=== PATIENT | male | born 1970 | race Caucasian/White ===

== ENCOUNTER 2020-05-11 08:46 | Inpatient (IN) | payer BC, MEDICAID, SELFPAY ==
[2020-05-11] VITALS (14 sets, daily range): BP systolic 97–158; BP diastolic 57–87; PULSE 72–121; RESP 12–28; TEMP 36.6–37.1; O2SAT 84–97; BMI 37.1; BMI 38.5
--- NOTE | 2020-05-11 | XR_ITS ---
EXAMINATION: XR CHEST CLINICAL INFORMATION: Right pneumothorax. Status post right chest tube placement. COMPARISON: 05/11/2020 chest radiograph. TECHNIQUE: Frontal view of the chest was obtained. FINDINGS: Support devices: Interval placement of right sided pigtail catheter with tip terminating laterally in the right apex. There is a persistent tiny right apical pneumothorax measuring approximately 1.8 cm from the superior apical margin. The right lung is otherwise clear. The left lung is clear. The heart and mediastinal structures are unremarkable. There is no significant cardiomediastinal shift. IMPRESSION: 1. Significant interval decrease in size of right pneumothorax with persistent tiny right apical pneumothorax status post right chest tube placement as detailed above.
--- NOTE | 2020-05-11 | XR_ITS ---
EXAMINATION: XR CHEST CLINICAL INFORMATION: Shortness of breath COMPARISON: None TECHNIQUE: Frontal view of the chest was obtained. FINDINGS: The cardiac and mediastinal contours are normal. There is a moderate to large right pneumothorax. The left lung is clear. There is no pleural effusion. Bony structures are unremarkable. IMPRESSION: Moderate to large right pneumothorax. Findings were communicated to Dr. Cotter by telephone on 05/11/2020 at 10:11 AM.
--- NOTE | 2020-05-11 09:33 | ECG_ITS ---
Test Reason : SOB Blood Pressure : / mmHG Vent. Rate : 111 BPM Atrial Rate : 111 BPM P-R Int : 134 ms QRS Dur : 076 ms QT Int : 328 ms P-R-T Axes : 094 057 075 degrees QTc Int : 446 ms Sinus tachycardia Cannot rule out Inferior infarct , age undetermined Abnormal ECG No previous ECGs available Referred By: Joyce España Electronically Signed By:JENNIFER ARANGO
--- NOTE | 2020-05-11 09:45 | ED_ITS ---
HPI - SOB/Dyspnea General Chief Complaint: Upper Respiratory Symptoms <ANNALISE Harrison - Last Filed: 05/11/20 12:23> Stated Complaint: sob <ANNALISE Harrison - Last Filed: 05/11/20 12:23> Time Seen by Provider: 05/11/20 09:25 <ANNALISE Harrison - Last Filed: 05/11/20 12:23> Source: patient <ANNALISE Harrison - Last Filed: 05/11/20 12:23> Mode of arrival: ambulatory <ANNALISE Harrison - Last Filed: 05/11/20 12:23> History of Present Illness HPI Narrative: 50-year-old male with past medical history of COPD presenting to ED compl aining of worsening SOB x2 weeks. Reports was walking in a grocery store when had sudden onset chest pain that radiated across chest with SOB since. SOB worse on exertion. Denies CP since incident. Also reports associated productive cough. Denies chills, fever, recent travel, history of clots, LE edema, sick contacts, exposure to COVID-19 <ANNALISE Harrison - Last Filed: 05/11/20 12:23> Pertinent past history: COPD <ANNALISE Harrison - Last Filed: 05/11/20 12:23> Onset (ago): week(s) (2) <ANNALISE Harrison - Last Filed: 05/11/20 12:23> Timing: constant <ANNALISE Harrison - Last Filed: 05/11/20 12:23> Severity: moderate <ANNALISE Harrison - Last Filed: 05/11/20 12:23> Exacerbating factors: exertion <ANNALISE Harrison - Last Filed: 05/11/20 12:23> Relieving factors: nothing <ANNALISE Harrison - Last Filed: 05/11/20 12:23> Known history of: COPD <ANNALISE Harrison - Last Filed: 05/11/20 12:23> Associated symptoms: chest pain (gone) and cough <ANNALISE Harrison - Last Filed: 05/11/20 12:23> Treatment prior to arrival: none <ANNALISE Harrison - Last Filed: 05/11/20 12:23> Related Data Home oxygen amount: none <ANNALISE Harrison Last Filed: 05/11/20 12:23> Home Medications: Home Medications Medication Instructions Recorded Confirmed No Known Home Meds 05/11/20 05/11/20 <ANNALISE Harrison Last Filed: 05/11/20 12:23> Allergies/Adverse Reactions: Allergies Allergy/AdvReac Type Severity Reaction Status Date / Time No Known Allergies Allergy Verified 05/11/20 09:15 <ANNALISE Harrison Last Filed: 05/11/20 12:23> Review of Systems Review of Systems: Yes all other systems are reviewed and are negative <ANNALISE Harrison Last Filed: 05/11/20 12:23> Constitutional: Constitutional: Reports as per HPI, Denies chills and Denies fever(s) <ANNALISE Harrison Last Filed: 05/11/20 12:23> Eyes: Eyes: Reports as per HPI <ANNALISE Harrison - Last Filed: 05/11/20 12:23> ENT: Reports system reviewed and no additional complaints, except as documented <ANNALISE Harrison Last Filed: 05/11/20 12:23> Cardiovascular: Cardiovascular: Reports chest pain (gone), Denies Epigastric Pain, Denies leg edema, Reports dyspnea and Reports dyspnea on exertion <ANNALISE Harrison - Last Filed: 05/11/20 12:23> Respiratory: Respiratory: Reports chest congestion, Reports cough, Reports excessive phlegm production, Reports dyspnea and Reports dyspnea on exertion <ANNALISE Harrison - Last Filed: 05/11/20 12:23> Gastrointestinal: Gastrointestinal: Reports as per HPI and Denies abdominal pain <ANNALISE Harrison Last Filed: 05/11/20 12:23> Integumentary/Breasts: Skin/Breast: Reports system reviewed and no additional complaints, except as docu <ANNALISE Harrison Last Filed: 05/11/20 12:23> [facility] Past Medical History Attestation statement: The following information was validated with the patient. <ANNALISE Harrison Last Filed: 05/11/20 12:23> Medical History: Medical History (Updated 10/05/20 @ 09:19 by Moraima Tay) COPD (chronic obstructive pulmonary disease) <ANNALISE Harrison - Last Filed: 05/11/20 12:23> Surgical History: Surgical History (Updated 05/11/20 @ 09:20 by Moraima Tay) History of colonoscopy <ANNALISE Harrison - Last Filed: 05/11/20 12:23> Social History Social History: Social History Smoking Status: Current every day smoker Advance Directives: No Advance Directives Information Provided: No <ANNALISE Harrison - Last Filed: 05/11/20 12:23> Physical Exam Vital Signs and I&O and Narrative: Vital Signs and I&O: Vital Signs Temp 98.2 F 05/11/20 09:16 Pulse 121 H 05/11/20 09:16 Resp 20 05/11/20 09:16 BP 151/84 H 05/11/20 09:16 Pulse Ox 97 05/11/20 10:34 Intake & Output 05/10/20 05/11/20 05/11/20 18:59 06:59 18:59 Weight 115 kg Body Mass Index 38.5 <ANNALISE Harrison - Last Filed: 05/11/20 12:23> Vital Signs and I&O: Vital Signs Temp 98.2 F 05/11/20 09:16 Pulse 121 H 05/11/20 09:16 Resp 20 05/11/20 09:16 BP 151/84 H 05/11/20 09:16 Pulse Ox 97 05/11/20 10:34 Intake & Output 05/10/20 05/11/20 05/11/20 18:59 06:59 18:59 Weight 115 kg Body Mass Index 38.5 <Romel Cotter MD - Last Filed: 05/11/20 10:56> Const: General: cooperative <ANNALISE Harrison - Last Filed: 05/11/20 12:23> Orientation/consciousness: patient oriented x3 <ANNALISE Harrison - Last Filed: 05/11/20 12:23> HENMT: Head: Yes normal to inspection <ANNALISE Harrison - Last Filed: 05/11/20 12:23> Eyes: General: appearance normal, both eyes and all related structures <ANNALISE Harrison - Last Filed: 05/11/20 12:23> Neck: Neck: Yes normal visual inspection <ANNALISE Harrison - Last Filed: 05/11/20 12:23> Chest: Chest palpation & inspection: normal inspection of the chest <ANNALISE Harrison - Last Filed: 05/11/20 12:23> Resp: Effort & Inspection: Actively coughing, respiratory distress and uses accessory muscles <ANNALISE Harrison Last Filed: 05/11/20 12:23> Auscultation: rhonchi ( coarse lung sounds throughout) and diminished lung sounds on the right <ANNALISE Harrison - Last Filed: 05/11/20 12:23> Cardio: Rate: tachycardic <ANNALISE Harrison - Last Filed: 05/11/20 12:23> Rhythm: regular rhythm <ANNALISE Harrison - Last Filed: 05/11/20 12:23> Heart sounds: S1 normal heart sound present and S2 normal heart sound present <ANNALISE Harrison - Last Filed: 05/11/20 12:23> GI: Inspection: Yes normal to inspection <ANNALISE Harrison - Last Filed: 05/11/20 12:23> Palpation (GI): Soft to palpation, nontender and not rigid <ANNALISE Harrison - Last Filed: 05/11/20 12:23> Neuro: General: patient oriented x3 <ANNALISE Harrison Last Filed: 05/11/20 12:23> Course Course Course Narrative: -x-ray showed moderate to large right pneumothorax > paving and surfacing labourer place right-sided chest tube in the ED. Patient will be going to ICU -1222-- repeat CXR s/p chest tube placement showing interval decrease in pneumothorax with persistent tiny right apical pneumothorax. Patient does not meet severe sepsis criteria. Vital sign abnormalities from pneumothorax <ANNALISE Harrison Last Filed: 05/11/20 12:23> patient has history of COPD with spontaneous right-sided moderate pneumothorax saturating 84% at room air 97% on 100% non-rebreather. Will place chest tube on the right side. Called paving and surfacing labourer who will be coming to help us <Romel Cotter MD - Last Filed: 05/11/20 10:56> MDM - SOB/Dyspnea MDM Narrative Medical decision making narrative: 50-year-old male with past medical history of COPD presenting to ED complaining of worsening SOB x2 weeks. On exam tachycardic, tachypnea, satting 84% on room air, increased to 95% on 2 L nasal cannula with coarse lung sounds throughout. Concern for COVID-19/viral syndrome vs pneumonia vs pneumothorax vs ACS. Low concern for PE /dissection or CHF low concern for severe sepsis at this time. Likely viral source Plan: EKG, labs, CXR, COVID-19, Solu-Medrol, magnesium, albuterol, admission <ANNALISE Harrison - Last Filed: 05/11/20 12:23> Differential Diagnosis Differential diagnosis: Likely acute exacerbation of chronic obstructive airways disease, dariel estive heart failure, pneumonia, pulmonary embolism and pleural effusion <ANNALISE Harrison - Last Filed: 05/11/20 12:23> Medical Records Attestation: I reviewed the patient's medical records. <ANNALISE Harrison - Last Filed: 05/11/20 12:23> Lab Data Attestation: I reviewed the patient's lab results. <ANNALISE Harrison - Last Filed: 05/11/20 12:23> Result diagrams: : 05/11/20 10:17 05/11/20 10:17 <ANNALISE Harrison - Last Filed: 05/11/20 12:23> Labs: Lab Results 05/11/20 05/11/20 05/11/20 Range/Units 10:17 10:17 10:17 WBC 11.9 H (4.8-10.8) X10*3/uL RBC 5.71 (4.60-5.80) X10*6/uL Hgb 18.6 H (14.0-18.0) g/dl Hct 55.5 H (42-52) % MCV 97.2 (80-98) fL MCH 32.6 (27.0-33.0) pg MCHC 33.5 (31.0-36.0) g/dl RDW 11.9 (11.0-16.0) % Plt Count 166 (160-400) X10*3/uL MPV 11.2 (9.4-12.4) fL Immature Gran % (Auto) 0.3 (0.0-0.4) % Neut % (Auto) 72.3 (45-73) % Lymph % (Auto) 15.8 L (20-40) % Humphreys % (Auto) 9.9 (2-11) % Eos % (Auto) 1.4 (0-4) % Baso % (Auto) 0.3 (0-2) % Neut # (Auto) 8.6 H (2.0-8.3) X10*3/uL Lymph # (Auto) 1.9 (1.2-4.9) X10*3/uL Humphreys # (Auto) 1.2 (0.1-1.2) X10*3/uL Eos # (Auto) 0.2 (0.0-0.4) X10*3/uL Baso # (Auto) 0.0 (0.0-0.2) X10*3/uL Abs Immat Gran (auto) 0.03 (0.00-0.03) X10*3/uL Absolute Nucleated RBC 0.000 (0.0-0.012) X10*3/uL Nucleated RBC % (auto) 0.0 (0.0-0.2) /100WBC Sodium 137 (135-145) mmol/L Potassium 4.0 (3.3-5.1) mmol/l Chloride 96 (96-108) mmol/L Carbon Dioxide 32 H (22-29) mmol/L Anion Gap 13 (12-20) BUN 7 L (9-16) mg/dL Creatinine 0.75 (0.5-1.4) mg/dL Estim Creat Clear Calc 148.2 Estimated GFR > 60 Random Glucose 210 H (60-115) mg/dL Lactic Acid (0.5-2.0) mmol/L Calcium 9.1 (8.4-10.2) mg/dL Magnesium (1.6-2.6) mg/dL Ferritin 281 H (20-250) ng/mL Total Bilirubin 0.5 (0.0-1.0) mg/dL Direct Bilirubin 0.2 (0.0-0.5) mg/dL AST 11 (5-37) U/L ALT 12 (0-40) U/L Alkaline Phosphatase 101 (39-117) U/L Lactate Dehydrogenase 156 (118-273) U/L Troponin I High Sens 4.5 (<3.5-35.0) ng/L B-Natriuretic Peptide 12 (<100) pg/mL Total Protein 7.2 (6.5-8.0) g/dL Albumin 4.1 (3.5-5.0) g/dL Procalcitonin ng/mL 05/11/20 05/11/20 05/11/20 Range/Units 10:17 10:18 10:18 WBC (4.8-10.8) X10*3/uL RBC (4.60-5.80) X10*6/uL Hgb (14.0-18.0) g/dl Hct (42-52) % MCV (80-98) fL MCH (27.0-33.0) pg MCHC (31.0-36.0) g/dl RDW (11.0-16.0) % Plt Count (160-400) X10*3/uL MPV (9.4-12.4) fL Immature Gran % (Auto) (0.0-0.4) % Neut % (Auto) (45-73) % Lymph % (Auto) (20-40) % Humphreys % (Auto) (2-11) % Eos % (Auto) (0-4) % Baso % (Auto) (0-2) % Neut # (Auto) (2.0-8.3) X10*3/uL Lymph # (Auto) (1.2-4.9) X10*3/uL Humphreys # (Auto) (0.1-1.2) X10*3/uL Eos # (Auto) (0.0-0.4) X10*3/uL Baso # (Auto) (0.0-0.2) X10*3/uL Abs Immat Gran (auto) (0.00-0.03) X10*3/uL Absolute Nucleated RBC (0.0-0.012) X10*3/uL Nucleated RBC % (auto) (0.0-0.2) /100WBC Sodium (135-145) mmol/L Potassium (3.3-5.1) mmol/l Chloride (96-108) mmol/L Carbon Dioxide (22-29) mmol/L Anion Gap (12-20) BUN (9-16) mg/dL Creatinine (0.5-1.4) mg/dL Estim Creat Clear Calc Estimated GFR Random Glucose (60-115) mg/dL Lactic Acid 1.0 (0.5-2.0) mmol/L Calcium (8.4-10.2) mg/dL Magnesium 2.0 (1.6-2.6) mg/dL Ferritin (20-250) ng/mL Total Bilirubin (0.0-1.0) mg/dL Direct Bilirubin (0.0-0.5) mg/dL AST (5-37) U/L ALT (0-40) U/L Alkaline Phosphatase (39-117) U/L Lactate Dehydrogenase (118-273) U/L Troponin I High Sens (<3.5-35.0) ng/L B-Natriuretic Peptide (<100) pg/mL Total Protein (6.5-8.0) g/dL Albumin (3.5-5.0) g/dL Procalcitonin 0.02 ng/mL <ANNALISE Harrison - Last Filed: 05/11/20 12:23> Lab Results 05/11/20 05/11/20 05/11/20 Range/Units 10:17 10:17 10:17 WBC 11.9 H (4.8-10.8) X10*3/uL RBC 5.71 (4.60-5.80) X10*6/uL Hgb 18.6 H (14.0-18.0) g/dl Hct 55.5 H (42-52) % MCV 97.2 (80-98) fL MCH 32.6 (27.0-33.0) pg MCHC 33.5 (31.0-36.0) g/dl RDW 11.9 (11.0-16.0) % Plt Count 166 (160-400) X10*3/uL MPV 11.2 (9.4-12.4) fL Immature Gran % (Auto) 0.3 (0.0-0.4) % Neut % (Auto) 72.3 (45-73) % Lymph % (Auto) 15.8 L (20-40) % Humphreys % (Auto) 9.9 (2-11) % Eos % (Auto) 1.4 (0-4) % Baso % (Auto) 0.3 (0-2) % Neut # (Auto) 8.6 H (2.0-8.3) X10*3/uL Lymph # (Auto) 1.9 (1.2-4.9) X10*3/uL Humphreys # (Auto) 1.2 (0.1-1.2) X10*3/uL Eos # (Auto) 0.2 (0.0-0.4) X10*3/uL Baso # (Auto) 0.0 (0.0-0.2) X10*3/uL Abs Immat Gran (auto) 0.03 (0.00-0.03) X10*3/uL Absolute Nucleated RBC 0.000 (0.0-0.012) X10*3/uL Nucleated RBC % (auto) 0.0 (0.0-0.2) /100WBC Sodium 137 (135-145) mmol/L Potassium 4.0 (3.3-5.1) mmol/l Chloride 96 (96-108) mmol/L Carbon Dioxide 32 H (22-29) mmol/L Anion Gap 13 (12-20) BUN 7 L (9-16) mg/dL Creatinine 0.75 (0.5-1.4) mg/dL Estim Creat Clear Calc 148.2 Estimated GFR > 60 Random Glucose 210 H (60-115) mg/dL Lactic Acid (0.5-2.0) mmol/L Calcium 9.1 (8.4-10.2) mg/dL Magnesium (1.6-2.6) mg/dL Ferritin 281 H (20-250) ng/mL Total Bilirubin 0.5 (0.0-1.0) mg/dL Direct Bilirubin 0.2 (0.0-0.5) mg/dL AST 11 (5-37) U/L ALT 12 (0-40) U/L Alkaline Phosphatase 101 (39-117) U/L Lactate Dehydrogenase 156 (118-273) U/L Troponin I High Sens 4.5 (<3.5-35.0) ng/L B-Natriuretic Peptide 12 (<100) pg/mL Total Protein 7.2 (6.5-8.0) g/dL Albumin 4.1 (3.5-5.0) g/dL Procalcitonin ng/mL 05/11/20 05/11/20 05/11/20 Range/Units 10:17 10:18 10:18 WBC (4.8-10.8) X10*3/uL RBC (4.60-5.80) X10*6/uL Hgb (14.0-18.0) g/dl Hct (42-52) % MCV (80-98) fL MCH (27.0-33.0) pg MCHC (31.0-36.0) g/dl RDW (11.0-16.0) % Plt Count (160-400) X10*3/uL MPV (9.4-12.4) fL Immature Gran % (Auto) (0.0-0.4) % Neut % (Auto) (45-73) % Lymph % (Auto) (20-40) % Humphreys % (Auto) (2-11) % Eos % (Auto) (0-4) % Baso % (Auto) (0-2) % Neut # (Auto) (2.0-8.3) X10*3/uL Lymph # (Auto) (1.2-4.9) X10*3/uL Humphreys # (Auto) (0.1-1.2) X10*3/uL Eos # (Auto) (0.0-0.4) X10*3/uL Baso # (Auto) (0.0-0.2) X10*3/uL Abs Immat Gran (auto) (0.00-0.03) X10*3/uL Absolute Nucleated RBC (0.0-0.012) X10*3/uL Nucleated RBC % (auto) (0.0-0.2) /100WBC Sodium (135-145) mmol/L Potassium (3.3-5.1) mmol/l Chloride (96-108) mmol/L Carbon Dioxide (22-29) mmol/L Anion Gap (12-20) BUN (9-16) mg/dL Creatinine (0.5-1.4) mg/dL Estim Creat Clear Calc Estimated GFR Random Glucose (60-115) mg/dL Lactic Acid 1.0 (0.5-2.0) mmol/L Calcium (8.4-10.2) mg/dL Magnesium 2.0 (1.6-2.6) mg/dL Ferritin (20-250) ng/mL Total Bilirubin (0.0-1.0) mg/dL Direct Bilirubin (0.0-0.5) mg/dL AST (5-37) U/L ALT (0-40) U/L Alkaline Phosphatase (39-117) U/L Lactate Dehydrogenase (118-273) U/L Troponin I High Sens (<3.5-35.0) ng/L B-Natriuretic Peptide (<100) pg/mL Total Protein (6.5-8.0) g/dL Albumin (3.5-5.0) g/dL Procalcitonin 0.02 ng/mL <Romel Cotter MD - Last Filed: 05/11/20 10:56> Discharge Plan Discharge Prescriptions: No Action No Known Home Meds RF: 0 <ANNALISE Harrison - Last Filed: 05/11/20 12:23>
[2020-05-11 10:24] LABS: MANUAL DIFF FLAG NO
[2020-05-11 10:27] LABS: Basophils Percent Auto 0.3 % (0-2); Eosinophils Absolute Auto 0.2 X10*3/uL (0.0-0.4); Eosinophils Percent Auto 1.4 % (0-4); Hemoglobin 18.6 g/dl (14.0-18.0); Imm Gran Abs Auto 0.03 X10*3/uL (0.00-0.03); Imm Gran Pct Auto 0.3 % (0.0-0.4); Lymphocytes Absolute Auto 1.9 X10*3/uL (1.2-4.9); Lymphocytes Percent Auto 15.8 % (20-40); Mean Corpuscular HGB Conc 33.5 g/dl (31.0-36.0); Mean Corpuscular Hemoglobin 32.6 pg (27.0-33.0); Mean Corpuscular Volume 97.2 fL (80-98); Mean Platelet Volume 11.2 fL (9.4-12.4); Monocytes Absolute Auto 1.2 X10*3/uL (0.1-1.2); Monocytes Percent Auto 9.9 % (2-11); Neutrophils Absolute Auto 8.6 X10*3/uL (2.0-8.3); Neutrophils Percent Auto 72.3 % (45-73); Platelet Count 166 X10*3/uL (160-400); Red Blood Count 5.71 X10*6/uL (4.60-5.80); Red Cell Distribution Width 11.9 % (11.0-16.0); White Blood Count 11.9 X10*3/uL (4.8-10.8)
[2020-05-11] MEDS: Magnesium Sulfate/H2O 2 GM/50 ML PIGGYBACK IV (10:27)
[2020-05-11] MEDS: methylPREDNISolone Sod Succ/PF 125 MG/2 ML VIAL IVPUSH (10:28)
[2020-05-11] MEDS: 0.9 % Sodium Chloride 500 ML 999 ML IVCONT (10:29)
[2020-05-11 10:32] LABS: Hematocrit 55.5 % (42-52)
--- NOTE | 2020-05-11 10:49 | PC.NURSE ---
PT A&OX3. PLACED ON NONREBREATHER. 20G IN L AC, MEDICATED PER EMR. EXP WHEEZING HEARD THROUGHOUT, SOB AT REST, MILD IC RETRACTIONS. CHEST TUBE TO BE PLACED BY [employer] OFFICER.
[2020-05-11] MEDS: Lidocaine HCl 1 % 20 ML VIAL SUBCUT ×2 (10:53→11:00)
[2020-05-11 10:55] LABS: Alanine Aminotransferase 12 U/L (0-40); Albumin Level 4.1 g/dL (3.5-5.0); Alkaline Phosphatase 101 U/L (39-117); Anion Gap 13 (12-20); Aspartate Amino Transferase 11 U/L (5-37); Bilirubin Direct 0.2 mg/dL (0.0-0.5); Bilirubin Total 0.5 mg/dL (0.0-1.0); Blood Urea Nitrogen 7 mg/dL (9-16); Calcium 9.1 mg/dL (8.4-10.2); Carbon Dioxide 32 mmol/L (22-29); Chloride 96 mmol/L (96-108); Creatinine Clr Calc Pharmacy 148.2; Estimated Glomerular Filt Rate > 60; Glucose Random 210 mg/dL (60-115); Lactate Dehydrogenase 156 U/L (118-273); Sodium 137 mmol/L (135-145); Total Protein 7.2 g/dL (6.5-8.0)
[2020-05-11 10:57] LABS: B Type Natriuretic Peptide 12 pg/mL (<100); Troponin-I High Sensitivity 4.5 ng/L (<3.5-35.0)
[2020-05-11 11:17] LABS: Ferritin 281 ng/mL (20-250)
[2020-05-11 11:18] LABS: Procalcitonin 0.02 ng/mL
--- NOTE | 2020-05-11 11:48 | PC.NURSE ---
CHEST TUBE INSERTED AND SECURED. CXR ORDER IN. PROCEDURE WELL TOLERATED BY PT. REMAINS A&OX3. REPORTING IMPROVEMENT IN WORK OF BREATHING.
--- NOTE | 2020-05-11 11:57 | PC.NURSE ---
CHEST TUBE MGMT ASSESSMENT GENERATING IRRELEVANT ASSESSMENTS. IT NOTIFIED.
--- NOTE | 2020-05-11 12:30 | P.HPCC_ITS ---
History of Present Illness Date of Service: 05/11/20 <Joyce España MD - Last Filed: 05/13/20 18:08> Chief Complaint: shortness of breath and pleuritic chest pain <Joyce España MD - Last Filed: 05/13/20 18:08> 50-year-old ongoing smoker with chronic continuous alcohol habit is well on no medications with no standing diagnosis but has COPD for which he is not oxygen-dependent but dependent on bronchodilators only noted a spontaneous onset of of severe abrupt chest and hypo con DrCatherine Russell pain with shortness of breath which was getting progressively worse over 2 weeks no associated fever chills no sputum production no sore throat <Joyce España MD - Last Filed: 05/13/20 18:08> Review of Systems Review of Systems: Yes all other systems are reviewed and are negative <Joyce España MD - Last Filed: 05/13/20 18:08> [facility] Past Medical History Medical History: Medical History COPD (chronic obstructive pulmonary disease) <Joyce España MD - Last Filed: 05/13/20 18:08> Cognitive capacity: normal <Joyce España MD - Last Filed: 05/13/20 18:08> Functional capacity: independent ambulation <Joyce España MD - Last Filed: 05/13/20 18:08> Family History Pertinent family history: none <Joyce España MD - Last Filed: 05/13/20 18:08> Surgical History Surgical History: Surgical History History of colonoscopy <Joyce España MD - Last Filed: 05/13/20 18:08> Social History Social History: Social History Household Members: Spouse Housing: House Smoking Status: Current every day smoker Tobacco Type: Cigarette Packs Per Day: 0.5 Cigarettes Per Day: 10.0 Years Smoked: 30 Smoked in Last 30 Days: Yes Patient Interested in Nicotine Replacement: Yes Use of substances other than those prescribed or required for medical reasons: Yes Substance Use Type: Crack/Cocaine Substance Use Frequency: Occasionally Last Used Substance: Weeks (ago) Currently Displaying Signs/Symptoms of Drug Intoxication Withdrawal: No Any prior treatment program specific to substance use: No Have you been hit, kicked, punched, or otherwise hurt by someone within the past year? If so, by whom?: No Do you feel safe in your current relationship?: Yes Is there a partner from a previous relationship who is making you feel unsafe now?: No Are you made to feel afraid or neglected: No Spiritual Healthcare Practices: no [facility] Healthcare Practices: no Cultural Healthcare Practices: no Advance Directives: No Advance Directives Information Provided: No Do you have thoughts of harming others: None Do you have a plan to hurt others: No Plan Recently lost weight without trying: No service: No Current occupational status: employed <Joyce España MD - Last Filed: 05/13/20 18:08> Travel History Ebola Risk: Travel/Contact With Anyone From Affected Area/s: No <Joyce España MD - Last Filed: 05/13/20 18:08> Has Patient Experienced Ebola Symptoms: No <Joyce España MD - Last Filed: 05/13/20 18:08> I have personally reviewed the patient's Ebola risk: Yes <Joyce España MD - Last Filed: 05/13/20 18:08> History of recent travel: No <Joyce España MD - Last Filed: 05/13/20 18:08> Recent Travel in [facility] Within the Last 8 Weeks: No <Joyce España MD - Last Filed: 05/13/20 18:08> Recent Out of Country Travel Within the Last 8 Weeks: No <Joyce España MD - Last Filed: 05/13/20 18:08> Exposure or Possible Exposure to Illness During Travel: No <Joyce España MD - Last Filed: 05/13/20 18:08> History of Being in a Healthcare Facility as a Patient, Worker, or Visitor during Travel: No <Joyce España MD - Last Filed: 05/13/20 18:08> Medical Treatment Received for Symptoms/Illness Related to Travel: No <Joyce España MD - Last Filed: 05/13/20 18:08> Meds Allergies/Adverse reactions: Allergies Allergy/AdvReac Type Severity Reaction Status Date / Time No Known Allergies Allergy Verified 05/11/20 09:15 <Joyce España MD - Last Filed: 05/13/20 18:08> Home medications: Home Medications Medication Instructions Recorded Confirmed Type No Known Home Meds 05/11/20 05/11/20 History <Joyce España MD - Last Filed: 05/13/20 18:08> Physical Exam Vital Signs and I&O and Narrative: Vital Signs and I&O: Vital Signs Temp 98.2 F 05/11/20 09:16 Pulse 121 H 05/11/20 09:16 Resp 20 05/11/20 09:16 BP 151/84 H 05/11/20 09:16 Pulse Ox 97 05/11/20 10:34 Intake & Output 05/10/20 05/11/20 05/11/20 18:59 06:59 18:59 Intake Total 550 / 550 Balance 550 / 550 Weight 115 kg Intake: Intake, IV Amoun t 550 / 550 Magnesium Sulf ate/H2O 2 gm In 50 / 50 50 ml @ 50 mls /hr IV ONCE ONE Rx#:[id number] 0.9 % Sodium C hloride 500 ml @ 500 / 500 999 mls/hr IVC ONT .Q31M NINA Rx# :[id number] Body Mass Index 38.5 <Joyce España MD - Last Filed: 05/13/20 18:08> physical exam is otherwise normal noted to be in [id number] distress with mild tachypnea oxygen saturations on room air 84% but improved to 91% on 100% non-rebreather no use of accessory muscles and patient's skin was dry no diaphoresis no rash neurologically intact with normal mental status and cognitive function neurologically intact and nonfocal cardiac exam with normal S1 and normal S2 with no gallops no murmurs and good bilateral carotid upstrokes with no bruits no neck vein distension so there is no implication of at tamponade chest with diminished breath sounds bilaterally but more tympanitic on the right side and chest x-ray confirmed a 30% pneumothorax on the right side abdomen obese but no organomegaly no tenderness extremities no clubbing and no cyanosis and no significant edema <Joyce España MD - Last Filed: 05/13/20 18:08> Results Labs Labs: Laboratory Tests 05/11/20 05/11/20 05/11/20 10:17 10:17 10:17 WBC 11.9 H RBC 5.71 Hgb 18.6 H Hct 55.5 H MCV 97.2 MCH 32.6 MCHC 33.5 RDW 11.9 Plt Count 166 MPV 11.2 Immature Gran % (Auto) 0.3 Neut % (Auto) 72.3 Lymph % (Auto) 15.8 L [place] % (Auto) 9.9 Eos % (Auto) 1.4 Baso % (Auto) 0.3 Neut # (Auto) 8.6 H Lymph # (Auto) 1.9 [place] # (Auto) 1.2 Eos # (Auto) 0.2 Baso # (Auto) 0.0 Abs Immat Gran (auto) 0.03 Absolute Nucleated RBC 0.000 Nucleated RBC % (auto) 0.0 Sodium 137 Potassium 4.0 Chloride 96 Carbon Dioxide 32 H Anion Gap 13 BUN 7 L Creatinine 0.75 Estim Creat Clear Calc 148.2 Estimated GFR > 60 Random Glucose 210 H Lactic Acid Calcium 9.1 Magnesium Ferritin 281 H Total Bilirubin 0.5 Direct Bilirubin 0.2 AST 11 ALT 12 Alkaline Phosphatase 101 Lactate Dehydrogenase 156 Troponin I High Sens 4.5 B-Natriuretic Peptide 12 Total Protein 7.2 Albumin 4.1 Procalcitonin 05/11/20 05/11/20 05/11/20 10:17 10:18 10:18 WBC RBC Hgb Hct MCV MCH MCHC RDW Plt Count MPV Immature Gran % (Auto) Neut % (Auto) Lymph % (Auto) [place] % (Auto) Eos % (Auto) Baso % (Auto) Neut # (Auto) Lymph # (Auto) [place] # (Auto) Eos # (Auto) Baso # (Auto) Abs Immat Gran (auto) Absolute Nucleated RBC Nucleated RBC % (auto) Sodium Potassium Chloride Carbon Dioxide Anion Gap BUN Creatinine Estim Creat Clear Calc Estimated GFR Random Glucose Lactic Acid 1.0 Calcium Magnesium 2.0 Ferritin Total Bilirubin Direct Bilirubin AST ALT Alkaline Phosphatase Lactate Dehydrogenase Troponin I High Sens B-Natriuretic Peptide Total Protein Albumin Procalcitonin 0.02 <Joyce España MD - Last Filed: 05/13/20 18:08> ECG Attestation: I personally reviewed and interpreted this ECG as follows: <Joyce España MD - Last Filed: 05/13/20 18:08> ECG interpretation date: 05/11/20 <Joyce España MD - Last Filed: 05/13/20 18:08> ECG interpretation time: 12:40 <Joyce España MD - Last Filed: 05/13/20 18:08> Prior ECG tracings: not available for review <Joyce España MD - Last Filed: 05/13/20 18:08> Interpretation: sinus tachycardia and completely within normal limits <Joyce España MD - Last Filed: 05/13/20 18:08> Imaging Chest x-ray: Attestation: I personally reviewed and interpreted this imaging study as follows: <Joyce España MD - Last Filed: 05/13/20 18:08> My impression: chest x-ray 1. 30% pneumothorax 2. completely resolved pneumothorax 100% re-expanded chest tube in perfect position <Joyce España MD - Last Filed: 05/13/20 18:08> Assessment and Plan (1) Pneumothorax: Qualifiers: Pneumothorax type: spontaneous, primary Qualified Code(s): J93.11 - Primary spontaneous pneumothorax <Joyce España MD - Last Filed: 05/13/20 18:08> Status: Acute <Joyce España MD - Last Filed: 05/13/20 18:08> chest tube to water-seal drainage and follow until there is no longer evidence of leak possible CT scan to rule out other pathology p.r.n. supplemental oxygen and bronchodilators no need for antibiotics at this point <Joyce España MD - Last Filed: 05/13/20 18:08> (2) COPD (chronic obstructive pulmonary disease): Qualifiers: COPD type: COPD with acute exacerbation Qualified Code(s): J44.1 - Chronic obstructive pulmonary disease with (acute) exacerbation <Joyce España MD - Last Filed: 05/13/20 18:08> Status: Acute <Joyce España MD - Last Filed: 05/13/20 18:08>
[2020-05-11 13:06] LABS: Pt Ventilation O2% Venous 7 L
[2020-05-11 13:09] LABS: Basophils Percent Auto 0.3 % (0-2); Eosinophils Percent Auto 0.3 % (0-4); Hemoglobin 18.8 g/dl (14.0-18.0); Imm Gran Abs Auto 0.03 X10*3/uL (0.00-0.03); Imm Gran Pct Auto 0.3 % (0.0-0.4); Lymphocytes Absolute Auto 0.7 X10*3/uL (1.2-4.9); MANUAL DIFF FLAG SCAN; Mean Corpuscular HGB Conc 33.6 g/dl (31.0-36.0); Mean Corpuscular Hemoglobin 32.6 pg (27.0-33.0); Mean Platelet Volume 11.2 fL (9.4-12.4); Monocytes Absolute Auto 0.3 X10*3/uL (0.1-1.2); Monocytes Percent Auto 2.5 % (2-11); Neutrophils Absolute Auto 10.4 X10*3/uL (2.0-8.3); Neutrophils Percent Auto 90.6 % (45-73); Platelet Count 172 X10*3/uL (160-400); Red Blood Count 5.76 X10*6/uL (4.60-5.80); Red Cell Distribution Width 11.9 % (11.0-16.0); SCAN SMEAR FLAG 1; White Blood Count 11.5 X10*3/uL (4.8-10.8)
[2020-05-11 13:13] LABS: pH VBG 7.26 (7.32-7.43)
[2020-05-11 13:14] LABS: HCO3 VBG 38 mmol/L; Hematocrit 55.9 % (42-52); Oxygen Saturation VBG 90.7 %; PCO2 VBG 86 mmhg; PO2 VBG 62 mmhg; Prothrombin Time 12.4 SEC (10.8-13.0)
[2020-05-11 13:18] LABS: Partial Thromboplastin Time 33.6 SEC (24.1-38.0)
--- NOTE | 2020-05-11 13:18 | PC.NURSE ---
daughter mago updated as requested by patient. pt continues to be in NAD, requesting food and drink. chest tube settings as ordered, no suction per MD. awaiting room in ICU.
[2020-05-11 13:34] LABS: Alanine Aminotransferase 13 U/L (0-40); Albumin Level 4.1 g/dL (3.5-5.0); Alkaline Phosphatase 106 U/L (39-117); Anion Gap 11 (12-20); Aspartate Amino Transferase 10 U/L (5-37); Bilirubin Total 0.4 mg/dL (0.0-1.0); Blood Urea Nitrogen 7 mg/dL (9-16); Calcium 8.9 mg/dL (8.4-10.2); Carbon Dioxide 36 mmol/L (22-29); Chloride 96 mmol/L (96-108); Creatinine Clr Calc Pharmacy 144.4; Estimated Glomerular Filt Rate > 60; Glucose Random 191 mg/dL (60-115); Magnesium 2.4 mg/dL (1.6-2.6); Potassium 4.3 mmol/l (3.3-5.1); Sodium 139 mmol/L (135-145); Total Protein 7.3 g/dL (6.5-8.0)
[2020-05-11 13:42] LABS: SLIDE REVIEW VERIFIED
[2020-05-11] MEDS: HYDROmorphone HCl 0.5 MG/0.5 ML SYRINGE IVPUSH ×2 (14:05→20:41)
--- NOTE | 2020-05-11 14:15 | PC.NURSE ---
PT ON REBREATHER AT 7L O2, 93%. PT MEDICATED FOR PAIN. COVID SPECIMEN OBTAINED.
--- NOTE | 2020-05-11 15:42 | PC.NURSE ---
report given to laila TRACK MACHINE OPERATOR REPAIRER. PT transported
[2020-05-11] MEDS: 0.9 % Sodium Chloride Flush 3 ML SYRINGE 2 ML IVFLUSH ×2 (15:44→20:42)
[2020-05-11] MEDS: 0.9 % Sodium Chloride 1,000 ML 50 ML IVCONT (15:47)
[2020-05-11 17:08] LABS: Glucose Urine UA >=1000 MG/DL (NEG); Leukocyte Esterase Urine NEG (NEG); Nitrite Urine NEG (NEG); Specific Gravity - Urine 1.025 (1.005-1.025); Urine Blood NEG (NEG); Urine Ketones 40 MG/DL (NEG); Urine Protein TRACE MG/DL (NEG-TRACE)
[2020-05-11 17:10] LABS: Appearance Urine CLEAR; Color Urine YELLOW
[2020-05-11 17:38] LABS: Mucus Urine 2+ /LPF; RBC Urine 0 /HPF (0); Squamous Epithelial Cell Urine TRACE /LPF; WBC Urine 0-2 /HPF (0-4)
[2020-05-11] MEDS: LORazepam 1 MG TABLET PO (17:42)
[2020-05-11] MEDS: Insulin Lispro 100 UNIT/ML 3 ML VIAL SUBCUT (18:17)
[2020-05-11 19:13] LABS: Glucose, Whole Blood 405 mg/dL (60-115)
[2020-05-11 19:13] LABS: Glucose, Whole Blood 359 mg/dL (60-115)
[2020-05-11] MEDS: Famotidine/PF 20 MG/2 ML VIAL IVPUSH (20:31)
[2020-05-11] MEDS: Insulin Lispro 100 UNIT/ML 3 ML VIAL 12 UNIT SUBCUT (20:31)
[2020-05-11 21:10] LABS: Glucose, Whole Blood 327 mg/dL (60-115)
[2020-05-11 22:32] LABS: Glucose, Whole Blood 239 mg/dL (60-115)
[2020-05-12] VITALS (28 sets, daily range): BP systolic 110–155; BP diastolic 35–99; PULSE 70–115; RESP 14–27; TEMP 35.8–37.3; O2SAT 90–96; BMI 22.9; BMI 38.5; BMI 38.8
--- NOTE | 2020-05-12 | XR_ITS ---
EXAMINATION: PORTABLE CHEST 1 VIEW CLINICAL INFORMATION: chest tube . COMPARISON: 05/11/2020. TECHNIQUE: Portable frontal view of the chest was obtained. FINDINGS: Lungs well-expanded. Tiny right apical pneumothorax is seen with apically directed right-sided chest tube in place. This pneumothorax is decreased in size from the prior study. There is a markings likely reflecting a component of atelectasis. No significant effusion, or edema. Cardiac and mediastinal silhouettes within normal limits for size. No acute bony abnormality. IMPRESSION: Decreased small right apical pneumothorax with right-sided chest tube in place
--- NOTE | 2020-05-12 | CT_ITS ---
EXAMINATION: CT ANGIOGRAM OF THE CHEST WITH AND WITHOUT CONTRAST (CT PULMONARY ANGIOGRAM FOR PE) CLINICAL INFORMATION: Hypoxemic respiratory failure. COMPARISON: Prior chest x-rays, including chest x-ray earlier today. TECHNIQUE: Prior to contrast administration, noncontrast localization images were obtained. Subsequently, multidetector volumetric imaging was performed from the thoracic inlet to below the diaphragms following the administration of 100 mL Omnipaque 350 intravenous contrast. No contrast reaction reported. Sagittal, coronal, and MIP oblique sagittal reformatted images were obtained on the CT workstation, uploaded to PACS, and reviewed. This CT examination was performed using dose optimization techniques as appropriate, variously including the following: *Automated exposure control *Adjustment of mA and/or kV according to patient size (this includes techniques or standardized protocols for targeted exams where dose is matched to indication/reason for exam; i.e. extremities or head) *Use of iterative reconstruction technique Total exam dose-length product 182 mGy-cm FINDINGS: PULMONARY ARTERIES: Evaluation is limited by timing of contrast opacification. No large central pulmonary embolus is seen. Limited evaluation of the more distal vasculature. THORACIC AORTA: Normal caliber aorta. LUNG: Right-sided chest tube. There is air seen in the soft tissues along the chest wall in this region. No significant pneumothorax is seen. Emphysematous changes in the right lung apex. Airspace opacities in the posterior aspect of bilateral lower lungs, left greater than right, from atelectasis or infiltrate. Airspace opacity in the posterior aspect right upper lobe, as well as ground-glass opacities in the left lower lobe could reflect inflammatory or infectious process. PLEURA: No pleural effusion or pneumothorax. MEDIASTINUM: Normal heart size. No pericardial effusion. No pathologically enlarged lymph nodes are seen in the mediastinum or romina. No evidence of septal bowing or right heart strain. CHEST WALL/AXILLA: No axillary or internal mammary lymphadenopathy. OSSEOUS STRUCTURES: No acute or suspicious osseous abnormality. UPPER ABDOMEN: No acute findings. No reflux of contrast into the hepatic veins to suggest elevated right heart pressures. IMPRESSION: 1. No central pulmonary embolus is seen. Limited evaluation of the more distal vasculature. 2. Right-sided chest tube. No evidence of significant pneumothorax. 3. Right upper lobe emphysematous changes. Airspace opacities in bilateral lower lungs, from atelectasis or pneumonia. Airspace opacity in the posterior aspect right upper lobe, hazy opacification in the left lower lobe, could represent inflammatory or infectious process in the appropriate clinical circumstance. VTE: Negative
[2020-05-12 00:11] LABS: Glucose, Whole Blood 215 mg/dL (60-115)
[2020-05-12] MEDS: Acetaminophen 325 MG TABLET 650 MG PO (04:10)
[2020-05-12 04:19] LABS: Estimated Average Glucose 194 mg/dL; Hemoglobin A1c % 8.4 %
[2020-05-12 04:54] LABS: Glucose, Whole Blood 159 mg/dL (60-115)
[2020-05-12 06:00] LABS: Baso%MD 0.1 %; Hematocrit 51.8 % (42-52); IG%MD 0.4 %; Lymph%MD 6.8 %; Mean Corpuscular HGB Conc 32.8 g/dl (31.0-36.0); Mean Corpuscular Hemoglobin 32.6 pg (27.0-33.0); Mean Corpuscular Volume 99.2 fL (80-98); Mean Platelet Volume 11.1 fL (9.4-12.4); Mono%MD 8.2 %; Neut%MD 84.5 %; Platelet Count 190 X10*3/uL (160-400); Red Blood Count 5.22 X10*6/uL (4.60-5.80); Red Cell Distribution Width 11.9 % (11.0-16.0); White Blood Count 17.1 X10*3/uL (4.8-10.8)
[2020-05-12 06:15] LABS: HCO3 VBG 35 mmol/L; PCO2 VBG 74 mmhg; PO2 VBG 75 mmhg; pH VBG 7.29 (7.32-7.43)
[2020-05-12 06:16] LABS: Oxygen Saturation VBG 94.4 %
[2020-05-12 06:20] LABS: Anion Gap 11 (12-20); Blood Urea Nitrogen 11 mg/dL (9-16); Calcium 8.7 mg/dL (8.4-10.2); Carbon Dioxide 37 mmol/L (22-29); Chloride 98 mmol/L (96-108); Creatinine Clr Calc Pharmacy 152.3; Estimated Glomerular Filt Rate > 60; Glucose Random 164 mg/dL (60-115); Magnesium 2.3 mg/dL (1.6-2.6); Phosphorus 5.8 mg/dL (2.7-4.5); Potassium 4.8 mmol/l (3.3-5.1); Sodium 141 mmol/L (135-145)
--- NOTE | 2020-05-12 06:48 | PC.NURSE ---
Pt afebrile. NSR on tele, HR 70-90s. SBP 120-140s. Oxygen titrated as tolerated, currently on 12L/50% venti mask. Easily desats to 80s when removed. Pt denies SOB. Chest tube to R chest, dsg C/D/I, no crepitus, to gravity/water seal. At approx 0100, +5 air leak, PA notified, no change in clinical presentation. +1 leak this AM. Repeat pCXR done. C/o site pain, given PRN dilaudid x1 with good effect. skin intact. Encouraged TCDB.
--- NOTE | 2020-05-12 07:38 | MHC.CDI.CONC ---
CDI Concurrent Query Service Date: 05/13/20 Documentation Clarification: Please clarify if you are treating a probable/suspected/likely or confirmed: Acute respiratory failure, poa, resolved, txt, not txt Please specify if known Provider Response: Acute Respiratory Failure PLEASE DO NOT DELETE/MODIFY EXISTING CONTENT Additional information is needed in order to code to the highest accuracy and appropriate Severity of Illness (SOI). Please clarify the information noted below in your progress notes and discharge summary. Risk Factors/Clinical Indicators/Treatments Ed: SOB, pleuritic chest pain for 2 wks., rhonchi, coarse lung sounds, respiratory distress using accessory muscles with history of COPD worsening SOB, tachycardic, tachypnea, sat 84% room air, increased to 95% on 2 liters NC w coarse lung sounds throughout w RR //22 HR 121 Pulse ox 93 wbc 17.1 COPD exacerbation Smoker, [place] CDS: Elvira Wagner CCS, CDIS Contact Number: [phone] Please Review the information above and exercise your independent professional judgment in responding to the query. If you concur, pleas document in the PROGRESS NOTES and DISCHARGE SUMMARY. If you do not agree with the query, please document in the query above. THIS QUERY IS PART OF THE PERMANENT MEDICAL RECORD
[2020-05-12 07:46] LABS: Glucose, Whole Blood 409 mg/dL (60-115)
[2020-05-12] MEDS: Famotidine/PF 20 MG/2 ML VIAL IVPUSH ×2 (08:33→20:03)
[2020-05-12] MEDS: predniSONE 20 MG TABLET 40 MG PO (08:33)
[2020-05-12] MEDS: Docusate Sodium 100 MG CAPSULE PO ×2 (08:33→20:07)
[2020-05-12] MEDS: 0.9 % Sodium Chloride Flush 3 ML SYRINGE 2 ML IVFLUSH ×3 (08:34→23:23)
--- NOTE | 2020-05-12 08:47 | P.CONGS_ITS ---
History of Present Illness Consult details Consult date: 05/12/20 Reason for consult: chest tube (Right pnumothorax) Requesting physician: Joyce España Narrative: Patient is a 50-year-old male non-smoker with a past medical history of chronic alcohol abuse, COPD current and lifelong smoker who presented to the emergency department complaining of 2 weeks of worsening shortness of breath and right-sided chest pain. Patient denies fevers, chills, body aches states that he has a chronic productive cough of pale yellow sputum. Upon arrival to the emergency department patient was found to be hypoxic and was placed on a nonrebreather which improved his oxygen saturations, chest x-ray was performed which shows a moderate to large right-sided pneumothorax. A right-sided pigtail catheter was placed by Dr. España at bedside, a second chest x-ray was obtained which showed near complete resolution of right sided pneumothorax and p atient was admitted to medical ICU for hypoxic respiratory failure. Thoracic surgery was consulted for assistance in management of right-sided chest tube. Patient was seen and examined this morning by myself. Patient continues on a 55% Ventimask with oxygen saturations ranging from 90 to 94%. Several trials of weaning patient to room air have occurred however patient desaturated in low 80s. Patient states that since insertion of his chest tube his shortness of breath has improved but still complains of some dyspnea. Chest tube remained on waterseal overnight with minimal output approximately 5 cc of serosanguineous fluid and no air leak detected. Patient is due to have a chest CT which is scheduled for this morning to rule out PE or other pulmonary process which may be contributing to patient's continued hypoxemia. Review of Systems Constitutional: Constitutional: Reports headache(s) Eyes: Eyes: Denies change in vision ENT: Reports headache(s), Denies nasal congestion and Denies sore throat Cardiovascular: Cardiovascular: Denies chest pain, Denies diaphoresis, Denies lightheadedness and Reports dyspnea on exertion Respiratory: Respiratory: Reports cough, Denies hemoptysis, Reports pain with cough (surrounding chest tube site) and Reports dyspnea on exertion Gastrointestinal: Gastrointestinal: Denies abdominal pain, Denies constipation and Denies diarrhea Genitourinary: Genitourinary: Denies difficulty urinating Neurologic: Reports headache(s) PMFSH Past Medical History Medical History COPD (chronic obstructive pulmonary disease) Functional capacity: independent ambulation Surgical History Surgical History History of colonoscopy Social History Social History Household Members: Spouse Housing: House Smoking Status: Current every day smoker Tobacco Type: Cigarette Packs Per Day: 0.5 Cigarettes Per Day: 10.0 Years Smoked: 30 Smoked in Last 30 Days: Yes Patient Interested in Nicotine Replacement: Yes Use of substances other than those prescribed or required for medical reasons: Yes Substance Use Type: Crack/Cocaine Substance Use Frequency: Occasionally Last Used Substance: Weeks (ago) Currently Displaying Signs/Symptoms of Drug Intoxication Withdrawal: No Any prior treatment program specific to substance use: No Have you been hit, kicked, punched, or otherwise hurt by someone within the past year? If so, by whom?: No Do you feel safe in your current relationship?: Yes Is there a partner from a previous relationship who is making you feel unsafe no w?: No Are you made to feel afraid or neglected: No Spiritual Healthcare Practices: no Roman Catholic Healthcare Practices: no Cultural Healthcare Practices: no Advance Directives: No Advance Directives Information Provided: No Do you have thoughts of harming others: None Do you have a plan to hurt others: No Plan Recently lost weight without trying: No Travel History Ebola Risk: Travel/Contact With Anyone From Affected Area/s: No Has Patient Experienced Ebola Symptoms: No Meds Allergies Allergy/AdvReac Type Severity Reaction Status Date / Time No Known Allergies Allergy Verified 05/11/20 09:15 Home Medications Medication Instructions Recorded Confirmed Type No Known Home Meds 05/11/20 05/11/20 History Physical Exam Vital Signs and I&O and Narrative: Vital Signs and I&O: Vital Signs Temp 98 F 05/12/20 04:00 Pulse 100 05/12/20 07:00 Resp 26 H 05/12/20 07:00 BP 128/80 05/12/20 07:00 Pulse Ox 94 05/12/20 07:00 Intake & Output 05/11/20 05/12/20 05/12/20 18:59 06:59 18:59 Intake Total 550 / 1150 600 / 1150 0 / 0 Output Total 525 / 1850 1325 / 1850 Balance 25 / -700 -725 / -700 0 / 0 Urine Output (Aver age ml/kg/hr) 0.38 0.96 0.96 Weight 253 lb 8.505 oz Intake: Intake, Oral Vipul unt 0 / 600 600 / 600 0 / 0 Intake, IV Amoun t 550 / 550 Magnesium Sulf ate/H2O 2 gm In 50 / 50 50 ml @ 50 mls /hr IV ONCE ONE Rx#:[id number] 0.9 % Sodium C hloride 500 ml @ 500 / 500 999 mls/hr IVC ONT .Q31M NINA Rx# :[id number] Output: Output, Urine Am ount 525 / 1850 1325 / 1850 Other: Dinner % Eaten 100% Urine Urinal Urinal Urine Color Concentrated Yellow Body Mass Index 38.5 Const: General: no acute distress and lethargic Nutritional Appearance: overweight Orientation/consciousness: patient oriented x3 and lethargic HENMT: Head: Yes normal to inspection Eyes: Sclerae: sclerae normal Pupils: Equal, round and reactive pupils present Neck: Other: Trachea is midline with no subcu air or crepitus appretiated Chest: Other: Right sided chest tube remains in place secured with dressing CDI, chest tube remains on waterseal with no air leak detected and 5 cc of serous fluid output. Neuro: General: patient oriented x3 Cranial nerves: Yes Equal, round and reactive pupils present Results Labs Result diagrams: 05/12/20 10:21 05/12/20 05:25 Labs: Abnormal lab results 05/11/20 05/11/20 05/11/20 Range/Units 10:17 10:17 12:57 WBC 11.9 H 11.5 H (4.8-10.8) X10*3/uL Hgb 18.6 H 18.8 H (14.0-18.0) g/dl Hct 55.5 H 55.9 H (42-52) % MCV (80-98) fL Neut % (Auto) 90.6 H (45-73) % Lymph % (Auto) 15.8 L 6.0 L (20-40) % Neut # (Auto) 8.6 H 10.4 H (2.0-8.3) X10*3/uL Lymph # (Auto) 0.7 L (1.2-4.9) X10*3/uL VBG pH (7.32-7.43) Carbon Dioxide 32 H (22-29) mmol/L Anion Gap (12-20) BUN 7 L (9-16) mg/dL POC Glucose (60-115) mg/dL Random Glucose 210 H (60-115) mg/dL Phosphorus (2.7-4.5) mg/dL Ferritin 281 H (20-250) ng/mL Urine Glucose (UA) (NEG) MG/DL 05/11/20 05/11/20 05/11/20 Range/Units 12:57 12:57 16:35 WBC (4.8-10.8) X10*3/uL Hgb (14.0-18.0) g/dl Hct (42-52) % MCV (80-98) fL Neut % (Auto) (45-73) % Lymph % (Auto) (20-40) % Neut # (Auto) (2.0-8.3) X10*3/uL Lymph # (Auto) (1.2-4.9) X10*3/uL VBG pH 7.26 L (7.32-7.43) Carbon Dioxide 36 H (22-29) mmol/L Anion Gap 11 L (12-20) BUN 7 L (9-16) mg/dL POC Glucose (60-115) mg/dL Random Glucose 191 H (60-115) mg/dL Phosphorus (2.7-4.5) mg/dL Ferritin (20-250) ng/mL Urine Glucose (UA) >=1000 H (NEG) MG/DL 05/11/20 05/11/20 05/11/20 Range/Units 17:45 19:07 19:08 WBC (4.8-10.8) X10*3/uL Hgb (14.0-18.0) g/dl Hct (42-52) % MCV (80-98) fL Neut % (Auto) (45-73) % Lymph % (Auto) (20-40) % Neut # (Auto) (2.0-8.3) X10*3/uL Lymph # (Auto) (1.2-4.9) X10*3/uL VBG pH (7.32-7.43) Carbon Dioxide (22-29) mmol/L Anion Gap (12-20) BUN (9-16) mg/dL POC Glucose 359 H* 405 H* 409 H* (60-115) mg/dL Random Glucose (60-115) mg/dL Phosphorus (2.7-4.5) mg/dL Ferritin (20-250) ng/mL Urine Glucose (UA) (NEG) MG/DL 05/11/20 05/11/20 05/12/20 Range/Units 21:06 22:27 00:05 WBC (4.8-10.8) X10*3/uL Hgb (14.0-18.0) g/dl Hct (42-52) % MCV (80-98) fL Neut % (Auto) (45-73) % Lymph % (Auto) (20-40) % Neut # (Auto) (2.0-8.3) X10*3/uL Lymph # (Auto) (1.2-4.9) X10*3/uL VBG pH (7.32-7.43) Carbon Dioxide (22-29) mmol/L Anion Gap (12-20) BUN (9-16) mg/dL POC Glucose 327 H 239 H 215 H (60-115) mg/dL Random Glucose (60-115) mg/dL Phosphorus (2.7-4.5) mg/dL Ferritin (20-250) ng/mL Urine Glucose (UA) (NEG) MG/DL 05/12/20 05/12/20 05/12/20 Range/Units 04:13 05:25 05:25 WBC 17.1 H (4.8-10.8) X10*3/uL Hgb (14.0-18.0) g/dl Hct (42-52) % MCV 99.2 H (80-98) fL Neut % (Auto) (45-73) % Lymph % (Auto) (20-40) % Neut # (Auto) (2.0-8.3) X10*3/uL Lymph # (Auto) (1.2-4.9) X10*3/uL VBG pH (7.32-7.43) Carbon Dioxide 37 H (22-29) mmol/L Anion Gap 11 L (12-20) BUN (9-16) mg/dL POC Glucose 159 H (60-115) mg/dL Random Glucose 164 H (60-115) mg/dL Phosphorus 5.8 H (2.7-4.5) mg/dL Ferritin (20-250) ng/mL Urine Glucose (UA) (NEG) MG/DL 05/12/20 Range/Units 05:45 WBC (4.8-10.8) X10*3/uL Hgb (14.0-18.0) g/dl Hct (42-52) % MCV (80-98) fL Neut % (Auto) (45-73) % Lymph % (Auto) (20-40) % Neut # (Auto) (2.0-8.3) X10*3/uL Lymph # (Auto) (1.2-4.9) X10*3/uL VBG pH 7.29 L (7.32-7.43) Carbon Dioxide (22-29) mmol/L Anion Gap (12-20) BUN (9-16) mg/dL POC Glucose (60-115) mg/dL Random Glucose (60-115) mg/dL Phosphorus (2.7-4.5) mg/dL Ferritin (20-250) ng/mL Urine Glucose (UA) (NEG) MG/DL Short CBC 05/11/20 05/11/20 05/12/20 Range/Units 10:17 12:57 05:25 WBC 11.9 H 11.5 H 17.1 H (4.8-10.8) X10*3/uL Hgb 18.6 H 18.8 H 17.0 (14.0-18.0) g/dl Hct 55.5 H 55.9 H 51.8 (42-52) % Plt Count 166 172 190 (160-400) X10*3/uL BMP 05/11/20 05/11/20 05/12/20 10:17 12:57 05:25 Sodium 137 139 141 Potassium 4.0 4.3 4.8 Chloride 96 96 98 Carbon Dioxide 32 H 36 H 37 H BUN 7 L 7 L 11 D Creatinine 0.75 0.77 0.73 Calcium 9.1 8.9 8.7 Liver Function 05/11/20 05/11/20 Range/Units 10:17 12:57 Total Bilirubin 0.5 0.4 (0.0-1.0) mg/dL Direct Bilirubin 0.2 (0.0-0.5) mg/dL AST 11 10 (5-37) U/L ALT 12 13 (0-40) U/L Alkaline Phosphatase 101 106 (39-117) U/L Albumin 4.1 4.1 (3.5-5.0) g/dL Urine 05/11/20 Range/Units 16:35 Urine Color YELLOW Urine Appearance CLEAR Urine pH 6.0 (5.0-8.0) Ur Specific [place] 1.025 (1.005-1.025) Urine Protein TRACE (NEG-TRACE) MG/DL Urine Glucose (UA) >=1000 H (NEG) MG/DL All other labs normal. Assessment and Plan (1) Pneumothorax: Qualifiers: Pneumothorax type: spontaneous, primary Qualified Code(s): J93.11 - Primary spontaneous pneumothorax Status: Acute .Patient is a 50-year-old male with a past medical history of alcohol abuse, current smoker, COPD who presented to the emergency department with a moderate to large right-sided pneumothorax subsequently had a right pigtail plac ed in the emergency department on 05/11/2020. * Right-sided chest tube remained on waterseal throughout yesterday and overnight with approximately 5 cc of sanguinous fluid output, no air leak detected. * Chest x-ray this morning on 05/12/2020 shows tiny apical right-sided pleural separation. * Recommend placing chest tube to -20 LWS Now and to remain on -20 low suction overnight to promote full reexpansion of lung and to facilitate healing. * Patient should ambulate with chest tube on waterseal minimum of 3-4 times daily. * CT ordered for this morning.PE due to persistent hypoxemia. * CXR ordered for a.m * Patient should all meals OOB in chair. * Incentive spirometry. * Airway clearance device. * Maintain proper pain analgesics to promote lung reexpansion. Thank you for allowing me to participate in this patient's care if you have any questions or concerns please do not hesitate to contact the thoracic surgical department.
[2020-05-12] MEDS: LORazepam 1 MG TABLET PO ×3 (09:04→20:06)
[2020-05-12 09:27] LABS: Band Neutrophils Percent 2 % (3-5); Lymphocytes Absolute Manual 0.9 X10*3/uL (0.6-4.8); Lymphocytes Percent Manual 5 % (20-40); Monocytes Absolute Manual 2.2 X10*3/uL (0.0-1.2); Monocytes Percent Manual 13 % (2-11); Neutrophils Percent Manual 80 % (45-73); RBC Morphology NORMAL
[2020-05-12 10:05] LABS: SARS COV2 PCR INHOUSE NEGATIVE (Negative)
[2020-05-12 10:07] LABS: Adenovirus PCR Not Detected (Not Detect.); Bordetella parapertussis PCR Not Detected (Not Detect.); Bordetella pertussis PCR Not Detected (Not Detect.); Chlamydia pneumoniae PCR Not Detected (Not Detect.); Coronavirus 229E PCR Not Detected (Not Detect.); Coronavirus HKU1 PCR Not Detected (Not Detect.); Coronavirus NL63 PCR Not Detected (Not Detect.); Coronavirus OC43 PCR Not Detected (Not Detect.); Human metapneumovirus PCR Not Detected (Not Detect.); Influenza A PCR Not Detected (Not Detect.); Influenza B PCR Not Detected (Not Detect.); Mycoplasma pneumoniae PCR Not Detected (Not Detect.); Parainfluenza 1 PCR Not Detected (Not Detect.); Parainfluenza 2 PCR Not Detected (Not Detect.); Parainfluenza 3 PCR Not Detected (Not Detect.); Parainfluenza 4 PCR Not Detected (Not Detect.); RSV PCR Not Detected (Not Detect.); Rhino/Enterovirus PCR Not Detected (Not Detect.); SARS-CoV-2 PCR Not Detected (Not Detect.)
[2020-05-12] MEDS: 0.9 % Sodium Chloride 1,000 ML 50 ML IVCONT (10:24)
[2020-05-12 10:49] LABS: Basophils Percent Auto 0.2 % (0-2); Eosinophils Percent Auto 0.1 % (0-4); Hematocrit 51.5 % (42-52); Hemoglobin 16.6 g/dl (14.0-18.0); Imm Gran Pct Auto 0.6 % (0.0-0.4); Lymphocytes Absolute Auto 1.3 X10*3/uL (1.2-4.9); Lymphocytes Percent Auto 7.8 % (20-40); MANUAL DIFF FLAG SCAN; Mean Corpuscular HGB Conc 32.2 g/dl (31.0-36.0); Mean Corpuscular Hemoglobin 32.2 pg (27.0-33.0); Mean Corpuscular Volume 99.8 fL (80-98); Monocytes Absolute Auto 1.6 X10*3/uL (0.1-1.2); Monocytes Percent Auto 9.2 % (2-11); Neutrophils Percent Auto 82.1 % (45-73); Platelet Count 165 X10*3/uL (160-400); Red Blood Count 5.16 X10*6/uL (4.60-5.80); Red Cell Distribution Width 11.9 % (11.0-16.0); SCAN SMEAR FLAG 1
[2020-05-12 10:59] LABS: D Dimer 441 NG/ML
[2020-05-12 11:16] LABS: C Reactive Protein 2.55 mg/dL (< or = 0.50); Glucose Random 209 mg/dL (60-115); Lactate Dehydrogenase 149 U/L (118-273); Phosphorus 4.4 mg/dL (2.7-4.5)
[2020-05-12 11:33] LABS: Procalcitonin 0.02 ng/mL
[2020-05-12 11:37] LABS: SLIDE REVIEW VERIFIED
[2020-05-12 11:37] LABS: Glucose, Whole Blood 149 mg/dL (60-115)
[2020-05-12 11:45] LABS: Platelet Estimate NORMAL (NORMAL); Platelet Morphology Comment NORMAL
[2020-05-12 11:53] LABS: Glucose, Whole Blood 256 mg/dL (60-115)
[2020-05-12] MEDS: Insulin Lispro 100 UNIT/ML 3 ML VIAL SUBCUT ×3 (11:54→23:21)
[2020-05-12] MEDS: Albuterol Sulfate (0.083%) 2.5 MG/3 ML VIAL.NEB INHALE (12:00)
[2020-05-12] MEDS: iohexoL 350 MG/ML 100 ML INFUS..BTL 65 ML IV (13:37)
[2020-05-12] MEDS: Albuterol/Iprat 2.5/0.5MG 3 ML AMPUL.NEB INHALE ×2 (15:01→20:47)
[2020-05-12 15:19] LABS: Base Excess ABG 6.4; HCO3 ABG 37 mmol/l (22-26); Oxygen Saturation ABG 94.7 %; PO2 ABG 73 mmhg (83-108); pH ABG 7.29 (7.35-7.45)
[2020-05-12 15:21] LABS: ABG PCO2 77 mmhg (32-45)
[2020-05-12 15:36] LABS: Erythrocyte Sedimentation Rate 6 MM/HR (0-15)
[2020-05-12 17:39] LABS: Glucose, Whole Blood 283 mg/dL (60-115)
[2020-05-12] MEDS: cefTRIAXone sodium 2 GM in 0.9 % Sodium Chloride 50 ML IV (17:45)
[2020-05-12] MEDS: levoFLOXacin/D5W 750 MG/150 ML PIGGYBACK 100 MG IV (17:58)
[2020-05-12] MEDS: HYDROmorphone HCl 0.5 MG/0.5 ML SYRINGE IVPUSH (19:28)
--- NOTE | 2020-05-12 19:32 | P.PNCC_ITS ---
Subjective Subjective Date of Service: 05/12/20 Interval History: a 50-year-old male smoking related COPD who developed progressive shortness of breath following an abrupt onset of severe chest pain a week or 2 earlier and he had a 30% pneumothorax on the right side that I relieved with chest tube insertion and no evidence of apparent infiltrate or fever or white count but subsequently did develop a left shift and persistent hypoxemic respiratory failure and by blood gas actually and acute on chronic picture of combined hypercapnia and hypoxic respiratory failure switched to a high-flow oxygen mechanism for the CPAP benefit he stabilized to a degree and CT scan of the chest indicated bibasilar infiltrates and therefore started on Zosyn and Levaquin in combination in addition to this steroids and nebulizer therapy currently has no evidence of persistent leak but thoracic surgery recommended suction at -20 which we instituted I did bedside echo because of some questionable interstitial changes that I noted on CT scan showing normal LV and RV function with normal IVC diameter and normal inspiratory collapse so I doubt that there is any evidence of 3rd spacing of fluid Physical Exam Vital Signs and I&O and Narrative: Vital Signs and I&O: Vital Signs Temp 96.8 F 05/12/20 16:00 Pulse 115 H 05/12/20 18:00 Resp 18 05/12/20 19:28 BP 137/86 05/12/20 18:00 Pulse Ox 92 05/12/20 18:00 Intake & Output 05/12/20 05/12/20 05/13/20 06:59 18:59 06:59 Intake Total 600 / 1150 2180.833 / 2180.83 3 Output Total 1325 / 1850 1500 / 1500 Balance -725 / -700 680.833 / 680.833 Urine Output (Aver age ml/kg/hr) 0.96 1.08 Weight 115.8 kg Intake: Intake, Oral Vipul unt 600 / 600 1200 / 1200 Intake, IV Amoun t 980.833 / 980.833 cefTRIAXone so dium 2 gm In 0.9 50 / 50 % Sodium Chlor andrés 50 ml @ 100 mls/hr IV ONCE ONE Rx#: [id number] 0.9 % Sodium C hloride 1,000 ml 930.833 / 930.833 @ 50 mls/hr IV CONT .Q20H NINA Rx #:[id number] Output: Output, Urine Am ount 1325 / 1850 1500 / 1500 Other: Meal Refused No NPO No Breakfast % Eate n 100% Lunch % Eaten 100% Dinner % Eaten 100% Urine Urinal Urinal Urine Color Yellow Yellow Body Mass Index 38.8 because of increasing sinus tachycardia and some degree of lethargy mental status exam showed good cognitive function with complete orientation normal skin color with no cyanosis no significant peripheral edema no clubbing no wounds pupils equal and reactive to light with full extraocular move ment good bilateral carotid upstrokes with no bruits and no neck vein distension chest with bilateral wheezes but no adventitious sounds and no use of accessory muscles cardiac exam completely normal by echo and rhythm is normal sinus abdomen benign no organomegaly nontender good bowel sounds Objective Data Labs CBC & Chem 7: 05/13/20 05:20 05/13/20 05:20 Labs: Laboratory Results - last 24 hr 05/11/20 05/11/20 05/11/20 12:57 19:08 21:06 WBC RBC Hgb Hct MCV MCH MCHC RDW Plt Count MPV Immature Gran % (Auto) Neut % (Auto) Lymph % (Auto) [place] % (Auto) Eos % (Auto) Baso % (Auto) Neut # (Auto) Lymph # (Auto) [place] # (Auto) Eos # (Auto) Baso # (Auto) Abs Immat Gran (auto) Absolute Nucleated RBC Nucleated RBC % (auto) Neutrophils % (Manual) Band Neutrophils % Lymphocytes % (Manual) Monocytes % (Manual) Neutrophils # (Manual) Lymphocytes # (Manual) Monocytes # (Manual) Platelet Estimate Plt Morphology Comment RBC Morphology Smear Tech's Comments ESR D-Dimer ABG pH ABG pCO2 ABG pO2 ABG HCO3 ABG O2 Saturation ABG Base Excess VBG pH VBG pCO2 VBG pO2 VBG HCO3 VBG O2 Saturation VBG Base Excess Oxygen Given Sodium Potassium Chloride Carbon Dioxide Anion Gap BUN Creatinine Estim Creat Clear Calc Estimated GFR POC Glucose 409 H* 327 H Random Glucose Estimat Average Glucose 194 Hemoglobin A1c % 8.4 Calcium Phosphorus Magnesium Lactate Dehydrogenase Total Creatine Kinase C-Reactive Protein Procalcitonin Respiratory Panel [place] Adenovirus (Rapid PCR) B.pert (TEM-PCR) B.parapertussis DNA PCR C. pneumoniae DNA (PCR) Coronavirus (PCR) Coronavirus OC43 (PCR) Coronavirus HKU1 (PCR) Coronavirus 229E (PCR) Coronavirus NL63 (PCR) Human Metapneumovir PCR Influenza A (RT-PCR) Influenza B (RT-PCR) M. pneumoniae (PCR) Parainfluenza 1 (PCR) Parainfluenza 2 (PCR) Parainfluenza 3 (PCR) Parainfluenza 4 (PCR) RSV (PCR) Entero/Rhino (PCR) SARS-CoV-2 RNA (RT-PCR) 05/11/20 05/12/20 05/12/20 22:27 00:05 04:13 WBC RBC Hgb Hct MCV MCH MCHC RDW Plt Count MPV Immature Gran % (Auto) Neut % (Auto) Lymph % (Auto) [place] % (Auto) Eos % (Auto) Baso % (Auto) Neut # (Auto) Lymph # (Auto) [place] # (Auto) Eos # (Auto) Baso # (Auto) Abs Immat Gran (auto) Absolute Nucleated RBC Nucleated RBC % (auto) Neutrophils % (Manual) Band Neutrophils % Lymphocytes % (Manual) Monocytes % (Manual) Neutrophils # (Manual) Lymphocytes # (Manual) Monocytes # (Manual) Platelet Estimate Plt Morphology Comment RBC Morphology Smear Tech's Comments ESR D-Dimer ABG pH ABG pCO2 ABG pO2 ABG HCO3 ABG O2 Saturation ABG Base Excess VBG pH VBG pCO2 VBG pO2 VBG HCO3 VBG O2 Saturation VBG Base Excess Oxygen Given Sodium Potassium Chloride Carbon Dioxide Anion Gap BUN Creatinine Estim Creat Clear Calc Estimated GFR POC Glucose 239 H 215 H 159 H Random Glucose Estimat Average Glucose Hemoglobin A1c % Calcium Phosphorus Magnesium Lactate Dehydrogenase Total Creatine Kinase C-Reactive Protein Procalcitonin Respiratory Panel [place] Adenovirus (Rapid PCR) B.pert (TEM-PCR) B.parapertussis DNA PCR C. pneumoniae DNA (PCR) Coronavirus (PCR) Coronavirus OC43 (PCR) Coronavirus HKU1 (PCR) Coronavirus 229E (PCR) Coronavirus NL63 (PCR) Human Metapneumovir PCR Influenza A (RT-PCR) Influenza B (RT-PCR) M. pneumoniae (PCR) Parainfluenza 1 (PCR) Parainfluenza 2 (PCR) Parainfluenza 3 (PCR) Parainfluenza 4 (PCR) RSV (PCR) Entero/Rhino (PCR) SARS-CoV-2 RNA (RT-PCR) 05/12/20 05/12/20 05/12/20 05:25 05:25 05:45 WBC 17.1 H RBC 5.22 Hgb 17.0 Hct 51.8 MCV 99.2 H MCH 32.6 MCHC 32.8 RDW 11.9 Plt Count 190 MPV 11.1 Immature Gran % (Auto) Neut % (Auto) Lymph % (Auto) [place] % (Auto) Eos % (Auto) Baso % (Auto) Neut # (Auto) Lymph # (Auto) [place] # (Auto) Eos # (Auto) Baso # (Auto) Abs Immat Gran (auto) Absolute Nucleated RBC 0.000 Nucleated RBC % (auto) 0.0 Neutrophils % (Manual) 80 H Band Neutrophils % 2 L Lymphocytes % (Manual) 5 L Monocytes % (Manual) 13 H Neutrophils # (Manual) 14.0 H Lymphocytes # (Manual) 0.9 Monocytes # (Manual) 2.2 H Platelet Estimate NORMAL Plt Morphology Comment NORMAL RBC Morphology NORMAL Smear Tech's Comments ESR D-Dimer ABG pH ABG pCO2 ABG pO2 ABG HCO3 ABG O2 Saturation ABG Base Excess VBG pH 7.29 L VBG pCO2 74 VBG pO2 75 VBG HCO3 35 VBG O2 Saturation 94.4 VBG Base Excess 5.0 Oxygen Given Sodium 141 Potassium 4.8 Chloride 98 Carbon Dioxide 37 H Anion Gap 11 L BUN 11 D Creatinine 0.73 Estim Creat Clear Calc 152.3 Estimated GFR > 60 POC Glucose Random Glucose 164 H Estimat Average Glucose Hemoglobin A1c % Calcium 8.7 Phosphorus 5.8 H Magnesium 2.3 Lactate Dehydrogenase Total Creatine Kinase C-Reactive Protein Procalcitonin Respiratory Panel [place] Adenovirus (Rapid PCR) B.pert (TEM-PCR) B.parapertussis DNA PCR C. pneumoniae DNA (PCR) Coronavirus (PCR) Coronavirus OC43 (PCR) Coronavirus HKU1 (PCR) Coronavirus 229E (PCR) Coronavirus NL63 (PCR) Human Metapneumovir PCR Influenza A (RT-PCR) Influenza B (RT-PCR) M. pneumoniae (PCR) Parainfluenza 1 (PCR) Parainfluenza 2 (PCR) Parainfluenza 3 (PCR) Parainfluenza 4 (PCR) RSV (PCR) Entero/Rhino (PCR) SARS-CoV-2 RNA (RT-PCR) 05/12/20 05/12/20 05/12/20 08:30 08:30 08:41 WBC RBC Hgb Hct MCV MCH MCHC RDW Plt Count MPV Immature Gran % (Auto) Neut % (Auto) Lymph % (Auto) [place] % (Auto) Eos % (Auto) Baso % (Auto) Neut # (Auto) Lymph # (Auto) [place] # (Auto) Eos # (Auto) Baso # (Auto) Abs Immat Gran (auto) Absolute Nucleated RBC Nucleated RBC % (auto) Neutrophils % (Manual) Band Neutrophils % Lymphocytes % (Manual) Monocytes % (Manual) Neutrophils # (Manual) Lymphocytes # (Manual) Monocytes # (Manual) Platelet Estimate Plt Morphology Comment RBC Morphology Smear Tech's Comments ESR D-Dimer ABG pH ABG pCO2 ABG pO2 ABG HCO3 ABG O2 Saturation ABG Base Excess VBG pH VBG pCO2 VBG pO2 VBG HCO3 VBG O2 Saturation VBG Base Excess Oxygen Given Sodium Potassium Chloride Carbon Dioxide Anion Gap BUN Creatinine Estim Creat Clear Calc Estimated GFR POC Glucose 149 H Random Glucose Estimat Average Glucose Hemoglobin A1c % Calcium Phosphorus Magnesium Lactate Dehydrogenase Total Creatine Kinase C-Reactive Protein Procalcitonin Respiratory Panel [place] See Note Adenovirus (Rapid PCR) Not Detected B.pert (TEM-PCR) Not Detected B.parapertussis DNA PCR Not Detected C. pneumoniae DNA (PCR) Not Detected Coronavirus (PCR) NEGATIVE Coronavirus OC43 (PCR) Not Detected Coronavirus HKU1 (PCR) Not Detected Coronavirus 229E (PCR) Not Detected Coronavirus NL63 (PCR) Not Detected Human Metapneumovir PCR Not Detected Influenza A (RT-PCR) Not Detected Influenza B (RT-PCR) Not Detected M. pneumoniae (PCR) Not Detected Parainfluenza 1 (PCR) Not Detected Parainfluenza 2 (PCR) Not Detected Parainfluenza 3 (PCR) Not Detected Parainfluenza 4 (PCR) Not Detected RSV (PCR) Not Detected Entero/Rhino (PCR) Not Detected SARS-CoV-2 RNA (RT-PCR) Not Detected 05/12/20 05/12/20 05/12/20 10:21 10:21 10:21 WBC 17.0 H RBC 5.16 Hgb 16.6 Hct 51.5 MCV 99.8 H MCH 32.2 MCHC 32.2 RDW 11.9 Plt Count 165 MPV 11.0 Immature Gran % (Auto) 0.6 H Neut % (Auto) 82.1 H Lymph % (Auto) 7.8 L [place] % (Auto) 9.2 Eos % (Auto) 0.1 Baso % (Auto) 0.2 Neut # (Auto) 14.0 H Lymph # (Auto) 1.3 [place] # (Auto) 1.6 H Eos # (Auto) 0.0 Baso # (Auto) 0.0 Abs Immat Gran (auto) 0.10 H Absolute Nucleated RBC 0.000 Nucleated RBC % (auto) 0.0 Neutrophils % (Manual) Band Neutrophils % Lymphocytes % (Manual) Monocytes % (Manual) Neutrophils # (Manual) Lymphocytes # (Manual) Monocytes # (Manual) Platelet Estimate Plt Morphology Comment RBC Morphology Smear Tech's Comments VERIFIED ESR D-Dimer 441 ABG pH ABG pCO2 ABG pO2 ABG HCO3 ABG O2 Saturation ABG Base Excess VBG pH VBG pCO2 VBG pO2 VBG HCO3 VBG O2 Saturation VBG Base Excess Oxygen Given Sodium Potassium Chloride Carbon Dioxide Anion Gap BUN Creatinine Estim Creat Clear Calc Estimated GFR POC Glucose Random Glucose 209 H Estimat Average Glucose Hemoglobin A1c % Calcium Phosphorus 4.4 Magnesium 2.0 Lactate Dehydrogenase 149 Total Creatine Kinase 54 C-Reactive Protein 2.55 H Procalcitonin Respiratory Panel [place] Adenovirus (Rapid PCR) B.pert (TEM-PCR) B.parapertussis DNA PCR C. pneumoniae DNA (PCR) Coronavirus (PCR) Coronavirus OC43 (PCR) Coronavirus HKU1 (PCR) Coronavirus 229E (PCR) Coronavirus NL63 (PCR) Human Metapneumovir PCR Influenza A (RT-PCR) Influenza B (RT-PCR) M. pneumoniae (PCR) Parainfluenza 1 (PCR) Parainfluenza 2 (PCR) Parainfluenza 3 (PCR) Parainfluenza 4 (PCR) RSV (PCR) Entero/Rhino (PCR) SARS-CoV-2 RNA (RT-PCR) 05/12/20 05/12/20 05/12/20 10:21 10:21 11:50 WBC RBC Hgb Hct MCV MCH MCHC RDW Plt Count MPV Immature Gran % (Auto) Neut % (Auto) Lymph % (Auto) [place] % (Auto) Eos % (Auto) Baso % (Auto) Neut # (Auto) Lymph # (Auto) [place] # (Auto) Eos # (Auto) Baso # (Auto) Abs Immat Gran (auto) Absolute Nucleated RBC Nucleated RBC % (auto) Neutrophils % (Manual) Band Neutrophils % Lymphocytes % (Manual) Monocytes % (Manual) Neutrophils # (Manual) Lymphocytes # (Manual) Monocytes # (Manual) Platelet Estimate Plt Morphology Comment RBC Morphology Smear Tech's Comments ESR 6 D-Dimer ABG pH ABG pCO2 ABG pO2 ABG HCO3 ABG O2 Saturation ABG Base Excess VBG pH VBG pCO2 VBG pO2 VBG HCO3 VBG O2 Saturation VBG Base Excess Oxygen Given Sodium Potassium Chloride Carbon Dioxide Anion Gap BUN Creatinine Estim Creat Clear Calc Estimated GFR POC Glucose 256 H Random Glucose Estimat Average Glucose Hemoglobin A1c % Calcium Phosphorus Magnesium Lactate Dehydrogenase Total Creatine Kinase C-Reactive Protein Procalcitonin 0.02 Respiratory Panel [place] Adenovirus (Rapid PCR) B.pert (TEM-PCR) B.parapertussis DNA PCR C. pneumoniae DNA (PCR) Coronavirus (PCR) Coronavirus OC43 (PCR) Coronavirus HKU1 (PCR) Coronavirus 229E (PCR) Coronavirus NL63 (PCR) Human Metapneumovir PCR Influenza A (RT-PCR) Influenza B (RT-PCR) M. pneumoniae (PCR) Parainfluenza 1 (PCR) Parainfluenza 2 (PCR) Parainfluenza 3 (PCR) Parainfluenza 4 (PCR) RSV (PCR) Entero/Rhino (PCR) SARS-CoV-2 RNA (RT-PCR) 05/12/20 05/12/20 14:45 17:35 WBC RBC Hgb Hct MCV MCH MCHC RDW Plt Count MPV Immature Gran % (Auto) Neut % (Auto) Lymph % (Auto) [place] % (Auto) Eos % (Auto) Baso % (Auto) Neut # (Auto) Lymph # (Auto) [place] # (Auto) Eos # (Auto) Baso # (Auto) Abs Immat Gran (auto) Absolute Nucleated RBC Nucleated RBC % (auto) Neutrophils % (Manual) Band Neutrophils % Lymphocytes % (Manual) Monocytes % (Manual) Neutrophils # (Manual) Lymphocytes # (Manual) Monocytes # (Manual) Platelet Estimate Plt Morphology Comment RBC Morphology Smear Tech's Comments ESR D-Dimer ABG pH 7.29 L ABG pCO2 77 H* ABG pO2 73 L ABG HCO3 37 H ABG O2 Saturation 94.7 ABG Base Excess 6.4 VBG pH VBG pCO2 VBG pO2 VBG HCO3 VBG O2 Saturation VBG Base Excess Oxygen Given 55% Sodium Potassium Chloride Carbon Dioxide Anion Gap BUN Creatinine Estim Creat Clear Calc Estimated GFR POC Glucose 283 H Random Glucose Estimat Average Glucose Hemoglobin A1c % Calcium Phosphorus Magnesium Lactate Dehydrogenase Total Creatine Kinase C-Reactive Protein Procalcitonin Respiratory Panel [place] Adenovirus (Rapid PCR) B.pert (TEM-PCR) B.parapertussis DNA PCR C. pneumoniae DNA (PCR) Coronavirus (PCR) Coronavirus OC43 (PCR) Coronavirus HKU1 (PCR) Coronavirus 229E (PCR) Coronavirus NL63 (PCR) Human Metapneumovir PCR Influenza A (RT-PCR) Influenza B (RT-PCR) M. pneumoniae (PCR) Parainfluenza 1 (PCR) Parainfluenza 2 (PCR) Parainfluenza 3 (PCR) Parainfluenza 4 (PCR) RSV (PCR) Entero/Rhino (PCR) SARS-CoV-2 RNA (RT-PCR) Microbiology Microbiology Results: Microbiology 05/11/20 10:39 Blood - Venous Blood Culture - Preliminary No growth after 24 hours. 05/11/20 10:17 Blood - Venous Blood Culture - Preliminary No growth after 24 hours. Progress Note: A&P Assessment and plan (1) Pneumothorax: Status: Acute Assessment and Plan: pigtail tube still in place and pneumothorax completely evac UA today and no evidence of active leak and if this persists in the morning I might clamp the tube and redo chest x-ray and if the lung remains re-expanded discontinue the chest tube (2) COPD (chronic obstructive pulmonary disease): Status: Acute Assessment and Plan: persist with nebulizers and steroids (3) Acute on chronic respiratory failure with hypoxia and hypercapnia: Status: Acute Assessment and Plan: high-flow nasal oxygen for the CPAP and reassess blood gas which still reflects the acute hypercapnia (4) Community acquired pneumonia: Status: Acute Assessment and Plan: given the alcoholic background and the evidence of the tree in bud pattern implying that there may be some inadvertent chronic aspiration I will treat with combination of Zosyn and Levaquin Time Spent With Patient Time: Total time spent is greater than 50% in coordination of care (as documented) at patient's floor/unit and/or counseling patient: Time with patient: Greater than 35 minutes No Severe Sepsis: No Severe Sepsis
[2020-05-12] MEDS: Piperacillin Sodium/Tazobactam 3.375 GM in 0.9 % Sodium Chloride 50 ML IV (20:27)
[2020-05-12 22:48] LABS: Glucose, Whole Blood 250 mg/dL (60-115)
[2020-05-13] VITALS (30 sets, daily range): BP systolic 107–152; BP diastolic 49–93; PULSE 0–135; RESP 14–27; TEMP 36.4–38; O2SAT 30–98; BMI 36.8
--- NOTE | 2020-05-13 | XR_ITS ---
EXAMINATION: XR CHEST CLINICAL INFORMATION: Follow-up pneumothorax COMPARISON: Chest x-ray and chest CTA from yesterday TECHNIQUE: Frontal view of the chest was obtained. FINDINGS: The cardiac and mediastinal contours are stable. There is a pigtail chest tube at the right lateral lung apex unchanged in position. No pneumothorax is seen. There is atelectasis at the left lung base. The lungs are otherwise clear. There is no significant pleural effusion. Bony structures are unremarkable. IMPRESSION: Right chest tube unchanged in position. No pneumothorax. Atelectasis at the left lung base.
[2020-05-13] MEDS: Albuterol/Iprat 2.5/0.5MG 3 ML AMPUL.NEB INHALE ×4 (02:13→19:27)
[2020-05-13] MEDS: Piperacillin Sodium/Tazobactam 3.375 GM in 0.9 % Sodium Chloride 50 ML IV ×4 (02:24→20:57)
--- NOTE | 2020-05-13 03:19 | PC.NURSE ---
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 sensorium is intact. he earl purposefully with good rom. he initially was mildly anxious and fidgety. complexion [place]. there is some dependent edema encountered in back and pelvis. afebrile. he has been maintained in a high pyle's position. he is dyspneic with exertion i.e turning side to side in the bed. he has been maintained on high flow oxygen via nasal prongs with fio2 50% and flow 40 lpm. breath sounds diminished with i/e wheezes noted. he has a loose nonproductive cough. heart s1s2. ecg displays sr. there is a pigtail thoracostomy tube to right lateral chest wall. thoracostomy tube is attached to pleuravax drainage system to which _ 20 cm of suction is applied. thoracostomy drainage is small and yellow serous in character. there is no crepitus. thoracostomy dsg changed changed d/t lack of adhesion to chest wall/occlusive dsg applied using xeroform. there is no air leak in h20 seal. abdomen obese/semisoft/nontender. pt voiding conc eleazar urine.
[2020-05-13] MEDS: HYDROmorphone HCl 0.5 MG/0.5 ML SYRINGE IVPUSH (04:09)
[2020-05-13] MEDS: Insulin Lispro 100 UNIT/ML 3 ML VIAL SUBCUT ×4 (05:06→21:22)
[2020-05-13 05:30] LABS: MANUAL DIFF FLAG NO
[2020-05-13 05:33] LABS: Basophils Percent Auto 0.2 % (0-2); Eosinophils Absolute Auto 0.1 X10*3/uL (0.0-0.4); Eosinophils Percent Auto 0.6 % (0-4); Hematocrit 47.9 % (42-52); Hemoglobin 15.6 g/dl (14.0-18.0); Imm Gran Abs Auto 0.05 X10*3/uL (0.00-0.03); Imm Gran Pct Auto 0.4 % (0.0-0.4); Lymphocytes Absolute Auto 2.2 X10*3/uL (1.2-4.9); Lymphocytes Percent Auto 17.4 % (20-40); Mean Corpuscular HGB Conc 32.6 g/dl (31.0-36.0); Mean Corpuscular Hemoglobin 33.2 pg (27.0-33.0); Mean Corpuscular Volume 101.9 fL (80-98); Mean Platelet Volume 11.1 fL (9.4-12.4); Monocytes Absolute Auto 1.1 X10*3/uL (0.1-1.2); Monocytes Percent Auto 8.5 % (2-11); Neutrophils Absolute Auto 9.3 X10*3/uL (2.0-8.3); Neutrophils Percent Auto 72.9 % (45-73); Platelet Count 149 X10*3/uL (160-400); Red Cell Distribution Width 12.1 % (11.0-16.0); White Blood Count 12.8 X10*3/uL (4.8-10.8)
[2020-05-13 05:36] LABS: Base Excess VBG 9.7 mmol/L; Blood Gas Serial # 5414; HCO3 VBG 40 mmol/L; Oxygen Saturation VBG 96.5 %; PCO2 VBG 76 mmhg; PO2 VBG 86 mmhg; pH VBG 7.33 (7.32-7.43)
--- NOTE | 2020-05-13 06:00 | XR_ITS ---
EXAMINATION: XR CHEST CLINICAL INFORMATION: Right pneumothorax with chest tube COMPARISON: 05/12/2020 TECHNIQUE: Frontal view of the chest was obtained. FINDINGS: Right-sided chest tube in place. Cardiac leads overlie the chest. The lungs are well expanded. There is no definite pneumothorax visualized. Blunting at the left costophrenic angle suggests small pleural effusion. Medial right basilar patchy opacity. The cardiomediastinal silhouette is within normal limits. IMPRESSION: Right-sided chest tube in place. No definite pneumothorax visualized. Suspect small left pleural effusion.
[2020-05-13 06:06] LABS: Anion Gap 10 (12-20); Blood Urea Nitrogen 15 mg/dL (9-16); Calcium 8.4 mg/dL (8.4-10.2); Carbon Dioxide 38 mmol/L (22-29); Chloride 99 mmol/L (96-108); Creatinine Clr Calc Pharmacy 157.2; Estimated Glomerular Filt Rate > 60; Glucose Random 114 mg/dL (60-115); Phosphorus 4.6 mg/dL (2.7-4.5); Potassium 3.5 mmol/l (3.3-5.1); Sodium 143 mmol/L (135-145)
[2020-05-13 06:06] LABS: Glucose, Whole Blood 182 mg/dL (60-115)
[2020-05-13 07:28] LABS: Glucose, Whole Blood 250 mg/dL (60-115)
[2020-05-13 08:30] LABS: Glucose, Whole Blood 109 mg/dL (60-115)
[2020-05-13] MEDS: 0.9 % Sodium Chloride Flush 3 ML SYRINGE 2 ML IVFLUSH ×3 (08:39→23:42)
[2020-05-13] MEDS: Famotidine/PF 20 MG/2 ML VIAL IVPUSH ×2 (08:42→21:23)
--- NOTE | 2020-05-13 08:42 | P.PNCC_ITS ---
Subjective Subjective Date of Service: 05/13/20 Interval History: 50-year-old male chronic continuous alcohol and tobacco abuse with COPD and on bronchodilators presented with acute pneumothorax and a acute on chronic hypercapnic /hypoxic respiratory failure with evidence of bibasilar pneumonia and treated as a severe community-acquired infection currently no active air leak and will clamp the chest tube and recheck a chest x-ray and potentially discontinue the chest tube today but will continue with nasal high-flow oxygen as he is clinically responding also being followed on a CIWA scale and thus far not demonstrating any signs of withdrawal breathing significantly more comfortable and a chest x-ray done after the tube was clamped for 3 hours and shows lung is completely expanded with no pneumothorax so I discontinued his chest tube without complication Physical Exam Vital Signs and I&O and Narrative: Vital Signs and I&O: Vital Signs Temp 100.4 F 05/13/20 04:00 Pulse 82 05/13/20 08:00 Resp 17 05/13/20 08:00 BP 128/87 05/13/20 08:00 Pulse Ox 96 05/13/20 08:00 Intake & Output 05/12/20 05/13/20 05/13/20 18:59 06:59 18:59 Intake Total 2180.833 / 3230.83 3 930 / 3230.833 1240 / 1240 Output Total 1500 / 2200 700 / 2200 Balance 680.833 / 1030.833 230 / 6069.039 4373 / 1240 Urine Output (Aver age ml/kg/hr) 1.08 0.50 0.53 Weight 115.8 kg 109.7 kg Intake: Intake, Oral Vipul unt 1200 / 2000 680 / 2000 240 / 240 Intake, IV Amoun t 980.833 / 1230.833 250 / 0402.215 0793 / 1000 Piperacillin S odium/Tazobactam 100 / 100 3.375 gm In 0. 9 % Sodium Chloride 50 ml @ 100 mls/hr IV Q6H [facility] Rx#:[id number] cefTRIAXone so dium 2 gm In 0.9 50 / 50 % Sodium Chlor andrés 50 ml @ 100 mls/hr IV ONCE ONE Rx#: [id number] levoFLOXacin/D 5W 750 mg In 150 150 / 150 ml @ 100 mls/h r IV ONCE ONE Rx# :[id number] 0.9 % Sodium C hloride 1,000 ml 930.833 / 442.032 0459 / 1000 @ 50 mls/hr IV CONT .Q20H [facility] Rx #:[id number] Output: Output, Urine Am ount 1500 / 2200 700 / 2200 Other: Meal Refused No No NPO No No Breakfast % Eate n 100% 100% Lunch % Eaten 100% Dinner % Eaten 100% Urine Urinal Urinal Urine Color Yellow Body Mass Index 36.8 Const: General: cooperative and no acute distress Nutritional Appearance: obese Orientation/consciousness: patient oriented x3 Limitations: no limitations HENMT: Head: Yes normal to inspection Eyes: General: appearance normal, both eyes and all related structures Pupils: Equal, round and reactive pupils present Neck: Neck: Yes normal visual inspection, Yes full ROM and Yes no JVD Carotids: normal carotid upstroke Chest: Chest palpation & inspection: normal inspection of the chest Resp: Effort & Inspection: normal respiratory effort and able to speak in complete sentences Auscultation: clear to auscultation bilaterally Percussion: percussion normal Cardio: Jugular venous distension: no JVD Palpation: normal PMI Rate: regular rate Rhythm: regular rhythm Heart sounds: S1 normal heart sound present and S2 normal heart sound present GI: Inspection: Yes normal to inspection Palpation (GI): No hepatosplenomegaly present Percussion: Yes normal to percussion Au scultation: normal bowel sounds Skin: General skin exam: no rashes or lesions noted Neuro: General: patient oriented x3 Cranial nerves: Yes CN's II-XII intact bilaterally and Yes Equal, round and reactive pupils present Cognition (Neuro): normal cognition Extrem: General: Yes normal to inspection and Yes no clubbing, cyanosis or edema Objective Data Labs CBC & Chem 7: 05/13/20 05:20 05/13/20 05:20 Labs: Laboratory Results - last 24 hr 05/12/20 05/12/20 05/12/20 05:25 08:30 08:30 WBC RBC Hgb Hct MCV MCH MCHC RDW Plt Count MPV Immature Gran % (Auto) Neut % (Auto) Lymph % (Auto) Gibson % (Auto) Eos % (Auto) Baso % (Auto) Neut # (Auto) Lymph # (Auto) Gibson # (Auto) Eos # (Auto) Baso # (Auto) Abs Immat Gran (auto) Absolute Nucleated RBC Nucleated RBC % (auto) Neutrophils % (Manual) 80 H Band Neutrophils % 2 L Lymphocytes % (Manual) 5 L Monocytes % (Manual) 13 H Neutrophils # (Manual) 14.0 H Lymphocytes # (Manual) 0.9 Monocytes # (Manual) 2.2 H Platelet Estimate NORMAL Plt Morphology Comment NORMAL RBC Morphology NORMAL Smear Tech's Comments ESR D-Dimer ABG pH ABG pCO2 ABG pO2 ABG HCO3 ABG O2 Saturation ABG Base Excess VBG pH VBG pCO2 VBG pO2 VBG HCO3 VBG O2 Saturation VBG Base Excess Oxygen Given Sodium Potassium Chloride Carbon Dioxide Anion Gap BUN Creatinine Estim Creat Clear Calc Estimated GFR POC Glucose Random Glucose Calcium Phosphorus Magnesium Lactate Dehydrogenase Total Creatine Kinase C-Reactive Protein Procalcitonin Respiratory Panel [place] See Note Adenovirus (Rapid PCR) Not Detected B.pert (TEM-PCR) Not Detected B.parapertussis DNA PCR Not Detected C. pneumoniae DNA (PCR) Not Detected Coronavirus (PCR) NEGATIVE Coronavirus OC43 (PCR) Not Detected Coronavirus HKU1 (PCR) Not Detected Coronavirus 229E (PCR) Not Detected Coronavirus NL63 (PCR) Not Detected Human Metapneumovir PCR Not Detected Influenza A (RT-PCR) Not Detected Influenza B (RT-PCR) Not Detected M. pneumoniae (PCR) Not Detected Parainfluenza 1 (PCR) Not Detected Parainfluenza 2 (PCR) Not Detected Parainfluenza 3 (PCR) Not Detected Parainfluenza 4 (PCR) Not Detected RSV (PCR) Not Detected Entero/Rhino (PCR) Not Detected SARS-CoV-2 RNA (RT-PCR) Not Detected 05/12/20 05/12/20 05/12/20 08:41 10:21 10:21 WBC 17.0 H RBC 5.16 Hgb 16.6 Hct 51.5 MCV 99.8 H MCH 32.2 MCHC 32.2 RDW 11.9 Plt Count 165 MPV 11.0 Immature Gran % (Auto) 0.6 H Neut % (Auto) 82.1 H Lymph % (Auto) 7.8 L Gibson % (Auto) 9.2 Eos % (Auto) 0.1 Baso % (Auto) 0.2 Neut # (Auto) 14.0 H Lymph # (Auto) 1.3 Gibson # (Auto) 1.6 H Eos # (Auto) 0.0 Baso # (Auto) 0.0 Abs Immat Gran (auto) 0.10 H Absolute Nucleated RBC 0.000 Nucleated RBC % (auto) 0.0 Neutrophils % (Manual) Band Neutrophils % Lymphocytes % (Manual) Monocytes % (Manual) Neutrophils # (Manual) Lymphocytes # (Manual) Monocytes # (Manual) Platelet Estimate Plt Morphology Comment RBC Morphology Smear Tech's Comments VERIFIED ESR D-Dimer 441 ABG pH ABG pCO2 ABG pO2 ABG HCO3 ABG O2 Saturation ABG Base Excess VBG pH VBG pCO2 VBG pO2 VBG HCO3 VBG O2 Saturation VBG Base Excess Oxygen Given Sodium Potassium Chloride Carbon Dioxide Anion Gap BUN Creatinine Estim Creat Clear Calc Estimated GFR POC Glucose 149 H Random Glucose Calcium Phosphorus Magnesium Lactate Dehydrogenase Total Creatine Kinase C-Reactive Protein Procalcitonin Respiratory Panel [place] Adenovirus (Rapid PCR) B.pert (TEM-PCR) B.parapertussis DNA PCR C. pneumoniae DNA (PCR) Coronavirus (PCR) Coronavirus OC43 (PCR) Coronavirus HKU1 (PCR) Coronavirus 229E (PCR) Coronavirus NL63 (PCR) Human Metapneumovir PCR Influenza A (RT-PCR) Influenza B (RT-PCR) M. pneumoniae (PCR) Parainfluenza 1 (PCR) Parainfluenza 2 (PCR) Parainfluenza 3 (PCR) Parainfluenza 4 (PCR) RSV (PCR) Entero/Rhino (PCR) SARS-CoV-2 RNA (RT-PCR) 05/12/20 05/12/20 05/12/20 10:21 10:21 10:21 WBC RBC Hgb Hct MCV MCH MCHC RDW Plt Count MPV Immature Gran % (Auto) Neut % (Auto) Lymph % (Auto) Gibson % (Auto) Eos % (Auto) Baso % (Auto) Neut # (Auto) Lymph # (Auto) Gibson # (Auto) Eos # (Auto) Baso # (Auto) Abs Immat Gran (auto) Absolute Nucleated RBC Nucleated RBC % (auto) Neutrophils % (Manual) Band Neutrophils % Lymphocytes % (Manual) Monocytes % (Manual) Neutrophils # (Manual) Lymphocytes # (Manual) Monocytes # (Manual) Platelet Estimate Plt Morphology Comment RBC Morphology Smear Tech's Comments ESR 6 D-Dimer ABG pH ABG pCO2 ABG pO2 ABG HCO3 ABG O2 Saturation ABG Base Excess VBG pH VBG pCO2 VBG pO2 VBG HCO3 VBG O2 Saturation VBG Base Excess Oxygen Given Sodium Potassium Chloride Carbon Dioxide Anion Gap BUN Creatinine Estim Creat Clear Calc Estimated GFR POC Glucose Random Glucose 209 H Calcium Phosphorus 4.4 Magnesium 2.0 Lactate Dehydrogenase 149 Total Creatine Kinase 54 C-Reactive Protein 2.55 H Procalcitonin 0.02 Respiratory Panel [place] Adenovirus (Rapid PCR) B.pert (TEM-PCR) B.parapertussis DNA PCR C. pneumoniae DNA (PCR) Coronavirus (PCR) Coronavirus OC43 (PCR) Coronavirus HKU1 (PCR) Coronavirus 229E (PCR) Coronavirus NL63 (PCR) Human Metapneumovir PCR Influenza A (RT-PCR) Influenza B (RT-PCR) M. pneumoniae (PCR) Parainfluenza 1 (PCR) Parainfluenza 2 (PCR) Parainfluenza 3 (PCR) Parainfluenza 4 (PCR) RSV (PCR) Entero/Rhino (PCR) SARS-CoV-2 RNA (RT-PCR) 05/12/20 05/12/20 05/12/20 11:50 14:45 17:35 WBC RBC Hgb Hct MCV MCH MCHC RDW Plt Count MPV Immature Gran % (Auto) Neut % (Auto) Lymph % (Auto) Gibson % (Auto) Eos % (Auto) Baso % (Auto) Neut # (Auto) Lymph # (Auto) Gibson # (Auto) Eos # (Auto) Baso # (Auto) Abs Immat Gran (auto) Absolute Nucleated RBC Nucleated RBC % (auto) Neutrophils % (Manual) Band Neutrophils % Lymphocytes % (Manual) Monocytes % (Manual) Neutrophils # (Manual) Lymphocytes # (Manual) Monocytes # (Manual) Platelet Estimate Plt Morphology Comment RBC Morphology Smear Tech's Comments ESR D-Dimer ABG pH 7.29 L ABG pCO2 77 H* ABG pO2 73 L ABG HCO3 37 H ABG O2 Saturation 94.7 ABG Base Excess 6.4 VBG pH VBG pCO2 VBG pO2 VBG HCO3 VBG O2 Saturation VBG Base Excess Oxygen Given 55% Sodium Potassium Chloride Carbon Dioxide Anion Gap BUN Creatinine Estim Creat Clear Calc Estimated GFR POC Glucose 256 H 283 H Random Glucose Calcium Phosphorus Magnesium Lactate Dehydrogenase Total Creatine Kinase C-Reactive Protein Procalcitonin Respiratory Panel [place] Adenovirus (Rapid PCR) B.pert (TEM-PCR) B.parapertussis DNA PCR C. pneumoniae DNA (PCR) Coronavirus (PCR) Coronavirus OC43 (PCR) Coronavirus HKU1 (PCR) Coronavirus 229E (PCR) Coronavirus NL63 (PCR) Human Metapneumovir PCR Influenza A (RT-PCR) Influenza B (RT-PCR) M. pneumoniae (PCR) Parainfluenza 1 (PCR) Parainfluenza 2 (PCR) Parainfluenza 3 (PCR) Parainfluenza 4 (PCR) RSV (PCR) Entero/Rhino (PCR) SARS-CoV-2 RNA (RT-PCR) 05/12/20 05/12/20 05/13/20 22:44 22:44 05:20 WBC 12.8 H RBC 4.70 Hgb 15.6 Hct 47.9 MCV 101.9 H MCH 33.2 H MCHC 32.6 RDW 12.1 Plt Count 149 L MPV 11.1 Immature Gran % (Auto) 0.4 Neut % (Auto) 72.9 Lymph % (Auto) 17.4 L Gibson % (Auto) 8.5 Eos % (Auto) 0.6 Baso % (Auto) 0.2 Neut # (Auto) 9.3 H Lymph # (Auto) 2.2 Gibson # (Auto) 1.1 Eos # (Auto) 0.1 Baso # (Auto) 0.0 Abs Immat Gran (auto) 0.05 H Absolute Nucleated RBC 0.000 Nucleated RBC % (auto) 0.0 Neutrophils % (Manual) Band Neutrophils % Lymphocytes % (Manual) Monocytes % (Manual) Neutrophils # (Manual) Lymphocytes # (Manual) Monocytes # (Manual) Platelet Estimate Plt Morphology Comment RBC Morphology Smear Tech's Comments ESR D-Dimer ABG pH ABG pCO2 ABG pO2 ABG HCO3 ABG O2 Saturation ABG Base Excess VBG pH VBG pCO2 VBG pO2 VBG HCO3 VBG O2 Saturation VBG Base Excess Oxygen Given Sodium Potassium Chloride Carbon Dioxide Anion Gap BUN Creatinine Estim Creat Clear Calc Estimated GFR POC Glucose 250 H 250 H Random Glucose Calcium Phosphorus Magnesium Lactate Dehydrogenase Total Creatine Kinase C-Reactive Protein Procalcitonin Respiratory Panel [place] Adenovirus (Rapid PCR) B.pert (TEM-PCR) B.parapertussis DNA PCR C. pneumoniae DNA (PCR) Coronavirus (PCR) Coronavirus OC43 (PCR) Coronavirus HKU1 (PCR) Coronavirus 229E (PCR) Coronavirus NL63 (PCR) Human Metapneumovir PCR Influenza A (RT-PCR) Influenza B (RT-PCR) M. pneumoniae (PCR) Parainfluenza 1 (PCR) Parainfluenza 2 (PCR) Parainfluenza 3 (PCR) Parainfluenza 4 (PCR) RSV (PCR) Entero/Rhino (PCR) SARS-CoV-2 RNA (RT-PCR) 05/13/20 05/13/20 05/13/20 05:20 05:20 06:02 WBC RBC Hgb Hct MCV MCH MCHC RDW Plt Count MPV Immature Gran % (Auto) Neut % (Auto) Lymph % (Auto) Gibson % (Auto) Eos % (Auto) Baso % (Auto) Neut # (Auto) Lymph # (Auto) Gibson # (Auto) Eos # (Auto) Baso # (Auto) Abs Immat Gran (auto) Absolute Nucleated RBC Nucleated RBC % (auto) Neutrophils % (Manual) Band Neutrophils % Lymphocytes % (Manual) Monocytes % (Manual) Neutrophils # (Manual) Lymphocytes # (Manual) Monocytes # (Manual) Platelet Estimate Plt Morphology Comment RBC Morphology Smear Tech's Comments ESR D-Dimer ABG pH ABG pCO2 ABG pO2 ABG HCO3 ABG O2 Saturation ABG Base Excess VBG pH 7.33 VBG pCO2 76 VBG pO2 86 VBG HCO3 40 VBG O2 Saturation 96.5 VBG Base Excess 9.7 Oxygen Given Sodium 143 Potassium 3.5 D Chloride 99 Carbon Dioxide 38 H Anion Gap 10 L BUN 15 Creatinine 0.71 Estim Creat Clear Calc 157.2 Estimated GFR > 60 POC Glucose 182 H Random Glucose 114 D Calcium 8.4 Phosphorus 4.6 H Magnesium 2.0 Lactate Dehydrogenase Total Creatine Kinase C-Reactive Protein Procalcitonin Respiratory Panel [place] Adenovirus (Rapid PCR) B.pert (TEM-PCR) B.parapertussis DNA PCR C. pneumoniae DNA (PCR) Coronavirus (PCR) Coronavirus OC43 (PCR) Coronavirus HKU1 (PCR) Coronavirus 229E (PCR) Coronavirus NL63 (PCR) Human Metapneumovir PCR Influenza A (RT-PCR) Influenza B (RT-PCR) M. pneumoniae (PCR) Parainfluenza 1 (PCR) Parainfluenza 2 (PCR) Parainfluenza 3 (PCR) Parainfluenza 4 (PCR) RSV (PCR) Entero/Rhino (PCR) SARS-CoV-2 RNA (RT-PCR) 05/13/20 08:07 WBC RBC Hgb Hct MCV MCH MCHC RDW Plt Count MPV Immature Gran % (Auto) Neut % (Auto) Lymph % (Auto) Gibson % (Auto) Eos % (Auto) Baso % (Auto) Neut # (Auto) Lymph # (Auto) Gibson # (Auto) Eos # (Auto) Baso # (Auto) Abs Immat Gran (auto) Absolute Nucleated RBC Nucleated RBC % (auto) Neutrophils % (Manual) Band Neutrophils % Lymphocytes % (Manual) Monocytes % (Manual) Neutrophils # (Manual) Lymphocytes # (Manual) Monocytes # (Manual) Platelet Estimate Plt Morphology Comment RBC Morphology Smear Tech's Comments ESR D-Dimer ABG pH ABG pCO2 ABG pO2 ABG HCO3 ABG O2 Saturation ABG Base Excess VBG pH VBG pCO2 VBG pO2 VBG HCO3 VBG O2 Saturation VBG Base Excess Oxygen Given Sodium Potassium Chloride Carbon Dioxide Anion Gap BUN Creatinine Estim Creat Clear Calc Estimated GFR POC Glucose 109 Random Glucose Calcium Phosphorus Magnesium Lactate Dehydrogenase Total Creatine Kinase C-Reactive Protein Procalcitonin Respiratory Panel [place] Adenovirus (Rapid PCR) B.pert (TEM-PCR) B.parapertussis DNA PCR C. pneumoniae DNA (PCR) Coronavirus (PCR) Coronavirus OC43 (PCR) Coronavirus HKU1 (PCR) Coronavirus 229E (PCR) Coronavirus NL63 (PCR) Human Metapneumovir PCR Influenza A (RT-PCR) Influenza B (RT-PCR) M. pneumoniae (PCR) Parainfluenza 1 (PCR) Parainfluenza 2 (PCR) Parainfluenza 3 (PCR) Parainfluenza 4 (PCR) RSV (PCR) Entero/Rhino (PCR) SARS-CoV-2 RNA (RT-PCR) Microbiology Microbiology Results: Microbiology 05/11/20 10:39 Blood - Venous Blood Culture - Preliminary No growth after 24 hours. 05/11/20 10:17 Blood - Venous Blood Culture - Preliminary No growth after 24 hours. Progress Note: A&P Assessment and plan (1) Community acquired pneumonia: Status: Acute (2) Acute on chronic respiratory failure with hypoxia and hypercapnia: Status: Acute (3) Pneumothorax: Status: Acute (4) COPD (chronic obstructive pulmonary disease): Status: Acute Time Spent With Patient Time: Total time spent is greater than 50% in coordination of care (as documented) at patient's floor/unit and/or counseling patient: Time with patient: 25 - 35 minutes No Severe Sepsis: No Severe Sepsis
[2020-05-13] MEDS: Docusate Sodium 100 MG CAPSULE PO ×2 (08:43→21:22)
[2020-05-13] MEDS: predniSONE 20 MG TABLET 40 MG PO (08:43)
--- NOTE | 2020-05-13 11:00 | CA_ITS ---
Transthoracic Echocardiogram Patient (Last, First, Middle): Keith Matute L Gender: Male Date of : 1970 Age: 50 Procedure Date: 05/13/2020 Procedure Type: Transthoracic Echocardiogram Location: ICU Height: 172.72 cm Weight: 108.86 kg BSA: 2.21 m2 Heart Rate: bpm BP: 127 / 79 mmHg Group Art Supervisor: Referring MD: Joyce España MD Symptoms: Hypoxia w respiratory Failure Study Quality: Fair ECG Rhythm: Sinus Conclusions: - The left ventricular systolic function is normal. The visually estimated ejection fraction is between 55-60%. - No obvious valvular pathology seen on this study. Findings Procedure Information Contrast agent, definity, is being given per protocol without apparent complications. Left Ventricle Normal left ventricular cavity size. There is normal left ventricular wall thickness. The left ventricular systolic function is normal. The visually estimated ejection fraction is between 55-60%. There is no evidence of regional wall motion abnormalities. Diastolic function is normal for age. Right Ventricle Normal right ventricular cavity size and systolic function. Atria The left atrium is normal in size. The right atrium is normal in size. Aortic Valve There is a normal trileaflet aortic valve. There is no aortic valve stenosis. There is no aortic valve regurgitation. Mitral Valve The mitral valve appears normal. There is trace mitral valve regurgitation. There is no mitral valve stenosis. Pulmonic Valve The pulmonic valve was not well visualized. Tricuspid Valve Normal tricuspid valve structure. There is trace tricuspid valve regurgitation. The pulmonary artery systolic pressure is normal. Great Vessels The aortic annulus, sinuses of valsalva, and asc aorta are normal in size. Venous The inferior vena cava is normal in size and collapses greater than 50% with inspiration. Pericardium/Pleural There is no evidence of pericardial effusion. Prior Study Comparison No prior study available for comparison. Recommendations, Care & Conclusions No obvious valvular pathology seen on this study. Measurements 2D Linear Measurements IVSd: 0.92 0.6-0.9/0.6-1.0 cm LVIDd: 4.37 3.9-5.3/4.2-5.9 cm LVIDd Index: 1.98 2.4-3.2/2.2-3.1 cm/m2 LVIDs: 2.67 2.0-3.6 cm LVPWd: 0.95 0.7-1.1 cm Ao Root: 3.10 2.1-3.5 cm LA Diam: 3.70 2.7-3.8/3.0-4.0 cm LAIDs Index: 1.67 1.5-2.3 cm/m2 LV Mass: 166.26 67-162/88-224 g LV Mass Index: 75.23 43-95/49-115 g/m2 LVOT Diam: 2.10 3.0+(-)1.3 cm Mitral Valve MV Pk E: 0.84 MV PK A: 0.99 MV Decel Time: 158.00 E/A: 0.90 E'Lateral: 12.60 E'Medial: 12.50 E/E' Med: 6.70 E/E' Lat: 6.70 PHT: 46.00 MVA PHT: 4.78 Decel Summit: 5.30 Aortic Valve AoV Pk Kennedy: 1.80 AoV Mn Kennedy: 1.35 AoV VTI: 0.35 AoV Pk Grad: 13.00 Aov Mn Grad: 8.00 VANNESA Cont.VTI: 2.41 LVOT LVOT Pk Kennedy: 1.24 LVOT Mn Kennedy: 0.74 LVOT VTI: 0.24 LVOT Pk Grad: 6.00 LVOT Mn Grad: 3.00 LVOT Diam: 2.10 LVOT Area: 3.46 Diastolic Function MV Pk E: 0.84 MV Pk A: 0.99 E/A: 0.90 E'Medial: 12.50 E/E' Med: 6.70 E' Laterial: 12.60 E/E' Lat: 6.70 Tricuspid Valve TR Pk Kennedy: 2.37 TR Pk Grad: 22.00 RA Press: 3.00 RVSP: 25.00 Great Vessels Aorta Ao Root-2D: 3.10 2.0-3.7 cm Ao Asc: 3.30 2.1-3.4 cm Pulmonary Valve PV Pk Kennedy: 1.15 Peak PV Grad: 5.00 Updated in Other Vendor System with Status of Final Henry Hinds MD electronically signed on 05/13/2020 4:53:08 PM with status of Final
[2020-05-13 11:42] LABS: Glucose, Whole Blood 280 mg/dL (60-115)
--- NOTE | 2020-05-13 12:17 | MHC.CM.PN ---
Met with patient in regards to discharge planning. Patient lives with his , ambulates independently and had no services prior to coming to the hospital. Patient hasn't had a PCP in about 25 years. Patient uses 's prescription for inhalers. List of PCP's provided to patient. Patient denies having HCP. Information provided. Patient is not interested in completing one. No services anticipated to be needed at discharge because patient is not homebound. Outpatient services will also be difficult to obtain because patient is not active with a PCP. Patient's will transport him home when medically stable. Patient is currently on high flow oxygen. Continue to monitor for d/c needs.
--- NOTE | 2020-05-13 12:31 | MHC.CM.PN ---
Patient is listed as self pay. He has [employer] through his employer [employer]. Copy of card was obtained and provided to insurance verification.
[2020-05-13] MEDS: 0.9 % Sodium Chloride 1,000 ML 50 ML IVCONT (12:59)
--- NOTE | 2020-05-13 15:39 | XR_ITS ---
EXAMINATION: XR CHEST CLINICAL INFORMATION: Chest tube removed COMPARISON: 12:46 PM TECHNIQUE: Frontal view of the chest was obtained. FINDINGS: Right-sided chest tube is been removed. There is no pneumothorax. Persistent retrocardiac opacity, not significantly changed. Stable cardiomediastinal silhouette. IMPRESSION: No pneumothorax post chest tube removal. Persistent retrocardiac opacity.
[2020-05-13 16:55] LABS: Glucose, Whole Blood 267 mg/dL (60-115)
[2020-05-13] MEDS: levoFLOXacin/D5W 750 MG/150 ML PIGGYBACK 100 MG IV (17:18)
[2020-05-13 21:06] LABS: Glucose, Whole Blood 217 mg/dL (60-115)
[2020-05-13 22:45] LABS: Base Excess VBG 7.4 mmol/L; HCO3 VBG 35 mmol/L; Oxygen Saturation VBG 96.1 %; PCO2 VBG 60 mmhg; PO2 VBG 80 mmhg; pH VBG 7.38 (7.32-7.43)
[2020-05-14] VITALS (33 sets, daily range): BP systolic 110–168; BP diastolic 64–108; PULSE 63–114; RESP 13–35; TEMP 36.2–36.8; O2SAT 91–97; BMI 37.6
[2020-05-14] MEDS: Piperacillin Sodium/Tazobactam 3.375 GM in 0.9 % Sodium Chloride 50 ML IV ×4 (02:49→20:45)
[2020-05-14 05:43] LABS: MANUAL DIFF FLAG NO
[2020-05-14 05:48] LABS: Basophils Percent Auto 0.3 % (0-2); Eosinophils Absolute Auto 0.1 X10*3/uL (0.0-0.4); Eosinophils Percent Auto 0.8 % (0-4); Hematocrit 48.1 % (42-52); Hemoglobin 15.6 g/dl (14.0-18.0); Imm Gran Abs Auto 0.03 X10*3/uL (0.00-0.03); Imm Gran Pct Auto 0.3 % (0.0-0.4); Lymphocytes Absolute Auto 2.5 X10*3/uL (1.2-4.9); Lymphocytes Percent Auto 23.1 % (20-40); Mean Corpuscular HGB Conc 32.4 g/dl (31.0-36.0); Mean Corpuscular Hemoglobin 32.6 pg (27.0-33.0); Mean Corpuscular Volume 100.4 fL (80-98); Monocytes Absolute Auto 1.1 X10*3/uL (0.1-1.2); Monocytes Percent Auto 10.6 % (2-11); Neutrophils Percent Auto 64.9 % (45-73); Platelet Count 143 X10*3/uL (160-400); Red Blood Count 4.79 X10*6/uL (4.60-5.80); Red Cell Distribution Width 12.1 % (11.0-16.0); White Blood Count 10.7 X10*3/uL (4.8-10.8)
[2020-05-14 05:55] LABS: Base Excess VBG 8.7 mmol/L; HCO3 VBG 38 mmol/L; Oxygen Saturation VBG 95.4 %; PCO2 VBG 75 mmhg; PO2 VBG 78 mmhg; pH VBG 7.33 (7.32-7.43)
[2020-05-14 06:11] LABS: Anion Gap 9 (12-20); Blood Urea Nitrogen 12 mg/dL (9-16); Calcium 8.6 mg/dL (8.4-10.2); Carbon Dioxide 38 mmol/L (22-29); Chloride 100 mmol/L (96-108); Estimated Glomerular Filt Rate > 60; Glucose Random 155 mg/dL (60-115); Phosphorus 4.8 mg/dL (2.7-4.5); Potassium 4.2 mmol/l (3.3-5.1); Sodium 143 mmol/L (135-145)
[2020-05-14] MEDS: Acetaminophen 325 MG TABLET 650 MG PO (06:16)
[2020-05-14 07:17] LABS: Glucose, Whole Blood 155 mg/dL (60-115)
--- NOTE | 2020-05-14 07:57 | P.PNCC_ITS ---
Subjective Subjective Date of Service: 05/14/20 Interval History: 50-year-old moderately obese male chronic continuous tobacco and alcohol abuse presented with spontaneous pneumothorax and increasing dyspnea after chest tube placement and relief of pneumothorax remained hypoxic blood gas demonstrating acute on chronic both hypercarbic and hypoxic respiratory failure and he was supported with nasal high-flow started on antibiotics and steroids for what appeared to be community-acquired infection S sense done well with chest to being discontinued but daytime pCO2 is in the low 60s and nocturnal pCO2 is in the mid 70s and clearly he needs nocturnal noninvasive ventilation at this point and we will begin the qualify in process today Physical Exam Vital Signs and I&O and Narrative: Vital Signs and I&O: Vital Signs Temp 98.2 F 05/14/20 04:18 Pulse 81 05/14/20 07:00 Resp 18 05/14/20 07:00 BP 157/102 H 05/14/20 07:00 Pulse Ox 97 05/14/20 07:00 Intake & Output 05/13/20 05/14/20 05/14/20 18:59 06:59 18:59 Intake Total 2810 / 3658.333 848.333 / 3658.333 Output Total 1270 / 2465 1150 / 2465 45 / 45 Balance 1540 / 1193.333 -301.667 / 1193.33 3 -45 / -45 Urine Output (Aver age ml/kg/hr) 0.96 0.87 0.03 Weight 109.7 kg Intake: Intake, Oral [place] unt [id number] 420 / 1980 Intake, IV Amoun t 1250 / 1678.333 428.333 / 1678.333 Piperacillin S odium/Tazobactam 100 / 200 100 / 200 3.375 gm In 0. 9 % Sodium Chloride 50 ml @ 100 mls/hr IV Q6H [facility] Rx#:[id number] levoFLOXacin/D 5W 750 mg In 150 150 / 150 ml @ 100 mls/h r IV Q24H [facility] Rx# :[id number] 0.9 % Sodium C hloride 1,000 ml 1000 / 1328.333 328.333 / 1328.333 @ 50 mls/hr IV CONT .Q20H [facility] Rx #:[id number] Output: Output, Urine Am ount 1270 / 2420 1150 / 2420 Output, Urine Am ount (Catheter) 45 / 45 Urethral 45 / 45 Other: Meal Refused No NPO No Breakfast % Eate n 100% Lunch % Eaten 100% Dinner % Eaten 100% Urine Urinal Urine Color Yellow Body Mass Index 36.8 awake alert and oriented x3 neurologic is nonfocal skin is clear with no rash no decubitus chest percussed equally with no clinical effusion and markedly diminished wheezes much better air entry and no adventitious sounds cardiac exam with normal S1 normal S2 no gallops or murmurs he has good bilateral carotid upstrokes no bruits no neck vein distension abdomen nondistended nontender no organomegaly peripherally he has got no cyanosis no clubbing and has good peripheral pulses Objective Data Labs CBC & Chem 7: 05/14/20 05:31 05/14/20 05:31 Labs: Laboratory Results - last 24 hr 05/13/20 05/13/20 05/13/20 08:07 11:38 16:49 WBC RBC Hgb Hct MCV MCH MCHC RDW Plt Count MPV Immature Gran % (Auto) Neut % (Auto) Lymph % (Auto) [place] % (Auto) Eos % (Auto) Baso % (Auto) Lymph # (Auto) [place] # (Auto) Eos # (Auto) Baso # (Auto) Abs Immat Gran (auto) Absolute Neuts (auto) Absolute Nucleated RBC Nucleated RBC % (auto) VBG pH VBG pCO2 VBG Oxygen Liters/Min VBG pO2 VBG HCO3 VBG O2 Saturation VBG Base Excess Sodium Potassium Chloride Carbon Dioxide Anion Gap BUN Creatinine Estim Creat Clear Calc Estimated GFR POC Glucose 109 280 H 267 H Random Glucose Calcium Phosphorus Magnesium 05/13/20 05/13/20 05/14/20 20:59 22:27 05:31 WBC 10.7 RBC 4.79 Hgb 15.6 Hct 48.1 MCV 100.4 H MCH 32.6 MCHC 32.4 RDW 12.1 Plt Count 143 L MPV 11.0 Immature Gran % (Auto) 0.3 Neut % (Auto) 64.9 Lymph % (Auto) 23.1 [place] % (Auto) 10.6 Eos % (Auto) 0.8 Baso % (Auto) 0.3 Lymph # (Auto) 2.5 [place] # (Auto) 1.1 Eos # (Auto) 0.1 Baso # (Auto) 0.0 Abs Immat Gran (auto) 0.03 Absolute Neuts (auto) 7.0 Absolute Nucleated RBC 0.000 Nucleated RBC % (auto) 0.0 VBG pH 7.38 VBG pCO2 60 VBG Oxygen Liters/Min Not Reportable VBG pO2 80 VBG HCO3 35 VBG O2 Saturation 96.1 VBG Base Excess 7.4 Sodium Potassium Chloride Carbon Dioxide Anion Gap BUN Creatinine Estim Creat Clear Calc Estimated GFR POC Glucose 217 H Random Glucose Calcium Phosphorus Magnesium 05/14/20 05/14/20 05/14/20 05:31 05:37 07:13 WBC RBC Hgb Hct MCV MCH MCHC RDW Plt Count MPV Immature Gran % (Auto) Neut % (Auto) Lymph % (Auto) [place] % (Auto) Eos % (Auto) Baso % (Auto) Lymph # (Auto) [place] # (Auto) Eos # (Auto) Baso # (Auto) Abs Immat Gran (auto) Absolute Neuts (auto) Absolute Nucleated RBC Nucleated RBC % (auto) VBG pH 7.33 VBG pCO2 75 VBG Oxygen Liters/Min Not Reportable VBG pO2 78 VBG HCO3 38 VBG O2 Saturation 95.4 VBG Base Excess 8.7 Sodium 143 Potassium 4.2 Chloride 100 Carbon Dioxide 38 H Anion Gap 9 L BUN 12 Creatinine 0.70 Estim Creat Clear Calc 155.0 Estimated GFR > 60 POC Glucose 155 H Random Glucose 155 H D Calcium 8.6 Phosphorus 4.8 H Magnesium 2.0 Imaging Chest x-ray: Attestation: I personally reviewed and interpreted this imaging study as follows: My impression: chest x-ray after removal of the pigtail chest tube shows lung were has remained fully expanded ABG Attestation: I personally reviewed and interpreted this ABG as follows: Interpretation: arterial blood gas shows that nocturnally he develops more event acute CO2 retention climbing from 60-75 Microbiology Microbiology Results: Microbiology 05/11/20 10:39 Blood - Venous Blood Culture - Preliminary No growth after 48 hours. 05/11/20 10:17 Blood - Venous Blood Culture - Preliminary No growth after 48 hours. Echocardiogram Attestation Echocardiogram: I personally reviewed and interpreted this echocardiogram as follows: Interpretation: my own echo showed normal anatomy with normal systolic reserve and normal IVC diameter Progress Note: A&P Assessment and plan (1) Community acquired pneumonia: Status: Acute Assessment and Plan: doing well on antibiotics and ready to exchange his short-acting bronchodilator to long-acting and will begin the qualify in process for a nocturnal BiPAP (2) Acute on chronic respiratory failure with hypoxia and hypercapnia: Status: Acute Assessment and Plan: beginning to assess for nocturnal BiPAP to correct his sleep induced hypercarbia (3) Pneumothorax: Status: Acute Assessment and Plan: resolved (4) COPD (chronic obstructive pulmonary disease): Status: Acute Assessment and Plan: will begin to wean steroids and change him to long-acting bronchodilator Time Spent With Patient Time: Total time spent is greater than 50% in coordination of care (as documented) at patient's floor/unit and/or counseling patient: Time with patient: 25 - 35 minutes No Severe Sepsis: No Severe Sepsis
[2020-05-14] MEDS: Docusate Sodium 100 MG CAPSULE PO ×2 (08:18→20:45)
[2020-05-14] MEDS: predniSONE 20 MG TABLET 40 MG PO (08:18)
[2020-05-14] MEDS: Insulin Lispro 100 UNIT/ML 3 ML VIAL SUBCUT ×4 (08:19→21:13)
[2020-05-14] MEDS: 0.9 % Sodium Chloride Flush 3 ML SYRINGE 2 ML IVFLUSH ×3 (08:20→23:10)
[2020-05-14] MEDS: Famotidine/PF 20 MG/2 ML VIAL IVPUSH ×2 (08:20→20:45)
--- NOTE | 2020-05-14 10:06 | MHC.CM.PN ---
Patient remains in ICU on high flow oxygen. Patient is from home without services. Anticipate patient will return home without services. Continue to monitor for d/c needs.
[2020-05-14 11:45] LABS: Glucose, Whole Blood 196 mg/dL (60-115)
[2020-05-14] MEDS: Salmeterol Xinafoate 50 MCG BLST.W.DEV 1 PUFF INHALE ×2 (12:07→19:50)
[2020-05-14 15:17] LABS: Base Excess VBG 4.4 mmol/L; HCO3 VBG 34 mmol/L; Oxygen Saturation VBG 73.4 %; PCO2 VBG 71 mmhg; PO2 VBG 40 mmhg
[2020-05-14 16:54] LABS: Glucose, Whole Blood 258 mg/dL (60-115)
[2020-05-14] MEDS: levoFLOXacin/D5W 750 MG/150 ML PIGGYBACK 100 MG IV (17:14)
[2020-05-14 17:37] LABS: Pt Ventilation O2% 40%
[2020-05-14 17:44] LABS: ABG PCO2 49 mmhg (32-45); Base Excess ABG 4.5; Blood Gas Serial # 5414; HCO3 ABG 31 mmol/l (22-26); Oxygen Saturation ABG 97.1 %; PO2 ABG 84 mmhg (83-108); pH ABG 7.41 (7.35-7.45)
[2020-05-14 21:04] LABS: Glucose, Whole Blood 228 mg/dL (60-115)
[2020-05-15] VITALS (15 sets, daily range): BP systolic 106–165; BP diastolic 64–99; PULSE 69–101; RESP 12–20; TEMP 36.2–36.6; O2SAT 91–98; BMI 85.4
[2020-05-15] MEDS: Piperacillin Sodium/Tazobactam 3.375 GM in 0.9 % Sodium Chloride 50 ML IV ×4 (01:29→20:13)
[2020-05-15 04:43] LABS: Pt Ventilation O2% 2 L; pH ABG 7.38 (7.35-7.45)
[2020-05-15 04:45] LABS: ABG PCO2 61 mmhg (32-45); Base Excess ABG 7.7; HCO3 ABG 35 mmol/l (22-26); PO2 ABG 71 mmhg (83-108)
[2020-05-15 04:46] LABS: Oxygen Saturation ABG 95.1 %
[2020-05-15 05:47] LABS: MANUAL DIFF FLAG NO
[2020-05-15 05:53] LABS: Basophils Percent Auto 0.2 % (0-2); Eosinophils Absolute Auto 0.1 X10*3/uL (0.0-0.4); Eosinophils Percent Auto 1.1 % (0-4); Hematocrit 47.3 % (42-52); Hemoglobin 15.5 g/dl (14.0-18.0); Imm Gran Abs Auto 0.02 X10*3/uL (0.00-0.03); Imm Gran Pct Auto 0.2 % (0.0-0.4); Lymphocytes Absolute Auto 2.6 X10*3/uL (1.2-4.9); Lymphocytes Percent Auto 26.2 % (20-40); Mean Corpuscular HGB Conc 32.8 g/dl (31.0-36.0); Mean Corpuscular Hemoglobin 32.8 pg (27.0-33.0); Mean Corpuscular Volume 100.2 fL (80-98); Mean Platelet Volume 11.3 fL (9.4-12.4); Monocytes Absolute Auto 0.9 X10*3/uL (0.1-1.2); Monocytes Percent Auto 9.5 % (2-11); Neutrophils Absolute Auto 6.2 X10*3/uL (2.0-8.3); Neutrophils Percent Auto 62.8 % (45-73); Platelet Count 150 X10*3/uL (160-400); Red Blood Count 4.72 X10*6/uL (4.60-5.80); White Blood Count 9.8 X10*3/uL (4.8-10.8)
[2020-05-15 06:05] LABS: D Dimer 413 NG/ML
[2020-05-15 06:24] LABS: Anion Gap 11 (12-20); Blood Urea Nitrogen 15 mg/dL (9-16); Calcium 8.5 mg/dL (8.4-10.2); Carbon Dioxide 33 mmol/L (22-29); Chloride 100 mmol/L (96-108); Creatinine Clr Calc Pharmacy 159.2; Estimated Glomerular Filt Rate > 60; Glucose Random 151 mg/dL (60-115); Phosphorus 4.3 mg/dL (2.7-4.5); Potassium 3.5 mmol/l (3.3-5.1); Sodium 140 mmol/L (135-145)
--- NOTE | 2020-05-15 07:22 | PC.NURSE ---
ASSUMED CARE AT 19:00. PATIENT WAS USING HIGH FLOW CANNULA 40 LPM, 55%, SPO2 WAS 93-96%. PATIENT WAS ABLE TO SPEAK FULL SENTENCES WITHOUT BREAKING SPEECH TO BREATHE. PATIENT APPEARED TO BE BREATHING COMFORTABLY, NO RESPIRATORY DISTRESS. PATIENT WAS ALERT AND ORIENTED, LUNG SOUNDS DIMINISHED THROUGHOUT. CHEST TUBE SITE FROM RIGHT ANTERIOR CHEST INTACT TO STERILE DRESSING WITH NO STAINING, NO CREPITUS TO THE SITE. PATIENT REPORTED SOME CONSTIPATION, HAS HYPOACTIVE BOWEL SOUNDS, TAKING COLACE. TRANSFERRED TO THE BED FROM THE CHAIR WITH TWO ASSIST, STEADY ON HIS FEET. PATIENT COMPLETED OVERNIGHT SLEEP STUDY FROM ABOUT 23:00 UNTIL ABOUT 4 AM, AND HAD ABGS WITH CO2 CRITICALLY HIGH AT 61; PA AWARE, AND THIS WAS ANTICIPATED DUE TO USING 2 LPM NASAL CANNULA OVERNIGHT FOR SLEEP STUDY, DURING WHICH HIS SPO2 WAS 91-92 MOST OF THE TIME AND DROPPED TO 86% TWICE, SNORING NOTED. VOIDING IN URINAL, HAD A SNACK AT HS, WHEN POC WAS 228 AND HE HAD 4 U LISPRO. THIS MORNING WAS TRANSFERRED TO C PER PA AND SENIOR PRODUCT ANALYST, AND REPORT GIVEN TO COLLEEN MOTA.
[2020-05-15 07:44] LABS: Glucose, Whole Blood 145 mg/dL (60-115)
[2020-05-15] MEDS: Salmeterol Xinafoate 50 MCG BLST.W.DEV 1 PUFF INHALE ×2 (08:49→20:00)
[2020-05-15] MEDS: Famotidine/PF 20 MG/2 ML VIAL IVPUSH ×2 (09:13→20:14)
[2020-05-15] MEDS: predniSONE 20 MG TABLET 40 MG PO (09:14)
[2020-05-15] MEDS: Docusate Sodium 100 MG CAPSULE PO (09:14)
[2020-05-15] MEDS: 0.9 % Sodium Chloride Flush 3 ML SYRINGE 2 ML IVFLUSH ×3 (09:14→21:23)
[2020-05-15 11:30] LABS: Glucose, Whole Blood 230 mg/dL (60-115)
[2020-05-15] MEDS: Insulin Lispro 100 UNIT/ML 3 ML VIAL SUBCUT ×3 (12:22→21:22)
[2020-05-15] MEDS: levalbuterol HCL 1.25 MG/3 ML VIAL.NEB INHALE (15:54)
--- NOTE | 2020-05-15 16:16 | HO.PM.IMPN ---
Subjective Subjective Date of Service: 05/15/20 Interval History: the patient was seen and evaluated this morning Feels better requiring oxygen Chest pain, shortness of breath No reported overnight events Review of Systems Review of Systems: Yes all other systems are reviewed and are negative Physical Exam Vital Signs and I&O and Narrative: Vital Signs and I&O: Vital Signs Temp 97.1 F 05/15/20 15:30 Pulse 70 05/15/20 15:30 Resp 20 05/15/20 15:30 BP 151/73 H 05/15/20 15:30 Pulse Ox 94 05/15/20 15:30 Intake & Output 05/14/20 05/15/20 05/15/20 18:59 06:59 18:59 Intake Total 700 / 2790 2090 / 2790 530 / 530 Output Total 1295 / 2445 1150 / 2445 1150 / 1150 Balance -595 / 345 940 / 345 -620 / -620 Urine Output (Aver age ml/kg/hr) 0.96 0.85 0.38 Weight 112.4 kg 255 kg Intake: Intake, Oral [place] unt 600 / 2440 1840 / 2440 480 / 480 Intake, IV Amoun t 100 / 350 250 / 350 50 / 50 Piperacillin S odium/Tazobactam 100 / 200 100 / 200 50 / 50 3.375 gm In 0. 9 % Sodium Chloride 50 ml @ 100 mls/hr IV Q6H [facility] Rx#:[id number] levoFLOXacin/D 5W 750 mg In 150 150 / 150 ml @ 100 mls/h r IV Q24H [facility] Rx# :[id number] Output: Output, Urine Am ount 1250 / 2400 1150 / 2400 1150 / 1150 Output, Urine Am ount (Catheter) 45 / 45 Urethral 45 / 45 Other: Meal Refused No NPO No Breakfast % Eate n 100% 100% Lunch % Eaten 100% 100% Dinner % Eaten 100% Number of Bowel Movements 2 Urine Urinal Urinal Urinal Urine Color Cloudy Lupis Yellow Stool Bathroom Stool Color Brown Stool Consistenc y Liquid Body Mass Index 85.4 Constitutional : Alert, oriented, not in distress Neck : Normal inspection, Supple Cardiovascular : RRR, S1 S2, no lower extremity edema Respiratory : Good bilateral air entry, basal crackles, wheezes or rhonchi, on O2 supplement Gastrointestinal: soft, lax, Normal bowel sounds, Non tender Skin : Warm/Dry, No rash Neurological : Alert & oriented x3, No focal deficit Objective Data Current Medications Generic Name Dose Route Start Last Admin Trade Name Emmanuelq PRN Reason Stop Dose Admin Acetaminophen 650 mg 05/12/20 03:56 05/14/20 06:16 Acetaminophen 325 Mg Tablet PO 650 mg Q6H PRN Administration Headache Docusate Sodium 100 mg 05/11/20 21:00 05/15/20 09:14 Docusate Sodium 100 Mg Capsule PO 100 mg BID [facility] Administration Famotidine 20 mg 05/11/20 21:00 05/15/20 09:13 Famotidine/Pf 20 Mg/2 Ml Vial IVPUSH 20 mg BID NINA Administration Hydromorphone HCl 0.5 mg 05/11/20 12:13 05/13/20 04:09 Hydromorphone Hcl 0.5 Mg/0.5 Ml Syringe IVPUSH 0.5 mg Q6H PRN Administration Pain, Severe (Pain Scale 7-10) Piperacillin Sod/Tazobactam 50 mls @ 100 mls/hr 05/12/20 20:00 05/15/20 15:40 Sod 3.375 gm/ Sodium Chloride IV 100 mls/hr Q6H [facility] Administration Levofloxacin 750 mg in 150 mls @ 100 mls/hr 05/13/20 18:00 05/14/20 19:48 Levaquin IV Infused Q24H [facility] Infusion Insulin Human Lispro 0 unit 05/13/20 11:30 05/15/20 12:22 Insulin Lispro 100 Unit/Ml 3 Ml Vial SUBCUT 2 unit QIDACHS [facility] Administration Protocol Levalbuterol HCl 1.25 mg 05/12/20 12:03 05/15/20 15:54 Levalbuterol Hcl 1.25 Mg/3 Ml Vial.Neb INHALE 1.25 mg Q2H PRN Administration Dyspepsia Lorazepam 1 mg 05/11/20 16:29 05/12/20 20:06 Lorazepam 1 Mg Tablet PO 05/15/20 16:28 1 mg Q4H PRN Administration Breakthrough alcohol withdrawa Magnesium Hydroxide 30 ml 05/11/20 12:13 Milk Of Magnesia 30 Ml Oral.Susp PO DAILY PRN Constipation Ondansetron HCl 4 mg 05/11/20 12:13 Ondansetron Hcl 4 Mg/2 Ml Vial IVPUSH Q8H PRN Nausea and Vomiting Prednisone 40 mg 05/12/20 09:00 05/15/20 09:14 Prednisone 20 Mg Tablet PO 05/16/20 09:01 40 mg DAILY NINA Administration Salmeterol Xinafoate 1 puff 05/14/20 08:00 05/15/20 08:49 Salmeterol Xinafoate 50 Mcg Blst.W.Dev INHALE 1 puff RBID [facility] Administration Sodium Chloride 2 ml 05/11/20 16:00 05/15/20 15:41 0.9 % Sodium Chloride Flush 3 Ml Syringe IVFLUSH 2 ml QSHIFT [facility] Administration Zolpidem Tartrate 5 mg 05/11/20 12:13 Zolpidem Tartrate 5 Mg Tablet PO BEDTIME PRN Insomnia Labs CBC & Chem 7: 05/15/20 05:28 05/15/20 05:28 Labs: Laboratory Results - last 24 hr 05/14/20 05/14/20 05/14/20 16:51 17:24 20:48 MCV MCH MCHC RDW Plt Count MPV Immature Gran % (Auto) Neut % (Auto) Lymph % (Auto) [place] % (Auto) Eos % (Auto) Baso % (Auto) Lymph # (Auto) [place] # (Auto) Eos # (Auto) Baso # (Auto) Abs Immat Gran (auto) Absolute Neuts (auto) Absolute Nucleated RBC Nucleated RBC % (auto) D-Dimer ABG pH 7.41 ABG pCO2 49 H ABG pO2 84 ABG HCO3 31 H ABG O2 Saturation 97.1 ABG Base Excess 4.5 Oxygen Given 40% Anion Gap Estim Creat Clear Calc Estimated GFR POC Glucose 258 H 228 H Random Glucose Calcium Phosphorus Magnesium 05/15/20 05/15/20 05/15/20 04:24 05:28 05:28 MCV 100.2 H MCH 32.8 MCHC 32.8 RDW 12.0 Plt Count 150 L MPV 11.3 Immature Gran % (Auto) 0.2 Neut % (Auto) 62.8 Lymph % (Auto) 26.2 [place] % (Auto) 9.5 Eos % (Auto) 1.1 Baso % (Auto) 0.2 Lymph # (Auto) 2.6 [place] # (Auto) 0.9 Eos # (Auto) 0.1 Baso # (Auto) 0.0 Abs Immat Gran (auto) 0.02 Absolute Neuts (auto) 6.2 Absolute Nucleated RBC 0.000 Nucleated RBC % (auto) 0.0 D-Dimer ABG pH 7.38 ABG pCO2 61 H* ABG pO2 71 L ABG HCO3 35 H ABG O2 Saturation 95.1 ABG Base Excess 7.7 Oxygen Given 2 L Anion Gap 11 L Estim Creat Clear Calc 159.2 Estimated GFR > 60 POC Glucose Random Glucose 151 H Calcium 8.5 Phosphorus 4.3 Magnesium 2.0 05/15/20 05/15/20 05/15/20 05:28 07:38 11:27 MCV MCH MCHC RDW Plt Count MPV Immature Gran % (Auto) Neut % (Auto) Lymph % (Auto) [place] % (Auto) Eos % (Auto) Baso % (Auto) Lymph # (Auto) [place] # (Auto) Eos # (Auto) Baso # (Auto) Abs Immat Gran (auto) Absolute Neuts (auto) Absolute Nucleated RBC Nucleated RBC % (auto) D-Dimer 413 ABG pH ABG pCO2 ABG pO2 ABG HCO3 ABG O2 Saturation ABG Base Excess Oxygen Given Anion Gap Estim Creat Clear Calc Estimated GFR POC Glucose 145 H 230 H Random Glucose Calcium Phosphorus Magnesium Microbiology Microbiology Results: Microbiology 05/11/20 10:39 Blood - Venous Blood Culture - Preliminary No growth after 48 hours. 05/11/20 10:17 Blood - Venous Blood Culture - Preliminary No growth after 48 hours. Assessment and Plan (1) Community acquired pneumonia: Status: Acute (2) Acute on chronic respiratory failure with hypoxia and hypercapnia: Status: Acute (3) Pneumothorax: Status: Acute (4) COPD (chronic obstructive pulmonary disease): Status: Acute (5) Sleep apnea: Status: Acute Assessment and Plan: a 50 years old male with history of obesity, smoking who presents to the hospital with spontaneous pneumothorax admitted to the ICU with chest tube placement. acute hypoxic hypercapnic respiratory failure Mixed etiology of KEVIN and pneumonia Continue levofloxacin and Zosyn for the time being Continue bronchodilators Qualifies for BiPAP, to use at bedtime Cough medication Oxygen supplement as needed Spontaneous pneumothorax Resolved Chest tube removed morbid Obesity Seems to be affecting his current medical problem, advised to lose weight Advised to lose weight
[2020-05-15 16:35] LABS: Glucose, Whole Blood 213 mg/dL (60-115)
[2020-05-15] MEDS: levoFLOXacin/D5W 750 MG/150 ML PIGGYBACK 100 MG IV (17:26)
[2020-05-15 21:18] LABS: Glucose, Whole Blood 190 mg/dL (60-115)
[2020-05-16] VITALS (8 sets, daily range): BP systolic 139–164; BP diastolic 81–93; PULSE 68–99; RESP 18–22; TEMP 36.3–37.1; O2SAT 93–98
[2020-05-16] MEDS: Piperacillin Sodium/Tazobactam 3.375 GM in 0.9 % Sodium Chloride 50 ML IV ×4 (01:31→19:53)
[2020-05-16 08:23] LABS: Glucose, Whole Blood 238 mg/dL (60-115)
[2020-05-16] MEDS: Insulin Lispro 100 UNIT/ML 3 ML VIAL SUBCUT ×4 (08:48→20:36)
[2020-05-16] MEDS: Famotidine/PF 20 MG/2 ML VIAL IVPUSH ×2 (08:54→20:36)
[2020-05-16] MEDS: predniSONE 20 MG TABLET 40 MG PO (08:58)
[2020-05-16] MEDS: Docusate Sodium 100 MG CAPSULE PO (08:59)
[2020-05-16] MEDS: 0.9 % Sodium Chloride Flush 3 ML SYRINGE 2 ML IVFLUSH ×3 (09:04→23:25)
[2020-05-16] MEDS: Salmeterol Xinafoate 50 MCG BLST.W.DEV 1 PUFF INHALE ×2 (09:04→19:34)
[2020-05-16 12:16] LABS: Glucose, Whole Blood 154 mg/dL (60-115)
--- NOTE | 2020-05-16 14:06 | P.PNIM_ITS ---
Subjective Subjective Interval History: the patient was seen and evaluated this morning Feels better , Still requiring oxygen Chest pain, shortness of breath No reported overnight events Physical Exam Vital Signs: Vital Signs: Vital Signs Temp Pulse Resp BP Pulse Ox 05/16/20 08:00 97.6 F 99 22 H 155/81 H 95 05/16/20 03:36 97 05/16/20 03:28 97.4 F 78 20 139/82 05/15/20 23:37 97.5 F 88 20 159/85 H 95 05/15/20 19:36 98 F 94 95 05/15/20 15:30 97.1 F 70 20 151/73 H 94 Body Mass Index 85.4 Constitutional : Alert, oriented, not in distress Neck : Normal inspection, Supple Cardiovascular : RRR, S1 S2, no lower extremity edema Respiratory : Fair bilateral air entry, basal crackles, wheezes or rhonchi, on O2 supplement Gastrointestinal: soft, lax, Normal bowel sounds, Non tender Skin : Warm/Dry, No rash Neurological : Alert & oriented x3, No focal deficit Objective Data Current Medications Generic Name Dose Route Start Last Admin Trade Name Freq PRN Reason Stop Dose Admin Acetaminophen 650 mg 05/12/20 03:56 05/14/20 06:16 Acetaminophen 325 Mg Tablet PO 650 mg Q6H PRN Administration Headache Docusate Sodium 100 mg 05/11/20 21:00 05/16/20 08:59 Docusate Sodium 100 Mg Capsule PO 100 mg BID [facility]INA Administration Famotidine 20 mg 05/11/20 21:00 05/16/20 08:54 Famotidine/Pf 20 Mg/2 Ml Vial IVPUSH 20 mg BID [facility] Administration Hydromorphone HCl 0.5 mg 05/16/20 12:25 Hydromorphone Hcl 0.5 Mg/0.5 Ml Syringe IVPUSH Q6H PRN Pain, Severe (Pain Scale 7-10) Piperacillin Sod/Tazobactam 50 mls @ 100 mls/hr 05/12/20 20:00 05/16/20 10:59 Sod 3.375 gm/ Sodium Chloride IV Infused Q6H [facility] Infusion Levofloxacin 750 mg in 150 mls @ 100 mls/hr 05/13/20 18:00 05/15/20 19:45 Levaquin IV Infused Q24H [facility] Infusion Insulin Human Lispro 0 unit 05/13/20 11:30 05/16/20 12:11 Insulin Lispro 100 Unit/Ml 3 Ml Vial SUBCUT 2 unit QIDACHS [facility] Administration Protocol Levalbuterol HCl 1.25 mg 05/12/20 12:03 05/15/20 15:54 Levalbuterol Hcl 1.25 Mg/3 Ml Vial.Neb INHALE 1.25 mg Q2H PRN Administration Dyspepsia Magnesium Hydroxide 30 ml 05/11/20 12:13 Milk Of Magnesia 30 Ml Oral.Susp PO DAILY PRN Constipation Ondansetron HCl 4 mg 05/11/20 12:13 Ondansetron Hcl 4 Mg/2 Ml Vial IVPUSH Q8H PRN Nausea and Vomiting Salmeterol Xinafoate 1 puff 05/14/20 08:00 05/16/20 09:04 Salmeterol Xinafoate 50 Mcg Blst.W.Dev INHALE 1 puff RBID [facility] Administration Sodium Chloride 2 ml 05/11/20 16:00 05/16/20 09:04 0.9 % Sodium Chloride Flush 3 Ml Syringe IVFLUSH 2 ml QSHIFT [facility] Administration Zolpidem Tartrate 5 mg 05/16/20 12:25 Zolpidem Tartrate 5 Mg Tablet PO BEDTIME PRN Insomnia Labs CBC & Chem 7: 05/15/20 05:28 05/15/20 05:28 Microbiology Microbiology Results: Microbiology 05/11/20 10:39 Blood - Venous Blood Culture - Final No growth after 5 days. 05/11/20 10:17 Blood - Venous Blood Culture - Final No growth after 5 days. Assessment and Plan (1) Community acquired pneumonia: Status: Acute (2) Acute on chronic respiratory failure with hypoxia and hypercapnia: Status: Acute (3) Pneumothorax: Status: Acute (4) COPD (chronic obstructive pulmonary disease): Status: Acute (5) Sleep apnea: Status: Acute Assessment and Plan: a 50 years old male with history of obesity, smoking who presents to the hospital with spontaneous pneumothorax admitted to the ICU with chest tube p lacement. acute hypoxic hypercapnic respiratory failure Mixed etiology of KEVIN and pneumonia Continue levofloxacin and Zosyn D5 Continue bronchodilators Qualifies for BiPAP, to use at bedtime, pending BiPAP delivery home on monday Cough medication Oxygen supplement to wean down as tolerated Spontaneous pneumothorax Resolved Chest tube removed morbid Obesity Seems to be affecting his current medical problem, advised to lose weight Advised to lose weight DVT Ppx SCDs
[2020-05-16 16:48] LABS: Glucose, Whole Blood 279 mg/dL (60-115)
[2020-05-16] MEDS: levoFLOXacin/D5W 750 MG/150 ML PIGGYBACK 100 MG IV (16:50)
[2020-05-16 21:14] LABS: Glucose, Whole Blood 195 mg/dL (60-115)
[2020-05-16 22:27] LABS: Legionella Ag Urine Not Detected (Not Detected)
[2020-05-17] VITALS (18 sets, daily range): BP systolic 124–173; BP diastolic 84–118; PULSE 82–117; RESP 14–155; TEMP 36.3–37.1; O2SAT 90–100
--- NOTE | 2020-05-17 | XR_ITS ---
EXAMINATION: XR CHEST CLINICAL INFORMATION: Follow-up pneumothorax. COMPARISON: None TECHNIQUE: Frontal view of the chest was obtained. FINDINGS: Linear, streaky opacities of atelectasis in each lung base. Bullous emphysema at lung apices. The right pneumothorax has continued to decrease in size. Approximately 15-20% residual pneumothorax is identified. Stable appearance of pigtail pleural drainage catheter in the right hemithorax. Cardiac silhouette remains normal in size and hilar contours are normal. The visualized bones are intact. IMPRESSION: * Bullous emphysema at lung apices. * Continued interval decreased size of right pneumothorax. * Bibasilar atelectasis.
--- NOTE | 2020-05-17 | ECG_ITS ---
Test Reason : ?ST CHANGE Blood Pressure : / mmHG Vent. Rate : 085 BPM Atrial Rate : 085 BPM P-R Int : 148 ms QRS Dur : 080 ms QT Int : 354 ms P-R-T Axes : 071 032 036 degrees QTc Int : 421 ms Normal sinus rhythm RSR' or QR pattern in V1 suggests right ventricular conduction delay Nonspecific ST abnormality Abnormal ECG When compared with ECG of 18-MAY-2020 00:42, No significant change was found Referred By: Leah Hoffman Electronically Signed By:BRITTNEY MOE MD
--- NOTE | 2020-05-17 | XR_ITS ---
EXAMINATION: XR CHEST CLINICAL INFORMATION: Shortness of breath COMPARISON: 05/13/2020 TECHNIQUE: Frontal view of the chest was obtained. FINDINGS: The lungs are well expanded. There is a moderate to large right-sided pneumothorax. No definite mediastinal shift. The left lung is clear. No pleural effusion. The cardiomediastinal silhouette is within normal limits. IMPRESSION: There is a new moderate to large right-sided pneumothorax. This critical result was discussed with Randy Walsh MD by telephone at 05/17/2020 6:17 AM and it was ascertained that the content and urgency of the report was understood at the time of direct communication.
--- NOTE | 2020-05-17 | XR_ITS ---
EXAMINATION: XR CHEST CLINICAL INFORMATION: Follow-up pneumothorax COMPARISON: 05/17/2020 TECHNIQUE: Frontal view of the chest was obtained. FINDINGS: Pigtail drainage catheter has been placed in the right pleural space. The pneumothorax has decreased in size. A residual, moderate pneumothorax is present. The opacity in the medial right base is likely atelectasis. Also, there is a very small linear opacity of atelectasis at the left base. Cardiac silhouette has normal size and contour. The visualized bones are intact. IMPRESSION: The right pneumothorax has decreased after pigtail catheter placement.
[2020-05-17] MEDS: Piperacillin Sodium/Tazobactam 3.375 GM in 0.9 % Sodium Chloride 50 ML IV ×4 (01:03→21:04)
[2020-05-17] MEDS: levalbuterol HCL 1.25 MG/3 ML VIAL.NEB INHALE ×2 (05:51→18:26)
[2020-05-17] MEDS: Morphine Sulfate 4 MG/ML CARTRIDGE IVPUSH (05:54)
--- NOTE | 2020-05-17 05:58 | PC.NURSE ---
AT APPROXIMATELY 0530 PATIENT WAS NOTED TO BE SOB AND WAS COMPLAINING OF RIGHT SIDED CHEST PAIN. O2 SAT PLACED ON PATIENT WHICH SHOWED SATURATION OF 82% AND HEART RATE IN THE 130'S. 2L NC APPLIED IMMEDIATELY WITH MINIMAL RELIEF TO PATIENT AND INCREASE IN O2 SAT TO 92%. PATIENT TACHYCARDIC AND COUGHING UP SPUTUM. PROVIDER ALERTED OF PATIENTS CHANGE IN CONDITION, STAT EKG, CHEST XRAY, AND TROPONIN ORDERED WELL MORPHINE. COPY OF EKG SENT TO PROVIDER,RESPIRATORY AT THE BEDSIDE PROVIDING A BREATHING TREATMENT,MORPHINE ADMINISTERED. PATIENT STILL COMPLAINING OF CHEST PAIN AND IS NOTABLY SOB WITH O2 SAT AT 91% ON 3L. MORPHINE ADMINISTERED AND OXYGEN INCREASED TO 4L NC. WILL CONTINUE TO MONITOR.
[2020-05-17 06:03] LABS: MANUAL DIFF FLAG NO
[2020-05-17 06:11] LABS: Basophils Percent Auto 0.3 % (0-2); Eosinophils Absolute Auto 0.3 X10*3/uL (0.0-0.4); Eosinophils Percent Auto 2.6 % (0-4); Hematocrit 47.1 % (42-52); Hemoglobin 15.7 g/dl (14.0-18.0); Imm Gran Abs Auto 0.03 X10*3/uL (0.00-0.03); Imm Gran Pct Auto 0.3 % (0.0-0.4); Lymphocytes Absolute Auto 2.8 X10*3/uL (1.2-4.9); Lymphocytes Percent Auto 26.9 % (20-40); Mean Corpuscular HGB Conc 33.3 g/dl (31.0-36.0); Mean Corpuscular Hemoglobin 32.8 pg (27.0-33.0); Mean Corpuscular Volume 98.3 fL (80-98); Mean Platelet Volume 11.2 fL (9.4-12.4); Monocytes Absolute Auto 0.9 X10*3/uL (0.1-1.2); Neutrophils Absolute Auto 6.4 X10*3/uL (2.0-8.3); Neutrophils Percent Auto 60.9 % (45-73); Platelet Count 173 X10*3/uL (160-400); Red Blood Count 4.79 X10*6/uL (4.60-5.80); White Blood Count 10.4 X10*3/uL (4.8-10.8)
--- NOTE | 2020-05-17 06:31 | PM.EVENT ---
Event Note Event Note: patient developed sudden onset shortness of breath and chest pain. Chest pain is right-sided, patient has tachypnea, and hypoxic. Chest x-ray showed significant right-sided pneumothorax. Patient will be transferred to the ICU for further management and chest tube placement.
[2020-05-17 06:45] LABS: Anion Gap 11 (12-20); Blood Urea Nitrogen 14 mg/dL (9-16); Calcium 8.6 mg/dL (8.4-10.2); Carbon Dioxide 30 mmol/L (22-29); Chloride 102 mmol/L (96-108); Creatinine Clr Calc Pharmacy 257.4; Estimated Glomerular Filt Rate > 60; Glucose Random 170 mg/dL (60-115); Potassium 3.7 mmol/l (3.3-5.1); Sodium 139 mmol/L (135-145)
--- NOTE | 2020-05-17 07:12 | PC.NURSE ---
AT APPROXIMATELY [address] HOUSE PATIENTS XRAY SHOWED A LARGE RIGHT SIDED PNEUMO THAT WOULD REQUIRE CHEST TUBE PLACEMENT IN ICU. PATIENT INFORMED OF THIS PLAN AND PROCEDURE AND AGREEABLE. NURSE THERMIT WELDING MACHINE OPERATOR IN ROOM TO ASSIST WITH TRANSFER TO ICU. AT TIME OF TRANSFER PATIENTS HR WAS 130'S AND OXYGEN SAT WAS 90% ON 4L. PATIENT RESTING COMFORTABLY ON HOSPITAL BED WITH NURSE CLINICAL AND O2 IN PLACE AND WAS TRANSPORTED TO ICU WITH NURSE THERMIT WELDING MACHINE OPERATOR. PATIENT TRANSFERRED TO ICU WITH NO DIFFICULTIES AND REPORT GIVEN TO ELLIOTT MACIAS.
[2020-05-17 07:34] LABS: Troponin-I High Sensitivity < 3.5 ng/L (<3.5-35.0)
[2020-05-17 07:48] LABS: Glucose, Whole Blood 202 mg/dL (60-115)
[2020-05-17] MEDS: Docusate Sodium 100 MG CAPSULE PO (08:07)
[2020-05-17] MEDS: Famotidine/PF 20 MG/2 ML VIAL IVPUSH ×2 (08:07→20:57)
[2020-05-17] MEDS: Insulin Lispro 100 UNIT/ML 3 ML VIAL SUBCUT ×4 (08:07→20:57)
[2020-05-17] MEDS: fentaNYL citrate/PF 100 MCG/2 ML VIAL 50 MCG IVPUSH (08:07)
[2020-05-17] MEDS: 0.9 % Sodium Chloride Flush 3 ML SYRINGE 2 ML IVFLUSH ×2 (08:08→15:15)
[2020-05-17 08:58] LABS: MANUAL DIFF FLAG NO
[2020-05-17 09:07] LABS: HCO3 VBG 29 mmol/L; PCO2 VBG 54 mmhg; PO2 VBG 46 mmhg; pH VBG 7.35 (7.32-7.43)
[2020-05-17 09:22] LABS: Basophils Percent Auto 0.3 % (0-2); Eosinophils Absolute Auto 0.2 X10*3/uL (0.0-0.4); Eosinophils Percent Auto 1.5 % (0-4); Hematocrit 48.3 % (42-52); Hemoglobin 16.1 g/dl (14.0-18.0); Imm Gran Abs Auto 0.05 X10*3/uL (0.00-0.03); Imm Gran Pct Auto 0.4 % (0.0-0.4); Lymphocytes Absolute Auto 1.6 X10*3/uL (1.2-4.9); Lymphocytes Percent Auto 13.5 % (20-40); Mean Corpuscular HGB Conc 33.3 g/dl (31.0-36.0); Mean Corpuscular Hemoglobin 32.9 pg (27.0-33.0); Mean Corpuscular Volume 98.8 fL (80-98); Mean Platelet Volume 11.2 fL (9.4-12.4); Monocytes Percent Auto 8.6 % (2-11); Neutrophils Absolute Auto 8.9 X10*3/uL (2.0-8.3); Neutrophils Percent Auto 75.7 % (45-73); Platelet Count 160 X10*3/uL (160-400); Red Blood Count 4.89 X10*6/uL (4.60-5.80); Red Cell Distribution Width 12.1 % (11.0-16.0); White Blood Count 11.7 X10*3/uL (4.8-10.8)
[2020-05-17 09:26] LABS: Alanine Aminotransferase 20 U/L (0-40); Albumin Level 3.6 g/dL (3.5-5.0); Alkaline Phosphatase 59 U/L (39-117); Anion Gap 13 (12-20); Aspartate Amino Transferase 12 U/L (5-37); Bilirubin Total 0.8 mg/dL (0.0-1.0); Blood Urea Nitrogen 14 mg/dL (9-16); Calcium 8.5 mg/dL (8.4-10.2); Carbon Dioxide 28 mmol/L (22-29); Chloride 102 mmol/L (96-108); Creatinine Clr Calc Pharmacy 240.4; Estimated Glomerular Filt Rate > 60; Glucose Random 236 mg/dL (60-115); Potassium 3.9 mmol/l (3.3-5.1); Sodium 139 mmol/L (135-145); Total Protein 6.3 g/dL (6.5-8.0)
--- NOTE | 2020-05-17 11:24 | W.PM.CCCN ---
History of Present Illness Data of Consult Service Date: 05/17/20 Requesting physician: Unknown Unknown Primary Care Provider: None Physician HPI Reason for consult: abrupt onset of dyspnea and chest pain chest x-ray revealing acute spontan 50-year-old chronic continuous tobacco abuser and alcohol abuser and moderately obese with background COPD presented with the acute hypercarbic and hypoxic respiratory failure and a spontaneous pneumothorax and he was treated with chest tube for several days antibiotics nebulized therapy and oxygen support did well and transfer to the floor in and early this morning awakened by recurrent pleuritic chest pain and dyspnea with acute on chronic respiratory acidosis and was sent down and I placed a chest tube in the right side without complication and he had immediate benefit and currently oxygen saturations are 97% heart rate came down from 125 to 86 respiratory rate is now down to 19 blood pressure is 150/100 and certainly significant resolution but persistent leak and a larger leak then he had the 1st time 1st chest x-ray showed considerable improvement in lung reexpansion but there was still some persistent pneumothorax so I am going to obtain a follow-up film utilizing wall suction the see whether not he has more complete resolution he has been cleared for a home noninvasive ventilator for nocturnal and p.r.n. use as he qualified via a positive not nocturnal oximetry Review of Systems Review of Systems: no other acute changes systemically other than recurrent right-sided pleuritic chest pain and dyspnea Constitutional: Constitutional: Reports headache(s) ENT: Reports headache(s) Neurologic: Reports headache(s) [facility], [facility] Past Medical History Medical History COPD (chronic obstructive pulmonary disease) Functional capacity: independent ambulation Surgical History Surgical History History of colonoscopy Social History Social History Household Members: Spouse Housing: House Smoking Status: Current every day smoker Tobacco Type: Cigarette Packs Per Day: 0.5 Cigarettes Per Day: 10.0 Years Smoked: 30 Smoked in Last 30 Days: Yes Patient Interested in Nicotine Replacement: Yes Use of substances other than those prescribed or required for medical reasons: Yes Substance Use Type: Crack/Cocaine Substance Use Frequency: Occasionally Last Used Substance: Weeks (ago) Currently Displaying Signs/Symptoms of Drug Intoxication Withdrawal: No Any prior treatment program specific to substance use: No Have you been hit, kicked, punched, or otherwise hurt by someone within the past year? If so, by whom?: No Do you feel safe in your current relationship?: Yes Is there a partner from a previous relationship who is making you feel unsafe now?: No Are you made to feel afraid or neglected: No Spiritual Healthcare Practices: no Taoism Healthcare Practices: no Cultural Healthcare Practices: no Advance Directives: No Advance Directives Information Provided: No Do you have thoughts of harming others: None Do you have a plan to hurt others: No Plan Recently lost weight without trying: No service: No Current occupational status: employed Travel History Ebola Risk: Travel/Contact With Anyone From Affected Area/s: No Has Patient Experienced Ebola Symptoms: No Meds Allergies Allergy/AdvReac Type Severity Reaction Status Date / Time No Known Allergies Allergy Verified 05/11/20 09:15 Home Medications Medication Instructions Recorded Confirmed Type No Known Home Meds 05/11/20 05/11/20 History Physical Exam Vital Signs: Vital Signs: Vital Signs Temp Pulse Resp BP Pulse Ox 05/17/20 11:00 92 155 H 155/101 H 95 05/17/20 10:00 117 H 19 157/103 H 94 05/17/20 09:00 109 H 17 139/97 H 94 05/17/20 08:07 20 05/17/20 08:00 98.1 F 106 H 15 158/112 H 95 05/17/20 03:47 98.7 F 88 18 162/86 H 100 05/16/20 23:46 98.6 F 68 18 156/82 H 98 05/16/20 19:49 98.7 F 88 20 157/92 H 95 05/16/20 16:00 97.5 F 86 20 164/93 H 95 05/16/20 12:00 98.5 F 88 20 141/90 H 93 Body Mass Index 85.4 on exam he became noticeably diaphoretic and I sore heart rate and blood pressure were dropping definitely appear to be vagal and we opened up normal saline and gave him 0.4 mg of IV atropine and everything completely reversed there was never any syncope patient tolerated the procedure well with placement of the chest tube done percutaneously over guidewire using a 14 [place] pigtail catheter no acrocyanosis no livedo and no cl ubbing nonfocal neurologic exam including cranial nerves right chest wall clearly was tympanitic with reduced breath sounds on the right side but no neck vein distension well-preserved blood pressure good bilateral carotid upstrokes with no bruits and no neck vein distension cardiac exam with a quiet precordium and normal S1 normal S2 no with no gallops or murmurs abdomen benign with good bowel sounds soft nontender and no organomegaly EKG sinus tachycardia no acute ST-T changes Results Labs CBC & Chem 7: 05/17/20 08:44 05/17/20 08:44 Labs: Short CBC 05/17/20 05/17/20 Range/Units 04:51 08:44 WBC 10.4 11.7 H (4.8-10.8) X10*3/uL Hgb 15.7 16.1 (14.0-18.0) g/dl Hct 47.1 48.3 (42-52) % Plt Count 173 160 (160-400) X10*3/uL BMP 05/17/20 05/17/20 04:51 08:44 Sodium 139 139 Potassium 3.7 3.9 Chloride 102 102 Carbon Dioxide 30 H 28 BUN 14 14 Creatinine 0.71 0.76 Calcium 8.6 8.5 Liver Function 05/17/20 Range/Units 08:44 Total Bilirubin 0.8 (0.0-1.0) mg/dL AST 12 (5-37) U/L ALT 20 (0-40) U/L Alkaline Phosphatase 59 D (39-117) U/L Albumin 3.6 (3.5-5.0) g/dL Microbiology Microbiology Results: Microbiology 05/11/20 10:39 Blood - Venous Blood Culture - Final No growth after 5 days. 05/11/20 10:17 Blood - Venous Blood Culture - Final No growth after 5 days. Assessment and Plan (1) Alcoholism /alcohol abuse: Status: Acute (2) Tobacco abuse disorder: Status: Acute (3) Sleep apnea: Status: Acute (4) Community acquired pneumonia: Status: Acute (5) Acute on chronic respiratory failure with hypoxia and hypercapnia: Status: Acute (6) Pneumothorax: Qualifiers: Pneumothorax type: spontaneous, primary Qualified Code(s): J93.11 - Primary spontaneous pneumothorax Status: Acute (7) COPD (chronic obstructive pulmonary disease): Qualifiers: COPD type: COPD with acute exacerbation Qualified Code(s): J44.1 - Chronic obstructive pulmonary disease with (acute) exacerbation Status: Acute (8) Asthmatic bronchitis with acute exacerbation: Status: Acute I will continue the antibiotics as above and I am not going to replace to steroids because 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
[2020-05-17 11:39] LABS: Glucose, Whole Blood 233 mg/dL (60-115)
--- NOTE | 2020-05-17 14:16 | PC.NURSE ---
Patient transferred to ICU from [facility] today at approx 0645 am. Patient transferred due to need for chest tube placement. CXR this AM showed lrg R-sided pneumothorax. 14F pigtail catheter inserted on patient's right side. Fentanyl 50mcg IV given prior to procedure per MD order. During procedure, patient became hypotensive, pale, and diaphoretic. Atropine 0.4 mg IV given STAT per MD order with improvement in BP and pallor. Chest tube placed to -20 cm wall suction per MD. Patient with 1+ leak upon insertion, MD aware. MD placed occlusive dressing to chest tube insertion site. Postop CXR showed slight improvement in pneumo. Per MD, suction increased to -25 cm. Repeat CXR completed at 1200 with further improvement in pneumothorax. Patient has had approx 20 mL of serosanguinous output from chest tube since insertion.
[2020-05-17] MEDS: HYDROmorphone HCl 0.5 MG/0.5 ML SYRINGE IVPUSH (15:14)
[2020-05-17 16:43] LABS: Glucose, Whole Blood 163 mg/dL (60-115)
[2020-05-17] MEDS: levoFLOXacin/D5W 750 MG/150 ML PIGGYBACK 100 MG IV (17:01)
[2020-05-17] MEDS: Zolpidem Tartrate 5 MG TABLET PO (21:00)
[2020-05-17 21:21] LABS: Glucose, Whole Blood 222 mg/dL (60-115)
[2020-05-18] VITALS (17 sets, daily range): BP systolic 127–167; BP diastolic 73–104; PULSE 62–105; RESP 16–23; TEMP 36.2–37; O2SAT 91–98; BMI 35.2
--- NOTE | 2020-05-18 | XR_ITS ---
EXAMINATION: XR CHEST CLINICAL INFORMATION: Shortness of breath COMPARISON: Yesterday TECHNIQUE: Frontal view of the chest was obtained. FINDINGS: Again seen is a right-sided chest tube and a even smaller residual right sided apical pneumothorax. Heart size is normal. No evidence of CHF. There has been significant improvement in the bibasilar atelectasis/opacities. No pleural effusions are seen. IMPRESSION: Improving bibasilar opacities Right sided pneumothorax continues to decrease in size with small residual.
--- NOTE | 2020-05-18 | ECG_ITS ---
Test Reason : ?ST CHANGE Blood Pressure : / mmHG Vent. Rate : 085 BPM Atrial Rate : 085 BPM P-R Int : 148 ms QRS Dur : 086 ms QT Int : 360 ms P-R-T Axes : 068 032 038 degrees QTc Int : 428 ms Normal sinus rhythm RSR' or QR pattern in V1 suggests right ventricular conduction delay Nonspecific ST abnormality Possible Early repolarization Abnormal ECG When compared with ECG of 11-MAY-2020 10:30, Heart rate has decreased Referred By: Leah Hoffman Electronically Signed By:BRITTNEY MOE MD
[2020-05-18] MEDS: HYDROmorphone HCl 0.5 MG/0.5 ML SYRINGE IVPUSH ×3 (00:27→22:00)
[2020-05-18] MEDS: Piperacillin Sodium/Tazobactam 3.375 GM in 0.9 % Sodium Chloride 50 ML IV ×2 (01:19→07:40)
[2020-05-18 01:39] LABS: Troponin-I High Sensitivity < 3.5 ng/L (<3.5-35.0)
[2020-05-18 06:10] LABS: MANUAL DIFF FLAG NO
[2020-05-18 06:18] LABS: Basophils Percent Auto 0.3 % (0-2); Eosinophils Absolute Auto 0.4 X10*3/uL (0.0-0.4); Eosinophils Percent Auto 3.5 % (0-4); Hematocrit 49.2 % (42-52); Hemoglobin 16.2 g/dl (14.0-18.0); Imm Gran Abs Auto 0.05 X10*3/uL (0.00-0.03); Imm Gran Pct Auto 0.4 % (0.0-0.4); Lymphocytes Absolute Auto 2.1 X10*3/uL (1.2-4.9); Lymphocytes Percent Auto 17.7 % (20-40); Mean Corpuscular HGB Conc 32.9 g/dl (31.0-36.0); Mean Corpuscular Hemoglobin 32.7 pg (27.0-33.0); Mean Corpuscular Volume 99.4 fL (80-98); Mean Platelet Volume 11.3 fL (9.4-12.4); Monocytes Absolute Auto 1.1 X10*3/uL (0.1-1.2); Monocytes Percent Auto 9.2 % (2-11); Neutrophils Percent Auto 68.9 % (45-73); Platelet Count 182 X10*3/uL (160-400); Red Blood Count 4.95 X10*6/uL (4.60-5.80); White Blood Count 11.6 X10*3/uL (4.8-10.8)
[2020-05-18] MEDS: 0.9 % Sodium Chloride Flush 3 ML SYRINGE 2 ML IVFLUSH ×3 (06:26→21:20)
[2020-05-18 06:44] LABS: Base Excess VBG 4.4 mmol/L; HCO3 VBG 31 mmol/L; Oxygen Saturation VBG 92.6 %; PCO2 VBG 53 mmhg; PO2 VBG 63 mmhg; pH VBG 7.39 (7.32-7.43)
[2020-05-18 06:46] LABS: Anion Gap 13 (12-20); Blood Urea Nitrogen 11 mg/dL (9-16); Calcium 8.7 mg/dL (8.4-10.2); Carbon Dioxide 28 mmol/L (22-29); Chloride 102 mmol/L (96-108); Creatinine Clr Calc Pharmacy 160.9; Estimated Glomerular Filt Rate > 60; Glucose Random 186 mg/dL (60-115); Magnesium 2.1 mg/dL (1.6-2.6); Phosphorus 4.5 mg/dL (2.7-4.5); Potassium 4.1 mmol/l (3.3-5.1); Sodium 139 mmol/L (135-145)
[2020-05-18] MEDS: Salmeterol Xinafoate 50 MCG BLST.W.DEV 1 PUFF INHALE ×2 (07:31→21:29)
[2020-05-18] MEDS: levalbuterol HCL 1.25 MG/3 ML VIAL.NEB INHALE ×2 (07:37→18:40)
[2020-05-18] MEDS: Insulin Lispro 100 UNIT/ML 3 ML VIAL SUBCUT ×3 (07:39→21:19)
[2020-05-18] MEDS: Famotidine/PF 20 MG/2 ML VIAL IVPUSH (07:41)
[2020-05-18] MEDS: Docusate Sodium 100 MG CAPSULE PO ×2 (07:42→21:19)
[2020-05-18] MEDS: Heparin Sodium,Porcine 5,000 UNIT/ML VIAL 5000 UNIT SUBCUT ×2 (10:39→20:07)
[2020-05-18 12:06] LABS: Glucose, Whole Blood 156 mg/dL (60-115)
--- NOTE | 2020-05-18 12:56 | P.PNCC_ITS ---
Subjective Subjective Date of Service: 05/18/20 Interval History: 50-year-old gentleman with underlying history of polysubstance abuse including alcohol and cocaine admitted on 05/11/2020 with acute onset of shortness of breaths and right-sided pleuritic pain secondary to spontaneous pneumothorax. Patient has had right-sided chest tube placed upon admission and was monitored in the intensive care unit with resolution of pneumothorax and discontinuation of a chest tube. He was transferred to the [facility]. However, he has had another episode of spontaneous right-sided p neumothorax on 05/17/2020 requiring placement of another right-sided chest tube. He has been monitored in the intensive care unit with improvement his oxygenation and pleuritic pain and re-expansion of his right lung. Physical Exam Vital Signs: Vital Signs: Vital Signs Temp Pulse Resp BP Pulse Ox 05/18/20 12:00 98.0 F 62 18 140/80 H 98 05/18/20 11:00 98.2 F 87 18 142/90 H 95 05/18/20 10:00 84 20 141/85 H 93 05/18/20 09:00 85 16 141/85 H 93 05/18/20 07:49 105 H 23 H 154/101 H 94 05/18/20 07:00 94 17 154/101 H 98 05/18/20 06:00 88 18 146/96 H 95 05/18/20 05:00 82 16 150/94 H 95 05/18/20 04:00 92 18 144/96 H 94 05/18/20 03:00 79 16 139/86 94 05/18/20 02:00 80 16 141/78 H 92 05/18/20 01:00 85 18 159/104 H 05/18/20 00:27 16 05/18/20 00:00 97.5 F 78 18 127/85 91 L 05/17/20 23:00 86 18 124/91 H 91 L 05/17/20 22:00 89 18 132/84 90 L 05/17/20 21:00 90 18 143/89 H 94 05/17/20 20:00 98.0 F 90 18 140/96 H 94 05/17/20 19:00 98.0 F 92 19 149/90 H 90 L 05/17/20 18:00 90 24 H 173/109 H 97 10/11/20 17:00 89 17 165/118 H 96 05/17/20 16:00 98.0 F 87 21 H 136/87 96 05/17/20 15:14 22 H 05/17/20 14:00 82 19 144/89 H 96 05/17/20 13:00 91 24 H 148/84 H 96 Body Mass Index 35.2 Const: General: no acute distress, alert and awake Eyes: Sclerae: sclerae normal EOM: EOMs intact bilaterally Neck: Neck: Yes no lymphadenopathy, Yes trachea midline and Yes supple Resp: Effort & Inspection: normal respiratory effort and no respiratory distress Auscultation: clear to auscultation bilaterally Cardio: Rate: regular rate Rhythm: regular rhythm Heart sounds: no gallops, no murmurs and no rubs GI: Palpation (GI): Soft to palpation and Other GI palpation findings present ( Nontender) Auscultation: normal bowel sounds Extrem: General: Yes no pedal edema, No clubbing and No cyanosis Objective Data Labs CBC & Chem 7: 05/18/20 05:41 05/18/20 05:41 Labs: Laboratory Results - last 24 hr 05/17/20 05/17/20 05/18/20 16:40 20:48 01:06 WBC RBC Hgb Hct MCV MCH MCHC RDW Plt Count MPV Immature Gran % (Auto) Neut % (Auto) Lymph % (Auto) [place] % (Auto) Eos % (Auto) Baso % (Auto) Lymph # (Auto) [place] # (Auto) Eos # (Auto) Baso # (Auto) Abs Immat Gran (auto) Absolute Neuts (auto) Absolute Nucleated RBC Nucleated RBC % (auto) VBG pH VBG pCO2 VBG Oxygen Liters/Min VBG pO2 VBG HCO3 VBG O2 Saturation VBG Base Excess Sodium Potassium Chloride Carbon Dioxide Anion Gap BUN Creatinine Estim Creat Clear Calc Estimated GFR POC Glucose 163 H 222 H Random Glucose Calcium Phosphorus Magnesium Troponin I High Sens < 3.5 05/18/20 05/18/20 05/18/20 05:41 05:41 06:28 WBC 11.6 H RBC 4.95 Hgb 16.2 Hct 49.2 MCV 99.4 H MCH 32.7 MCHC 32.9 RDW 12.0 Plt Count 182 MPV 11.3 Immature Gran % (Auto) 0.4 Neut % (Auto) 68.9 Lymph % (Auto) 17.7 L [place] % (Auto) 9.2 Eos % (Auto) 3.5 Baso % (Auto) 0.3 Lymph # (Auto) 2.1 [place] # (Auto) 1.1 Eos # (Auto) 0.4 Baso # (Auto) 0.0 Abs Immat Gran (auto) 0.05 H Absolute Neuts (auto) 8.0 Absolute Nucleated RBC 0.000 Nucleated RBC % (auto) 0.0 VBG pH 7.39 VBG pCO2 53 VBG Oxygen Liters/Min TNP VBG pO2 63 VBG HCO3 31 VBG O2 Saturation 92.6 VBG Base Excess 4.4 Sodium 139 Potassium 4.1 Chloride 102 Carbon Dioxide 28 Anion Gap 13 BUN 11 Creatinine 0.66 Estim Creat Clear Calc 160.9 Estimated GFR > 60 POC Glucose Random Glucose 186 H Calcium 8.7 Phosphorus 4.5 Magnesium 2.1 Troponin I High Sens 05/18/20 12:03 WBC RBC Hgb Hct MCV MCH MCHC RDW Plt Count MPV Immature Gran % (Auto) Neut % (Auto) Lymph % (Auto) [place] % (Auto) Eos % (Auto) Baso % (Auto) Lymph # (Auto) [place] # (Auto) Eos # (Auto) Baso # (Auto) Abs Immat Gran (auto) Absolute Neuts (auto) Absolute Nucleated RBC Nucleated RBC % (auto) VBG pH VBG pCO2 VBG Oxygen Liters/Min VBG pO2 VBG HCO3 VBG O2 Saturation VBG Base Excess Sodium Potassium Chloride Carbon Dioxide Anion Gap BUN Creatinine Estim Creat Clear Calc Estimated GFR POC Glucose 156 H Random Glucose Calcium Phosphorus Magnesium Troponin I High Sens Microbiology Microbiology Results: Microbiology 05/11/20 10:39 Blood - Venous Blood Culture - Final No growth after 5 days. 05/11/20 10:17 Blood - Venous Blood Culture - Final No growth after 5 days. Progress Note: A&P Assessment and plan (1) Pneumothorax: Status: Acute (2) Acute on chronic respiratory failure with hypoxia and hypercapnia: Status: Acute Assessment and Plan: Assessment: 50-year-old gentleman with underlying COPD, alcohol, and cocaine abuse admitted with spontaneous right-sided pneumothorax with hospital course complicated by recurrence of a right-sided spontaneous pneumothorax, now improving. Plan: Neuro: No acute issues. Cardiac: No acute issues. Pulmonary: Acute hypoxic and hypercapnic respiratory failure secondary to recurrent spontaneous right-sided pneumothorax, now status post chest tube with re-expansion of the right lung. Thoracic surgery consulted for evaluation for pleurodesis. Underlying obstructive sleep apnea requiring CPAP support at night, and as needed for naps. Renal: No acute issues. Endo: No acute issues. GI: No acute issues. ID: No acute issues Heme/Onc: No acute issues. Psych: No acute issues. Miscellaneous: No acute issues. Prophylaxis: heparin Diet: regular Critical care time spent: 45 minutes Time Spent With Patient Time: Total time spent is greater than 50% in coordination of care (as documented) at patient's floor/unit and/or counseling patient: Total time spent with greater than 50% in coordination of care (as documented) at patient's floor/unit and/or counseling patient:: 0
--- NOTE | 2020-05-18 14:05 | P.CONGS_ITS ---
History of Present Illness Consult details Consult date: 05/18/20 Reason for consult: chest tube Requesting physician: Cristopher Dye Narrative: Patient is a 50-year-old male, with a history of lifelong and current nicotine and occasional crack cocaine smoker, chronic alcohol abuse, COPD originally presented to the emergency department on 05/11/2020 and was found to have a large right-sided pneumothorax. Patient underwent insertion of pigtail catheter in the emergency department and was admitted to ICU under Dr. España's care. Thoracic surgery was consulted at that time. During patient's hospital stay he was also treated for hypercarbic/hypercapnic respiratory failure with CO2's ranging in the 60s and 70s, nocturnal BiPAP and was being treated with Zosyn, levofloxacin, nebs and corticosteroids. A chest CTA on 05/12/2020 showed no PE, pleural effusion, or pneumothorax with right upper lobe emphysematous changes and airspace opacities in bilateral lower lungs (atelectasis versus pneumonia). On 05/13/2020 patient's right-sided chest tube was removed by Dr. España. At time of chest tube removal chest tube had remained on waterseal, there was no air leak detected. Patient was due to be discharged today however yesterday 05/17/2020 patient had developed sudden increase of shortness of breath and right-sided chest pain and a chest x-ray revealed a new moderate to large right-sided pneumothorax. Patient subsequently required a second pigtail catheter for which thoracic surgery is consulted once again for. Patient was seen and examined this afternoon. Patient remains on 2 L nasal cannula and states that his shortness of breath is greatly improved since chest tube insertion. Denies cough, hemoptysis shortness of breath at rest and states he has yet to ambulate in hallway. Review of Systems Review of Systems: Review of Systems Constitutional: Constitutional: Reports headache(s) Eyes: Eyes: Denies change in vision ENT: Reports headache(s), Denies nasal congestion and Denies sore throat Cardiovascular: Cardiovascular: Denies chest pain, Denies diaphoresis, Denies lightheadedness and Reports dyspnea on exertion Respiratory: Respiratory: , Denies cough,hemoptysis, Reports pain (surrounding chest tube site). Gastrointestinal: Gastrointestinal: Denies abdominal pain, Denies constipation and Denies diarrhea Genitourinary: Genitourinary: Denies difficulty urinating Neurologic: Reports headache(s) Constitutional: Constitutional: Reports headache(s) ENT: Reports headache(s) Neurologic: Reports headache(s) [facility] Past Medical History Medical History (Updated 05/18/20 @ 14:29 by ANNALISE Boyer) Alcoholism /alcohol abuse COPD (chronic obstructive pulmonary disease) Pneumothorax Tobacco abuse disorder Functional capacity: independent ambulation Surgical History Surgical History History of colonoscopy Social History Social History Household Members: Spouse Housing: House Smoking Status: Current every day smoker Tobacco Type: Cigarette Packs Per Day: 0.5 Cigarettes Per Day: 10.0 Years Smoked: 30 Smoked in Last 30 Days: Yes Patient Interested in Nicotine Replacement: Yes Use of substances other than those prescribed or required for medical reasons: Yes Substance Use Type: Crack/Cocaine Substance Use Frequency: Occasionally Last Used Substance: Weeks (ago) Currently Displaying Signs/Symptoms of Drug Intoxication Withdrawal: No Any prior treatment program specific to substance use: No Have you been hit, kicked, punched, or otherwise hurt by someone within the past year? If so, by whom?: No Do you feel safe in your current relationship?: Yes Is there a partner from a previous relationship who is making you feel unsafe now?: No Are you made to feel afraid or neglected: No Spiritual Healthcare Practices: no Congregational Healthcare Practices: no Cultural Healthcare Practices: no Advance Directives: No Advance Directives Information Provided: No Do you have thoughts of harming others: None Do you have a plan to hurt others: No Plan Recently lost weight without trying: No service: No Current occupational status: employed Travel History Ebola Risk: Travel/Contact With Anyone From Affected Area/s: No Has Patient Experienced Ebola Symptoms: No Meds Allergies Allergy/AdvReac Type Severity Reaction Status Date / Time pepper (genus Capsicum) Allergy Angioedema Verified 05/17/20 17:06 Peppers, Green Allergy Angioedema Verified 05/17/20 17:06 Peppers, Jalapeno Allergy Angioedema Verified 05/17/20 17:06 Peppers, Red Allergy Angioedema Verified 05/17/20 17:06 Peppers, Yellow Allergy Angioedema Verified 05/17/20 17:06 Home Medications Medication Instructions Recorded Confirmed Type No Known Home Meds 05/11/20 05/11/20 History Physical Exam Vital Signs: Vital Signs: Vital Signs Temp Pulse Resp BP Pulse Ox 05/18/20 12:00 98.0 F 62 18 140/80 H 98 05/18/20 11:00 98.2 F 87 18 142/90 H 95 05/18/20 10:00 84 20 141/85 H 93 05/18/20 09:00 85 16 141/85 H 93 05/18/20 07:49 105 H 23 H 154/101 H 94 05/18/20 07:00 94 17 154/101 H 98 05/18/20 06:00 88 18 146/96 H 95 05/18/20 05:00 82 16 150/94 H 95 05/18/20 04:00 92 18 144/96 H 94 05/18/20 03:00 79 16 139/86 94 05/18/20 02:00 80 16 141/78 H 92 05/18/20 01:00 85 18 159/104 H 05/18/20 00:27 16 05/18/20 00:00 97.5 F 78 18 127/85 91 L 05/17/20 23:00 86 18 124/91 H 91 L 05/17/20 22:00 89 18 132/84 90 L 05/17/20 21:00 90 18 143/89 H 94 05/17/20 20:00 98.0 F 90 18 140/96 H 94 05/17/20 19:00 98.0 F 92 19 149/90 H 90 L 05/17/20 18:00 90 24 H 173/109 H 97 05/17/20 17:00 89 17 165/118 H 96 05/17/20 16:00 98.0 F 87 21 H 136/87 96 05/17/20 15:14 22 H Body Mass Index 35.2 Const: General: cooperative, comfortable and no acute distress Orientation/consciousness: patient oriented x3 HENMT: Head: Yes normal to inspection and Yes normocephalic Eyes: Alignment and Position: alignment normal and position normal Conjunctivae: conjunctivae normal Sclerae: sclerae normal Pupils: Equal, round and reactive pupils present Neck: Other: trachea midline with no subcu air Neck: Yes normal visual inspection Chest: Other: Right-sided tail catheter remains in place with occlusive dressing which is clean dry and intact. No chest wall crepitus detected. Chest tube remained on -20 L WS overnight, a +1 air leak detected with exhalation and a +3 air leak detected with cough. Approximately 70 cc of serosanguineous fluid output overnight.Breath sounds are positive for expiratory wheezes heard bilaterally throughout all lung [place] Cardio: Jugular venous distension: no JVD Rate: regular rate Rhythm: regular rhythm Heart sounds: S1 normal heart sound present and S2 normal heart sound present GI: Inspection: Yes normal to inspection Palpation (GI): Soft to palpation and nontender Auscultation: normal bowel sounds Neuro: General: patient oriented x3 Cranial nerves: Yes Equal, round and reactive pupils present Extrem: General: Yes normal to inspection, No clubbing and No cyanosis Psych: Speech and movement: Normal speech and movement present and Clear speech present Attitude: cooperative Results Labs Result diagrams: 05/18/20 05:41 05/18/20 05:41 Labs: Abnormal lab results 05/17/20 05/17/20 05/18/20 Range/Units 16:40 20:48 05:41 WBC 11.6 H (4.8-10.8) X10*3/uL MCV 99.4 H (80-98) fL Lymph % (Auto) 17.7 L (20-40) % Abs Immat Gran (auto) 0.05 H (0.00-0.03) X10*3/uL POC Glucose 163 H 222 H (60-115) mg/dL Random Glucose (60-115) mg/dL 05/18/20 05/18/20 Range/Units 05:41 12:03 WBC (4.8-10.8) X10*3/uL MCV (80-98) fL Lymph % (Auto) (20-40) % Abs Immat Gran (auto) (0.00-0.03) X10*3/uL POC Glucose 156 H (60-115) mg/dL Random Glucose 186 H (60-115) mg/dL Short CBC 05/18/20 Range/Units 05:41 WBC 11.6 H (4.8-10.8) X10*3/uL Hgb 16.2 (14.0-18.0) g/dl Hct 49.2 (42-52) % Plt Count 182 (160-400) X10*3/uL BMP 05/18/20 05:41 Sodium 139 Potassium 4.1 Chloride 102 Carbon Dioxide 28 BUN 11 Creatinine 0.66 Calcium 8.7 Urine 05/11/20 Range/Units 16:35 Urine Color YELLOW Urine Appearance CLEAR Urine pH 6.0 (5.0-8.0) Ur Specific [place] 1.025 (1.005-1.025) Urine Protein TRACE (NEG-TRACE) MG/DL Urine Glucose (UA) >=1000 H (NEG) MG/DL All other labs normal. Assessment and Plan (1) Tobacco abuse disorder: Status: Acute (2) Sleep apnea: Qualifiers: Sleep apnea type: obstructive Qualified Code(s): G47.33 - Obstructive sleep apnea (adult) (pediatric) Status: Acute (3) Community acquired pneumonia: Qualifiers: Lung location: unspecified part of lung Status: Acute (4) Acute on chronic respiratory failure with hypoxia and hypercapnia: Status: Acute (5) Pneumothorax: Start date: 05/17/20 Qualifiers: Pneumothorax type: spontaneous, primary Qualified Code(s): J93.11 - Primary spontaneous pneumothorax Status: Acute Patient is a 50-year-old male with a past medical history of alcohol abuse, current smoker, COPD who presented to the emergency department with a moderate to large right-sided pneumothorax subsequently had a right pigtail placed in the emergency department on 05/11/2020Which was then removed on 05/13/2020 and reinserted on 05/17/2020 for recurrence of right-sided pneumothorax. Right-sided chest tube remained on -20 LWS overnight with approximately 70 cc of serus sanguinous fluid output, +1 air leak detected with exhalation and +3 with cough. Chest x-ray on 05/17/2020 shows reexpansion of right-sided pneumothorax. Chest tube to remain on -20 LWS Now and to remain on -20 low suction overnight to promote full reexpansion of lung and to facilitate healing. Patient should ambulate with chest tube on waterseal minimum of 3-4 times daily. Patient has a history of obstructive sleep apnea. Patient should be on CPAP nocturnally. CXR ordered for a.m Patient should all meals OOB in chair. Incentive spirometry. Airway clearance device. Maintain proper pain analgesics to promote lung reexpansion. Thank you for allowing me to participate in this patient's care if you have any questions or concerns please do not hesitate to contact the thoracic surgical department. (6) COPD (chronic obstructive pulmonary disease): Qualifiers: COPD type: COPD with acute exacerbation Qualified Code(s): J44.1 - Chronic obstructive pulmonary disease with (acute) exacerbation Status: Acute
[2020-05-18 16:26] LABS: Glucose, Whole Blood 147 mg/dL (60-115)
--- NOTE | 2020-05-18 16:29 | PM.EVENT ---
Event Note Event Note: seen and evaluated this afternoon next [place] feels comfortable, denies any shortness of breath or chest pain Chest tube in place to under water sealed Continue current management To be evaluated by chest surgeon for possible pleurodesis
[2020-05-18] MEDS: levoFLOXacin/D5W 750 MG/150 ML PIGGYBACK 100 MG IV (20:02)
--- NOTE | 2020-05-18 20:10 | P.CONCC_ITS ---
History of Present Illness Data of Consult Primary Care Provider: None Physician HPI Reason for consult: Worsening shortness of breath This a 50-year-old man with underlying history of polysubstance abuse including alcohol and cocaine admitted on 05/11/2020 with acute onset of shortness of breaths and right-sided pleuritic pain secondary to spontaneous pneumothorax. Patient has had right-sided chest tube placed upon admission and was monitored in the intensive care unit with resolution of pneumothorax and discontinuation of a chest tube. He had another episode of spontaneous right-sided pneumothorax on 05/17/2020 while in medical floor requiring placement of another right-sided chest tube and transferred again to ICU. He was transferred today to the floor as he no longer required ICU level of care Review of Systems Review of Systems: Yes all other systems are reviewed and are negative Constitutional: Constitutional: Reports headache(s) ENT: Reports headache(s) Cardiovascular: Cardiovascular: Reports dyspnea Respiratory: Respiratory: Reports dyspnea Neurologic: Reports headache(s) [facility] Past Medical History Medical History (Updated 05/18/20 @ 14:29 by ANNALISE Boyer) Alcoholism /alcohol abuse COPD (chronic obstructive pulmonary disease) Pneumothorax Tobacco abuse disorder Functional capacity: independent ambulation Surgical History Surgical History History of colonoscopy Social History Social History Household Members: Spouse Housing: House Smoking Status: Current every day smoker Tobacco Type: Cigarette Packs Per Day: 0.5 Cigarettes Per Day: 10.0 Years Smoked: 30 Smoked in Last 30 Days: Yes Patient Interested in Nicotine Replacement: Yes Use of substances other than those prescribed or required for medical reasons: Yes Substance Use Type: Crack/Cocaine Substance Use Frequency: Occasionally Last Used Substance: Weeks (ago) Currently Displaying Signs/Symptoms of Drug Intoxication Withdrawal: No Any prior treatment program specific to substance use: No Have you been hit, kicked, punched, or otherwise hurt by someone within the past year? If so, by whom?: No Do you feel safe in your current relationship?: Yes Is there a partner from a previous relationship who is making you feel unsafe now?: No Are you made to feel afraid or neglected: No Spiritual Healthcare Practices: no Moravian Healthcare Practices: no Cultural Healthcare Practices: no Advance Directives: No Advance Directives Information Provided: No Do you have thoughts of harming others: None Do you have a plan to hurt others: No Plan Recently lost weight without trying: No service: No Current occupational status: employed Travel History Ebola Risk: Travel/Contact With Anyone From Affected Area/s: No Has Patient Experienced Ebola Symptoms: No Meds Allergies Allergy/AdvReac Type Severity Reaction Status Date / Time pepper (genus Capsicum) Allergy Angioedema Verified 05/17/20 17:06 Peppers, Green Allergy Angioedema Verified 05/17/20 17:06 Peppers, Jalapeno Allergy Angioedema Verified 05/17/20 17:06 Peppers, Red Allergy Angioedema Verified 05/17/20 17:06 Peppers, Yellow Allergy Angioedema Verified 05/17/20 17:06 Home Medications Medication Instructions Recorded Confirmed Type No Known Home Meds 05/11/20 05/11/20 History Physical Exam Vital Signs: Vital Signs: Vital Signs Temp Pulse Resp BP Pulse Ox 05/18/20 16:00 98.6 F 101 H 18 154/87 H 97 05/18/20 12:00 98.0 F 62 18 140/80 H 98 05/18/20 11:00 98.2 F 87 18 142/90 H 95 05/18/20 10:00 84 20 141/85 H 93 05/18/20 09:00 85 16 141/85 H 93 05/18/20 07:49 105 H 23 H 154/101 H 94 05/18/20 07:00 94 17 154/101 H 98 05/18/20 06:00 88 18 146/96 H 95 05/18/20 05:00 82 16 150/94 H 95 05/18/20 04:00 92 18 144/96 H 94 05/18/20 03:00 79 16 139/86 94 05/18/20 02:00 80 16 141/78 H 92 05/18/20 01:00 85 18 159/104 H 05/18/20 00:27 16 05/18/20 00:00 97.5 F 78 18 127/85 91 L 05/17/20 23:00 86 18 124/91 H 91 L 05/17/20 22:00 89 18 132/84 90 L 05/17/20 21:00 90 18 143/89 H 94 Body Mass Index 35.2 Const: General: cooperative and comfortable Orientation/consciousness: patient oriented x3 Resp: Other: right chest tube, with air leak with cough Effort & Inspection: normal respiratory effort Auscultation: clear to auscultation bilaterally Cardio: Jugular venous distension: no JVD Rate: regular rate Heart sounds: S1 normal heart sound present and S2 normal heart sound present GI: Inspection: Yes normal to inspection Auscultation: normal bowel sounds Neuro: General: patient oriented x3 Results Labs CBC & Chem 7: 05/18/20 05:41 05/18/20 05:41 Labs: Short CBC 05/18/20 Range/Units 05:41 WBC 11.6 H (4.8-10.8) X10*3/uL Hgb 16.2 (14.0-18.0) g/dl Hct 49.2 (42-52) % Plt Count 182 (160-400) X10*3/uL BMP 05/18/20 05:41 Sodium 139 Potassium 4.1 Chloride 102 Carbon Dioxide 28 BUN 11 Creatinine 0.66 Calcium 8.7 Microbiology Microbiology Results: Microbiology 05/11/20 10:39 Blood - Venous Blood Culture - Final No growth after 5 days. 05/11/20 10:17 Blood - Venous Blood Culture - Final No growth after 5 days. Assessment and Plan (1) Pneumothorax: Qualifiers: Pneumothorax type: spontaneous, primary Qualified Code(s): J93.11 - Primary spontaneous pneumothorax Status: Acute patient reported worsening shortness of breath earlier on. Durinh my assessment patient denies worsening shortness of breath, talking in full sentences with no breaks needed. his lungs are clear, with normal respiratory effort. Right-sided chest tube in place with air leak when he cough. He does appear a anxious, patient does report he is anxious now he is on the floor. repeat chest x-ray whith no worsening pneumothorax Plan: Does not require to be transferred to the ICU, continue deep breath and coughing. Chest x-ray in the morning (2) COPD (chronic obstructive pulmonary disease): Qualifiers: COPD type: COPD with acute exacerbation Qualified Code(s): J44.1 - Chronic obstructive pulmonary disease with (acute) exacerbation Status: Acute
[2020-05-18 20:58] LABS: Glucose, Whole Blood 172 mg/dL (60-115)
[2020-05-18] MEDS: Zolpidem Tartrate 5 MG TABLET PO (22:00)
[2020-05-19] VITALS (8 sets, daily range): BP systolic 133–150; BP diastolic 78–96; PULSE 92–112; RESP 16–20; TEMP 36–36.6; O2SAT 92–98; BMI 35.6
[2020-05-19] MEDS: Heparin Sodium,Porcine 5,000 UNIT/ML VIAL 5000 UNIT SUBCUT ×3 (03:07→18:05)
--- NOTE | 2020-05-19 06:00 | XR_ITS ---
EXAMINATION: XR CHEST CLINICAL INFORMATION: Status post right pneumothorax with chest tube COMPARISON: 05/18/2020 TECHNIQUE: Frontal view of the chest was obtained. FINDINGS: Redemonstrated right-sided chest tube, without significant change from prior. There is a persistent small to moderate pleural effusion which appears similar to prior. No new consolidation bilaterally. No significant pleural effusion. The cardiomediastinal contour is unremarkable. No acute osseous findings are seen. IMPRESSION: Persistent small to moderate right pneumothorax with chest tube in place, similar to prior.
[2020-05-19] MEDS: Salmeterol Xinafoate 50 MCG BLST.W.DEV 1 PUFF INHALE ×2 (07:48→20:17)
[2020-05-19] MEDS: levalbuterol HCL 1.25 MG/3 ML VIAL.NEB INHALE (07:49)
[2020-05-19 08:05] LABS: Glucose, Whole Blood 163 mg/dL (60-115)
[2020-05-19] MEDS: Insulin Lispro 100 UNIT/ML 3 ML VIAL SUBCUT ×3 (08:05→22:01)
[2020-05-19] MEDS: 0.9 % Sodium Chloride Flush 3 ML SYRINGE 2 ML IVFLUSH ×3 (08:06→22:04)
[2020-05-19] MEDS: Docusate Sodium 100 MG CAPSULE PO ×2 (08:06→22:02)
[2020-05-19 12:09] LABS: Glucose, Whole Blood 166 mg/dL (60-115)
--- NOTE | 2020-05-19 15:08 | PM.PNTS ---
Subjective Subjective Interval history: Pt had an incident late yesterday eveening where he experienced a sudden onset of sob with a sharp pain above his shoulder. A CXR was performed that showed a slightly improved right apical pneumothorax. Pt states that his sob has now improved and is inquiring about having a surgical procedure to fix his pneumo. Review of system: All other 10 point ROS negative. Physical Exam Vital Signs: Vital Signs: Vital Signs Temp Pulse Resp BP Pulse Ox 05/19/20 12:00 97.2 F 112 H 18 150/90 H 94 05/19/20 08:00 97.4 F 97 20 143/78 H 98 05/19/20 03:12 97.8 F 97 18 139/79 93 05/18/20 23:16 97.2 F 96 18 138/73 91 L 05/18/20 20:48 97.7 F 102 H 18 167/84 H 96 05/18/20 16:00 98.6 F 101 H 18 154/87 H 97 Body Mass Index 35.6 Const: General: cooperative and no acute distress HENMT: Head: Yes normal to inspection and Yes atraumatic Eyes: General: appearance normal, both eyes and all related structures Sclerae: sclerae normal Pupils: Equal, round and reactive pupils present Neck: Neck: Yes normal visual inspection, No tracheal deviation and Yes other (no subcu air on palpation ) Chest: Other: right sided chest tube remains in place with dressing CDI. Chest tube on -20 LWS with a +1 air leak with exhalation and +2 with cough. No subcu air. Resp: Effort & Inspection: normal respiratory effort and able to speak in complete sentences Auscultation: wheezes Cardio: Jugular venous distension: no JVD Rate: regular rate Rhythm: regular rhythm Heart sounds: S1 normal heart sound present and S2 normal heart sound present Skin: General skin exam: dry skin Neuro: Cranial nerves: Yes Equal, round and reactive pupils present Extrem: General: Yes normal to inspection, Yes capillary refill normal and Yes no clubbing, cyanosis or edema Progress Note: A&P Assessment and plan (1) Pneumothorax: Status: Acute Assessment and Plan: Patient is a 50-year-old male with a past medical history of alcohol abuse, current smoker, COPD who presented to the emergency department with a moderate to large right-sided pneumothorax subsequently had a right pigtail placed in the emergency department on 05/11/2020Which was then removed on 05/13/2020 and reinserted on 05/17/2020 for recurrence of right-sided pneumothorax. Right-sided chest tube remained on -20 LWS overnight with approximately 20 cc of serus sanguinous fluid output, +1 air leak detected with exhalation and +3 with cough. Chest x-ray on 05/17/2020 shows persistent right apical pneumothorax which i personally reviewed. Chest tube to remain on -20 LWS Now and to remain on -20 low suction overnight to promote full reexpansion of lung and to facilitate healing. Discussed possible pleurodesis with patient. If air leak does not improve over the next week will plan to move forward with procedure. Patient should ambulate with chest tube on waterseal minimum of 3-4 times daily. Patient has a history of obstructive sleep apnea. Patient should be on CPAP nocturnally. CXR ordered for a.m Patient should all meals OOB in chair. Incentive spirometry. Airway clearance device. Maintain proper pain analgesics to promote lung reexpansion. Fall Risk Details Current Medications: Current Medications Generic Name Dose Route Start Last Admin Trade Name Freq PRN Reason Stop Dose Admin Acetaminophen 650 mg 05/12/20 03:56 05/14/20 06:16 Acetaminophen 325 Mg Tablet PO 650 mg Q6H PRN Administration Headache Docusate Sodium 100 mg 05/11/20 21:00 05/19/20 08:06 Docusate Sodium 100 Mg Capsule PO 100 mg BID NINA Administration Heparin Sodium (Porcine) 5,000 unit 05/18/20 10:00 05/19/20 11:03 Heparin Sodium,Porcine 5,000 Unit/Ml Vial SUBCUT 5,000 unit Q8H NINA Administration Hydromorphone HCl 0.5 mg 05/16/20 12:25 05/18/20 22:00 Hydromorphone Hcl 0.5 Mg/0.5 Ml Syringe IVPUSH 0.5 mg Q6H PRN Administration Pain, Severe (Pain Scale 7-10) Levofloxacin 750 mg in 150 mls @ 100 mls/hr 05/13/20 18:00 05/18/20 21:37 Levaquin IV Infused Q24H NINA Infusion Insulin Human Lispro 0 unit 05/13/20 11:30 05/19/20 12:33 Insulin Lispro 100 Unit/Ml 3 Ml Vial SUBCUT 2 unit QIDACHS NINA Administration Protocol Levalbuterol HCl 1.25 mg 05/17/20 08:21 05/19/20 07:49 Levalbuterol Hcl 1.25 Mg/3 Ml Vial.Neb INHALE 1.25 mg Q2H PRN Administration Dyspnea Ondansetron HCl 4 mg 05/11/20 12:13 Ondansetron Hcl 4 Mg/2 Ml Vial IVPUSH Q8H PRN Nausea and Vomiting Salmeterol Xinafoate 1 puff 05/14/20 08:00 05/19/20 07:48 Salmeterol Xinafoate 50 Mcg Blst.W.Dev INHALE 1 puff RBID NINA Administration Sodium Chloride 2 ml 05/11/20 16:00 05/19/20 08:06 0.9 % Sodium Chloride Flush 3 Ml Syringe IVFLUSH 2 ml QSHIFT NINA Administration Zolpidem Tartrate 5 mg 05/16/20 12:25 05/18/20 22:00 Zolpidem Tartrate 5 Mg Tablet PO 5 mg BEDTIME PRN Administration Insomnia Time Spent With Patient Time: Total time spent is greater than 50% in coordination of care (as documented) at patient's floor/unit and/or counseling patient: Time with patient: 15 - 24 minutes
[2020-05-19] MEDS: HYDROmorphone HCl 0.5 MG/0.5 ML SYRINGE IVPUSH ×2 (15:24→22:00)
[2020-05-19 16:15] LABS: Glucose, Whole Blood 97 mg/dL (60-115)
--- NOTE | 2020-05-19 16:58 | HO.PM.IMPN ---
Subjective Subjective Interval History: the patient was seen and evaluated this morning Feels better , Still requiring oxygen Chest you at place, CXR showing mild improvement Chest pain, shortness of breath No reported overnight events Physical Exam Vital Signs: Vital Signs: Vital Signs Temp Pulse Resp BP Pulse Ox 05/19/20 15:40 97.2 F 101 H 18 139/96 H 95 05/19/20 12:00 97.2 F 112 H 18 150/90 H 94 05/19/20 08:00 97.4 F 97 20 143/78 H 98 05/19/20 03:12 97.8 F 97 18 139/79 93 05/18/20 23:16 97.2 F 96 18 138/73 91 L 05/18/20 20:48 97.7 F 102 H 18 167/84 H 96 Body Mass Index 35.6 Constitutional : Alert, oriented, not in distress Neck : Normal inspection, Supple Cardiovascular : RRR, S1 S2, no lower extremity edema Respiratory : Fair bilateral air entry, basal crackles, wheezes or rhonchi, on O2 supplement Gastrointestinal: soft, lax, Normal bowel sounds, Non tender Skin : Warm/Dry, No rash Neurological : Alert & oriented x3, No focal deficit Objective Data Current Medications Generic Name Dose Route Start Last Admin Trade Name Freq PRN Reason Stop Dose Admin Acetaminophen 650 mg 05/12/20 03:56 05/14/20 06:16 Acetaminophen 325 Mg Tablet PO 650 mg Q6H PRN Administration Headache Docusate Sodium 100 mg 05/11/20 21:00 05/19/20 08:06 Docusate Sodium 100 Mg Capsule PO 100 mg BID NINA Administration Heparin Sodium (Porcine) 5,000 unit 05/18/20 10:00 05/19/20 11:03 Heparin Sodium,Porcine 5,000 Unit/Ml Vial SUBCUT 5,000 unit Q8H NINA Administration Hydromorphone HCl 0.5 mg 05/16/20 12:25 05/19/20 15:24 Hydromorphone Hcl 0.5 Mg/0.5 Ml Syringe IVPUSH 0.5 mg Q6H PRN Administration Pain, Severe (Pain Scale 7-10) Levofloxacin 750 mg in 150 mls @ 100 mls/hr 05/13/20 18:00 05/18/20 21:37 Levaquin IV Infused Q24H NINA Infusion Insulin Human Lispro 0 unit 05/13/20 11:30 05/19/20 12:33 Insulin Lispro 100 Unit/Ml 3 Ml Vial SUBCUT 2 unit QIDACHS NINA Administration Protocol Levalbuterol HCl 1.25 mg 05/17/20 08:21 05/19/20 07:49 Levalbuterol Hcl 1.25 Mg/3 Ml Vial.Neb INHALE 1.25 mg Q2H PRN Administration Dyspnea Ondansetron HCl 4 mg 05/11/20 12:13 Ondansetron Hcl 4 Mg/2 Ml Vial IVPUSH Q8H PRN Nausea and Vomiting Salmeterol Xinafoate 1 puff 05/14/20 08:00 05/19/20 07:48 Salmeterol Xinafoate 50 Mcg Blst.W.Dev INHALE 1 puff RBID NINA Administration Sodium Chloride 2 ml 05/11/20 16:00 05/19/20 08:06 0.9 % Sodium Chloride Flush 3 Ml Syringe IVFLUSH 2 ml QSHIFT NINA Administration Zolpidem Tartrate 5 mg 05/16/20 12:25 05/18/20 22:00 Zolpidem Tartrate 5 Mg Tablet PO 5 mg BEDTIME PRN Administration Insomnia Labs CBC & Chem 7: 05/18/20 05:41 05/18/20 05:41 Microbiology Microbiology Results: Microbiology 05/11/20 10:39 Blood - Venous Blood Culture - Final No growth after 5 days. 05/11/20 10:17 Blood - Venous Blood Culture - Final No growth after 5 days. Assessment and Plan (1) Community acquired pneumonia: Status: Acute (2) Acute on chronic respiratory failure with hypoxia and hypercapnia: Status: Acute (3) Pneumothorax: Status: Acute (4) COPD (chronic obstructive pulmonary disease): Status: Acute (5) Sleep apnea: Status: Acute Assessment and Plan: a 50 years old male with history of obesity, smoking who presents to the hospital with spontaneous pneumothorax admitted to the ICU with chest tube placement. Spontaneous pneumothorax Had 1 episode of right-sided pneumothorax at admission. Chest tube removed after stabilization Second incident with continuous pneumothorax during the hospital stay on 05/[address] Repeated CXR showing improvement Daily CXR Thoracic surgery input appreciated, plan for pleurodesis acute hypoxic hypercapnic respiratory failure Mixed etiology of KEVIN and pneumonia Zosyn discontinued Continue levofloxacin D8/10 Continue bronchodilators Qualified for BiPAP, to use at bedtime, pending BiPAP delivery home at time of discharge Cough medication Oxygen supplement to wean down as tolerated Smoking Advised to quit Does not require NRT morbid Obesity Seems to be affecting his current medical problem, advised to lose weight Advised to lose weight DVT Ppx SCDs
[2020-05-19] MEDS: levoFLOXacin/D5W 750 MG/150 ML PIGGYBACK 100 MG IV (18:05)
[2020-05-19] MEDS: Zolpidem Tartrate 5 MG TABLET PO (22:02)
[2020-05-20] VITALS (7 sets, daily range): BP systolic 124–146; BP diastolic 77–88; PULSE 90–105; RESP 18–20; TEMP 36.4–36.9; O2SAT 92–97; BMI 34.9
[2020-05-20] MEDS: Heparin Sodium,Porcine 5,000 UNIT/ML VIAL 5000 UNIT SUBCUT ×3 (03:29→18:20)
[2020-05-20] MEDS: HYDROmorphone HCl 0.5 MG/0.5 ML SYRINGE IVPUSH ×2 (04:06→18:19)
[2020-05-20 06:23] LABS: MANUAL DIFF FLAG NO
[2020-05-20 06:49] LABS: Basophils Percent Auto 0.2 % (0-2); Eosinophils Absolute Auto 0.4 X10*3/uL (0.0-0.4); Eosinophils Percent Auto 3.4 % (0-4); Hematocrit 49.3 % (42-52); Imm Gran Abs Auto 0.07 X10*3/uL (0.00-0.03); Imm Gran Pct Auto 0.6 % (0.0-0.4); Lymphocytes Absolute Auto 1.5 X10*3/uL (1.2-4.9); Lymphocytes Percent Auto 12.3 % (20-40); Mean Corpuscular HGB Conc 32.5 g/dl (31.0-36.0); Mean Corpuscular Hemoglobin 31.9 pg (27.0-33.0); Mean Corpuscular Volume 98.4 fL (80-98); Mean Platelet Volume 11.6 fL (9.4-12.4); Monocytes Absolute Auto 1.2 X10*3/uL (0.1-1.2); Monocytes Percent Auto 9.6 % (2-11); Neutrophils Absolute Auto 9.2 X10*3/uL (2.0-8.3); Neutrophils Percent Auto 73.9 % (45-73); Platelet Count 174 X10*3/uL (160-400); Red Blood Count 5.01 X10*6/uL (4.60-5.80); Red Cell Distribution Width 11.8 % (11.0-16.0); White Blood Count 12.5 X10*3/uL (4.8-10.8)
[2020-05-20 07:06] LABS: Anion Gap 13 (12-20); Blood Urea Nitrogen 11 mg/dL (9-16); Calcium 8.6 mg/dL (8.4-10.2); Carbon Dioxide 30 mmol/L (22-29); Chloride 99 mmol/L (96-108); Creatinine Clr Calc Pharmacy 162.6; Estimated Glomerular Filt Rate > 60; Glucose Random 161 mg/dL (60-115); Potassium 3.8 mmol/l (3.3-5.1); Sodium 138 mmol/L (135-145)
[2020-05-20 07:22] LABS: Glucose, Whole Blood 192 mg/dL (60-115)
[2020-05-20] MEDS: Salmeterol Xinafoate 50 MCG BLST.W.DEV 1 PUFF INHALE ×2 (07:41→19:45)
[2020-05-20] MEDS: 0.9 % Sodium Chloride Flush 3 ML SYRINGE 2 ML IVFLUSH ×3 (07:49→23:55)
[2020-05-20 07:56] LABS: Glucose, Whole Blood 170 mg/dL (60-115)
[2020-05-20] MEDS: Insulin Lispro 100 UNIT/ML 3 ML VIAL SUBCUT ×2 (07:56→21:14)
--- NOTE | 2020-05-20 08:00 | XR_ITS ---
EXAMINATION: XR CHEST CLINICAL INFORMATION: Follow-up pneumothorax COMPARISON: Previous chest x-ray most recent from yesterday TECHNIQUE: Frontal view of the chest was obtained. FINDINGS: The cardiac and mediastinal contours are stable. There is a chest tube at the right lung base. This may have pulled back somewhat compared to yesterday's exam. There is a still a moderate right pneumothorax. This measures maximum 6 cm at the lateral costophrenic sulcus and is increased from yesterday's exam when it measured 3.3 cm.. The cardiac and mediastinal contours are stable. There is a atelectasis of the central right lung likely related to the pneumothorax. The left lung is clear. There is no pleural effusion. Bony structures are unremarkable. IMPRESSION: Interval increase in now moderate-size right pneuomthorax from yesterday's exam. The right chest tube may have pulled back slightly. 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
[2020-05-20 11:39] LABS: Glucose, Whole Blood 135 mg/dL (60-115)
--- NOTE | 2020-05-20 12:54 | P.PNIM_ITS ---
Subjective Subjective Date of Service: 05/20/20 Interval History: no complaints Cardiovascular Cardiovascular: Reports no additional cardiovascular complaints Respiratory Respiratory: Reports no additional respiratory complaints Physical Exam Vital Signs: Vital Signs: Vital Signs Temp Pulse Resp BP Pulse Ox 05/20/20 11:15 97.8 F 98 18 142/77 H 94 05/20/20 07:54 98.1 F 90 18 139/88 94 05/20/20 04:06 18 05/20/20 03:43 98.2 F 94 18 146/84 H 92 05/19/20 23:25 97.3 F 94 18 133/82 93 05/19/20 19:34 96.8 F 103 H 16 145/93 H 92 05/19/20 15:40 97.2 F 101 H 18 139/96 H 95 Body Mass Index 34.9 General: AO X 3, no acute distress Resp: chest tube in place CVS: S1,S2,RRR GI: soft, non tender, non distended Neuro: motor grossly intact Psych: appropriate affect Objective Data Current Medications Generic Name Dose Route Start Last Admin Trade Name Freq PRN Reason Stop Dose Admin Acetaminophen 650 mg 05/12/20 03:56 05/14/20 06:16 Acetaminophen 325 Mg Tablet PO 650 mg Q6H PRN Administration Headache Docusate Sodium 100 mg 05/11/20 21:00 05/20/20 07:49 Docusate Sodium 100 Mg Capsule PO Not Given BID [facility] Heparin Sodium (Porcine) 5,000 unit 05/18/20 10:00 05/20/20 12:00 Heparin Sodium,Porcine 5,000 Unit/Ml Vial SUBCUT 5,000 unit Q8H [facility] Administration Hydromorphone HCl 0.5 mg 05/16/20 12:25 05/20/20 04:06 Hydromorphone Hcl 0.5 Mg/0.5 Ml Syringe IVPUSH 0.5 mg Q6H PRN Administration Pain, Severe (Pain Scale 7-10) Levofloxacin 750 mg in 150 mls @ 100 mls/hr 05/13/20 18:00 05/19/20 20:08 Levaquin IV Infused Q24H [facility] Infusion Insulin Human Lispro 0 unit 05/13/20 11:30 05/20/20 12:03 Insulin Lispro 100 Unit/Ml 3 Ml Vial SUBCUT Not Given QIDACHS [facility] Protocol Levalbuterol HCl 1.25 mg 05/17/20 08:21 05/19/20 07:49 Levalbuterol Hcl 1.25 Mg/3 Ml Vial.Neb INHALE 1.25 mg Q2H PRN Administration Dyspnea Ondansetron HCl 4 mg 05/11/20 12:13 Ondansetron Hcl 4 Mg/2 Ml Vial IVPUSH Q8H PRN Nausea and Vomiting Salmeterol Xinafoate 1 puff 05/14/20 08:00 05/20/20 07:41 Salmeterol Xinafoate 50 Mcg Blst.W.Dev INHALE 1 puff RBID NINA Administration Sodium Chloride 2 ml 05/11/20 16:00 05/20/20 07:49 0.9 % Sodium Chloride Flush 3 Ml Syringe IVFLUSH 2 ml QSHIFT NINA Administration Zolpidem Tartrate 5 mg 05/16/20 12:25 05/19/20 22:02 Zolpidem Tartrate 5 Mg Tablet PO 5 mg BEDTIME PRN Administration Insomnia Labs CBC & Chem 7: 05/20/20 05:32 05/20/20 05:32 Microbiology Microbiology Results: Microbiology 05/11/20 10:39 Blood - Venous Blood Culture - Final No growth after 5 days. 05/11/20 10:17 Blood - Venous Blood Culture - Final No growth after 5 days. Assessment and Plan (1) Pneumothorax: Status: Acute (2) COPD (chronic obstructive pulmonary disease): Status: Acute (3) Acute on chronic respiratory failure with hypoxia and hypercapnia: Status: Acute (4) Diabetes: Status: Acute (5) HTN (hypertension): Status: Acute Assessment and Plan: 50M presented with sob ofund to have pneumothorax Acute hypoxic respiratory failure secondary to pneumothorax status post chest tube management per thoracic surgery, possible pleurodesis if no improvement diabetes new diagnosis continue insulin likely metformin on discharge hypertension new diagnosis will start BENNIE-inhibitor obesity weight loss encouraged
--- NOTE | 2020-05-20 13:50 | MHC.CM.PN ---
Plan is for patient to have pleurodesis surgery. Discharge plan is home no services. CM will continue to follow patient for discharge needs.
--- NOTE | 2020-05-20 16:45 | PM.PNTS ---
Subjective Subjective Interval history: Pt had an incident late yesterday eveening where he experienced a sudden onset of sob with a sharp pain above his shoulder. A CXR was performed that showed a slightly improved right apical pneumothorax. Pt states that his sob has now improved and is inquiring about having a surgical procedure to fix his pneumo. Review of Systems: Constitutional: Constitutional: Reports headache(s) Eyes: Eyes: Denies change in vision ENT: Reports headache(s), Denies nasal congestion and Denies sore throat Cardiovascular: Cardiovascular: Denies chest pain, Denies diaphoresis, Denies lightheadedness and Reports dyspnea on exertion Respiratory: Respiratory: , Denies cough,hemoptysis, Reports pain (surrounding chest tube site). Gastrointestinal: Gastrointestinal: Denies abdominal pain, Denies constipation and Denies diarrhea Genitourinary: Genitourinary: Denies difficulty urinating Neurologic: Reports headache(s) Constitutional: Constitutional: Reports headache(s) ENT: Reports headache(s) Neurologic: Reports headache(s) Physical Exam Vital Signs: Vital Signs: Vital Signs Temp Pulse Resp BP Pulse Ox 05/20/20 16:00 98.4 F 99 18 140/86 H 96 05/20/20 11:15 97.8 F 98 18 142/77 H 94 05/20/20 07:54 98.1 F 90 18 139/88 94 05/20/20 04:06 18 05/20/20 03:43 98.2 F 94 18 146/84 H 92 05/19/20 23:25 97.3 F 94 18 133/82 93 05/19/20 19:34 96.8 F 103 H 16 145/93 H 92 Body Mass Index 34.9 General: AO X 3, no acute distress Resp: chest tube in place CVS: S1,S2,RRR GI: soft, non tender, non distended Neuro: motor grossly intact Psych: appropriate affect Const: General: cooperative, comfortable, alert, awake and lethargic Nutritional Appearance: overweight Orientation/consciousness: patient oriented x3 and lethargic Limitations: no limitations HENMT: Head: Yes normal to inspection, Yes normocephalic and Yes atraumatic Eyes: General: appearance normal, both eyes and all related structures Alignment and Position: alignment normal and position normal Conjunctivae: conjunctivae normal Sclerae: sclerae normal Pupils: Equal, round and reactive pupils present EOM: EOMs intact bilaterally Neck: Other: trachea midline with no subcu air Neck: Yes trachea midline and No tracheal deviation Carotids: normal carotid upstroke Chest: Other: right sided chest tube remains in place with dressing CDI. Chest tube on -20 LWS with a +1 air leak with exhalation and +2 with cough. No subcu air. Chest palpation & inspection: normal inspection of the chest Resp: Other: right chest tube, with air leak with cough Effort & Inspection: normal respiratory effort, able to speak in complete sentences, Actively coughing, no respiratory distress and uses accessory muscles Auscultation: rhonchi ( coarse lung sounds throughout), wheezes and diminished lung sounds on the right Percussion: percussion normal Cardio: Jugular venous distension: no JVD Palpation: normal PMI Rate: tachycardic Rhythm: regular rhythm Heart sounds: S1 normal heart sound present, S2 normal heart sound present, no gallops, no murmurs and no rubs GI: Inspection: Yes normal to inspection Palpation (GI): nontender, not rigid, No hepatosplenomegaly present and Other GI palpation findings present ( Nontender) Percussion: Yes normal to percussion Auscultation: normal bowel sounds Skin: General skin exam: no rashes or lesions noted Neuro: General: patient oriented x3 Cranial nerves: Yes CN's II-XII intact bilaterally and Yes Equal, round and reactive pupils present Cognition (Neuro): normal cognition Extrem: General: Yes normal to inspection, Yes no clubbing, cyanosis or edema and Yes no pedal edema Psych: Speech and movement: Normal speech and movement present and Clear speech present Attitude: cooperative Progress Note: A&P Assessment and plan (1) Pneumothorax: Status: Acute Assessment and Plan: Patient is a 50-year-old male with a past medical history of alcohol abuse, current smoker, COPD who presented to the emergency department with a moderate to large right-sided pneumothorax subsequently had a right pigtail placed in the emergency department on 05/11/2020Which was then removed on 05/13/2020 and reinserted on 05/17/2020 for recurrence of right-sided pneumothorax. Right-sided chest tube remained on -20 LWS overnight with approximately 20 cc of serus sanguinous fluid output, +1 air leak detected with exhalation and +3 with cough. Chest x-ray on 05/17/2020 shows persistent right apical pneumothorax which i personally reviewed. Chest tube to remain on -20 LWS Now and to remain on -20 low suction overnight to promote full reexpansion of lung and to facilitate healing. Discussed possible pleurodesis with patient. If air leak does not improve over the next week will plan to move forward with procedure. Patient should ambulate with chest tube on waterseal minimum of 3-4 times daily. Patient has a history of obstructive sleep apnea. Patient should be on CPAP nocturnally. CXR ordered for a.m Patient should all meals OOB in chair. Incentive spirometry. Airway clearance device. Maintain proper pain analgesics to promote lung reexpansion. (2) COPD (chronic obstructive pulmonary disease): Status: Acute (3) Acute on chronic respiratory failure with hypoxia and hypercapnia: Status: Acute (4) Diabetes: Status: Acute (5) HTN (hypertension): Status: Acute Fall Risk Details Current Medications: Current Medications Generic Name Dose Route Start Last Admin Trade Name Freq PRN Reason Stop Dose Admin Acetaminophen 650 mg 05/12/20 03:56 05/14/20 06:16 Acetaminophen 325 Mg Tablet PO 650 mg Q6H PRN Administration Headache Docusate Sodium 100 mg 05/11/20 21:00 05/20/20 07:49 Docusate Sodium 100 Mg Capsule PO Not Given BID [facility] Heparin Sodium (Porcine) 5,000 unit 05/18/20 10:00 05/20/20 12:00 Heparin Sodium,Porcine 5,000 Unit/Ml Vial SUBCUT 5,000 unit Q8H NINA Administration Hydromorphone HCl 0.5 mg 05/16/20 12:25 05/20/20 04:06 Hydromorphone Hcl 0.5 Mg/0.5 Ml Syringe IVPUSH 0.5 mg Q6H PRN Administration Pain, Severe (Pain Scale 7-10) Levofloxacin 750 mg in 150 mls @ 100 mls/hr 05/13/20 18:00 05/19/20 20:08 Levaquin IV Infused Q24H [facility] Infusion Insulin Human Lispro 0 unit 05/13/20 11:30 05/20/20 12:03 Insulin Lispro 100 Unit/Ml 3 Ml Vial SUBCUT Not Given QIDACHS [facility] Protocol Levalbuterol HCl 1.25 mg 05/17/20 08:21 05/19/20 07:49 Levalbuterol Hcl 1.25 Mg/3 Ml Vial.Neb INHALE 1.25 mg Q2H PRN Administration Dyspnea Lisinopril 5 mg 05/21/20 09:00 Lisinopril 5 Mg Tablet PO DAILY [facility] Protocol Ondansetron HCl 4 mg 05/11/20 12:13 Ondansetron Hcl 4 Mg/2 Ml Vial IVPUSH Q8H PRN Nausea and Vomiting Salmeterol Xinafoate 1 puff 05/14/20 08:00 05/20/20 07:41 Salmeterol Xinafoate 50 Mcg Blst.W.Dev INHALE 1 puff RBID NINA Administration Sodium Chloride 2 ml 05/11/20 16:00 05/20/20 07:49 0.9 % Sodium Chloride Flush 3 Ml Syringe IVFLUSH 2 ml QSHIFT NINA Administration Zolpidem Tartrate 5 mg 05/16/20 12:25 05/19/20 22:02 Zolpidem Tartrate 5 Mg Tablet PO 5 mg BEDTIME PRN Administration Insomnia Time Spent With Patient Time: Total time spent is greater than 50% in coordination of care (as documented) at patient's floor/unit and/or counseling patient: Time with patient: less than 15 minutes
[2020-05-20 16:58] LABS: Glucose, Whole Blood 139 mg/dL (60-115)
[2020-05-20] MEDS: Docusate Sodium 100 MG CAPSULE PO (21:14)
[2020-05-20 21:18] LABS: Glucose, Whole Blood 168 mg/dL (60-115)
[2020-05-20] MEDS: Zolpidem Tartrate 5 MG TABLET PO (23:53)
[2020-05-21] VITALS (7 sets, daily range): BP systolic 108–138; BP diastolic 61–78; PULSE 84–95; RESP 18; TEMP 36.3–36.9; O2SAT 94–97; BMI 36.5
[2020-05-21] MEDS: HYDROmorphone HCl 0.5 MG/0.5 ML SYRINGE IVPUSH ×4 (00:43→20:42)
[2020-05-21] MEDS: Heparin Sodium,Porcine 5,000 UNIT/ML VIAL 5000 UNIT SUBCUT ×3 (03:36→19:33)
--- NOTE | 2020-05-21 06:00 | XR_ITS ---
EXAMINATION: XR CHEST CLINICAL INFORMATION: Right-sided pneumothorax with pigtail catheter in place COMPARISON: 05/20/2020 TECHNIQUE: Frontal view of the chest was obtained. FINDINGS: Right-sided pigtail catheter is more lateral in position compared to most recent prior. There has been interval decrease in size of the right-sided pneumothorax compared to prior, with small residual pneumothorax remaining. There is mild heterogeneous opacity in the right infrahilar region. Left lung appears well-expanded and clear. No significant pleural effusion. The cardiomediastinal contour is unremarkable. No acute osseous findings are seen. IMPRESSION: Small right pneumothorax, decreased from most recent prior. Mild heterogeneous opacity in the right infrahilar region may reflect atelectasis or potentially consolidation.
[2020-05-21 07:34] LABS: Glucose, Whole Blood 159 mg/dL (60-115)
[2020-05-21] MEDS: lisinopriL 5 MG TABLET PO (08:05)
[2020-05-21] MEDS: Docusate Sodium 100 MG CAPSULE PO (08:05)
[2020-05-21] MEDS: Insulin Lispro 100 UNIT/ML 3 ML VIAL SUBCUT ×2 (08:06→11:50)
[2020-05-21] MEDS: 0.9 % Sodium Chloride Flush 3 ML SYRINGE 2 ML IVFLUSH ×2 (08:08→17:37)
[2020-05-21] MEDS: levalbuterol HCL 1.25 MG/3 ML VIAL.NEB INHALE (08:14)
[2020-05-21] MEDS: Salmeterol Xinafoate 50 MCG BLST.W.DEV 1 PUFF INHALE ×2 (08:16→21:07)
--- NOTE | 2020-05-21 10:46 | HO.PM.IMPN ---
Subjective Subjective Interval History: no complaints Physical Exam Vital Signs: Vital Signs: Vital Signs Temp Pulse Resp BP Pulse Ox 05/21/20 08:05 87 138/78 05/21/20 07:10 98 F 87 18 138/78 96 05/21/20 03:53 98 F 84 18 120/76 94 05/20/20 23:32 97.5 F 96 18 124/79 97 05/20/20 20:00 97.8 F 105 H 20 144/86 H 96 05/20/20 16:00 98.4 F 99 18 140/86 H 96 05/20/20 11:15 97.8 F 98 18 142/77 H 94 Body Mass Index 36.5 General: AO X 3, no acute distress Resp: chest tube in place CVS: S1,S2,RRR GI: soft, non tender, non distended Neuro: motor grossly intact Psych: appropriate affect Objective Data Current Medications Generic Name Dose Route Start Last Admin Trade Name Freq PRN Reason Stop Dose Admin Acetaminophen 650 mg 05/12/20 03:56 05/14/20 06:16 Acetaminophen 325 Mg Tablet PO 650 mg Q6H PRN Administration Headache Docusate Sodium 100 mg 05/11/20 21:00 05/21/20 08:05 Docusate Sodium 100 Mg Capsule PO 100 mg BID NINA Administration Heparin Sodium (Porcine) 5,000 unit 05/18/20 10:00 05/21/20 09:21 Heparin Sodium,Porcine 5,000 Unit/Ml Vial SUBCUT 5,000 unit Q8H NINA Administration Hydromorphone HCl 0.5 mg 05/16/20 12:25 05/21/20 06:46 Hydromorphone Hcl 0.5 Mg/0.5 Ml Syringe IVPUSH 0.5 mg Q6H PRN Administration Pain, Severe (Pain Scale 7-10) Insulin Human Lispro 0 unit 05/13/20 11:30 05/21/20 08:06 Insulin Lispro 100 Unit/Ml 3 Ml Vial SUBCUT 2 unit QIDACHS NINA Administration Protocol Levalbuterol HCl 1.25 mg 05/17/20 08:21 05/21/20 08:14 Levalbuterol Hcl 1.25 Mg/3 Ml Vial.Neb INHALE 1.25 mg Q2H PRN Administration Dyspnea Lisinopril 5 mg 05/21/20 09:00 05/21/20 08:05 Lisinopril 5 Mg Tablet PO 5 mg DAILY NINA Administration Protocol Ondansetron HCl 4 mg 05/11/20 12:13 Ondansetron Hcl 4 Mg/2 Ml Vial IVPUSH Q8H PRN Nausea and Vomiting Salmeterol Xinafoate 1 puff 05/14/20 08:00 05/21/20 08:16 Salmeterol Xinafoate 50 Mcg Blst.W.Dev INHALE 1 puff RBID NINA Administration Sodium Chloride 2 ml 05/11/20 16:00 05/21/20 08:08 0.9 % Sodium Chloride Flush 3 Ml Syringe IVFLUSH 2 ml QSHIFT NINA Administration Zolpidem Tartrate 5 mg 05/16/20 12:25 05/20/20 23:53 Zolpidem Tartrate 5 Mg Tablet PO 5 mg BEDTIME PRN Administration Insomnia Labs CBC & Chem 7: 05/20/20 05:32 05/20/20 05:32 Microbiology Microbiology Results: Microbiology 05/11/20 10:39 Blood - Venous Blood Culture - Final No growth after 5 days. 05/11/20 10:17 Blood - Venous Blood Culture - Final No growth after 5 days. Assessment and Plan (1) Pneumothorax: Status: Acute (2) COPD (chronic obstructive pulmonary disease): Status: Acute (3) Acute on chronic respiratory failure with hypoxia and hypercapnia: Status: Acute (4) Diabetes: Status: Acute (5) HTN (hypertension): Status: Acute Assessment and Plan: 50M presented with sob ofund to have pneumothorax Acute hypoxic respiratory failure secondary to pneumothorax status post chest tube management per thoracic surgery, possible pleurodesis if no improvement over the week diabetes new diagnosis continue insulin likely metformin on discharge hypertension new diagnosis started BENNIE-inhibitor will follow up bmp obesity weight loss encouraged
[2020-05-21 11:38] LABS: Glucose, Whole Blood 160 mg/dL (60-115)
--- NOTE | 2020-05-21 12:18 | MHC.CLN ---
F/U PO 75-100% DIET RX: 2200-APPROPRIATE WT DOWN 13# SINCE ADMISSION -DESIRED PER PT FOLLOWING
[2020-05-21 17:06] LABS: Glucose, Whole Blood 119 mg/dL (60-115)
[2020-05-21 20:45] LABS: Glucose, Whole Blood 136 mg/dL (60-115)
[2020-05-21] MEDS: Zolpidem Tartrate 5 MG TABLET PO (21:03)
[2020-05-22] VITALS (10 sets, daily range): BP systolic 109–166; BP diastolic 58–95; PULSE 77–102; RESP 17–20; TEMP 36.2–37.1; O2SAT 89–98; BMI 36.3
--- NOTE | 2020-05-22 | CT_ITS ---
PROCEDURE: CT GUIDED INSERTION, PLEURAL TUNNEL CATHETER CLINICAL INFORMATION: Right pneumothorax COMPARISON: Previous chest x-rays most recent earlier today TECHNIQUE: Procedure and risks and benefits including bleeding, infection and inability to get the lung to reinflate was discussed with the patient and informed consent was obtained. The patient was positioned in the supine position. Limited axial images through the chest were performed. Right anterior chest was prepped and draped in the usual sterile fashion. Skin and soft tissues were anesthetized with 1% lidocaine plain. Using a 5 Syrian Yueh needle needle, access to the pleural space was obtained. Over an 035 guidewire and following serial dilatation, a 12 Syrian pigtail chest tube was positioned. Tube was attached to a Pleur-evac to wall suction. Postprocedure images were obtained. The patient received 50 mcg intravenous fentanyl during the procedure. This CT examination was performed using dose optimization techniques as appropriate, variously including the following: *Automated exposure control *Adjustment of mA and/or kV according to patient size (this includes techniques or standardized protocols for targeted exams where dose is matched to indication/reason for exam; i.e. extremities or head) *Use of iterative reconstruction technique DLP: 533 mGy-cm FINDINGS: 3 chest tube placement demonstrate demonstrates a large right pneumothorax. There is no shift of the central mediastinal structures to the left. Images post chest tube placement demonstrate an anterior chest tube. There is a small remaining pneumothorax at the right lung base. There is atelectasis or/consolidation of the right middle and right lower lower lobe. There is evidence of mild paraseptal emphysema. There are small mediastinal lymph nodes. No enlarged lymph nodes are seen. The heart does not appear enlarged. There is no pericardial effusion. There is no pleural effusion or pleural thickening. There is a small amount of mediastinal emphysema the right chest wall post procedure. Images through the upper abdomen are unremarkable. Review at bone windows is unremarkable. IMPRESSION: 12 Syrian right chest tube replacement. Small remaining pneumothorax at the right lung base. Atelectasis or consolidation of the right middle and right lower lobes. Paraseptal emphysema.
[2020-05-22] MEDS: 0.9 % Sodium Chloride Flush 3 ML SYRINGE 2 ML IVFLUSH ×2 (00:06→09:24)
[2020-05-22] MEDS: Acetaminophen 325 MG TABLET 650 MG PO (00:10)
[2020-05-22] MEDS: HYDROmorphone HCl 0.5 MG/0.5 ML SYRINGE IVPUSH ×4 (05:02→22:04)
--- NOTE | 2020-05-22 06:00 | XR_ITS ---
EXAMINATION: XR CHEST CLINICAL INFORMATION: Follow-up right pneumothorax COMPARISON: 05/21/2020 TECHNIQUE: Frontal view of the chest was obtained. FINDINGS: Right basilar chest tube is more inferior in location compared to prior. Redemonstrated residual small right pneumothorax, similar to possibly minimally decreased from prior. Subsegmental right basilar atelectasis is suspected. Left lung is well-expanded without consolidation. No significant pleural effusion or pulmonary edema. The cardiomediastinal contour is unremarkable. No acute osseous findings are seen. IMPRESSION: Right basilar chest tube is more inferior in location compared to prior. Residual small right pneumothorax, similar to possibly minimally decreased from prior.
[2020-05-22 06:33] LABS: MANUAL DIFF FLAG NO
[2020-05-22 06:55] LABS: Basophils Percent Auto 0.5 % (0-2); Eosinophils Absolute Auto 0.4 X10*3/uL (0.0-0.4); Eosinophils Percent Auto 4.4 % (0-4); Hematocrit 46.4 % (42-52); Hemoglobin 15.5 g/dl (14.0-18.0); Imm Gran Abs Auto 0.03 X10*3/uL (0.00-0.03); Imm Gran Pct Auto 0.3 % (0.0-0.4); Lymphocytes Percent Auto 23.1 % (20-40); Mean Corpuscular HGB Conc 33.4 g/dl (31.0-36.0); Mean Corpuscular Hemoglobin 32.6 pg (27.0-33.0); Mean Corpuscular Volume 97.5 fL (80-98); Mean Platelet Volume 11.7 fL (9.4-12.4); Monocytes Absolute Auto 1.1 X10*3/uL (0.1-1.2); Monocytes Percent Auto 12.2 % (2-11); Neutrophils Absolute Auto 5.2 X10*3/uL (2.0-8.3); Neutrophils Percent Auto 59.5 % (45-73); Platelet Count 196 X10*3/uL (160-400); Red Blood Count 4.76 X10*6/uL (4.60-5.80); Red Cell Distribution Width 11.7 % (11.0-16.0); White Blood Count 8.7 X10*3/uL (4.8-10.8)
[2020-05-22 07:13] LABS: Anion Gap 12 (12-20); Blood Urea Nitrogen 10 mg/dL (9-16); Calcium 8.9 mg/dL (8.4-10.2); Carbon Dioxide 31 mmol/L (22-29); Chloride 99 mmol/L (96-108); Creatinine Clr Calc Pharmacy 161.1; Estimated Glomerular Filt Rate > 60; Glucose Fasting 141 mg/dL (60-99); Potassium 4.1 mmol/l (3.3-5.1); Sodium 138 mmol/L (135-145)
[2020-05-22 07:37] LABS: Glucose, Whole Blood 137 mg/dL (60-115)
--- NOTE | 2020-05-22 07:50 | XR_ITS ---
EXAMINATION: XR CHEST CLINICAL INFORMATION: Chest tube fell out COMPARISON: 05/22/2020 TECHNIQUE: 2 views of the chest were obtained. FINDINGS: The previous right basilar pigtail catheter is no longer present. There is return of a large right-sided pneumothorax. The patient is somewhat rotated which limits evaluation for midline shift, although some leftward shift may be present. A portion of the right lower lung is collapsed. The left lung is clear. The cardiomediastinal silhouette is grossly unremarkable. IMPRESSION: There is return of a large right-sided pneumothorax with removal of the chest tube. Rotated positioning limits evaluation for midline shift, but there may be some leftward midline shift. This critical result was discussed with Dr. Umaña by telephone at 05/22/2020 9:01 AM and it was ascertained that the content and urgency of the report was understood at the time of direct communication.
[2020-05-22] MEDS: Salmeterol Xinafoate 50 MCG BLST.W.DEV 1 PUFF INHALE ×2 (08:58→19:51)
[2020-05-22] MEDS: Heparin Sodium,Porcine 5,000 UNIT/ML VIAL 5000 UNIT SUBCUT ×2 (09:22→17:56)
[2020-05-22] MEDS: lisinopriL 5 MG TABLET PO (09:23)
[2020-05-22] MEDS: Docusate Sodium 100 MG CAPSULE PO (09:23)
--- NOTE | 2020-05-22 11:15 | HO.RADPN ---
RADIOLOGY Narrative Narrative: Right 12 Fr pigtail chest tube placed. Right lung reinflated with minimal residual pneumothorax.
[2020-05-22] MEDS: Lidocaine HCl 1 % 20 ML VIAL 10 ML SUBCUT (11:26)
--- NOTE | 2020-05-22 11:47 | P.PNIM_ITS ---
Subjective Subjective Date of Service: 05/22/20 Interval History: chest tube fell out overnight, not feeling too sob Cardiovascular Cardiovascular: Reports no additional cardiovascular complaints Gastrointestinal Gastrointestinal: Reports no additional gastrointestinal complaints Physical Exam Vital Signs: Vital Signs: Vital Signs Temp Pulse Resp BP Pulse Ox 05/22/20 11:45 97.8 F 101 H 20 136/84 98 05/22/20 06:50 98 F 88 20 120/70 89 L 05/22/20 03:11 97.9 F 79 19 166/95 H 95 05/22/20 00:00 98.0 F 89 17 117/69 94 05/21/20 20:13 98.4 F 05/21/20 20:00 93 18 126/64 95 05/21/20 16:00 97.4 F 95 18 108/61 97 Body Mass Index 36.3 General: AO X 3, no acute distress Resp: decreased breath sounds CVS: S1,S2,RRR GI: soft, non tender, non distended Neuro: motor grossly intact Psych: appropriate affect Objective Data Current Medications Generic Name Dose Route Start Last Admin Trade Name Freq PRN Reason Stop Dose Admin Acetaminophen 650 mg 05/12/20 03:56 05/22/20 00:10 Acetaminophen 325 Mg Tablet PO 650 mg Q6H PRN Administration Headache Docusate Sodium 100 mg 05/11/20 21:00 05/22/20 09:23 Docusate Sodium 100 Mg Capsule PO 100 mg BID NINA Administration Heparin Sodium (Porcine) 5,000 unit 05/18/20 10:00 05/22/20 09:22 Heparin Sodium,Porcine 5,000 Unit/Ml Vial SUBCUT 5,000 unit Q8H NINA Administration Hydromorphone HCl 0.5 mg 05/21/20 12:31 05/22/20 05:02 Hydromorphone Hcl 0.5 Mg/0.5 Ml Syringe IVPUSH 0.5 mg Q4H PRN Administration pain Insulin Human Lispro 0 unit 05/13/20 11:30 05/22/20 09:28 Insulin Lispro 100 Unit/Ml 3 Ml Vial SUBCUT Not Given QIDACHS [facility] Protocol Levalbuterol HCl 1.25 mg 05/17/20 08:21 05/21/20 08:14 Levalbuterol Hcl 1.25 Mg/3 Ml Vial.Neb INHALE 1.25 mg Q2H PRN Administration Dyspnea Lisinopril 5 mg 05/21/20 09:00 05/22/20 09:23 Lisinopril 5 Mg Tablet PO 5 mg DAILY NINA Administration Protocol Ondansetron HCl 4 mg 05/11/20 12:13 Ondansetron Hcl 4 Mg/2 Ml Vial IVPUSH Q8H PRN Nausea and Vomiting Salmeterol Xinafoate 1 puff 05/14/20 08:00 05/22/20 08:58 Salmeterol Xinafoate 50 Mcg Blst.W.Dev INHALE 1 puff RBID NINA Administration Sodium Chloride 2 ml 05/11/20 16:00 05/22/20 09:24 0.9 % Sodium Chloride Flush 3 Ml Syringe IVFLUSH 2 ml QSHIFT NINA Administration Labs CBC & Chem 7: 05/22/20 05:36 05/22/20 05:36 Microbiology Microbiology Results: Microbiology 05/11/20 10:39 Blood - Venous Blood Culture - Final No growth after 5 days. 05/11/20 10:17 Blood - Venous Blood Culture - Final No growth after 5 days. Assessment and Plan (1) Pneumothorax: Status: Acute (2) COPD (chronic obstructive pulmonary disease): Status: Acute (3) Acute on chronic respiratory failure with hypoxia and hypercapnia: Status: Acute (4) Diabetes: Status: Acute (5) HTN (hypertension): Status: Acute Assessment and Plan: 50M presented with sob ofund to have pneumothorax Acute hypoxic respiratory failure secondary to pneumothorax chest tube fell out overnight, plan to replace management per thoracic surgery, possible pleurodesis if no improvement over the week diabetes new diagnosis continue insulin likely metformin on discharge hypertension new diagnosis started BENNIE-inhibitor obesity weight loss encouraged
[2020-05-22 11:50] LABS: Glucose, Whole Blood 133 mg/dL (60-115)
[2020-05-22] MEDS: Insulin Lispro 100 UNIT/ML 3 ML VIAL SUBCUT ×3 (12:25→21:37)
--- NOTE | 2020-05-22 14:27 | MHC.CM.PN ---
Patient still has a chest tube, on 2 liters O2 and requiring Bipap at night. Discharge plan continues to be home no services. Spouse will provide transportation. CM will continue to follow patient for discharge needs.
[2020-05-22 16:18] LABS: Glucose, Whole Blood 153 mg/dL (60-115)
[2020-05-22 20:38] LABS: Glucose, Whole Blood 152 mg/dL (60-115)
--- NOTE | 2020-05-22 21:12 | P.HPIM_ITS ---
History of Present Illness Date of Service: 05/22/20 Chief Complaint: interthecal pain pump placement patient of Dr. Meraz 50 yo w hx of hemorrhagic stroke with left sided hemiparesis, htn, chronic pain who presents as an outpt for interthecal pain pump placement. pt is being admitted under obs for pain management and having difficulty getting into his wheelchair due to significant pain post surgery ,and having no one at home to help him ambulate in out of bed tonight as well as having anesthesia on board and feeling unsafe to go home. Patient currentl is complaints of back pain and headache otherwise has no complaints. Patient reports no change in vision, numbness or tingling in his right extremities. Patient has chronic Review of Systems Constitutional: Constitutional: Reports headache(s) ENT: Reports headache(s) Neurologic: Reports headache(s) [facility] Medical History (Updated 05/20/20 @ 12:58 by Misael Archibald MD) Alcoholism /alcohol abuse COPD (chronic obstructive pulmonary disease) Pneumothorax Tobacco abuse disorder Functional capacity: independent ambulation Surgical History History of colonoscopy Social History Household Members: Spouse Housing: House Smoking Status: Current every day smoker Tobacco Type: Cigarette Packs Per Day: 0.5 Cigarettes Per Day: 10.0 Years Smoked: 30 Smoked in Last 30 Days: Yes Patient Interested in Nicotine Replacement: Yes Use of substances other than those prescribed or required for medical reasons: Yes Substance Use Type: Crack/Cocaine Substance Use Frequency: Occasionally Last Used Substance: Weeks (ago) Currently Displaying Signs/Symptoms of Drug Intoxication Withdrawal: No Any prior treatment program specific to substance use: No Have you been hit, kicked, punched, or otherwise hurt by someone within the past year? If so, by whom?: No Do you feel safe in your current relationship?: Yes Is there a partner from a previous relationship who is making you feel unsafe now?: No Are you made to feel afraid or neglected: No Spiritual Healthcare Practices: no Judaism Healthcare Practices: no Cultural Healthcare Practices: no Advance Directives: No Advance Directives Information Provided: No Do you have thoughts of harming others: None Do you have a plan to hurt others: No Plan Recently lost weight without trying: No service: No Current occupational status: employed Meds Allergies Allergy/AdvReac Type Severity Reaction Status Date / Time pepper (genus Capsicum) Allergy Angioedema Verified 05/17/20 17:06 Peppers, Green Allergy Angioedema Verified 05/17/20 17:06 Peppers, Jalapeno Allergy Angioedema Verified 05/17/20 17:06 Peppers, Red Allergy Angioedema Verified 05/17/20 17:06 Peppers, Yellow Allergy Angioedema Verified 05/17/20 17:06 Home Medications Medication Instructions Recorded Confirmed Type No Known Home Meds 05/11/20 05/11/20 History Physical Exam Vital Signs and Narrative: Vital Signs: Last Vital Signs Temp 98.2 F 05/22/20 20:00 Pulse 84 05/22/20 20:00 Resp 18 05/22/20 20:00 BP 133/76 05/22/20 20:00 Pulse Ox 96 05/22/20 20:00 Body Mass Index 36.3 Results Labs Labs: Laboratory Tests 05/11/20 05/11/20 05/11/20 10:17 10:17 10:17 WBC 11.9 H RBC 5.71 Hgb 18.6 H Hct 55.5 H MCV 97.2 MCH 32.6 MCHC 33.5 RDW 11.9 Plt Count 166 MPV 11.2 Immature Gran % (Auto) 0.3 Neut % (Auto) 72.3 Lymph % (Auto) 15.8 L Stephens % (Auto) 9.9 Eos % (Auto) 1.4 Baso % (Auto) 0.3 Neut # (Auto) 8.6 H Lymph # (Auto) 1.9 Stephens # (Auto) 1.2 Eos # (Auto) 0.2 Baso # (Auto) 0.0 Abs Immat Gran (auto) 0.03 Absolute Neuts (auto) Absolute Nucleated RBC 0.000 Nucleated RBC % (auto) 0.0 Neutrophils % (Manual) Band Neutrophils % Lymphocytes % (Manual) Monocytes % (Manual) Neutrophils # (Manual) Lymphocytes # (Manual) Monocytes # (Manual) Platelet Estimate Plt Morphology Comment RBC Morphology Smear Tech's Comments ESR PT INR APTT D-Dimer ABG pH ABG pCO2 ABG pO2 ABG HCO3 ABG O2 Saturation ABG Base Excess VBG pH VBG pCO2 VBG Oxygen Liters/Min VBG pO2 VBG HCO3 VBG O2 Saturation VBG Base Excess Oxygen Given Sodium 137 Potassium 4.0 Chloride 96 Carbon Dioxide 32 H Anion Gap 13 BUN 7 L Creatinine 0.75 Estim Creat Clear Calc 148.2 Estimated GFR > 60 POC Glucose Random Glucose 210 H Fasting Glucose Estimat Average Glucose Hemoglobin A1c % Lactic Acid Calcium 9.1 Phosphorus Magnesium Ferritin 281 H Total Bilirubin 0.5 Direct Bilirubin 0.2 AST 11 ALT 12 Alkaline Phosphatase 101 Lactate Dehydrogenase 156 Total Creatine Kinase Troponin I High Sens 4.5 C-Reactive Protein B-Natriuretic Peptide 12 Total Protein 7.2 Albumin 4.1 Procalcitonin Urine Color Urine Appearance Urine pH Ur Specific [place] Urine Protein Urine Glucose (UA) Urine Ketones Urine Blood Urine Nitrite Ur Leukocyte Esterase Urine RBC Urine WBC Ur Squamous Epith Cells Urine Bacteria Urine Mucus Respiratory Panel [place] Adenovirus (Rapid PCR) B.pert (TEM-PCR) B.parapertussis DNA PCR C. pneumoniae DNA (PCR) Coronavirus (PCR) Coronavirus OC43 (PCR) Coronavirus HKU1 (PCR) Coronavirus 229E (PCR) Coronavirus NL63 (PCR) Human Metapneumovir PCR Influenza A (RT-PCR) Influenza B (RT-PCR) Ur L.pneumophila Ag M. pneumoniae (PCR) Parainfluenza 1 (PCR) Parainfluenza 2 (PCR) Parainfluenza 3 (PCR) Parainfluenza 4 (PCR) RSV (PCR) Entero/Rhino (PCR) SARS-CoV-2 RNA (RT-PCR) 05/11/20 05/11/20 05/11/20 10:17 10:18 10:18 WBC RBC Hgb Hct MCV MCH MCHC RDW Plt Count MPV Immature Gran % (Auto) Neut % (Auto) Lymph % (Auto) Stephens % (Auto) Eos % (Auto) Baso % (Auto) Neut # (Auto) Lymph # (Auto) Stephens # (Auto) Eos # (Auto) Baso # (Auto) Abs Immat Gran (auto) Absolute Neuts (auto) Absolute Nucleated RBC Nucleated RBC % (auto) Neutrophils % (Manual) Band Neutrophils % Lymphocytes % (Manual) Monocytes % (Manual) Neutrophils # (Manual) Lymphocytes # (Manual) Monocytes # (Manual) Platelet Estimate Plt Morphology Comment RBC Morphology Smear Tech's Comments ESR PT INR APTT D-Dimer ABG pH ABG pCO2 ABG pO2 ABG HCO3 ABG O2 Saturation ABG Base Excess VBG pH VBG pCO2 VBG Oxygen Liters/Min VBG pO2 VBG HCO3 VBG O2 Saturation VBG Base Excess Oxygen Given Sodium Potassium Chloride Carbon Dioxide Anion Gap BUN Creatinine Estim Creat Clear Calc Estimated GFR POC Glucose Random Glucose Fasting Glucose Estimat Average Glucose Hemoglobin A1c % Lactic Acid 1.0 Calcium Phosphorus Magnesium 2.0 Ferritin Total Bilirubin Direct Bilirubin AST ALT Alkaline Phosphatase Lactate Dehydrogenase Total Creatine Kinase Troponin I High Sens C-Reactive Protein B-Natriuretic Peptide Total Protein Albumin Procalcitonin 0.02 Urine Color Urine Appearance Urine pH Ur Specific [place] Urine Protein Urine Glucose (UA) Urine Ketones Urine Blood Urine Nitrite Ur Leukocyte Esterase Urine RBC Urine WBC Ur Squamous Epith Cells Urine Bacteria Urine Mucus Respiratory Panel [place] Adenovirus (Rapid PCR) B.pert (TEM-PCR) B.parapertussis DNA PCR C. pneumoniae DNA (PCR) Coronavirus (PCR) Coronavirus OC43 (PCR) Coronavirus HKU1 (PCR) Coronavirus 229E (PCR) Coronavirus NL63 (PCR) Human Metapneumovir PCR Influenza A (RT-PCR) Influenza B (RT-PCR) Ur L.pneumophila Ag M. pneumoniae (PCR) Parainfluenza 1 (PCR) Parainfluenza 2 (PCR) Parainfluenza 3 (PCR) Parainfluenza 4 (PCR) RSV (PCR) Entero/Rhino (PCR) SARS-CoV-2 RNA (RT-PCR) 05/11/20 05/11/20 05/11/20 12:57 12:57 12:57 WBC 11.5 H RBC 5.76 Hgb 18.8 H Hct 55.9 H MCV 97.0 MCH 32.6 MCHC 33.6 RDW 11.9 Plt Count 172 MPV 11.2 Immature Gran % (Auto) 0.3 Neut % (Auto) 90.6 H Lymph % (Auto) 6.0 L Stephens % (Auto) 2.5 Eos % (Auto) 0.3 Baso % (Auto) 0.3 Neut # (Auto) 10.4 H Lymph # (Auto) 0.7 L Stephens # (Auto) 0.3 Eos # (Auto) 0.0 Baso # (Auto) 0.0 Abs Immat Gran (auto) 0.03 Absolute Neuts (auto) Absolute Nucleated RBC 0.000 Nucleated RBC % (auto) 0.0 Neutrophils % (Manual) Band Neutrophils % Lymphocytes % (Manual) Monocytes % (Manual) Neutrophils # (Manual) Lymphocytes # (Manual) Monocytes # (Manual) Platelet Estimate Plt Morphology Comment RBC Morphology Smear Tech's Comments VERIFIED ESR PT 12.4 INR 1.0 APTT 33.6 D-Dimer ABG pH ABG pCO2 ABG pO2 ABG HCO3 ABG O2 Saturation ABG Base Excess VBG pH VBG pCO2 VBG Oxygen Liters/Min VBG pO2 VBG HCO3 VBG O2 Saturation VBG Base Excess Oxygen Given Sodium 139 Potassium 4.3 Chloride 96 Carbon Dioxide 36 H Anion Gap 11 L BUN 7 L Creatinine 0.77 Estim Creat Clear Calc 144.4 Estimated GFR > 60 POC Glucose Random Glucose 191 H Fasting Glucose Estimat Average Glucose Hemoglobin A1c % Lactic Acid Calcium 8.9 Phosphorus Magnesium 2.4 Ferritin Total Bilirubin 0.4 Direct Bilirubin AST 10 ALT 13 Alkaline Phosphatase 106 Lactate Dehydrogenase Total Creatine Kinase Troponin I High Sens C-Reactive Protein B-Natriuretic Peptide Total Protein 7.3 Albumin 4.1 Procalcitonin Urine Color Urine Appearance Urine pH Ur Specific [place] Urine Protein Urine Glucose (UA) Urine Ketones Urine Blood Urine Nitrite Ur Leukocyte Esterase Urine RBC Urine WBC Ur Squamous Epith Cells Urine Bacteria Urine Mucus Respiratory Panel [place] Adenovirus (Rapid PCR) B.pert (TEM-PCR) B.parapertussis DNA PCR C. pneumoniae DNA (PCR) Coronavirus (PCR) Coronavirus OC43 (PCR) Coronavirus HKU1 (PCR) Coronavirus 229E (PCR) Coronavirus NL63 (PCR) Human Metapneumovir PCR Influenza A (RT-PCR) Influenza B (RT-PCR) Ur L.pneumophila Ag M. pneumoniae (PCR) Parainfluenza 1 (PCR) Parainfluenza 2 (PCR) Parainfluenza 3 (PCR) Parainfluenza 4 (PCR) RSV (PCR) Entero/Rhino (PCR) SARS-CoV-2 RNA (RT-PCR) 05/11/20 05/11/20 05/11/20 12:57 12:57 16:35 WBC RBC Hgb Hct MCV MCH MCHC RDW Plt Count MPV Immature Gran % (Auto) Neut % (Auto) Lymph % (Auto) Stephens % (Auto) Eos % (Auto) Baso % (Auto) Neut # (Auto) Lymph # (Auto) Stephens # (Auto) Eos # (Auto) Baso # (Auto) Abs Immat Gran (auto) Absolute Neuts (auto) Absolute Nucleated RBC Nucleated RBC % (auto) Neutrophils % (Manual) Band Neutrophils % Lymphocytes % (Manual) Monocytes % (Manual) Neutrophils # (Manual) Lymphocytes # (Manual) Monocytes # (Manual) Platelet Estimate Plt Morphology Comment RBC Morphology Smear Tech's Comments ESR PT INR APTT D-Dimer ABG pH ABG pCO2 ABG pO2 ABG HCO3 ABG O2 Saturation ABG Base Excess VBG pH 7.26 L VBG pCO2 86 VBG Oxygen Liters/Min 7 L VBG pO2 62 VBG HCO3 38 VBG O2 Saturation 90.7 VBG Base Excess 6.0 Oxygen Given Sodium Potassium Chloride Carbon Dioxide Anion Gap BUN Creatinine Estim Creat Clear Calc Estimated GFR POC Glucose Random Glucose Fasting Glucose Estimat Average Glucose 194 Hemoglobin A1c % 8.4 Lactic Acid Calcium Phosphorus Magnesium Ferritin Total Bilirubin Direct Bilirubin AST ALT Alkaline Phosphatase Lactate Dehydrogenase Total Creatine Kinase Troponin I High Sens C-Reactive Protein B-Natriuretic Peptide Total Protein Albumin Procalcitonin Urine Color YELLOW Urine Appearance CLEAR Urine pH 6.0 Ur Specific [place] 1.025 Urine Protein TRACE Urine Glucose (UA) >=1000 H Urine Ketones 40 Urine Blood NEG Urine Nitrite NEG Ur Leukocyte Esterase NEG Urine RBC 0 Urine WBC 0-2 Ur Squamous Epith Cells TRACE Urine Bacteria NONE Urine Mucus 2+ Respiratory Panel [place] Adenovirus (Rapid PCR) B.pert (TEM-PCR) B.parapertussis DNA PCR C. pneumoniae DNA (PCR) Coronavirus (PCR) Coronavirus OC43 (PCR) Coronavirus HKU1 (PCR) Coronavirus 229E (PCR) Coronavirus NL63 (PCR) Human Metapneumovir PCR Influenza A (RT-PCR) Influenza B (RT-PCR) Ur L.pneumophila Ag M. pneumoniae (PCR) Parainfluenza 1 (PCR) Parainfluenza 2 (PCR) Parainfluenza 3 (PCR) Parainfluenza 4 (PCR) RSV (PCR) Entero/Rhino (PCR) SARS-CoV-2 RNA (RT-PCR) 05/11/20 05/11/20 05/11/20 17:45 19:07 19:08 WBC RBC Hgb Hct MCV MCH MCHC RDW Plt Count MPV Immature Gran % (Auto) Neut % (Auto) Lymph % (Auto) Stephens % (Auto) Eos % (Auto) Baso % (Auto) Neut # (Auto) Lymph # (Auto) Stephens # (Auto) Eos # (Auto) Baso # (Auto) Abs Immat Gran (auto) Absolute Neuts (auto) Absolute Nucleated RBC Nucleated RBC % (auto) Neutrophils % (Manual) Band Neutrophils % Lymphocytes % (Manual) Monocytes % (Manual) Neutrophils # (Manual) Lymphocytes # (Manual) Monocytes # (Manual) Platelet Estimate Plt Morphology Comment RBC Morphology Smear Tech's Comments ESR PT INR APTT D-Dimer ABG pH ABG pCO2 ABG pO2 ABG HCO3 ABG O2 Saturation ABG Base Excess VBG pH VBG pCO2 VBG Oxygen Liters/Min VBG pO2 VBG HCO3 VBG O2 Saturation VBG Base Excess Oxygen Given Sodium Potassium Chloride Carbon Dioxide Anion Gap BUN Creatinine Estim Creat Clear Calc Estimated GFR POC Glucose 359 H* 405 H* 409 H* Random Glucose Fasting Glucose Estimat Average Glucose Hemoglobin A1c % Lactic Acid Calcium Phosphorus Magnesium Ferritin Total Bilirubin Direct Bilirubin AST ALT Alkaline Phosphatase Lactate Dehydrogenase Total Creatine Kinase Troponin I High Sens C-Reactive Protein B-Natriuretic Peptide Total Protein Albumin Procalcitonin Urine Color Urine Appearance Urine pH Ur Specific [place] Urine Protein Urine Glucose (UA) Urine Ketones Urine Blood Urine Nitrite Ur Leukocyte Esterase Urine RBC Urine WBC Ur Squamous Epith Cells Urine Bacteria Urine Mucus Respiratory Panel [place] Adenovirus (Rapid PCR) B.pert (TEM-PCR) B.parapertussis DNA PCR C. pneumoniae DNA (PCR) Coronavirus (PCR) Coronavirus OC43 (PCR) Coronavirus HKU1 (PCR) Coronavirus 229E (PCR) Coronavirus NL63 (PCR) Human Metapneumovir PCR Influenza A (RT-PCR) Influenza B (RT-PCR) Ur L.pneumophila Ag M. pneumoniae (PCR) Parainfluenza 1 (PCR) Parainfluenza 2 (PCR) Parainfluenza 3 (PCR) Parainfluenza 4 (PCR) RSV (PCR) Entero/Rhino (PCR) SARS-CoV-2 RNA (RT-PCR) 05/11/20 05/11/20 05/12/20 21:06 22:27 00:05 WBC RBC Hgb Hct MCV MCH MCHC RDW Plt Count MPV Immature Gran % (Auto) Neut % (Auto) Lymph % (Auto) Stephens % (Auto) Eos % (Auto) Baso % (Auto) Neut # (Auto) Lymph # (Auto) Stephens # (Auto) Eos # (Auto) Baso # (Auto) Abs Immat Gran (auto) Absolute Neuts (auto) Absolute Nucleated RBC Nucleated RBC % (auto) Neutrophils % (Manual) Band Neutrophils % Lymphocytes % (Manual) Monocytes % (Manual) Neutrophils # (Manual) Lymphocytes # (Manual) Monocytes # (Manual) Platelet Estimate Plt Morphology Comment RBC Morphology Smear Tech's Comments ESR PT INR APTT D-Dimer ABG pH ABG pCO2 ABG pO2 ABG HCO3 ABG O2 Saturation ABG Base Excess VBG pH VBG pCO2 VBG Oxygen Liters/Min VBG pO2 VBG HCO3 VBG O2 Saturation VBG Base Excess Oxygen Given Sodium Potassium Chloride Carbon Dioxide Anion Gap BUN Creatinine Estim Creat Clear Calc Estimated GFR POC Glucose 327 H 239 H 215 H Random Glucose Fasting Glucose Estimat Average Glucose Hemoglobin A1c % Lactic Acid Calcium Phosphorus Magnesium Ferritin Total Bilirubin Direct Bilirubin AST ALT Alkaline Phosphatase Lactate Dehydrogenase Total Creatine Kinase Troponin I High Sens C-Reactive Protein B-Natriuretic Peptide Total Protein Albumin Procalcitonin Urine Color Urine Appearance Urine pH Ur Specific [place] Urine Protein Urine Glucose (UA) Urine Ketones Urine Blood Urine Nitrite Ur Leukocyte Esterase Urine RBC Urine WBC Ur Squamous Epith Cells Urine Bacteria Urine Mucus Respiratory Panel [place] Adenovirus (Rapid PCR) B.pert (TEM-PCR) B.parapertussis DNA PCR C. pneumoniae DNA (PCR) Coronavirus (PCR) Coronavirus OC43 (PCR) Coronavirus HKU1 (PCR) Coronavirus 229E (PCR) Coronavirus NL63 (PCR) Human Metapneumovir PCR Influenza A (RT-PCR) Influenza B (RT-PCR) Ur L.pneumophila Ag M. pneumoniae (PCR) Parainfluenza 1 (PCR) Parainfluenza 2 (PCR) Parainfluenza 3 (PCR) Parainfluenza 4 (PCR) RSV (PCR) Entero/Rhino (PCR) SARS-CoV-2 RNA (RT-PCR) 05/12/20 05/12/20 05/12/20 04:13 05:25 05:25 WBC 17.1 H RBC 5.22 Hgb 17.0 Hct 51.8 MCV 99.2 H MCH 32.6 MCHC 32.8 RDW 11.9 Plt Count 190 MPV 11.1 Immature Gran % (Auto) Neut % (Auto) Lymph % (Auto) Stephens % (Auto) Eos % (Auto) Baso % (Auto) Neut # (Auto) Lymph # (Auto) Stephens # (Auto) Eos # (Auto) Baso # (Auto) Abs Immat Gran (auto) Absolute Neuts (auto) Absolute Nucleated RBC 0.000 Nucleated RBC % (auto) 0.0 Neutrophils % (Manual) 80 H Band Neutrophils % 2 L Lymphocytes % (Manual) 5 L Monocytes % (Manual) 13 H Neutrophils # (Manual) 14.0 H Lymphocytes # (Manual) 0.9 Monocytes # (Manual) 2.2 H Platelet Estimate NORMAL Plt Morphology Comment NORMAL RBC Morphology NORMAL Smear Tech's Comments ESR PT INR APTT D-Dimer ABG pH ABG pCO2 ABG pO2 ABG HCO3 ABG O2 Saturation ABG Base Excess VBG pH VBG pCO2 VBG Oxygen Liters/Min VBG pO2 VBG HCO3 VBG O2 Saturation VBG Base Excess Oxygen Given Sodium 141 Potassium 4.8 Chloride 98 Carbon Dioxide 37 H Anion Gap 11 L BUN 11 D Creatinine 0.73 Estim Creat Clear Calc 152.3 Estimated GFR > 60 POC Glucose 159 H Random Glucose 164 H Fasting Glucose Estimat Average Glucose Hemoglobin A1c % Lactic Acid Calcium 8.7 Phosphorus 5.8 H Magnesium 2.3 Ferritin Total Bilirubin Direct Bilirubin AST ALT Alkaline Phosphatase Lactate Dehydrogenase Total Creatine Kinase Troponin I High Sens C-Reactive Protein B-Natriuretic Peptide Total Protein Albumin Procalcitonin Urine Color Urine Appearance Urine pH Ur Specific [place] Urine Protein Urine Glucose (UA) Urine Ketones Urine Blood Urine Nitrite Ur Leukocyte Esterase Urine RBC Urine WBC Ur Squamous Epith Cells Urine Bacteria Urine Mucus Respiratory Panel [place] Adenovirus (Rapid PCR) B.pert (TEM-PCR) B.parapertussis DNA PCR C. pneumoniae DNA (PCR) Coronavirus (PCR) Coronavirus OC43 (PCR) Coronavirus HKU1 (PCR) Coronavirus 229E (PCR) Coronavirus NL63 (PCR) Human Metapneumovir PCR Influenza A (RT-PCR) Influenza B (RT-PCR) Ur L.pneumophila Ag M. pneumoniae (PCR) Parainfluenza 1 (PCR) Parainfluenza 2 (PCR) Parainfluenza 3 (PCR) Parainfluenza 4 (PCR) RSV (PCR) Entero/Rhino (PCR) SARS-CoV-2 RNA (RT-PCR) 05/12/20 05/12/20 05/12/20 05:45 08:30 08:30 WBC RBC Hgb Hct MCV MCH MCHC RDW Plt Count MPV Immature Gran % (Auto) Neut % (Auto) Lymph % (Auto) Stephens % (Auto) Eos % (Auto) Baso % (Auto) Neut # (Auto) Lymph # (Auto) Stephens # (Auto) Eos # (Auto) Baso # (Auto) Abs Immat Gran (auto) Absolute Neuts (auto) Absolute Nucleated RBC Nucleated RBC % (auto) Neutrophils % (Manual) Band Neutrophils % Lymphocytes % (Manual) Monocytes % (Manual) Neutrophils # (Manual) Lymphocytes # (Manual) Monocytes # (Manual) Platelet Estimate Plt Morphology Comment RBC Morphology Smear Tech's Comments ESR PT INR APTT D-Dimer ABG pH ABG pCO2 ABG pO2 ABG HCO3 ABG O2 Saturation ABG Base Excess VBG pH 7.29 L VBG pCO2 74 VBG Oxygen Liters/Min VBG pO2 75 VBG HCO3 35 VBG O2 Saturation 94.4 VBG Base Excess 5.0 Oxygen Given Sodium Potassium Chloride Carbon Dioxide Anion Gap BUN Creatinine Estim Creat Clear Calc Estimated GFR POC Glucose Random Glucose Fasting Glucose Estimat Average Glucose Hemoglobin A1c % Lactic Acid Calcium Phosphorus Magnesium Ferritin Total Bilirubin Direct Bilirubin AST ALT Alkaline Phosphatase Lactate Dehydrogenase Total Creatine Kinase Troponin I High Sens C-Reactive Protein B-Natriuretic Peptide Total Protein Albumin Procalcitonin Urine Color Urine Appearance Urine pH Ur Specific [place] Urine Protein Urine Glucose (UA) Urine Ketones Urine Blood Urine Nitrite Ur Leukocyte Esterase Urine RBC Urine WBC Ur Squamous Epith Cells Urine Bacteria Urine Mucus Respiratory Panel [place] See Note Adenovirus (Rapid PCR) Not Detected B.pert (TEM-PCR) Not Detected B.parapertussis DNA PCR Not Detected C. pneumoniae DNA (PCR) Not Detected Coronavirus (PCR) NEGATIVE Coronavirus OC43 (PCR) Not Detected Coronavirus HKU1 (PCR) Not Detected Coronavirus 229E (PCR) Not Detected Coronavirus NL63 (PCR) Not Detected Human Metapneumovir PCR Not Detected Influenza A (RT-PCR) Not Detected Influenza B (RT-PCR) Not Detected Ur L.pneumophila Ag M. pneumoniae (PCR) Not Detected Parainfluenza 1 (PCR) Not Detected Parainfluenza 2 (PCR) Not Detected Parainfluenza 3 (PCR) Not Detected Parainfluenza 4 (PCR) Not Detected RSV (PCR) Not Detected Entero/Rhino (PCR) Not Detected SARS-CoV-2 RNA (RT-PCR) Not Detected 05/12/20 05/12/20 05/12/20 08:41 10:21 10:21 WBC 17.0 H RBC 5.16 Hgb 16.6 Hct 51.5 MCV 99.8 H MCH 32.2 MCHC 32.2 RDW 11.9 Plt Count 165 MPV 11.0 Immature Gran % (Auto) 0.6 H Neut % (Auto) 82.1 H Lymph % (Auto) 7.8 L Stephens % (Auto) 9.2 Eos % (Auto) 0.1 Baso % (Auto) 0.2 Neut # (Auto) 14.0 H Lymph # (Auto) 1.3 Stephens # (Auto) 1.6 H Eos # (Auto) 0.0 Baso # (Auto) 0.0 Abs Immat Gran (auto) 0.10 H Absolute Neuts (auto) Absolute Nucleated RBC 0.000 Nucleated RBC % (auto) 0.0 Neutrophils % (Manual) Band Neutrophils % Lymphocytes % (Manual) Monocytes % (Manual) Neutrophils # (Manual) Lymphocytes # (Manual) Monocytes # (Manual) Platelet Estimate Plt Morphology Comment RBC Morphology Smear Tech's Comments VERIFIED ESR PT INR APTT D-Dimer 441 ABG pH ABG pCO2 ABG pO2 ABG HCO3 ABG O2 Saturation ABG Base Excess VBG pH VBG pCO2 VBG Oxygen Liters/Min VBG pO2 VBG HCO3 VBG O2 Saturation VBG Base Excess Oxygen Given Sodium Potassium Chloride Carbon Dioxide Anion Gap BUN Creatinine Estim Creat Clear Calc Estimated GFR POC Glucose 149 H Random Glucose Fasting Glucose Estimat Average Glucose Hemoglobin A1c % Lactic Acid Calcium Phosphorus Magnesium Ferritin Total Bilirubin Direct Bilirubin AST ALT Alkaline Phosphatase Lactate Dehydrogenase Total Creatine Kinase Troponin I High Sens C-Reactive Protein B-Natriuretic Peptide Total Protein Albumin Procalcitonin Urine Color Urine Appearance Urine pH Ur Specific [place] Urine Protein Urine Glucose (UA) Urine Ketones Urine Blood Urine Nitrite Ur Leukocyte Esterase Urine RBC Urine WBC Ur Squamous Epith Cells Urine Bacteria Urine Mucus Respiratory Panel [place] Adenovirus (Rapid PCR) B.pert (TEM-PCR) B.parapertussis DNA PCR C. pneumoniae DNA (PCR) Coronavirus (PCR) Coronavirus OC43 (PCR) Coronavirus HKU1 (PCR) Coronavirus 229E (PCR) Coronavirus NL63 (PCR) Human Metapneumovir PCR Influenza A (RT-PCR) Influenza B (RT-PCR) Ur L.pneumophila Ag M. pneumoniae (PCR) Parainfluenza 1 (PCR) Parainfluenza 2 (PCR) Parainfluenza 3 (PCR) Parainfluenza 4 (PCR) RSV (PCR) Entero/Rhino (PCR) SARS-CoV-2 RNA (RT-PCR) 05/12/20 05/12/20 05/12/20 10:21 10:21 10:21 WBC RBC Hgb Hct MCV MCH MCHC RDW Plt Count MPV Immature Gran % (Auto) Neut % (Auto) Lymph % (Auto) Stephens % (Auto) Eos % (Auto) Baso % (Auto) Neut # (Auto) Lymph # (Auto) Stephens # (Auto) Eos # (Auto) Baso # (Auto) Abs Immat Gran (auto) Absolute Neuts (auto) Absolute Nucleated RBC Nucleated RBC % (auto) Neutrophils % (Manual) Band Neutrophils % Lymphocytes % (Manual) Monocytes % (Manual) Neutrophils # (Manual) Lymphocytes # (Manual) Monocytes # (Manual) Platelet Estimate Plt Morphology Comment RBC Morphology Smear Tech's Comments ESR 6 PT INR APTT D-Dimer ABG pH ABG pCO2 ABG pO2 ABG HCO3 ABG O2 Saturation ABG Base Excess VBG pH VBG pCO2 VBG Oxygen Liters/Min VBG pO2 VBG HCO3 VBG O2 Saturation VBG Base Excess Oxygen Given Sodium Potassium Chloride Carbon Dioxide Anion Gap BUN Creatinine Estim Creat Clear Calc Estimated GFR POC Glucose Random Glucose 209 H Fasting Glucose Estimat Average Glucose Hemoglobin A1c % Lactic Acid Calcium Phosphorus 4.4 Magnesium 2.0 Ferritin Total Bilirubin Direct Bilirubin AST ALT Alkaline Phosphatase Lactate Dehydrogenase 149 Total Creatine Kinase 54 Troponin I High Sens C-Reactive Protein 2.55 H B-Natriuretic Peptide Total Protein Albumin Procalcitonin 0.02 Urine Color Urine Appearance Urine pH Ur Specific [place] Urine Protein Urine Glucose (UA) Urine Ketones Urine Blood Urine Nitrite Ur Leukocyte Esterase Urine RBC Urine WBC Ur Squamous Epith Cells Urine Bacteria Urine Mucus Respiratory Panel [place] Adenovirus (Rapid PCR) B.pert (TEM-PCR) B.parapertussis DNA PCR C. pneumoniae DNA (PCR) Coronavirus (PCR) Coronavirus OC43 (PCR) Coronavirus HKU1 (PCR) Coronavirus 229E (PCR) Coronavirus NL63 (PCR) Human Metapneumovir PCR Influenza A (RT-PCR) Influenza B (RT-PCR) Ur L.pneumophila Ag M. pneumoniae (PCR) Parainfluenza 1 (PCR) Parainfluenza 2 (PCR) Parainfluenza 3 (PCR) Parainfluenza 4 (PCR) RSV (PCR) Entero/Rhino (PCR) SARS-CoV-2 RNA (RT-PCR) 05/12/20 05/12/20 05/12/20 11:50 14:45 17:35 WBC RBC Hgb Hct MCV MCH MCHC RDW Plt Count MPV Immature Gran % (Auto) Neut % (Auto) Lymph % (Auto) Stephens % (Auto) Eos % (Auto) Baso % (Auto) Neut # (Auto) Lymph # (Auto) Stephens # (Auto) Eos # (Auto) Baso # (Auto) Abs Immat Gran (auto) Absolute Neuts (auto) Absolute Nucleated RBC Nucleated RBC % (auto) Neutrophils % (Manual) Band Neutrophils % Lymphocytes % (Manual) Monocytes % (Manual) Neutrophils # (Manual) Lymphocytes # (Manual) Monocytes # (Manual) Platelet Estimate Plt Morphology Comment RBC Morphology Smear Tech's Comments ESR PT INR APTT D-Dimer ABG pH 7.29 L ABG pCO2 77 H* ABG pO2 73 L ABG HCO3 37 H ABG O2 Saturation 94.7 ABG Base Excess 6.4 VBG pH VBG pCO2 VBG Oxygen Liters/Min VBG pO2 VBG HCO3 VBG O2 Saturation VBG Base Excess Oxygen Given 55% Sodium Potassium Chloride Carbon Dioxide Anion Gap BUN Creatinine Estim Creat Clear Calc Estimated GFR POC Glucose 256 H 283 H Random Glucose Fasting Glucose Estimat Average Glucose Hemoglobin A1c % Lactic Acid Calcium Phosphorus Magnesium Ferritin Total Bilirubin Direct Bilirubin AST ALT Alkaline Phosphatase Lactate Dehydrogenase Total Creatine Kinase Troponin I High Sens C-Reactive Protein B-Natriuretic Peptide Total Protein Albumin Procalcitonin Urine Color Urine Appearance Urine pH Ur Specific [place] Urine Protein Urine Glucose (UA) Urine Ketones Urine Blood Urine Nitrite Ur Leukocyte Esterase Urine RBC Urine WBC Ur Squamous Epith Cells Urine Bacteria Urine Mucus Respiratory Panel [place] Adenovirus (Rapid PCR) B.pert (TEM-PCR) B.parapertussis DNA PCR C. pneumoniae DNA (PCR) Coronavirus (PCR) Coronavirus OC43 (PCR) Coronavirus HKU1 (PCR) Coronavirus 229E (PCR) Coronavirus NL63 (PCR) Human Metapneumovir PCR Influenza A (RT-PCR) Influenza B (RT-PCR) Ur L.pneumophila Ag M. pneumoniae (PCR) Parainfluenza 1 (PCR) Parainfluenza 2 (PCR) Parainfluenza 3 (PCR) Parainfluenza 4 (PCR) RSV (PCR) Entero/Rhino (PCR) SARS-CoV-2 RNA (RT-PCR) 05/12/20 05/12/20 05/12/20 17:50 22:44 22:44 WBC RBC Hgb Hct MCV MCH MCHC RDW Plt Count MPV Immature Gran % (Auto) Neut % (Auto) Lymph % (Auto) [place] % (Auto) Eos % (Auto) Baso % (Auto) Neut # (Auto) Lymph # (Auto) [place] # (Auto) Eos # (Auto) Baso # (Auto) Abs Immat Gran (auto) Absolute Neuts (auto) Absolute Nucleated RBC Nucleated RBC % (auto) Neutrophils % (Manual) Band Neutrophils % Lymphocytes % (Manual) Monocytes % (Manual) Neutrophils # (Manual) Lymphocytes # (Manual) Monocytes # (Manual) Platelet Estimate Plt Morphology Comment RBC Morphology Smear Tech's Comments ESR PT INR APTT D-Dimer ABG pH ABG pCO2 ABG pO2 ABG HCO3 ABG O2 Saturation ABG Base Excess VBG pH VBG pCO2 VBG Oxygen Liters/Min VBG pO2 VBG HCO3 VBG O2 Saturation VBG Base Excess Oxygen Given Sodium Potassium Chloride Carbon Dioxide Anion Gap BUN Creatinine Estim Creat Clear Calc Estimated GFR POC Glucose 250 H 250 H Random Glucose Fasting Glucose Estimat Average Glucose Hemoglobin A1c % Lactic Acid Calcium Phosphorus Magnesium Ferritin Total Bilirubin Direct Bilirubin AST ALT Alkaline Phosphatase Lactate Dehydrogenase Total Creatine Kinase Troponin I High Sens C-Reactive Protein B-Natriuretic Peptide Total Protein Albumin Procalcitonin Urine Color Urine Appearance Urine pH Ur Specific [place] Urine Protein Urine Glucose (UA) Urine Ketones Urine Blood Urine Nitrite Ur Leukocyte Esterase Urine RBC Urine WBC Ur Squamous Epith Cells Urine Bacteria Urine Mucus Respiratory Panel [place] Adenovirus (Rapid PCR) B.pert (TEM-PCR) B.parapertussis DNA PCR C. pneumoniae DNA (PCR) Coronavirus (PCR) Coronavirus OC43 (PCR) Coronavirus HKU1 (PCR) Coronavirus 229E (PCR) Coronavirus NL63 (PCR) Human Metapneumovir PCR Influenza A (RT-PCR) Influenza B (RT-PCR) Ur L.pneumophila Ag Not Detected M. pneumoniae (PCR) Parainfluenza 1 (PCR) Parainfluenza 2 (PCR) Parainfluenza 3 (PCR) Parainfluenza 4 (PCR) RSV (PCR) Entero/Rhino (PCR) SARS-CoV-2 RNA (RT-PCR) 05/13/20 05/13/20 05/13/20 05:20 05:20 05:20 WBC 12.8 H RBC 4.70 Hgb 15.6 Hct 47.9 MCV 101.9 H MCH 33.2 H MCHC 32.6 RDW 12.1 Plt Count 149 L MPV 11.1 Immature Gran % (Auto) 0.4 Neut % (Auto) 72.9 Lymph % (Auto) 17.4 L Stephens % (Auto) 8.5 Eos % (Auto) 0.6 Baso % (Auto) 0.2 Neut # (Auto) 9.3 H Lymph # (Auto) 2.2 Stephens # (Auto) 1.1 Eos # (Auto) 0.1 Baso # (Auto) 0.0 Abs Immat Gran (auto) 0.05 H Absolute Neuts (auto) Absolute Nucleated RBC 0.000 Nucleated RBC % (auto) 0.0 Neutrophils % (Manual) Band Neutrophils % Lymphocytes % (Manual) Monocytes % (Manual) Neutrophils # (Manual) Lymphocytes # (Manual) Monocytes # (Manual) Platelet Estimate Plt Morphology Comment RBC Morphology Smear Tech's Comments ESR PT INR APTT D-Dimer ABG pH ABG pCO2 ABG pO2 ABG HCO3 ABG O2 Saturation ABG Base Excess VBG pH 7.33 VBG pCO2 76 VBG Oxygen Liters/Min VBG pO2 86 VBG HCO3 40 VBG O2 Saturation 96.5 VBG Base Excess 9.7 Oxygen Given Sodium 143 Potassium 3.5 D Chloride 99 Carbon Dioxide 38 H Anion Gap 10 L BUN 15 Creatinine 0.71 Estim Creat Clear Calc 157.2 Estimated GFR > 60 POC Glucose Random Glucose 114 D Fasting Glucose Estimat Average Glucose Hemoglobin A1c % Lactic Acid Calcium 8.4 Phosphorus 4.6 H Magnesium 2.0 Ferritin Total Bilirubin Direct Bilirubin AST ALT Alkaline Phosphatase Lactate Dehydrogenase Total Creatine Kinase Troponin I High Sens C-Reactive Protein B-Natriuretic Peptide Total Protein Albumin Procalcitonin Urine Color Urine Appearance Urine pH Ur Specific [place] Urine Protein Urine Glucose (UA) Urine Ketones Urine Blood Urine Nitrite Ur Leukocyte Esterase Urine RBC Urine WBC Ur Squamous Epith Cells Urine Bacteria Urine Mucus Respiratory Panel [place] Adenovirus (Rapid PCR) B.pert (TEM-PCR) B.parapertussis DNA PCR C. pneumoniae DNA (PCR) Coronavirus (PCR) Coronavirus OC43 (PCR) Coronavirus HKU1 (PCR) Coronavirus 229E (PCR) Coronavirus NL63 (PCR) Human Metapneumovir PCR Influenza A (RT-PCR) Influenza B (RT-PCR) Ur L.pneumophila Ag M. pneumoniae (PCR) Parainfluenza 1 (PCR) Parainfluenza 2 (PCR) Parainfluenza 3 (PCR) Parainfluenza 4 (PCR) RSV (PCR) Entero/Rhino (PCR) SARS-CoV-2 RNA (RT-PCR) 05/13/20 05/13/20 05/13/20 06:02 08:07 11:38 WBC RBC Hgb Hct MCV MCH MCHC RDW Plt Count MPV Immature Gran % (Auto) Neut % (Auto) Lymph % (Auto) [place] % (Auto) Eos % (Auto) Baso % (Auto) Neut # (Auto) Lymph # (Auto) [place] # (Auto) Eos # (Auto) Baso # (Auto) Abs Immat Gran (auto) Absolute Neuts (auto) Absolute Nucleated RBC Nucleated RBC % (auto) Neutrophils % (Manual) Band Neutrophils % Lymphocytes % (Manual) Monocytes % (Manual) Neutrophils # (Manual) Lymphocytes # (Manual) Monocytes # (Manual) Platelet Estimate Plt Morphology Comment RBC Morphology Smear Tech's Comments ESR PT INR APTT D-Dimer ABG pH ABG pCO2 ABG pO2 ABG HCO3 ABG O2 Saturation ABG Base Excess VBG pH VBG pCO2 VBG Oxygen Liters/Min VBG pO2 VBG HCO3 VBG O2 Saturation VBG Base Excess Oxygen Given Sodium Potassium Chloride Carbon Dioxide Anion Gap BUN Creatinine Estim Creat Clear Calc Estimated GFR POC Glucose 182 H 109 280 H Random Glucose Fasting Glucose Estimat Average Glucose Hemoglobin A1c % Lactic Acid Calcium Phosphorus Magnesium Ferritin Total Bilirubin Direct Bilirubin AST ALT Alkaline Phosphatase Lactate Dehydrogenase Total Creatine Kinase Troponin I High Sens C-Reactive Protein B-Natriuretic Peptide Total Protein Albumin Procalcitonin Urine Color Urine Appearance Urine pH Ur Specific [place] Urine Protein Urine Glucose (UA) Urine Ketones Urine Blood Urine Nitrite Ur Leukocyte Esterase Urine RBC Urine WBC Ur Squamous Epith Cells Urine Bacteria Urine Mucus Respiratory Panel [place] Adenovirus (Rapid PCR) B.pert (TEM-PCR) B.parapertussis DNA PCR C. pneumoniae DNA (PCR) Coronavirus (PCR) Coronavirus OC43 (PCR) Coronavirus HKU1 (PCR) Coronavirus 229E (PCR) Coronavirus NL63 (PCR) Human Metapneumovir PCR Influenza A (RT-PCR) Influenza B (RT-PCR) Ur L.pneumophila Ag M. pneumoniae (PCR) Parainfluenza 1 (PCR) Parainfluenza 2 (PCR) Parainfluenza 3 (PCR) Parainfluenza 4 (PCR) RSV (PCR) Entero/Rhino (PCR) SARS-CoV-2 RNA (RT-PCR) 05/13/20 05/13/20 05/13/20 16:49 20:59 22:27 WBC RBC Hgb Hct MCV MCH MCHC RDW Plt Count MPV Immature Gran % (Auto) Neut % (Auto) Lymph % (Auto) Stephens % (Auto) Eos % (Auto) Baso % (Auto) Neut # (Auto) Lymph # (Auto) [place] # (Auto) Eos # (Auto) Baso # (Auto) Abs Immat Gran (auto) Absolute Neuts (auto) Absolute Nucleated RBC Nucleated RBC % (auto) Neutrophils % (Manual) Band Neutrophils % Lymphocytes % (Manual) Monocytes % (Manual) Neutrophils # (Manual) Lymphocytes # (Manual) Monocytes # (Manual) Platelet Estimate Plt Morphology Comment RBC Morphology Smear Tech's Comments ESR PT INR APTT D-Dimer ABG pH ABG pCO2 ABG pO2 ABG HCO3 ABG O2 Saturation ABG Base Excess VBG pH 7.38 VBG pCO2 60 VBG Oxygen Liters/Min Not Reportable VBG pO2 80 VBG HCO3 35 VBG O2 Saturation 96.1 VBG Base Excess 7.4 Oxygen Given Sodium Potassium Chloride Carbon Dioxide Anion Gap BUN Creatinine Estim Creat Clear Calc Estimated GFR POC Glucose 267 H 217 H Random Glucose Fasting Glucose Estimat Average Glucose Hemoglobin A1c % Lactic Acid Calcium Phosphorus Magnesium Ferritin Total Bilirubin Direct Bilirubin AST ALT Alkaline Phosphatase Lactate Dehydrogenase Total Creatine Kinase Troponin I High Sens C-Reactive Protein B-Natriuretic Peptide Total Protein Albumin Procalcitonin Urine Color Urine Appearance Urine pH Ur Specific [place] Urine Protein Urine Glucose (UA) Urine Ketones Urine Blood Urine Nitrite Ur Leukocyte Esterase Urine RBC Urine WBC Ur Squamous Epith Cells Urine Bacteria Urine Mucus Respiratory Panel [place] Adenovirus (Rapid PCR) B.pert (TEM-PCR) B.parapertussis DNA PCR C. pneumoniae DNA (PCR) Coronavirus (PCR) Coronavirus OC43 (PCR) Coronavirus HKU1 (PCR) Coronavirus 229E (PCR) Coronavirus NL63 (PCR) Human Metapneumovir PCR Influenza A (RT-PCR) Influenza B (RT-PCR) Ur L.pneumophila Ag M. pneumoniae (PCR) Parainfluenza 1 (PCR) Parainfluenza 2 (PCR) Parainfluenza 3 (PCR) Parainfluenza 4 (PCR) RSV (PCR) Entero/Rhino (PCR) SARS-CoV-2 RNA (RT-PCR) 05/14/20 05/14/20 05/14/20 05:31 05:31 05:37 WBC 10.7 RBC 4.79 Hgb 15.6 Hct 48.1 MCV 100.4 H MCH 32.6 MCHC 32.4 RDW 12.1 Plt Count 143 L MPV 11.0 Immature Gran % (Auto) 0.3 Neut % (Auto) 64.9 Lymph % (Auto) 23.1 Stephens % (Auto) 10.6 Eos % (Auto) 0.8 Baso % (Auto) 0.3 Neut # (Auto) Lymph # (Auto) 2.5 [place] # (Auto) 1.1 Eos # (Auto) 0.1 Baso # (Auto) 0.0 Abs Immat Gran (auto) 0.03 Absolute Neuts (auto) 7.0 Absolute Nucleated RBC 0.000 Nucleated RBC % (auto) 0.0 Neutrophils % (Manual) Band Neutrophils % Lymphocytes % (Manual) Monocytes % (Manual) Neutrophils # (Manual) Lymphocytes # (Manual) Monocytes # (Manual) Platelet Estimate Plt Morphology Comment RBC Morphology Smear Tech's Comments ESR PT INR APTT D-Dimer ABG pH ABG pCO2 ABG pO2 ABG HCO3 ABG O2 Saturation ABG Base Excess VBG pH 7.33 VBG pCO2 75 VBG Oxygen Liters/Min Not Reportable VBG pO2 78 VBG HCO3 38 VBG O2 Saturation 95.4 VBG Base Excess 8.7 Oxygen Given Sodium 143 Potassium 4.2 Chloride 100 Carbon Dioxide 38 H Anion Gap 9 L BUN 12 Creatinine 0.70 Estim Creat Clear Calc 155.0 Estimated GFR > 60 POC Glucose Random Glucose 155 H D Fasting Glucose Estimat Average Glucose Hemoglobin A1c % Lactic Acid Calcium 8.6 Phosphorus 4.8 H Magnesium 2.0 Ferritin Total Bilirubin Direct Bilirubin AST ALT Alkaline Phosphatase Lactate Dehydrogenase Total Creatine Kinase Troponin I High Sens C-Reactive Protein B-Natriuretic Peptide Total Protein Albumin Procalcitonin Urine Color Urine Appearance Urine pH Ur Specific [place] Urine Protein Urine Glucose (UA) Urine Ketones Urine Blood Urine Nitrite Ur Leukocyte Esterase Urine RBC Urine WBC Ur Squamous Epith Cells Urine Bacteria Urine Mucus Respiratory Panel [place] Adenovirus (Rapid PCR) B.pert (TEM-PCR) B.parapertussis DNA PCR C. pneumoniae DNA (PCR) Coronavirus (PCR) Coronavirus OC43 (PCR) Coronavirus HKU1 (PCR) Coronavirus 229E (PCR) Coronavirus NL63 (PCR) Human Metapneumovir PCR Influenza A (RT-PCR) Influenza B (RT-PCR) Ur L.pneumophila Ag M. pneumoniae (PCR) Parainfluenza 1 (PCR) Parainfluenza 2 (PCR) Parainfluenza 3 (PCR) Parainfluenza 4 (PCR) RSV (PCR) Entero/Rhino (PCR) SARS-CoV-2 RNA (RT-PCR) 05/14/20 05/14/20 05/14/20 07:13 11:41 14:54 WBC RBC Hgb Hct MCV MCH MCHC RDW Plt Count MPV Immature Gran % (Auto) Neut % (Auto) Lymph % (Auto) Stephens % (Auto) Eos % (Auto) Baso % (Auto) Neut # (Auto) Lymph # (Auto) [place] # (Auto) Eos # (Auto) Baso # (Auto) Abs Immat Gran (auto) Absolute Neuts (auto) Absolute Nucleated RBC Nucleated RBC % (auto) Neutrophils % (Manual) Band Neutrophils % Lymphocytes % (Manual) Monocytes % (Manual) Neutrophils # (Manual) Lymphocytes # (Manual) Monocytes # (Manual) Platelet Estimate Plt Morphology Comment RBC Morphology Smear Tech's Comments ESR PT INR APTT D-Dimer ABG pH ABG pCO2 ABG pO2 ABG HCO3 ABG O2 Saturation ABG Base Excess VBG pH 7.30 L VBG pCO2 71 VBG Oxygen Liters/Min TNP VBG pO2 40 VBG HCO3 34 VBG O2 Saturation 73.4 VBG Base Excess 4.4 Oxygen Given Sodium Potassium Chloride Carbon Dioxide Anion Gap BUN Creatinine Estim Creat Clear Calc Estimated GFR POC Glucose 155 H 196 H Random Glucose Fasting Glucose Estimat Average Glucose Hemoglobin A1c % Lactic Acid Calcium Phosphorus Magnesium Ferritin Total Bilirubin Direct Bilirubin AST ALT Alkaline Phosphatase Lactate Dehydrogenase Total Creatine Kinase Troponin I High Sens C-Reactive Protein B-Natriuretic Peptide Total Protein Albumin Procalcitonin Urine Color Urine Appearance Urine pH Ur Specific [place] Urine Protein Urine Glucose (UA) Urine Ketones Urine Blood Urine Nitrite Ur Leukocyte Esterase Urine RBC Urine WBC Ur Squamous Epith Cells Urine Bacteria Urine Mucus Respiratory Panel [place] Adenovirus (Rapid PCR) B.pert (TEM-PCR) B.parapertussis DNA PCR C. pneumoniae DNA (PCR) Coronavirus (PCR) Coronavirus OC43 (PCR) Coronavirus HKU1 (PCR) Coronavirus 229E (PCR) Coronavirus NL63 (PCR) Human Metapneumovir PCR Influenza A (RT-PCR) Influenza B (RT-PCR) Ur L.pneumophila Ag M. pneumoniae (PCR) Parainfluenza 1 (PCR) Parainfluenza 2 (PCR) Parainfluenza 3 (PCR) Parainfluenza 4 (PCR) RSV (PCR) Entero/Rhino (PCR) SARS-CoV-2 RNA (RT-PCR) 05/14/20 05/14/20 05/14/20 16:51 17:24 20:48 WBC RBC Hgb Hct MCV MCH MCHC RDW Plt Count MPV Immature Gran % (Auto) Neut % (Auto) Lymph % (Auto) [place] % (Auto) Eos % (Auto) Baso % (Auto) Neut # (Auto) Lymph # (Auto) [place] # (Auto) Eos # (Auto) Baso # (Auto) Abs Immat Gran (auto) Absolute Neuts (auto) Absolute Nucleated RBC Nucleated RBC % (auto) Neutrophils % (Manual) Band Neutrophils % Lymphocytes % (Manual) Monocytes % (Manual) Neutrophils # (Manual) Lymphocytes # (Manual) Monocytes # (Manual) Platelet Estimate Plt Morphology Comment RBC Morphology Smear Tech's Comments ESR PT INR APTT D-Dimer ABG pH 7.41 ABG pCO2 49 H ABG pO2 84 ABG HCO3 31 H ABG O2 Saturation 97.1 ABG Base Excess 4.5 VBG pH VBG pCO2 VBG Oxygen Liters/Min VBG pO2 VBG HCO3 VBG O2 Saturation VBG Base Excess Oxygen Given 40% Sodium Potassium Chloride Carbon Dioxide Anion Gap BUN Creatinine Estim Creat Clear Calc Estimated GFR POC Glucose 258 H 228 H Random Glucose Fasting Glucose Estimat Average Glucose Hemoglobin A1c % Lactic Acid Calcium Phosphorus Magnesium Ferritin Total Bilirubin Direct Bilirubin AST ALT Alkaline Phosphatase Lactate Dehydrogenase Total Creatine Kinase Troponin I High Sens C-Reactive Protein B-Natriuretic Peptide Total Protein Albumin Procalcitonin Urine Color Urine Appearance Urine pH Ur Specific [place] Urine Protein Urine Glucose (UA) Urine Ketones Urine Blood Urine Nitrite Ur Leukocyte Esterase Urine RBC Urine WBC Ur Squamous Epith Cells Urine Bacteria Urine Mucus Respiratory Panel [place] Adenovirus (Rapid PCR) B.pert (TEM-PCR) B.parapertussis DNA PCR C. pneumoniae DNA (PCR) Coronavirus (PCR) Coronavirus OC43 (PCR) Coronavirus HKU1 (PCR) Coronavirus 229E (PCR) Coronavirus NL63 (PCR) Human Metapneumovir PCR Influenza A (RT-PCR) Influenza B (RT-PCR) Ur L.pneumophila Ag M. pneumoniae (PCR) Parainfluenza 1 (PCR) Parainfluenza 2 (PCR) Parainfluenza 3 (PCR) Parainfluenza 4 (PCR) RSV (PCR) Entero/Rhino (PCR) SARS-CoV-2 RNA (RT-PCR) 05/15/20 05/15/20 05/15/20 04:24 05:28 05:28 WBC 9.8 RBC 4.72 Hgb 15.5 Hct 47.3 MCV 100.2 H MCH 32.8 MCHC 32.8 RDW 12.0 Plt Count 150 L MPV 11.3 Immature Gran % (Auto) 0.2 Neut % (Auto) 62.8 Lymph % (Auto) 26.2 Stephens % (Auto) 9.5 Eos % (Auto) 1.1 Baso % (Auto) 0.2 Neut # (Auto) Lymph # (Auto) 2.6 Stephens # (Auto) 0.9 Eos # (Auto) 0.1 Baso # (Auto) 0.0 Abs Immat Gran (auto) 0.02 Absolute Neuts (auto) 6.2 Absolute Nucleated RBC 0.000 Nucleated RBC % (auto) 0.0 Neutrophils % (Manual) Band Neutrophils % Lymphocytes % (Manual) Monocytes % (Manual) Neutrophils # (Manual) Lymphocytes # (Manual) Monocytes # (Manual) Platelet Estimate Plt Morphology Comment RBC Morphology Smear Tech's Comments ESR PT INR APTT D-Dimer ABG pH 7.38 ABG pCO2 61 H* ABG pO2 71 L ABG HCO3 35 H ABG O2 Saturation 95.1 ABG Base Excess 7.7 VBG pH VBG pCO2 VBG Oxygen Liters/Min VBG pO2 VBG HCO3 VBG O2 Saturation VBG Base Excess Oxygen Given 2 L Sodium 140 Potassium 3.5 Chloride 100 Carbon Dioxide 33 H Anion Gap 11 L BUN 15 Creatinine 0.69 Estim Creat Clear Calc 159.2 Estimated GFR > 60 POC Glucose Random Glucose 151 H Fasting Glucose Estimat Average Glucose Hemoglobin A1c % Lactic Acid Calcium 8.5 Phosphorus 4.3 Magnesium 2.0 Ferritin Total Bilirubin Direct Bilirubin AST ALT Alkaline Phosphatase Lactate Dehydrogenase Total Creatine Kinase Troponin I High Sens C-Reactive Protein B-Natriuretic Peptide Total Protein Albumin Procalcitonin Urine Color Urine Appearance Urine pH Ur Specific [place] Urine Protein Urine Glucose (UA) Urine Ketones Urine Blood Urine Nitrite Ur Leukocyte Esterase Urine RBC Urine WBC Ur Squamous Epith Cells Urine Bacteria Urine Mucus Respiratory Panel [place] Adenovirus (Rapid PCR) B.pert (TEM-PCR) B.parapertussis DNA PCR C. pneumoniae DNA (PCR) Coronavirus (PCR) Coronavirus OC43 (PCR) Coronavirus HKU1 (PCR) Coronavirus 229E (PCR) Coronavirus NL63 (PCR) Human Metapneumovir PCR Influenza A (RT-PCR) Influenza B (RT-PCR) Ur L.pneumophila Ag M. pneumoniae (PCR) Parainfluenza 1 (PCR) Parainfluenza 2 (PCR) Parainfluenza 3 (PCR) Parainfluenza 4 (PCR) RSV (PCR) Entero/Rhino (PCR) SARS-CoV-2 RNA (RT-PCR) 05/15/20 05/15/20 05/15/20 05:28 07:38 11:27 WBC RBC Hgb Hct MCV MCH MCHC RDW Plt Count MPV Immature Gran % (Auto) Neut % (Auto) Lymph % (Auto) Stephens % (Auto) Eos % (Auto) Baso % (Auto) Neut # (Auto) Lymph # (Auto) Stephens # (Auto) Eos # (Auto) Baso # (Auto) Abs Immat Gran (auto) Absolute Neuts (auto) Absolute Nucleated RBC Nucleated RBC % (auto) Neutrophils % (Manual) Band Neutrophils % Lymphocytes % (Manual) Monocytes % (Manual) Neutrophils # (Manual) Lymphocytes # (Manual) Monocytes # (Manual) Platelet Estimate Plt Morphology Comment RBC Morphology Smear Tech's Comments ESR PT INR APTT D-Dimer 413 ABG pH ABG pCO2 ABG pO2 ABG HCO3 ABG O2 Saturation ABG Base Excess VBG pH VBG pCO2 VBG Oxygen Liters/Min VBG pO2 VBG HCO3 VBG O2 Saturation VBG Base Excess Oxygen Given Sodium Potassium Chloride Carbon Dioxide Anion Gap BUN Creatinine Estim Creat Clear Calc Estimated GFR POC Glucose 145 H 230 H Random Glucose Fasting Glucose Estimat Average Glucose Hemoglobin A1c % Lactic Acid Calcium Phosphorus Magnesium Ferritin Total Bilirubin Direct Bilirubin AST ALT Alkaline Phosphatase Lactate Dehydrogenase Total Creatine Kinase Troponin I High Sens C-Reactive Protein B-Natriuretic Peptide Total Protein Albumin Procalcitonin Urine Color Urine Appearance Urine pH Ur Specific [place] Urine Protein Urine Glucose (UA) Urine Ketones Urine Blood Urine Nitrite Ur Leukocyte Esterase Urine RBC Urine WBC Ur Squamous Epith Cells Urine Bacteria Urine Mucus Respiratory Panel [place] Adenovirus (Rapid PCR) B.pert (TEM-PCR) B.parapertussis DNA PCR C. pneumoniae DNA (PCR) Coronavirus (PCR) Coronavirus OC43 (PCR) Coronavirus HKU1 (PCR) Coronavirus 229E (PCR) Coronavirus NL63 (PCR) Human Metapneumovir PCR Influenza A (RT-PCR) Influenza B (RT-PCR) Ur L.pneumophila Ag M. pneumoniae (PCR) Parainfluenza 1 (PCR) Parainfluenza 2 (PCR) Parainfluenza 3 (PCR) Parainfluenza 4 (PCR) RSV (PCR) Entero/Rhino (PCR) SARS-CoV-2 RNA (RT-PCR) 05/15/20 05/15/20 05/16/20 16:31 21:09 08:19 WBC RBC Hgb Hct MCV MCH MCHC RDW Plt Count MPV Immature Gran % (Auto) Neut % (Auto) Lymph % (Auto) Stephens % (Auto) Eos % (Auto) Baso % (Auto) Neut # (Auto) Lymph # (Auto) Stephens # (Auto) Eos # (Auto) Baso # (Auto) Abs Immat Gran (auto) Absolute Neuts (auto) Absolute Nucleated RBC Nucleated RBC % (auto) Neutrophils % (Manual) Band Neutrophils % Lymphocytes % (Manual) Monocytes % (Manual) Neutrophils # (Manual) Lymphocytes # (Manual) Monocytes # (Manual) Platelet Estimate Plt Morphology Comment RBC Morphology Smear Tech's Comments ESR PT INR APTT D-Dimer ABG pH ABG pCO2 ABG pO2 ABG HCO3 ABG O2 Saturation ABG Base Excess VBG pH VBG pCO2 VBG Oxygen Liters/Min VBG pO2 VBG HCO3 VBG O2 Saturation VBG Base Excess Oxygen Given Sodium Potassium Chloride Carbon Dioxide Anion Gap BUN Creatinine Estim Creat Clear Calc Estimated GFR POC Glucose 213 H 190 H 238 H Random Glucose Fasting Glucose Estimat Average Glucose Hemoglobin A1c % Lactic Acid Calcium Phosphorus Magnesium Ferritin Total Bilirubin Direct Bilirubin AST ALT Alkaline Phosphatase Lactate Dehydrogenase Total Creatine Kinase Troponin I High Sens C-Reactive Protein B-Natriuretic Peptide Total Protein Albumin Procalcitonin Urine Color Urine Appearance Urine pH Ur Specific [place] Urine Protein Urine Glucose (UA) Urine Ketones Urine Blood Urine Nitrite Ur Leukocyte Esterase Urine RBC Urine WBC Ur Squamous Epith Cells Urine Bacteria Urine Mucus Respiratory Panel [place] Adenovirus (Rapid PCR) B.pert (TEM-PCR) B.parapertussis DNA PCR C. pneumoniae DNA (PCR) Coronavirus (PCR) Coronavirus OC43 (PCR) Coronavirus HKU1 (PCR) Coronavirus 229E (PCR) Coronavirus NL63 (PCR) Human Metapneumovir PCR Influenza A (RT-PCR) Influenza B (RT-PCR) Ur L.pneumophila Ag M. pneumoniae (PCR) Parainfluenza 1 (PCR) Parainfluenza 2 (PCR) Parainfluenza 3 (PCR) Parainfluenza 4 (PCR) RSV (PCR) Entero/Rhino (PCR) SARS-CoV-2 RNA (RT-PCR) 05/16/20 05/16/20 05/16/20 11:32 16:44 20:30 WBC RBC Hgb Hct MCV MCH MCHC RDW Plt Count MPV Immature Gran % (Auto) Neut % (Auto) Lymph % (Auto) Stephens % (Auto) Eos % (Auto) Baso % (Auto) Neut # (Auto) Lymph # (Auto) Stephens # (Auto) Eos # (Auto) Baso # (Auto) Abs Immat Gran (auto) Absolute Neuts (auto) Absolute Nucleated RBC Nucleated RBC % (auto) Neutrophils % (Manual) Band Neutrophils % Lymphocytes % (Manual) Monocytes % (Manual) Neutrophils # (Manual) Lymphocytes # (Manual) Monocytes # (Manual) Platelet Estimate Plt Morphology Comment RBC Morphology Smear Tech's Comments ESR PT INR APTT D-Dimer ABG pH ABG pCO2 ABG pO2 ABG HCO3 ABG O2 Saturation ABG Base Excess VBG pH VBG pCO2 VBG Oxygen Liters/Min VBG pO2 VBG HCO3 VBG O2 Saturation VBG Base Excess Oxygen Given Sodium Potassium Chloride Carbon Dioxide Anion Gap BUN Creatinine Estim Creat Clear Calc Estimated GFR POC Glucose 154 H 279 H 195 H Random Glucose Fasting Glucose Estimat Average Glucose Hemoglobin A1c % Lactic Acid Calcium Phosphorus Magnesium Ferritin Total Bilirubin Direct Bilirubin AST ALT Alkaline Phosphatase Lactate Dehydrogenase Total Creatine Kinase Troponin I High Sens C-Reactive Protein B-Natriuretic Peptide Total Protein Albumin Procalcitonin Urine Color Urine Appearance Urine pH Ur Specific [place] Urine Protein Urine Glucose (UA) Urine Ketones Urine Blood Urine Nitrite Ur Leukocyte Esterase Urine RBC Urine WBC Ur Squamous Epith Cells Urine Bacteria Urine Mucus Respiratory Panel [place] Adenovirus (Rapid PCR) B.pert (TEM-PCR) B.parapertussis DNA PCR C. pneumoniae DNA (PCR) Coronavirus (PCR) Coronavirus OC43 (PCR) Coronavirus HKU1 (PCR) Coronavirus 229E (PCR) Coronavirus NL63 (PCR) Human Metapneumovir PCR Influenza A (RT-PCR) Influenza B (RT-PCR) Ur L.pneumophila Ag M. pneumoniae (PCR) Parainfluenza 1 (PCR) Parainfluenza 2 (PCR) Parainfluenza 3 (PCR) Parainfluenza 4 (PCR) RSV (PCR) Entero/Rhino (PCR) SARS-CoV-2 RNA (RT-PCR) 05/17/20 05/17/20 05/17/20 04:51 04:51 06:11 WBC 10.4 RBC 4.79 Hgb 15.7 Hct 47.1 MCV 98.3 H MCH 32.8 MCHC 33.3 RDW 12.0 Plt Count 173 MPV 11.2 Immature Gran % (Auto) 0.3 Neut % (Auto) 60.9 Lymph % (Auto) 26.9 Stephens % (Auto) 9.0 Eos % (Auto) 2.6 Baso % (Auto) 0.3 Neut # (Auto) Lymph # (Auto) 2.8 Stephens # (Auto) 0.9 Eos # (Auto) 0.3 Baso # (Auto) 0.0 Abs Immat Gran (auto) 0.03 Absolute Neuts (auto) 6.4 Absolute Nucleated RBC 0.000 Nucleated RBC % (auto) 0.0 Neutrophils % (Manual) Band Neutrophils % Lymphocytes % (Manual) Monocytes % (Manual) Neutrophils # (Manual) Lymphocytes # (Manual) Monocytes # (Manual) Platelet Estimate Plt Morphology Comment RBC Morphology Smear Tech's Comments ESR PT INR APTT D-Dimer ABG pH ABG pCO2 ABG pO2 ABG HCO3 ABG O2 Saturation ABG Base Excess VBG pH VBG pCO2 VBG Oxygen Liters/Min VBG pO2 VBG HCO3 VBG O2 Saturation VBG Base Excess Oxygen Given Sodium 139 Potassium 3.7 Chloride 102 Carbon Dioxide 30 H Anion Gap 11 L BUN 14 Creatinine 0.71 Estim Creat Clear Calc 257.4 Estimated GFR > 60 POC Glucose Random Glucose 170 H Fasting Glucose Estimat Average Glucose Hemoglobin A1c % Lactic Acid Calcium 8.6 Phosphorus Magnesium Ferritin Total Bilirubin Direct Bilirubin AST ALT Alkaline Phosphatase Lactate Dehydrogenase Total Creatine Kinase Troponin I High Sens < 3.5 C-Reactive Protein B-Natriuretic Peptide Total Protein Albumin Procalcitonin Urine Color Urine Appearance Urine pH Ur Specific [place] Urine Protein Urine Glucose (UA) Urine Ketones Urine Blood Urine Nitrite Ur Leukocyte Esterase Urine RBC Urine WBC Ur Squamous Epith Cells Urine Bacteria Urine Mucus Respiratory Panel [place] Adenovirus (Rapid PCR) B.pert (TEM-PCR) B.parapertussis DNA PCR C. pneumoniae DNA (PCR) Coronavirus (PCR) Coronavirus OC43 (PCR) Coronavirus HKU1 (PCR) Coronavirus 229E (PCR) Coronavirus NL63 (PCR) Human Metapneumovir PCR Influenza A (RT-PCR) Influenza B (RT-PCR) Ur L.pneumophila Ag M. pneumoniae (PCR) Parainfluenza 1 (PCR) Parainfluenza 2 (PCR) Parainfluenza 3 (PCR) Parainfluenza 4 (PCR) RSV (PCR) Entero/Rhino (PCR) SARS-CoV-2 RNA (RT-PCR) 05/17/20 05/17/20 05/17/20 07:43 08:44 08:44 WBC 11.7 H RBC 4.89 Hgb 16.1 Hct 48.3 MCV 98.8 H MCH 32.9 MCHC 33.3 RDW 12.1 Plt Count 160 MPV 11.2 Immature Gran % (Auto) 0.4 Neut % (Auto) 75.7 H Lymph % (Auto) 13.5 L [place] % (Auto) 8.6 Eos % (Auto) 1.5 Baso % (Auto) 0.3 Neut # (Auto) Lymph # (Auto) 1.6 Stephens # (Auto) 1.0 Eos # (Auto) 0.2 Baso # (Auto) 0.0 Abs Immat Gran (auto) 0.05 H Absolute Neuts (auto) 8.9 H Absolute Nucleated RBC 0.000 Nucleated RBC % (auto) 0.0 Neutrophils % (Manual) Band Neutrophils % Lymphocytes % (Manual) Monocytes % (Manual) Neutrophils # (Manual) Lymphocytes # (Manual) Monocytes # (Manual) Platelet Estimate Plt Morphology Comment RBC Morphology Smear Tech's Comments ESR PT INR APTT D-Dimer ABG pH ABG pCO2 ABG pO2 ABG HCO3 ABG O2 Saturation ABG Base Excess VBG pH VBG pCO2 VBG Oxygen Liters/Min VBG pO2 VBG HCO3 VBG O2 Saturation VBG Base Excess Oxygen Given Sodium 139 Potassium 3.9 Chloride 102 Carbon Dioxide 28 Anion Gap 13 BUN 14 Creatinine 0.76 Estim Creat Clear Calc 240.4 Estimated GFR > 60 POC Glucose 202 H Random Glucose 236 H D Fasting Glucose Estimat Average Glucose Hemoglobin A1c % Lactic Acid Calcium 8.5 Phosphorus Magnesium Ferritin Total Bilirubin 0.8 Direct Bilirubin AST 12 ALT 20 Alkaline Phosphatase 59 D Lactate Dehydrogenase Total Creatine Kinase Troponin I High Sens C-Reactive Protein B-Natriuretic Peptide Total Protein 6.3 L Albumin 3.6 Procalcitonin Urine Color Urine Appearance Urine pH Ur Specific [place] Urine Protein Urine Glucose (UA) Urine Ketones Urine Blood Urine Nitrite Ur Leukocyte Esterase Urine RBC Urine WBC Ur Squamous Epith Cells Urine Bacteria Urine Mucus Respiratory Panel [place] Adenovirus (Rapid PCR) B.pert (TEM-PCR) B.parapertussis DNA PCR C. pneumoniae DNA (PCR) Coronavirus (PCR) Coronavirus OC43 (PCR) Coronavirus HKU1 (PCR) Coronavirus 229E (PCR) Coronavirus NL63 (PCR) Human Metapneumovir PCR Influenza A (RT-PCR) Influenza B (RT-PCR) Ur L.pneumophila Ag M. pneumoniae (PCR) Parainfluenza 1 (PCR) Parainfluenza 2 (PCR) Parainfluenza 3 (PCR) Parainfluenza 4 (PCR) RSV (PCR) Entero/Rhino (PCR) SARS-CoV-2 RNA (RT-PCR) 05/17/20 05/17/20 05/17/20 08:44 11:35 16:40 WBC RBC Hgb Hct MCV MCH MCHC RDW Plt Count MPV Immature Gran % (Auto) Neut % (Auto) Lymph % (Auto) Stephens % (Auto) Eos % (Auto) Baso % (Auto) Neut # (Auto) Lymph # (Auto) [place] # (Auto) Eos # (Auto) Baso # (Auto) Abs Immat Gran (auto) Absolute Neuts (auto) Absolute Nucleated RBC Nucleated RBC % (auto) Neutrophils % (Manual) Band Neutrophils % Lymphocytes % (Manual) Monocytes % (Manual) Neutrophils # (Manual) Lymphocytes # (Manual) Monocytes # (Manual) Platelet Estimate Plt Morphology Comment RBC Morphology Smear Tech's Comments ESR PT INR APTT D-Dimer ABG pH ABG pCO2 ABG pO2 ABG HCO3 ABG O2 Saturation ABG Base Excess VBG pH 7.35 VBG pCO2 54 VBG Oxygen Liters/Min TNP VBG pO2 46 VBG HCO3 29 VBG O2 Saturation 80.0 VBG Base Excess 2.0 Oxygen Given Sodium Potassium Chloride Carbon Dioxide Anion Gap BUN Creatinine Estim Creat Clear Calc Estimated GFR POC Glucose 233 H 163 H Random Glucose Fasting Glucose Estimat Average Glucose Hemoglobin A1c % Lactic Acid Calcium Phosphorus Magnesium Ferritin Total Bilirubin Direct Bilirubin AST ALT Alkaline Phosphatase Lactate Dehydrogenase Total Creatine Kinase Troponin I High Sens C-Reactive Protein B-Natriuretic Peptide Total Protein Albumin Procalcitonin Urine Color Urine Appearance Urine pH Ur Specific [place] Urine Protein Urine Glucose (UA) Urine Ketones Urine Blood Urine Nitrite Ur Leukocyte Esterase Urine RBC Urine WBC Ur Squamous Epith Cells Urine Bacteria Urine Mucus Respiratory Panel [place] Adenovirus (Rapid PCR) B.pert (TEM-PCR) B.parapertussis DNA PCR C. pneumoniae DNA (PCR) Coronavirus (PCR) Coronavirus OC43 (PCR) Coronavirus HKU1 (PCR) Coronavirus 229E (PCR) Coronavirus NL63 (PCR) Human Metapneumovir PCR Influenza A (RT-PCR) Influenza B (RT-PCR) Ur L.pneumophila Ag M. pneumoniae (PCR) Parainfluenza 1 (PCR) Parainfluenza 2 (PCR) Parainfluenza 3 (PCR) Parainfluenza 4 (PCR) RSV (PCR) Entero/Rhino (PCR) SARS-CoV-2 RNA (RT-PCR) 05/17/20 05/18/20 05/18/20 20:48 01:06 05:41 WBC 11.6 H RBC 4.95 Hgb 16.2 Hct 49.2 MCV 99.4 H MCH 32.7 MCHC 32.9 RDW 12.0 Plt Count 182 MPV 11.3 Immature Gran % (Auto) 0.4 Neut % (Auto) 68.9 Lymph % (Auto) 17.7 L Stephens % (Auto) 9.2 Eos % (Auto) 3.5 Baso % (Auto) 0.3 Neut # (Auto) Lymph # (Auto) 2.1 Stephens # (Auto) 1.1 Eos # (Auto) 0.4 Baso # (Auto) 0.0 Abs Immat Gran (auto) 0.05 H Absolute Neuts (auto) 8.0 Absolute Nucleated RBC 0.000 Nucleated RBC % (auto) 0.0 Neutrophils % (Manual) Band Neutrophils % Lymphocytes % (Manual) Monocytes % (Manual) Neutrophils # (Manual) Lymphocytes # (Manual) Monocytes # (Manual) Platelet Estimate Plt Morphology Comment RBC Morphology Smear Tech's Comments ESR PT INR APTT D-Dimer ABG pH ABG pCO2 ABG pO2 ABG HCO3 ABG O2 Saturation ABG Base Excess VBG pH VBG pCO2 VBG Oxygen Liters/Min VBG pO2 VBG HCO3 VBG O2 Saturation VBG Base Excess Oxygen Given Sodium Potassium Chloride Carbon Dioxide Anion Gap BUN Creatinine Estim Creat Clear Calc Estimated GFR POC Glucose 222 H Random Glucose Fasting Glucose Estimat Average Glucose Hemoglobin A1c % Lactic Acid Calcium Phosphorus Magnesium Ferritin Total Bilirubin Direct Bilirubin AST ALT Alkaline Phosphatase Lactate Dehydrogenase Total Creatine Kinase Troponin I High Sens < 3.5 C-Reactive Protein B-Natriuretic Peptide Total Protein Albumin Procalcitonin Urine Color Urine Appearance Urine pH Ur Specific [place] Urine Protein Urine Glucose (UA) Urine Ketones Urine Blood Urine Nitrite Ur Leukocyte Esterase Urine RBC Urine WBC Ur Squamous Epith Cells Urine Bacteria Urine Mucus Respiratory Panel [place] Adenovirus (Rapid PCR) B.pert (TEM-PCR) B.parapertussis DNA PCR C. pneumoniae DNA (PCR) Coronavirus (PCR) Coronavirus OC43 (PCR) Coronavirus HKU1 (PCR) Coronavirus 229E (PCR) Coronavirus NL63 (PCR) Human Metapneumovir PCR Influenza A (RT-PCR) Influenza B (RT-PCR) Ur L.pneumophila Ag M. pneumoniae (PCR) Parainfluenza 1 (PCR) Parainfluenza 2 (PCR) Parainfluenza 3 (PCR) Parainfluenza 4 (PCR) RSV (PCR) Entero/Rhino (PCR) SARS-CoV-2 RNA (RT-PCR) 05/18/20 05/18/20 05/18/20 05:41 06:28 12:03 WBC RBC Hgb Hct MCV MCH MCHC RDW Plt Count MPV Immature Gran % (Auto) Neut % (Auto) Lymph % (Auto) Stephens % (Auto) Eos % (Auto) Baso % (Auto) Neut # (Auto) Lymph # (Auto) Stephens # (Auto) Eos # (Auto) Baso # (Auto) Abs Immat Gran (auto) Absolute Neuts (auto) Absolute Nucleated RBC Nucleated RBC % (auto) Neutrophils % (Manual) Band Neutrophils % Lymphocytes % (Manual) Monocytes % (Manual) Neutrophils # (Manual) Lymphocytes # (Manual) Monocytes # (Manual) Platelet Estimate Plt Morphology Comment RBC Morphology Smear Tech's Comments ESR PT INR APTT D-Dimer ABG pH ABG pCO2 ABG pO2 ABG HCO3 ABG O2 Saturation ABG Base Excess VBG pH 7.39 VBG pCO2 53 VBG Oxygen Liters/Min TNP VBG pO2 63 VBG HCO3 31 VBG O2 Saturation 92.6 VBG Base Excess 4.4 Oxygen Given Sodium 139 Potassium 4.1 Chloride 102 Carbon Dioxide 28 Anion Gap 13 BUN 11 Creatinine 0.66 Estim Creat Clear Calc 160.9 Estimated GFR > 60 POC Glucose 156 H Random Glucose 186 H Fasting Glucose Estimat Average Glucose Hemoglobin A1c % Lactic Acid Calcium 8.7 Phosphorus 4.5 Magnesium 2.1 Ferritin Total Bilirubin Direct Bilirubin AST ALT Alkaline Phosphatase Lactate Dehydrogenase Total Creatine Kinase Troponin I High Sens C-Reactive Protein B-Natriuretic Peptide Total Protein Albumin Procalcitonin Urine Color Urine Appearance Urine pH Ur Specific [place] Urine Protein Urine Glucose (UA) Urine Ketones Urine Blood Urine Nitrite Ur Leukocyte Esterase Urine RBC Urine WBC Ur Squamous Epith Cells Urine Bacteria Urine Mucus Respiratory Panel [place] Adenovirus (Rapid PCR) B.pert (TEM-PCR) B.parapertussis DNA PCR C. pneumoniae DNA (PCR) Coronavirus (PCR) Coronavirus OC43 (PCR) Coronavirus HKU1 (PCR) Coronavirus 229E (PCR) Coronavirus NL63 (PCR) Human Metapneumovir PCR Influenza A (RT-PCR) Influenza B (RT-PCR) Ur L.pneumophila Ag M. pneumoniae (PCR) Parainfluenza 1 (PCR) Parainfluenza 2 (PCR) Parainfluenza 3 (PCR) Parainfluenza 4 (PCR) RSV (PCR) Entero/Rhino (PCR) SARS-CoV-2 RNA (RT-PCR) 05/18/20 05/18/20 05/19/20 16:20 20:51 08:01 WBC RBC Hgb Hct MCV MCH MCHC RDW Plt Count MPV Immature Gran % (Auto) Neut % (Auto) Lymph % (Auto) Stephens % (Auto) Eos % (Auto) Baso % (Auto) Neut # (Auto) Lymph # (Auto) Stephens # (Auto) Eos # (Auto) Baso # (Auto) Abs Immat Gran (auto) Absolute Neuts (auto) Absolute Nucleated RBC Nucleated RBC % (auto) Neutrophils % (Manual) Band Neutrophils % Lymphocytes % (Manual) Monocytes % (Manual) Neutrophils # (Manual) Lymphocytes # (Manual) Monocytes # (Manual) Platelet Estimate Plt Morphology Comment RBC Morphology Smear Tech's Comments ESR PT INR APTT D-Dimer ABG pH ABG pCO2 ABG pO2 ABG HCO3 ABG O2 Saturation ABG Base Excess VBG pH VBG pCO2 VBG Oxygen Liters/Min VBG pO2 VBG HCO3 VBG O2 Saturation VBG Base Excess Oxygen Given Sodium Potassium Chloride Carbon Dioxide Anion Gap BUN Creatinine Estim Creat Clear Calc Estimated GFR POC Glucose 147 H 172 H 163 H Random Glucose Fasting Glucose Estimat Average Glucose Hemoglobin A1c % Lactic Acid Calcium Phosphorus Magnesium Ferritin Total Bilirubin Direct Bilirubin AST ALT Alkaline Phosphatase Lactate Dehydrogenase Total Creatine Kinase Troponin I High Sens C-Reactive Protein B-Natriuretic Peptide Total Protein Albumin Procalcitonin Urine Color Urine Appearance Urine pH Ur Specific [place] Urine Protein Urine Glucose (UA) Urine Ketones Urine Blood Urine Nitrite Ur Leukocyte Esterase Urine RBC Urine WBC Ur Squamous Epith Cells Urine Bacteria Urine Mucus Respiratory Panel [place] Adenovirus (Rapid PCR) B.pert (TEM-PCR) B.parapertussis DNA PCR C. pneumoniae DNA (PCR) Coronavirus (PCR) Coronavirus OC43 (PCR) Coronavirus HKU1 (PCR) Coronavirus 229E (PCR) Coronavirus NL63 (PCR) Human Metapneumovir PCR Influenza A (RT-PCR) Influenza B (RT-PCR) Ur L.pneumophila Ag M. pneumoniae (PCR) Parainfluenza 1 (PCR) Parainfluenza 2 (PCR) Parainfluenza 3 (PCR) Parainfluenza 4 (PCR) RSV (PCR) Entero/Rhino (PCR) SARS-CoV-2 RNA (RT-PCR) 05/19/20 05/19/20 05/19/20 12:05 16:01 21:02 WBC RBC Hgb Hct MCV MCH MCHC RDW Plt Count MPV Immature Gran % (Auto) Neut % (Auto) Lymph % (Auto) Stephens % (Auto) Eos % (Auto) Baso % (Auto) Neut # (Auto) Lymph # (Auto) Stephens # (Auto) Eos # (Auto) Baso # (Auto) Abs Immat Gran (auto) Absolute Neuts (auto) Absolute Nucleated RBC Nucleated RBC % (auto) Neutrophils % (Manual) Band Neutrophils % Lymphocytes % (Manual) Monocytes % (Manual) Neutrophils # (Manual) Lymphocytes # (Manual) Monocytes # (Manual) Platelet Estimate Plt Morphology Comment RBC Morphology Smear Tech's Comments ESR PT INR APTT D-Dimer ABG pH ABG pCO2 ABG pO2 ABG HCO3 ABG O2 Saturation ABG Base Excess VBG pH VBG pCO2 VBG Oxygen Liters/Min VBG pO2 VBG HCO3 VBG O2 Saturation VBG Base Excess Oxygen Given Sodium Potassium Chloride Carbon Dioxide Anion Gap BUN Creatinine Estim Creat Clear Calc Estimated GFR POC Glucose 166 H 97 192 H Random Glucose Fasting Glucose Estimat Average Glucose Hemoglobin A1c % Lactic Acid Calcium Phosphorus Magnesium Ferritin Total Bilirubin Direct Bilirubin AST ALT Alkaline Phosphatase Lactate Dehydrogenase Total Creatine Kinase Troponin I High Sens C-Reactive Protein B-Natriuretic Peptide Total Protein Albumin Procalcitonin Urine Color Urine Appearance Urine pH Ur Specific [place] Urine Protein Urine Glucose (UA) Urine Ketones Urine Blood Urine Nitrite Ur Leukocyte Esterase Urine RBC Urine WBC Ur Squamous Epith Cells Urine Bacteria Urine Mucus Respiratory Panel [place] Adenovirus (Rapid PCR) B.pert (TEM-PCR) B.parapertussis DNA PCR C. pneumoniae DNA (PCR) Coronavirus (PCR) Coronavirus OC43 (PCR) Coronavirus HKU1 (PCR) Coronavirus 229E (PCR) Coronavirus NL63 (PCR) Human Metapneumovir PCR Influenza A (RT-PCR) Influenza B (RT-PCR) Ur L.pneumophila Ag M. pneumoniae (PCR) Parainfluenza 1 (PCR) Parainfluenza 2 (PCR) Parainfluenza 3 (PCR) Parainfluenza 4 (PCR) RSV (PCR) Entero/Rhino (PCR) SARS-CoV-2 RNA (RT-PCR) 05/20/20 05/20/20 05/20/20 05:32 05:32 07:52 WBC 12.5 H RBC 5.01 Hgb 16.0 Hct 49.3 MCV 98.4 H MCH 31.9 MCHC 32.5 RDW 11.8 Plt Count 174 MPV 11.6 Immature Gran % (Auto) 0.6 H Neut % (Auto) 73.9 H Lymph % (Auto) 12.3 L Stephens % (Auto) 9.6 Eos % (Auto) 3.4 Baso % (Auto) 0.2 Neut # (Auto) Lymph # (Auto) 1.5 Stephens # (Auto) 1.2 Eos # (Auto) 0.4 Baso # (Auto) 0.0 Abs Immat Gran (auto) 0.07 H Absolute Neuts (auto) 9.2 H Absolute Nucleated RBC 0.000 Nucleated RBC % (auto) 0.0 Neutrophils % (Manual) Band Neutrophils % Lymphocytes % (Manual) Monocytes % (Manual) Neutrophils # (Manual) Lymphocytes # (Manual) Monocytes # (Manual) Platelet Estimate Plt Morphology Comment RBC Morphology Smear Tech's Comments ESR PT INR APTT D-Dimer ABG pH ABG pCO2 ABG pO2 ABG HCO3 ABG O2 Saturation ABG Base Excess VBG pH VBG pCO2 VBG Oxygen Liters/Min VBG pO2 VBG HCO3 VBG O2 Saturation VBG Base Excess Oxygen Given Sodium 138 Potassium 3.8 Chloride 99 Carbon Dioxide 30 H Anion Gap 13 BUN 11 Creatinine 0.65 Estim Creat Clear Calc 162.6 Estimated GFR > 60 POC Glucose 170 H Random Glucose 161 H Fasting Glucose Estimat Average Glucose Hemoglobin A1c % Lactic Acid Calcium 8.6 Phosphorus Magnesium Ferritin Total Bilirubin Direct Bilirubin AST ALT Alkaline Phosphatase Lactate Dehydrogenase Total Creatine Kinase Troponin I High Sens C-Reactive Protein B-Natriuretic Peptide Total Protein Albumin Procalcitonin Urine Color Urine Appearance Urine pH Ur Specific [place] Urine Protein Urine Glucose (UA) Urine Ketones Urine Blood Urine Nitrite Ur Leukocyte Esterase Urine RBC Urine WBC Ur Squamous Epith Cells Urine Bacteria Urine Mucus Respiratory Panel [place] Adenovirus (Rapid PCR) B.pert (TEM-PCR) B.parapertussis DNA PCR C. pneumoniae DNA (PCR) Coronavirus (PCR) Coronavirus OC43 (PCR) Coronavirus HKU1 (PCR) Coronavirus 229E (PCR) Coronavirus NL63 (PCR) Human Metapneumovir PCR Influenza A (RT-PCR) Influenza B (RT-PCR) Ur L.pneumophila Ag M. pneumoniae (PCR) Parainfluenza 1 (PCR) Parainfluenza 2 (PCR) Parainfluenza 3 (PCR) Parainfluenza 4 (PCR) RSV (PCR) Entero/Rhino (PCR) SARS-CoV-2 RNA (RT-PCR) 05/20/20 05/20/20 05/20/20 11:36 16:55 21:01 WBC RBC Hgb Hct MCV MCH MCHC RDW Plt Count MPV Immature Gran % (Auto) Neut % (Auto) Lymph % (Auto) Stephens % (Auto) Eos % (Auto) Baso % (Auto) Neut # (Auto) Lymph # (Auto) Stephens # (Auto) Eos # (Auto) Baso # (Auto) Abs Immat Gran (auto) Absolute Neuts (auto) Absolute Nucleated RBC Nucleated RBC % (auto) Neutrophils % (Manual) Band Neutrophils % Lymphocytes % (Manual) Monocytes % (Manual) Neutrophils # (Manual) Lymphocytes # (Manual) Monocytes # (Manual) Platelet Estimate Plt Morphology Comment RBC Morphology Smear Tech's Comments ESR PT INR APTT D-Dimer ABG pH ABG pCO2 ABG pO2 ABG HCO3 ABG O2 Saturation ABG Base Excess VBG pH VBG pCO2 VBG Oxygen Liters/Min VBG pO2 VBG HCO3 VBG O2 Saturation VBG Base Excess Oxygen Given Sodium Potassium Chloride Carbon Dioxide Anion Gap BUN Creatinine Estim Creat Clear Calc Estimated GFR POC Glucose 135 H 139 H 168 H Random Glucose Fasting Glucose Estimat Average Glucose Hemoglobin A1c % Lactic Acid Calcium Phosphorus Magnesium Ferritin Total Bilirubin Direct Bilirubin AST ALT Alkaline Phosphatase Lactate Dehydrogenase Total Creatine Kinase Troponin I High Sens C-Reactive Protein B-Natriuretic Peptide Total Protein Albumin Procalcitonin Urine Color Urine Appearance Urine pH Ur Specific [place] Urine Protein Urine Glucose (UA) Urine Ketones Urine Blood Urine Nitrite Ur Leukocyte Esterase Urine RBC Urine WBC Ur Squamous Epith Cells Urine Bacteria Urine Mucus Respiratory Panel [place] Adenovirus (Rapid PCR) B.pert (TEM-PCR) B.parapertussis DNA PCR C. pneumoniae DNA (PCR) Coronavirus (PCR) Coronavirus OC43 (PCR) Coronavirus HKU1 (PCR) Coronavirus 229E (PCR) Coronavirus NL63 (PCR) Human Metapneumovir PCR Influenza A (RT-PCR) Influenza B (RT-PCR) Ur L.pneumophila Ag M. pneumoniae (PCR) Parainfluenza 1 (PCR) Parainfluenza 2 (PCR) Parainfluenza 3 (PCR) Parainfluenza 4 (PCR) RSV (PCR) Entero/Rhino (PCR) SARS-CoV-2 RNA (RT-PCR) 05/21/20 05/21/20 05/21/20 07:31 11:31 17:03 WBC RBC Hgb Hct MCV MCH MCHC RDW Plt Count MPV Immature Gran % (Auto) Neut % (Auto) Lymph % (Auto) Stephens % (Auto) Eos % (Auto) Baso % (Auto) Neut # (Auto) Lymph # (Auto) Stephens # (Auto) Eos # (Auto) Baso # (Auto) Abs Immat Gran (auto) Absolute Neuts (auto) Absolute Nucleated RBC Nucleated RBC % (auto) Neutrophils % (Manual) Band Neutrophils % Lymphocytes % (Manual) Monocytes % (Manual) Neutrophils # (Manual) Lymphocytes # (Manual) Monocytes # (Manual) Platelet Estimate Plt Morphology Comment RBC Morphology Smear Tech's Comments ESR PT INR APTT D-Dimer ABG pH ABG pCO2 ABG pO2 ABG HCO3 ABG O2 Saturation ABG Base Excess VBG pH VBG pCO2 VBG Oxygen Liters/Min VBG pO2 VBG HCO3 VBG O2 Saturation VBG Base Excess Oxygen Given Sodium Potassium Chloride Carbon Dioxide Anion Gap BUN Creatinine Estim Creat Clear Calc Estimated GFR POC Glucose 159 H 160 H 119 H Random Glucose Fasting Glucose Estimat Average Glucose Hemoglobin A1c % Lactic Acid Calcium Phosphorus Magnesium Ferritin Total Bilirubin Direct Bilirubin AST ALT Alkaline Phosphatase Lactate Dehydrogenase Total Creatine Kinase Troponin I High Sens C-Reactive Protein B-Natriuretic Peptide Total Protein Albumin Procalcitonin Urine Color Urine Appearance Urine pH Ur Specific [place] Urine Protein Urine Glucose (UA) Urine Ketones Urine Blood Urine Nitrite Ur Leukocyte Esterase Urine RBC Urine WBC Ur Squamous Epith Cells Urine Bacteria Urine Mucus Respiratory Panel [place] Adenovirus (Rapid PCR) B.pert (TEM-PCR) B.parapertussis DNA PCR C. pneumoniae DNA (PCR) Coronavirus (PCR) Coronavirus OC43 (PCR) Coronavirus HKU1 (PCR) Coronavirus 229E (PCR) Coronavirus NL63 (PCR) Human Metapneumovir PCR Influenza A (RT-PCR) Influenza B (RT-PCR) Ur L.pneumophila Ag M. pneumoniae (PCR) Parainfluenza 1 (PCR) Parainfluenza 2 (PCR) Parainfluenza 3 (PCR) Parainfluenza 4 (PCR) RSV (PCR) Entero/Rhino (PCR) SARS-CoV-2 RNA (RT-PCR) 05/21/20 05/22/20 05/22/20 20:41 05:36 05:36 WBC 8.7 RBC 4.76 Hgb 15.5 Hct 46.4 MCV 97.5 MCH 32.6 MCHC 33.4 RDW 11.7 Plt Count 196 MPV 11.7 Immature Gran % (Auto) 0.3 Neut % (Auto) 59.5 Lymph % (Auto) 23.1 Stephens % (Auto) 12.2 H Eos % (Auto) 4.4 H Baso % (Auto) 0.5 Neut # (Auto) Lymph # (Auto) 2.0 Stephens # (Auto) 1.1 Eos # (Auto) 0.4 Baso # (Auto) 0.0 Abs Immat Gran (auto) 0.03 Absolute Neuts (auto) 5.2 Absolute Nucleated RBC 0.000 Nucleated RBC % (auto) 0.0 Neutrophils % (Manual) Band Neutrophils % Lymphocytes % (Manual) Monocytes % (Manual) Neutrophils # (Manual) Lymphocytes # (Manual) Monocytes # (Manual) Platelet Estimate Plt Morphology Comment RBC Morphology Smear Tech's Comments ESR PT INR APTT D-Dimer ABG pH ABG pCO2 ABG pO2 ABG HCO3 ABG O2 Saturation ABG Base Excess VBG pH VBG pCO2 VBG Oxygen Liters/Min VBG pO2 VBG HCO3 VBG O2 Saturation VBG Base Excess Oxygen Given Sodium 138 Potassium 4.1 Chloride 99 Carbon Dioxide 31 H Anion Gap 12 BUN 10 Creatinine 0.67 Estim Creat Clear Calc 161.1 Estimated GFR > 60 POC Glucose 136 H Random Glucose Fasting Glucose 141 H Estimat Average Glucose Hemoglobin A1c % Lactic Acid Calcium 8.9 Phosphorus Magnesium Ferritin Total Bilirubin Direct Bilirubin AST ALT Alkaline Phosphatase Lactate Dehydrogenase Total Creatine Kinase Troponin I High Sens C-Reactive Protein B-Natriuretic Peptide Total Protein Albumin Procalcitonin Urine Color Urine Appearance Urine pH Ur Specific [place] Urine Protein Urine Glucose (UA) Urine Ketones Urine Blood Urine Nitrite Ur Leukocyte Esterase Urine RBC Urine WBC Ur Squamous Epith Cells Urine Bacteria Urine Mucus Respiratory Panel [place] Adenovirus (Rapid PCR) B.pert (TEM-PCR) B.parapertussis DNA PCR C. pneumoniae DNA (PCR) Coronavirus (PCR) Coronavirus OC43 (PCR) Coronavirus HKU1 (PCR) Coronavirus 229E (PCR) Coronavirus NL63 (PCR) Human Metapneumovir PCR Influenza A (RT-PCR) Influenza B (RT-PCR) Ur L.pneumophila Ag M. pneumoniae (PCR) Parainfluenza 1 (PCR) Parainfluenza 2 (PCR) Parainfluenza 3 (PCR) Parainfluenza 4 (PCR) RSV (PCR) Entero/Rhino (PCR) SARS-CoV-2 RNA (RT-PCR) 05/22/20 05/22/20 05/22/20 07:21 11:45 16:14 WBC RBC Hgb Hct MCV MCH MCHC RDW Plt Count MPV Immature Gran % (Auto) Neut % (Auto) Lymph % (Auto) Stephens % (Auto) Eos % (Auto) Baso % (Auto) Neut # (Auto) Lymph # (Auto) Stephens # (Auto) Eos # (Auto) Baso # (Auto) Abs Immat Gran (auto) Absolute Neuts (auto) Absolute Nucleated RBC Nucleated RBC % (auto) Neutrophils % (Manual) Band Neutrophils % Lymphocytes % (Manual) Monocytes % (Manual) Neutrophils # (Manual) Lymphocytes # (Manual) Monocytes # (Manual) Platelet Estimate Plt Morphology Comment RBC Morphology Smear Tech's Comments ESR PT INR APTT D-Dimer ABG pH ABG pCO2 ABG pO2 ABG HCO3 ABG O2 Saturation ABG Base Excess VBG pH VBG pCO2 VBG Oxygen Liters/Min VBG pO2 VBG HCO3 VBG O2 Saturation VBG Base Excess Oxygen Given Sodium Potassium Chloride Carbon Dioxide Anion Gap BUN Creatinine Estim Creat Clear Calc Estimated GFR POC Glucose 137 H 133 H 153 H Random Glucose Fasting Glucose Estimat Average Glucose Hemoglobin A1c % Lactic Acid Calcium Phosphorus Magnesium Ferritin Total Bilirubin Direct Bilirubin AST ALT Alkaline Phosphatase Lactate Dehydrogenase Total Creatine Kinase Troponin I High Sens C-Reactive Protein B-Natriuretic Peptide Total Protein Albumin Procalcitonin Urine Color Urine Appearance Urine pH Ur Specific [place] Urine Protein Urine Glucose (UA) Urine Ketones Urine Blood Urine Nitrite Ur Leukocyte Esterase Urine RBC Urine WBC Ur Squamous Epith Cells Urine Bacteria Urine Mucus Respiratory Panel [place] Adenovirus (Rapid PCR) B.pert (TEM-PCR) B.parapertussis DNA PCR C. pneumoniae DNA (PCR) Coronavirus (PCR) Coronavirus OC43 (PCR) Coronavirus HKU1 (PCR) Coronavirus 229E (PCR) Coronavirus NL63 (PCR) Human Metapneumovir PCR Influenza A (RT-PCR) Influenza B (RT-PCR) Ur L.pneumophila Ag M. pneumoniae (PCR) Parainfluenza 1 (PCR) Parainfluenza 2 (PCR) Parainfluenza 3 (PCR) Parainfluenza 4 (PCR) RSV (PCR) Entero/Rhino (PCR) SARS-CoV-2 RNA (RT-PCR) 05/22/20 20:35 WBC RBC Hgb Hct MCV MCH MCHC RDW Plt Count MPV Immature Gran % (Auto) Neut % (Auto) Lymph % (Auto) Stephens % (Auto) Eos % (Auto) Baso % (Auto) Neut # (Auto) Lymph # (Auto) [place] # (Auto) Eos # (Auto) Baso # (Auto) Abs Immat Gran (auto) Absolute Neuts (auto) Absolute Nucleated RBC Nucleated RBC % (auto) Neutrophils % (Manual) Band Neutrophils % Lymphocytes % (Manual) Monocytes % (Manual) Neutrophils # (Manual) Lymphocytes # (Manual) Monocytes # (Manual) Platelet Estimate Plt Morphology Comment RBC Morphology Smear Tech's Comments ESR PT INR APTT D-Dimer ABG pH ABG pCO2 ABG pO2 ABG HCO3 ABG O2 Saturation ABG Base Excess VBG pH VBG pCO2 VBG Oxygen Liters/Min VBG pO2 VBG HCO3 VBG O2 Saturation VBG Base Excess Oxygen Given Sodium Potassium Chloride Carbon Dioxide Anion Gap BUN Creatinine Estim Creat Clear Calc Estimated GFR POC Glucose 152 H Random Glucose Fasting Glucose Estimat Average Glucose Hemoglobin A1c % Lactic Acid Calcium Phosphorus Magnesium Ferritin Total Bilirubin Direct Bilirubin AST ALT Alkaline Phosphatase Lactate Dehydrogenase Total Creatine Kinase Troponin I High Sens C-Reactive Protein B-Natriuretic Peptide Total Protein Albumin Procalcitonin Urine Color Urine Appearance Urine pH Ur Specific [place] Urine Protein Urine Glucose (UA) Urine Ketones Urine Blood Urine Nitrite Ur Leukocyte Esterase Urine RBC Urine WBC Ur Squamous Epith Cells Urine Bacteria Urine Mucus Respiratory Panel [place] Adenovirus (Rapid PCR) B.pert (TEM-PCR) B.parapertussis DNA PCR C. pneumoniae DNA (PCR) Coronavirus (PCR) Coronavirus OC43 (PCR) Coronavirus HKU1 (PCR) Coronavirus 229E (PCR) Coronavirus NL63 (PCR) Human Metapneumovir PCR Influenza A (RT-PCR) Influenza B (RT-PCR) Ur L.pneumophila Ag M. pneumoniae (PCR) Parainfluenza 1 (PCR) Parainfluenza 2 (PCR) Parainfluenza 3 (PCR) Parainfluenza 4 (PCR) RSV (PCR) Entero/Rhino (PCR) SARS-CoV-2 RNA (RT-PCR)
[2020-05-22] MEDS: Zolpidem Tartrate 5 MG TABLET PO (23:49)
[2020-05-23] VITALS (8 sets, daily range): BP systolic 121–137; BP diastolic 59–92; PULSE 73–102; RESP 18–20; TEMP 36.2–37; O2SAT 95–98; BMI 36.4
--- NOTE | 2020-05-23 | XR_ITS ---
EXAMINATION: XR CHEST CLINICAL INFORMATION: Chest tube leak COMPARISON: CT scan of May 22, 2020 and plain film study of May 22, 2020. TECHNIQUE: AP portable view of the chest was obtained. FINDINGS: Small bore right-sided chest tube is seen in place with partial reexpansion of the right lung improved from most recent prior studies of yesterday. There remains an approximately 20-30% pneumothorax which is slightly larger than on study of May 22, 2020 at 6:18 AM at time when previously placed chest tube was in place.. There is some atelectatic change seen at the right base. Left hemithorax unremarkable. Heart normal size. No evidence of pulmonary edema. No significant mediastinal shift. IMPRESSION: Partial expansion of the right lung status post right chest tube placement with residual approximately 20-30% pneumothorax.
[2020-05-23] MEDS: 0.9 % Sodium Chloride Flush 3 ML SYRINGE 2 ML IVFLUSH ×3 (02:08→17:16)
[2020-05-23] MEDS: HYDROmorphone HCl 0.5 MG/0.5 ML SYRINGE IVPUSH ×9 (02:08→23:44)
[2020-05-23] MEDS: Heparin Sodium,Porcine 5,000 UNIT/ML VIAL 5000 UNIT SUBCUT ×3 (02:09→17:15)
[2020-05-23 08:08] LABS: Glucose, Whole Blood 143 mg/dL (60-115)
[2020-05-23] MEDS: lisinopriL 5 MG TABLET PO (08:38)
[2020-05-23] MEDS: Docusate Sodium 100 MG CAPSULE PO ×2 (08:38→20:40)
[2020-05-23] MEDS: Salmeterol Xinafoate 50 MCG BLST.W.DEV 1 PUFF INHALE ×2 (08:44→20:07)
--- NOTE | 2020-05-23 09:55 | P.PNIM_ITS ---
Subjective Subjective Date of Service: 05/23/20 Interval History: pain Respiratory Respiratory: Reports no additional respiratory complaints Gastrointestinal Gastrointestinal: Reports no additional gastrointestinal complaints Physical Exam Vital Signs: Vital Signs: Vital Signs Temp Pulse Resp BP Pulse Ox 05/23/20 08:38 84 135/92 H 05/23/20 08:00 97.2 F 84 20 135/92 H 98 05/23/20 04:00 98.6 F 82 18 137/68 98 05/22/20 23:40 98.7 F 77 18 114/69 97 05/22/20 20:00 98.2 F 84 18 133/76 96 05/22/20 16:00 97.1 F 90 18 109/58 L 95 05/22/20 15:22 97.1 F 102 H 18 131/70 96 05/22/20 13:26 20 05/22/20 12:25 20 05/22/20 11:45 97.8 F 101 H 20 136/84 98 Body Mass Index 36.4 General: AO X 3, no acute distress Resp: decreased breath sounds CVS: S1,S2,RRR GI: soft, non tender, non distended Neuro: motor grossly intact Psych: appropriate affect Objective Data Current Medications Generic Name Dose Route Start Last Admin Trade Name Freq PRN Reason Stop Dose Admin Acetaminophen 650 mg 05/12/20 03:56 05/22/20 00:10 Acetaminophen 325 Mg Tablet PO 650 mg Q6H PRN Administration Headache Docusate Sodium 100 mg 05/11/20 21:00 05/23/20 08:38 Docusate Sodium 100 Mg Capsule PO 100 mg BID NINA Administration Heparin Sodium (Porcine) 5,000 unit 05/18/20 10:00 05/23/20 08:37 Heparin Sodium,Porcine 5,000 Unit/Ml Vial SUBCUT 5,000 unit Q8H NINA Administration Hydromorphone HCl 0.5 mg 05/23/20 08:51 Hydromorphone Hcl 0.5 Mg/0.5 Ml Syringe IVPUSH Q2H PRN pain Insulin Human Lispro 0 unit 05/13/20 11:30 05/23/20 08:39 Insulin Lispro 100 Unit/Ml 3 Ml Vial SUBCUT Not Given QIDACHS [facility] Protocol Levalbuterol HCl 1.25 mg 05/17/20 08:21 05/21/20 08:14 Levalbuterol Hcl 1.25 Mg/3 Ml Vial.Neb INHALE 1.25 mg Q2H PRN Administration Dyspnea Lisinopril 5 mg 05/21/20 09:00 05/23/20 08:38 Lisinopril 5 Mg Tablet PO 5 mg DAILY NINA Administration Protocol Ondansetron HCl 4 mg 05/11/20 12:13 Ondansetron Hcl 4 Mg/2 Ml Vial IVPUSH Q8H PRN Nausea and Vomiting Salmeterol Xinafoate 1 puff 05/14/20 08:00 05/23/20 08:44 Salmeterol Xinafoate 50 Mcg Blst.W.Dev INHALE 1 puff RBID NINA Administration Sodium Chloride 2 ml 05/11/20 16:00 05/23/20 08:38 0.9 % Sodium Chloride Flush 3 Ml Syringe IVFLUSH 2 ml QSHIFT NINA Administration Labs CBC & Chem 7: 05/22/20 05:36 05/22/20 05:36 Microbiology Microbiology Results: Microbiology 05/11/20 10:39 Blood - Venous Blood Culture - Final No growth after 5 days. 05/11/20 10:17 Blood - Venous Blood Culture - Final No growth after 5 days. Assessment and Plan (1) Pneumothorax: Status: Acute (2) COPD (chronic obstructive pulmonary disease): Status: Acute (3) Acute on chronic respiratory failure with hypoxia and hypercapnia: Status: Acute (4) Diabetes: Status: Acute (5) HTN (hypertension): Status: Acute Assessment and Plan: 50M presented with sob ofund to have pneumothorax Acute hypoxic respiratory failure secondary to pneumothorax chest tube fell out 05/22, pnuemothorax recurred, tube replaced by IR management per thoracic surgery, possible pleurodesis if no improvement over the week diabetes new diagnosis continue insulin likely metformin on discharge hypertension new diagnosis started BENNIE-inhibitor obesity weight loss encouraged
[2020-05-23 11:48] LABS: Glucose, Whole Blood 155 mg/dL (60-115)
[2020-05-23] MEDS: Insulin Lispro 100 UNIT/ML 3 ML VIAL SUBCUT ×2 (12:15→20:39)
--- NOTE | 2020-05-23 14:19 | PM.PNTS ---
Subjective Subjective Interval history: Patient feeling well this morning. No issues overnight. Yesterday patient's chest tube fell out. This was replaced with the pigtail by IR. Chest tube remains in -20 wall suction overnight without issue. This morning the patient reports no complaints other than some mild discomfort around his chest tube insertion site. He has no respiratory complaints otherwise. Patient denies any fever, chills, chest pain, shortness of breath, dyspnea exertion, lightheadedness, dizziness, abdominal pain, nausea, vomiting, lower extremity edema, lower extremity pain, productive cough, hemoptysis Physical Exam Vital Signs: Vital Signs: Vital Signs Temp Pulse Resp BP Pulse Ox 05/23/20 11:55 97.2 F 96 18 121/61 95 05/23/20 08:38 84 135/92 H 05/23/20 08:00 97.2 F 84 20 135/92 H 98 05/23/20 04:00 98.6 F 82 18 137/68 98 05/22/20 23:40 98.7 F 77 18 114/69 97 05/22/20 20:00 98.2 F 84 18 133/76 96 05/22/20 16:00 97.1 F 90 18 109/58 L 95 05/22/20 15:22 97.1 F 102 H 18 131/70 96 Body Mass Index 36.4 General: No acute distress, resting comfortably in chair, well developed Head: Normocephalic, atraumatic, symmetric Eyes: Sclera anicteric, eyelids without edema or erythema, +EOMS intact ENT: Oral mucosa and tongue are moist without lesions or exudates Neck: Soft, supple, symmetric, trachea midline, no crepitus Cardiovascular: Regular rate and rhythm, no murmur/rubs/gallops, BUE and BLE without edema, no calf tenderness bilaterally Respiratory: Lungs CTA B, breathing nonlabored, speaking in full sentences, on room air. No use of accessory muscles. Right pigtail chest tube x 1 to [facility] on -20 wall suction, minimal serous drainage, 1+ near continuous air leak. Gastrointestinal: Obese, soft, non-tender, non-distended, +normoactive bowel sounds. Skin: Warm and dry throughout, no rashes Lymphatic: no cervical, supraclavicular, infraclavicular lymphadenopathy noted Neurological: Alert and oriented x 3, no focal neurological deficit noted Psychiatric: Alert and oriented x 3, no agitation, appropriate affect Progress Note: A&P Assessment and plan (1) Pneumothorax: Status: Acute Assessment and Plan: 50-year-old male with a spontaneous right-sided pneumothorax. At this time patient continues to have an ongoing air leak with continued right pneumothorax despite chest tube. Discussed the patient with Dr. De La Cruz and at this time we will proceed with a right sided VATS pleurodesis and bleb resection. This is scheduled for tomorrow, 05/24/2020, at 8:30 AM. I discussed this procedure at length with the patient including the risks, benefits, and alternatives. Patient is agreeable to proceed with procedure as described. For now, continue right chest tube to -20 continuous wall suction. Preoperative checklist: Labs Laboratory Tests 05/22/20 05:36 WBC 8.7 Hgb 15.5 Hct 46.4 Plt Count 196 Laboratory Tests 05/22/20 05:36 Sodium 138 Potassium 4.1 Chloride 99 Carbon Dioxide 31 H BUN 10 Creatinine 0.67 Coags Laboratory Tests 05/11/20 12:57 PT 12.4 INR 1.0 APTT 33.6 Type and screen: Ordered and pending N.p.o. except medications after midnight Ancef 2 g IV to be given on-call to the OR (2) COPD (chronic obstructive pulmonary disease): Status: Acute Fall Risk Details Current Medications: Current Medications Generic Name Dose Route Start Last Admin Trade Name Freq PRN Reason Stop Dose Admin Acetaminophen 650 mg 05/12/20 03:56 05/22/20 00:10 Acetaminophen 325 Mg Tablet PO 650 mg Q6H PRN Administration Headache Docusate Sodium 100 mg 05/11/20 21:00 05/23/20 08:38 Docusate Sodium 100 Mg Capsule PO 100 mg BID NINA Administration Heparin Sodium (Porcine) 5,000 unit 05/18/20 10:00 05/23/20 08:37 Heparin Sodium,Porcine 5,000 Unit/Ml Vial SUBCUT 5,000 unit Q8H NINA Administration Hydromorphone HCl 0.5 mg 05/23/20 08:51 05/23/20 12:15 Hydromorphone Hcl 0.5 Mg/0.5 Ml Syringe IVPUSH 0.5 mg Q2H PRN Administration pain Cefazolin Sodium/Dextrose 2 gm in 50 mls @ 100 mls/hr 05/23/20 14:13 Ancef IV 05/23/20 14:42 PREOP ONE Insulin Human Lispro 0 unit 05/13/20 11:30 05/23/20 12:15 Insulin Lispro 100 Unit/Ml 3 Ml Vial SUBCUT 2 unit QIDACHS [facility] Administration Protocol Levalbuterol HCl 1.25 mg 05/17/20 08:21 05/21/20 08:14 Levalbuterol Hcl 1.25 Mg/3 Ml Vial.Neb INHALE 1.25 mg Q2H PRN Administration Dyspnea Lisinopril 5 mg 05/21/20 09:00 05/23/20 08:38 Lisinopril 5 Mg Tablet PO 5 mg DAILY NINA Administration Protocol Ondansetron HCl 4 mg 05/11/20 12:13 Ondansetron Hcl 4 Mg/2 Ml Vial IVPUSH Q8H PRN Nausea and Vomiting Salmeterol Xinafoate 1 puff 05/14/20 08:00 05/23/20 08:44 Salmeterol Xinafoate 50 Mcg Blst.W.Dev INHALE 1 puff RBID [facility] Administration Sodium Chloride 2 ml 05/11/20 16:00 05/23/20 08:38 0.9 % Sodium Chloride Flush 3 Ml Syringe IVFLUSH 2 ml QSHIFT [facility] Administration Time Spent With Patient Time: Total time spent is greater than 50% in coordination of care (as documented) at patient's floor/unit and/or counseling patient: Time with patient: 15 - 24 minutes
[2020-05-23 16:38] LABS: Glucose, Whole Blood 148 mg/dL (60-115)
[2020-05-23 20:33] LABS: Glucose, Whole Blood 226 mg/dL (60-115)
[2020-05-24] VITALS (17 sets, daily range): BP systolic 126–153; BP diastolic 66–95; PULSE 82–116; RESP 18–22; TEMP 35.9–37.1; O2SAT 92–99; BMI 36.5
--- NOTE | 2020-05-24 | XR_ITS ---
EXAMINATION: XR CHEST CLINICAL INFORMATION: Status post VATS right upper lobe wedge and pleurodesis. COMPARISON: 05/23/2020 TECHNIQUE: Frontal view of the chest was obtained. FINDINGS: Rotated positioning. Prominence of the cardiac silhouette, probably accentuated by the rotated positioning. Low lung volumes. There is decreased volume in the right hemithorax with elevation right hemidiaphragm. There is a right-sided chest tube present, tip in the apex. Small right pneumothorax. There is opacification in the perihilar region, right upper lobe, the right infrahilar region and medial aspect of right lower lobe. Minimal patchy opacity in the left midlung. No significant pleural effusion. IMPRESSION: Decreased lung volume in the right hemithorax. Right apically directed chest tube. Small right pneumothorax. Airspace opacities in the right hemithorax, in the right upper lobe and the perihilar region as detailed above.
[2020-05-24] MEDS: 0.9 % Sodium Chloride Flush 3 ML SYRINGE 2 ML IVFLUSH ×4 (00:03→23:41)
[2020-05-24] MEDS: HYDROmorphone HCl 0.5 MG/0.5 ML SYRINGE IVPUSH ×8 (03:27→23:51)
[2020-05-24] MEDS: Salmeterol Xinafoate 50 MCG BLST.W.DEV 1 PUFF INHALE ×2 (07:26→19:25)
[2020-05-24 07:43] LABS: Glucose, Whole Blood 155 mg/dL (60-115)
--- NOTE | 2020-05-24 08:44 | P.CONAN_ITS ---
[facility] Past Medical History Medical History Alcoholism /alcohol abuse COPD (chronic obstructive pulmonary disease) Pneumothorax Tobacco abuse disorder Functional capacity: independent ambulation Surgical History Surgical History History of colonoscopy Social History Social History Household Members: Spouse Housing: House Smoking Status: Current every day smoker Tobacco Type: Cigarette Packs Per Day: 0.5 Cigarettes Per Day: 10.0 Years Smoked: 30 Smoked in Last 30 Days: Yes Patient Interested in Nicotine Replacement: Yes Use of substances other than those prescribed or required for medical reasons: Yes Substance Use Type: Crack/Cocaine Substance Use Frequency: Occasionally Last Used Substance: Weeks (ago) Currently Displaying Signs/Symptoms of Drug Intoxication Withdrawal: No Any prior treatment program specific to substance use: No Have you been hit, kicked, punched, or otherwise hurt by someone within the past year? If so, by whom?: No Do you feel safe in your current relationship?: Yes Is there a partner from a previous relationship who is making you feel unsafe now?: No Are you made to feel afraid or neglected: No Spiritual Healthcare Practices: no Jewish Healthcare Practices: no Cultural Healthcare Practices: no Advance Directives: No Advance Directives Information Provided: No Do you have thoughts of harming others: None Do you have a plan to hurt others: No Plan Recently lost weight without trying: No service: No Current occupational status: employed Meds Allergies Allergy/AdvReac Type Severity Reaction Status Date / Time pepper (genus Capsicum) Allergy Angioedema Verified 05/17/20 17:06 Peppers, Green Allergy Angioedema Verified 05/17/20 17:06 Peppers, Jalapeno Allergy Angioedema Verified 05/17/20 17:06 Peppers, Red Allergy Angioedema Verified 05/17/20 17:06 Peppers, Yellow Allergy Angioedema Verified 05/17/20 17:06 Home Medications Medication Instructions Recorded Confirmed Type No Known Home Meds 05/11/20 05/11/20 History Exam Exam Date and Time: May 24, 2020 0844 Height,Weight and Vital Signs: Height 5 ft 8 in Weight 109 kg Last Vital Signs Temp 97.2 F 05/24/20 07:37 Pulse 103 H 05/24/20 07:37 Resp 20 05/24/20 07:37 BP 139/66 05/24/20 07:37 Pulse Ox 96 05/24/20 07:37 Pertinent Lab Results Pertinent Lab Results: Laboratory Tests 05/11/20 05/11/20 05/11/20 10:17 10:17 10:17 WBC 11.9 H RBC 5.71 Hgb 18.6 H Hct 55.5 H MCV 97.2 MCH 32.6 MCHC 33.5 RDW 11.9 Plt Count 166 MPV 11.2 Immature Gran % (Auto) 0.3 Neut % (Auto) 72.3 Lymph % (Auto) 15.8 L [place] % (Auto) 9.9 Eos % (Auto) 1.4 Baso % (Auto) 0.3 Neut # (Auto) 8.6 H Lymph # (Auto) 1.9 Mck[place] # (Auto) 1.2 Eos # (Auto) 0.2 Baso # (Auto) 0.0 Abs Immat Gran (auto) 0.03 Absolute Neuts (auto) Absolute Nucleated RBC 0.000 Nucleated RBC % (auto) 0.0 Neutrophils % (Manual) Band Neutrophils % Lymphocytes % (Manual) Monocytes % (Manual) Neutrophils # (Manual) Lymphocytes # (Manual) Monocytes # (Manual) Platelet Estimate Plt Morphology Comment RBC Morphology Smear Tech's Comments ESR PT INR APTT D-Dimer ABG pH ABG pCO2 ABG pO2 ABG HCO3 ABG O2 Saturation ABG Base Excess VBG pH VBG pCO2 VBG Oxygen Liters/Min VBG pO2 VBG HCO3 VBG O2 Saturation VBG Base Excess Oxygen Given Sodium 137 Potassium 4.0 Chloride 96 Carbon Dioxide 32 H Anion Gap 13 BUN 7 L Creatinine 0.75 Estim Creat Clear Calc 148.2 Estimated GFR > 60 POC Glucose Random Glucose 210 H Fasting Glucose Estimat Average Glucose Hemoglobin A1c % Lactic Acid Calcium 9.1 Phosphorus Magnesium Ferritin 281 H Total Bilirubin 0.5 Direct Bilirubin 0.2 AST 11 ALT 12 Alkaline Phosphatase 101 Lactate Dehydrogenase 156 Total Creatine Kinase Troponin I High Sens 4.5 C-Reactive Protein B-Natriuretic Peptide 12 Total Protein 7.2 Albumin 4.1 Procalcitonin Urine Color Urine Appearance Urine pH Ur Specific [place] Urine Protein Urine Glucose (UA) Urine Ketones Urine Blood Urine Nitrite Ur Leukocyte Esterase Urine RBC Urine WBC Ur Squamous Epith Cells Urine Bacteria Urine Mucus Respiratory Panel [place] Adenovirus (Rapid PCR) B.pert (TEM-PCR) B.parapertussis DNA PCR C. pneumoniae DNA (PCR) Coronavirus (PCR) Coronavirus OC43 (PCR) Coronavirus HKU1 (PCR) Coronavirus 229E (PCR) Coronavirus NL63 (PCR) Human Metapneumovir PCR Influenza A (RT-PCR) Influenza B (RT-PCR) Ur L.pneumophila Ag M. pneumoniae (PCR) Parainfluenza 1 (PCR) Parainfluenza 2 (PCR) Parainfluenza 3 (PCR) Parainfluenza 4 (PCR) RSV (PCR) Entero/Rhino (PCR) SARS-CoV-2 RNA (RT-PCR) Blood Type Antibody Screen 05/11/20 05/11/20 05/11/20 10:17 10:18 10:18 WBC RBC Hgb Hct MCV MCH MCHC RDW Plt Count MPV Immature Gran % (Auto) Neut % (Auto) Lymph % (Auto) [place] % (Auto) Eos % (Auto) Baso % (Auto) Neut # (Auto) Lymph # (Auto) [place] # (Auto) Eos # (Auto) Baso # (Auto) Abs Immat Gran (auto) Absolute Neuts (auto) Absolute Nucleated RBC Nucleated RBC % (auto) Neutrophils % (Manual) Band Neutrophils % Lymphocytes % (Manual) Monocytes % (Manual) Neutrophils # (Manual) Lymphocytes # (Manual) Monocytes # (Manual) Platelet Estimate Plt Morphology Comment RBC Morphology Smear Tech's Comments ESR PT INR APTT D-Dimer ABG pH ABG pCO2 ABG pO2 ABG HCO3 ABG O2 Saturation ABG Base Excess VBG pH VBG pCO2 VBG Oxygen Liters/Min VBG pO2 VBG HCO3 VBG O2 Saturation VBG Base Excess Oxygen Given Sodium Potassium Chloride Carbon Dioxide Anion Gap BUN Creatinine Estim Creat Clear Calc Estimated GFR POC Glucose Random Glucose Fasting Glucose Estimat Average Glucose Hemoglobin A1c % Lactic Acid 1.0 Calcium Phosphorus Magnesium 2.0 Ferritin Total Bilirubin Direct Bilirubin AST ALT Alkaline Phosphatase Lactate Dehydrogenase Total Creatine Kinase Troponin I High Sens C-Reactive Protein B-Natriuretic Peptide Total Protein Albumin Procalcitonin 0.02 Urine Color Urine Appearance Urine pH Ur Specific [place] Urine Protein Urine Glucose (UA) Urine Ketones Urine Blood Urine Nitrite Ur Leukocyte Esterase Urine RBC Urine WBC Ur Squamous Epith Cells Urine Bacteria Urine Mucus Respiratory Panel [place] Adenovirus (Rapid PCR) B.pert (TEM-PCR) B.parapertussis DNA PCR C. pneumoniae DNA (PCR) Coronavirus (PCR) Coronavirus OC43 (PCR) Coronavirus HKU1 (PCR) Coronavirus 229E (PCR) Coronavirus NL63 (PCR) Human Metapneumovir PCR Influenza A (RT-PCR) Influenza B (RT-PCR) Ur L.pneumophila Ag M. pneumoniae (PCR) Parainfluenza 1 (PCR) Parainfluenza 2 (PCR) Parainfluenza 3 (PCR) Parainfluenza 4 (PCR) RSV (PCR) Entero/Rhino (PCR) SARS-CoV-2 RNA (RT-PCR) Blood Type Antibody Screen 05/11/20 05/11/20 05/11/20 12:57 12:57 12:57 WBC 11.5 H RBC 5.76 Hgb 18.8 H Hct 55.9 H MCV 97.0 MCH 32.6 MCHC 33.6 RDW 11.9 Plt Count 172 MPV 11.2 Immature Gran % (Auto) 0.3 Neut % (Auto) 90.6 H Lymph % (Auto) 6.0 L [place] % (Auto) 2.5 Eos % (Auto) 0.3 Baso % (Auto) 0.3 Neut # (Auto) 10.4 H Lymph # (Auto) 0.7 L [place] # (Auto) 0.3 Eos # (Auto) 0.0 Baso # (Auto) 0.0 Abs Immat Gran (auto) 0.03 Absolute Neuts (auto) Absolute Nucleated RBC 0.000 Nucleated RBC % (auto) 0.0 Neutrophils % (Manual) Band Neutrophils % Lymphocytes % (Manual) Monocytes % (Manual) Neutrophils # (Manual) Lymphocytes # (Manual) Monocytes # (Manual) Platelet Estimate Plt Morphology Comment RBC Morphology Smear Tech's Comments VERIFIED ESR PT 12.4 INR 1.0 APTT 33.6 D-Dimer ABG pH ABG pCO2 ABG pO2 ABG HCO3 ABG O2 Saturation ABG Base Excess VBG pH VBG pCO2 VBG Oxygen Liters/Min VBG pO2 VBG HCO3 VBG O2 Saturation VBG Base Excess Oxygen Given Sodium 139 Potassium 4.3 Chloride 96 Carbon Dioxide 36 H Anion Gap 11 L BUN 7 L Creatinine 0.77 Estim Creat Clear Calc 144.4 Estimated GFR > 60 POC Glucose Random Glucose 191 H Fasting Glucose Estimat Average Glucose Hemoglobin A1c % Lactic Acid Calcium 8.9 Phosphorus Magnesium 2.4 Ferritin Total Bilirubin 0.4 Direct Bilirubin AST 10 ALT 13 Alkaline Phosphatase 106 Lactate Dehydrogenase Total Creatine Kinase Troponin I High Sens C-Reactive Protein B-Natriuretic Peptide Total Protein 7.3 Albumin 4.1 Procalcitonin Urine Color Urine Appearance Urine pH Ur Specific [place] Urine Protein Urine Glucose (UA) Urine Ketones Urine Blood Urine Nitrite Ur Leukocyte Esterase Urine RBC Urine WBC Ur Squamous Epith Cells Urine Bacteria Urine Mucus Respiratory Panel [place] Adenovirus (Rapid PCR) B.pert (TEM-PCR) B.parapertussis DNA PCR C. pneumoniae DNA (PCR) Coronavirus (PCR) Coronavirus OC43 (PCR) Coronavirus HKU1 (PCR) Coronavirus 229E (PCR) Coronavirus NL63 (PCR) Human Metapneumovir PCR Influenza A (RT-PCR) Influenza B (RT-PCR) Ur L.pneumophila Ag M. pneumoniae (PCR) Parainfluenza 1 (PCR) Parainfluenza 2 (PCR) Parainfluenza 3 (PCR) Parainfluenza 4 (PCR) RSV (PCR) Entero/Rhino (PCR) SARS-CoV-2 RNA (RT-PCR) Blood Type Antibody Screen 05/11/20 05/11/20 05/11/20 12:57 12:57 16:35 WBC RBC Hgb Hct MCV MCH MCHC RDW Plt Count MPV Immature Gran % (Auto) Neut % (Auto) Lymph % (Auto) [place] % (Auto) Eos % (Auto) Baso % (Auto) Neut # (Auto) Lymph # (Auto) [place] # (Auto) Eos # (Auto) Baso # (Auto) Abs Immat Gran (auto) Absolute Neuts (auto) Absolute Nucleated RBC Nucleated RBC % (auto) Neutrophils % (Manual) Band Neutrophils % Lymphocytes % (Manual) Monocytes % (Manual) Neutrophils # (Manual) Lymphocytes # (Manual) Monocytes # (Manual) Platelet Estimate Plt Morphology Comment RBC Morphology Smear Tech's Comments ESR PT INR APTT D-Dimer ABG pH ABG pCO2 ABG pO2 ABG HCO3 ABG O2 Saturation ABG Base Excess VBG pH 7.26 L VBG pCO2 86 VBG Oxygen Liters/Min 7 L VBG pO2 62 VBG HCO3 38 VBG O2 Saturation 90.7 VBG Base Excess 6.0 Oxygen Given Sodium Potassium Chloride Carbon Dioxide Anion Gap BUN Creatinine Estim Creat Clear Calc Estimated GFR POC Glucose Random Glucose Fasting Glucose Estimat Average Glucose 194 Hemoglobin A1c % 8.4 Lactic Acid Calcium Phosphorus Magnesium Ferritin Total Bilirubin Direct Bilirubin AST ALT Alkaline Phosphatase Lactate Dehydrogenase Total Creatine Kinase Troponin I High Sens C-Reactive Protein B-Natriuretic Peptide Total Protein Albumin Procalcitonin Urine Color YELLOW Urine Appearance CLEAR Urine pH 6.0 Ur Specific [place] 1.025 Urine Protein TRACE Urine Glucose (UA) >=1000 H Urine Ketones 40 Urine Blood NEG Urine Nitrite NEG Ur Leukocyte Esterase NEG Urine RBC 0 Urine WBC 0-2 Ur Squamous Epith Cells TRACE Urine Bacteria NONE Urine Mucus 2+ Respiratory Panel [place] Adenovirus (Rapid PCR) B.pert (TEM-PCR) B.parapertussis DNA PCR C. pneumoniae DNA (PCR) Coronavirus (PCR) Coronavirus OC43 (PCR) Coronavirus HKU1 (PCR) Coronavirus 229E (PCR) Coronavirus NL63 (PCR) Human Metapneumovir PCR Influenza A (RT-PCR) Influenza B (RT-PCR) Ur L.pneumophila Ag M. pneumoniae (PCR) Parainfluenza 1 (PCR) Parainfluenza 2 (PCR) Parainfluenza 3 (PCR) Parainfluenza 4 (PCR) RSV (PCR) Entero/Rhino (PCR) SARS-CoV-2 RNA (RT-PCR) Blood Type Antibody Screen 05/11/20 05/11/20 05/11/20 17:45 19:07 19:08 WBC RBC Hgb Hct MCV MCH MCHC RDW Plt Count MPV Immature Gran % (Auto) Neut % (Auto) Lymph % (Auto) [place] % (Auto) Eos % (Auto) Baso % (Auto) Neut # (Auto) Lymph # (Auto) [place] # (Auto) Eos # (Auto) Baso # (Auto) Abs Immat Gran (auto) Absolute Neuts (auto) Absolute Nucleated RBC Nucleated RBC % (auto) Neutrophils % (Manual) Band Neutrophils % Lymphocytes % (Manual) Monocytes % (Manual) Neutrophils # (Manual) Lymphocytes # (Manual) Monocytes # (Manual) Platelet Estimate Plt Morphology Comment RBC Morphology Smear Tech's Comments ESR PT INR APTT D-Dimer ABG pH ABG pCO2 ABG pO2 ABG HCO3 ABG O2 Saturation ABG Base Excess VBG pH VBG pCO2 VBG Oxygen Liters/Min VBG pO2 VBG HCO3 VBG O2 Saturation VBG Base Excess Oxygen Given Sodium Potassium Chloride Carbon Dioxide Anion Gap BUN Creatinine Estim Creat Clear Calc Estimated GFR POC Glucose 359 H* 405 H* 409 H* Random Glucose Fasting Glucose Estimat Average Glucose Hemoglobin A1c % Lactic Acid Calcium Phosphorus Magnesium Ferritin Total Bilirubin Direct Bilirubin AST ALT Alkaline Phosphatase Lactate Dehydrogenase Total Creatine Kinase Troponin I High Sens C-Reactive Protein B-Natriuretic Peptide Total Protein Albumin Procalcitonin Urine Color Urine Appearance Urine pH Ur Specific [place] Urine Protein Urine Glucose (UA) Urine Ketones Urine Blood Urine Nitrite Ur Leukocyte Esterase Urine RBC Urine WBC Ur Squamous Epith Cells Urine Bacteria Urine Mucus Respiratory Panel [place] Adenovirus (Rapid PCR) B.pert (TEM-PCR) B.parapertussis DNA PCR C. pneumoniae DNA (PCR) Coronavirus (PCR) Coronavirus OC43 (PCR) Coronavirus HKU1 (PCR) Coronavirus 229E (PCR) Coronavirus NL63 (PCR) Human Metapneumovir PCR Influenza A (RT-PCR) Influenza B (RT-PCR) Ur L.pneumophila Ag M. pneumoniae (PCR) Parainfluenza 1 (PCR) Parainfluenza 2 (PCR) Parainfluenza 3 (PCR) Parainfluenza 4 (PCR) RSV (PCR) Entero/Rhino (PCR) SARS-CoV-2 RNA (RT-PCR) Blood Type Antibody Screen 05/11/20 05/11/20 05/12/20 21:06 22:27 00:05 WBC RBC Hgb Hct MCV MCH MCHC RDW Plt Count MPV Immature Gran % (Auto) Neut % (Auto) Lymph % (Auto) [place] % (Auto) Eos % (Auto) Baso % (Auto) Neut # (Auto) Lymph # (Auto) [place] # (Auto) Eos # (Auto) Baso # (Auto) Abs Immat Gran (auto) Absolute Neuts (auto) Absolute Nucleated RBC Nucleated RBC % (auto) Neutrophils % (Manual) Band Neutrophils % Lymphocytes % (Manual) Monocytes % (Manual) Neutrophils # (Manual) Lymphocytes # (Manual) Monocytes # (Manual) Platelet Estimate Plt Morphology Comment RBC Morphology Smear Tech's Comments ESR PT INR APTT D-Dimer ABG pH ABG pCO2 ABG pO2 ABG HCO3 ABG O2 Saturation ABG Base Excess VBG pH VBG pCO2 VBG Oxygen Liters/Min VBG pO2 VBG HCO3 VBG O2 Saturation VBG Base Excess Oxygen Given Sodium Potassium Chloride Carbon Dioxide Anion Gap BUN Creatinine Estim Creat Clear Calc Estimated GFR POC Glucose 327 H 239 H 215 H Random Glucose Fasting Glucose Estimat Average Glucose Hemoglobin A1c % Lactic Acid Calcium Phosphorus Magnesium Ferritin Total Bilirubin Direct Bilirubin AST ALT Alkaline Phosphatase Lactate Dehydrogenase Total Creatine Kinase Troponin I High Sens C-Reactive Protein B-Natriuretic Peptide Total Protein Albumin Procalcitonin Urine Color Urine Appearance Urine pH Ur Specific [place] Urine Protein Urine Glucose (UA) Urine Ketones Urine Blood Urine Nitrite Ur Leukocyte Esterase Urine RBC Urine WBC Ur Squamous Epith Cells Urine Bacteria Urine Mucus Respiratory Panel [place] Adenovirus (Rapid PCR) B.pert (TEM-PCR) B.parapertussis DNA PCR C. pneumoniae DNA (PCR) Coronavirus (PCR) Coronavirus OC43 (PCR) Coronavirus HKU1 (PCR) Coronavirus 229E (PCR) Coronavirus NL63 (PCR) Human Metapneumovir PCR Influenza A (RT-PCR) Influenza B (RT-PCR) Ur L.pneumophila Ag M. pneumoniae (PCR) Parainfluenza 1 (PCR) Parainfluenza 2 (PCR) Parainfluenza 3 (PCR) Parainfluenza 4 (PCR) RSV (PCR) Entero/Rhino (PCR) SARS-CoV-2 RNA (RT-PCR) Blood Type Antibody Screen 05/12/20 05/12/20 05/12/20 04:13 05:25 05:25 WBC 17.1 H RBC 5.22 Hgb 17.0 Hct 51.8 MCV 99.2 H MCH 32.6 MCHC 32.8 RDW 11.9 Plt Count 190 MPV 11.1 Immature Gran % (Auto) Neut % (Auto) Lymph % (Auto) [place] % (Auto) Eos % (Auto) Baso % (Auto) Neut # (Auto) Lymph # (Auto) [place] # (Auto) Eos # (Auto) Baso # (Auto) Abs Immat Gran (auto) Absolute Neuts (auto) Absolute Nucleated RBC 0.000 Nucleated RBC % (auto) 0.0 Neutrophils % (Manual) 80 H Band Neutrophils % 2 L Lymphocytes % (Manual) 5 L Monocytes % (Manual) 13 H Neutrophils # (Manual) 14.0 H Lymphocytes # (Manual) 0.9 Monocytes # (Manual) 2.2 H Platelet Estimate NORMAL Plt Morphology Comment NORMAL RBC Morphology NORMAL Smear Tech's Comments ESR PT INR APTT D-Dimer ABG pH ABG pCO2 ABG pO2 ABG HCO3 ABG O2 Saturation ABG Base Excess VBG pH VBG pCO2 VBG Oxygen Liters/Min VBG pO2 VBG HCO3 VBG O2 Saturation VBG Base Excess Oxygen Given Sodium 141 Potassium 4.8 Chloride 98 Carbon Dioxide 37 H Anion Gap 11 L BUN 11 D Creatinine 0.73 Estim Creat Clear Calc 152.3 Estimated GFR > 60 POC Glucose 159 H Random Glucose 164 H Fasting Glucose Estimat Average Glucose Hemoglobin A1c % Lactic Acid Calcium 8.7 Phosphorus 5.8 H Magnesium 2.3 Ferritin Total Bilirubin Direct Bilirubin AST ALT Alkaline Phosphatase Lactate Dehydrogenase Total Creatine Kinase Troponin I High Sens C-Reactive Protein B-Natriuretic Peptide Total Protein Albumin Procalcitonin Urine Color Urine Appearance Urine pH Ur Specific [place] Urine Protein Urine Glucose (UA) Urine Ketones Urine Blood Urine Nitrite Ur Leukocyte Esterase Urine RBC Urine WBC Ur Squamous Epith Cells Urine Bacteria Urine Mucus Respiratory Panel [place] Adenovirus (Rapid PCR) B.pert (TEM-PCR) B.parapertussis DNA PCR C. pneumoniae DNA (PCR) Coronavirus (PCR) Coronavirus OC43 (PCR) Coronavirus HKU1 (PCR) Coronavirus 229E (PCR) Coronavirus NL63 (PCR) Human Metapneumovir PCR Influenza A (RT-PCR) Influenza B (RT-PCR) Ur L.pneumophila Ag M. pneumoniae (PCR) Parainfluenza 1 (PCR) Parainfluenza 2 (PCR) Parainfluenza 3 (PCR) Parainfluenza 4 (PCR) RSV (PCR) Entero/Rhino (PCR) SARS-CoV-2 RNA (RT-PCR) Blood Type Antibody Screen 05/12/20 05/12/20 05/12/20 05:45 08:30 08:30 WBC RBC Hgb Hct MCV MCH MCHC RDW Plt Count MPV Immature Gran % (Auto) Neut % (Auto) Lymph % (Auto) [place] % (Auto) Eos % (Auto) Baso % (Auto) Neut # (Auto) Lymph # (Auto) [place] # (Auto) Eos # (Auto) Baso # (Auto) Abs Immat Gran (auto) Absolute Neuts (auto) Absolute Nucleated RBC Nucleated RBC % (auto) Neutrophils % (Manual) Band Neutrophils % Lymphocytes % (Manual) Monocytes % (Manual) Neutrophils # (Manual) Lymphocytes # (Manual) Monocytes # (Manual) Platelet Estimate Plt Morphology Comment RBC Morphology Smear Tech's Comments ESR PT INR APTT D-Dimer ABG pH ABG pCO2 ABG pO2 ABG HCO3 ABG O2 Saturation ABG Base Excess VBG pH 7.29 L VBG pCO2 74 VBG Oxygen Liters/Min VBG pO2 75 VBG HCO3 35 VBG O2 Saturation 94.4 VBG Base Excess 5.0 Oxygen Given Sodium Potassium Chloride Carbon Dioxide Anion Gap BUN Creatinine Estim Creat Clear Calc Estimated GFR POC Glucose Random Glucose Fasting Glucose Estimat Average Glucose Hemoglobin A1c % Lactic Acid Calcium Phosphorus Magnesium Ferritin Total Bilirubin Direct Bilirubin AST ALT Alkaline Phosphatase Lactate Dehydrogenase Total Creatine Kinase Troponin I High Sens C-Reactive Protein B-Natriuretic Peptide Total Protein Albumin Procalcitonin Urine Color Urine Appearance Urine pH Ur Specific [place] Urine Protein Urine Glucose (UA) Urine Ketones Urine Blood Urine Nitrite Ur Leukocyte Esterase Urine RBC Urine WBC Ur Squamous Epith Cells Urine Bacteria Urine Mucus Respiratory Panel [place] See Note Adenovirus (Rapid PCR) Not Detected B.pert (TEM-PCR) Not Detected B.parapertussis DNA PCR Not Detected C. pneumoniae DNA (PCR) Not Detected Coronavirus (PCR) NEGATIVE Coronavirus OC43 (PCR) Not Detected Coronavirus HKU1 (PCR) Not Detected Coronavirus 229E (PCR) Not Detected Coronavirus NL63 (PCR) Not Detected Human Metapneumovir PCR Not Detected Influenza A (RT-PCR) Not Detected Influenza B (RT-PCR) Not Detected Ur L.pneumophila Ag M. pneumoniae (PCR) Not Detected Parainfluenza 1 (PCR) Not Detected Parainfluenza 2 (PCR) Not Detected Parainfluenza 3 (PCR) Not Detected Parainfluenza 4 (PCR) Not Detected RSV (PCR) Not Detected Entero/Rhino (PCR) Not Detected SARS-CoV-2 RNA (RT-PCR) Not Detected Blood Type Antibody Screen 05/12/20 05/12/20 05/12/20 08:41 10:21 10:21 WBC 17.0 H RBC 5.16 Hgb 16.6 Hct 51.5 MCV 99.8 H MCH 32.2 MCHC 32.2 RDW 11.9 Plt Count 165 MPV 11.0 Immature Gran % (Auto) 0.6 H Neut % (Auto) 82.1 H Lymph % (Auto) 7.8 L [place] % (Auto) 9.2 Eos % (Auto) 0.1 Baso % (Auto) 0.2 Neut # (Auto) 14.0 H Lymph # (Auto) 1.3 [place] # (Auto) 1.6 H Eos # (Auto) 0.0 Baso # (Auto) 0.0 Abs Immat Gran (auto) 0.10 H Absolute Neuts (auto) Absolute Nucleated RBC 0.000 Nucleated RBC % (auto) 0.0 Neutrophils % (Manual) Band Neutrophils % Lymphocytes % (Manual) Monocytes % (Manual) Neutrophils # (Manual) Lymphocytes # (Manual) Monocytes # (Manual) Platelet Estimate Plt Morphology Comment RBC Morphology Smear Tech's Comments VERIFIED ESR PT INR APTT D-Dimer 441 ABG pH ABG pCO2 ABG pO2 ABG HCO3 ABG O2 Saturation ABG Base Excess VBG pH VBG pCO2 VBG Oxygen Liters/Min VBG pO2 VBG HCO3 VBG O2 Saturation VBG Base Excess Oxygen Given Sodium Potassium Chloride Carbon Dioxide Anion Gap BUN Creatinine Estim Creat Clear Calc Estimated GFR POC Glucose 149 H Random Glucose Fasting Glucose Estimat Average Glucose Hemoglobin A1c % Lactic Acid Calcium Phosphorus Magnesium Ferritin Total Bilirubin Direct Bilirubin AST ALT Alkaline Phosphatase Lactate Dehydrogenase Total Creatine Kinase Troponin I High Sens C-Reactive Protein B-Natriuretic Peptide Total Protein Albumin Procalcitonin Urine Color Urine Appearance Urine pH Ur Specific [place] Urine Protein Urine Glucose (UA) Urine Ketones Urine Blood Urine Nitrite Ur Leukocyte Esterase Urine RBC Urine WBC Ur Squamous Epith Cells Urine Bacteria Urine Mucus Respiratory Panel [place] Adenovirus (Rapid PCR) B.pert (TEM-PCR) B.parapertussis DNA PCR C. pneumoniae DNA (PCR) Coronavirus (PCR) Coronavirus OC43 (PCR) Coronavirus HKU1 (PCR) Coronavirus 229E (PCR) Coronavirus NL63 (PCR) Human Metapneumovir PCR Influenza A (RT-PCR) Influenza B (RT-PCR) Ur L.pneumophila Ag M. pneumoniae (PCR) Parainfluenza 1 (PCR) Parainfluenza 2 (PCR) Parainfluenza 3 (PCR) Parainfluenza 4 (PCR) RSV (PCR) Entero/Rhino (PCR) SARS-CoV-2 RNA (RT-PCR) Blood Type Antibody Screen 05/12/20 05/12/20 05/12/20 10:21 10:21 10:21 WBC RBC Hgb Hct MCV MCH MCHC RDW Plt Count MPV Immature Gran % (Auto) Neut % (Auto) Lymph % (Auto) [place] % (Auto) Eos % (Auto) Baso % (Auto) Neut # (Auto) Lymph # (Auto) [place] # (Auto) Eos # (Auto) Baso # (Auto) Abs Immat Gran (auto) Absolute Neuts (auto) Absolute Nucleated RBC Nucleated RBC % (auto) Neutrophils % (Manual) Band Neutrophils % Lymphocytes % (Manual) Monocytes % (Manual) Neutrophils # (Manual) Lymphocytes # (Manual) Monocytes # (Manual) Platelet Estimate Plt Morphology Comment RBC Morphology Smear Tech's Comments ESR 6 PT INR APTT D-Dimer ABG pH ABG pCO2 ABG pO2 ABG HCO3 ABG O2 Saturation ABG Base Excess VBG pH VBG pCO2 VBG Oxygen Liters/Min VBG pO2 VBG HCO3 VBG O2 Saturation VBG Base Excess Oxygen Given Sodium Potassium Chloride Carbon Dioxide Anion Gap BUN Creatinine Estim Creat Clear Calc Estimated GFR POC Glucose Random Glucose 209 H Fasting Glucose Estimat Average Glucose Hemoglobin A1c % Lactic Acid Calcium Phosphorus 4.4 Magnesium 2.0 Ferritin Total Bilirubin Direct Bilirubin AST ALT Alkaline Phosphatase Lactate Dehydrogenase 149 Total Creatine Kinase 54 Troponin I High Sens C-Reactive Protein 2.55 H B-Natriuretic Peptide Total Protein Albumin Procalcitonin 0.02 Urine Color Urine Appearance Urine pH Ur Specific [place] Urine Protein Urine Glucose (UA) Urine Ketones Urine Blood Urine Nitrite Ur Leukocyte Esterase Urine RBC Urine WBC Ur Squamous Epith Cells Urine Bacteria Urine Mucus Respiratory Panel [place] Adenovirus (Rapid PCR) B.pert (TEM-PCR) B.parapertussis DNA PCR C. pneumoniae DNA (PCR) Coronavirus (PCR) Coronavirus OC43 (PCR) Coronavirus HKU1 (PCR) Coronavirus 229E (PCR) Coronavirus NL63 (PCR) Human Metapneumovir PCR Influenza A (RT-PCR) Influenza B (RT-PCR) Ur L.pneumophila Ag M. pneumoniae (PCR) Parainfluenza 1 (PCR) Parainfluenza 2 (PCR) Parainfluenza 3 (PCR) Parainfluenza 4 (PCR) RSV (PCR) Entero/Rhino (PCR) SARS-CoV-2 RNA (RT-PCR) Blood Type Antibody Screen 05/12/20 05/12/20 05/12/20 11:50 14:45 17:35 WBC RBC Hgb Hct MCV MCH MCHC RDW Plt Count MPV Immature Gran % (Auto) Neut % (Auto) Lymph % (Auto) [place] % (Auto) Eos % (Auto) Baso % (Auto) Neut # (Auto) Lymph # (Auto) [place] # (Auto) Eos # (Auto) Baso # (Auto) Abs Immat Gran (auto) Absolute Neuts (auto) Absolute Nucleated RBC Nucleated RBC % (auto) Neutrophils % (Manual) Band Neutrophils % Lymphocytes % (Manual) Monocytes % (Manual) Neutrophils # (Manual) Lymphocytes # (Manual) Monocytes # (Manual) Platelet Estimate Plt Morphology Comment RBC Morphology Smear Tech's Comments ESR PT INR APTT D-Dimer ABG pH 7.29 L ABG pCO2 77 H* ABG pO2 73 L ABG HCO3 37 H ABG O2 Saturation 94.7 ABG Base Excess 6.4 VBG pH VBG pCO2 VBG Oxygen Liters/Min VBG pO2 VBG HCO3 VBG O2 Saturation VBG Base Excess Oxygen Given 55% Sodium Potassium Chloride Carbon Dioxide Anion Gap BUN Creatinine Estim Creat Clear Calc Estimated GFR POC Glucose 256 H 283 H Random Glucose Fasting Glucose Estimat Average Glucose Hemoglobin A1c % Lactic Acid Calcium Phosphorus Magnesium Ferritin Total Bilirubin Direct Bilirubin AST ALT Alkaline Phosphatase Lactate Dehydrogenase Total Creatine Kinase Troponin I High Sens C-Reactive Protein B-Natriuretic Peptide Total Protein Albumin Procalcitonin Urine Color Urine Appearance Urine pH Ur Specific [place] Urine Protein Urine Glucose (UA) Urine Ketones Urine Blood Urine Nitrite Ur Leukocyte Esterase Urine RBC Urine WBC Ur Squamous Epith Cells Urine Bacteria Urine Mucus Respiratory Panel [place] Adenovirus (Rapid PCR) B.pert (TEM-PCR) B.parapertussis DNA PCR C. pneumoniae DNA (PCR) Coronavirus (PCR) Coronavirus OC43 (PCR) Coronavirus HKU1 (PCR) Coronavirus 229E (PCR) Coronavirus NL63 (PCR) Human Metapneumovir PCR Influenza A (RT-PCR) Influenza B (RT-PCR) Ur L.pneumophila Ag M. pneumoniae (PCR) Parainfluenza 1 (PCR) Parainfluenza 2 (PCR) Parainfluenza 3 (PCR) Parainfluenza 4 (PCR) RSV (PCR) Entero/Rhino (PCR) SARS-CoV-2 RNA (RT-PCR) Blood Type Antibody Screen 05/12/20 05/12/20 05/12/20 17:50 22:44 22:44 WBC RBC Hgb Hct MCV MCH MCHC RDW Plt Count MPV Immature Gran % (Auto) Neut % (Auto) Lymph % (Auto) [place] % (Auto) Eos % (Auto) Baso % (Auto) Neut # (Auto) Lymph # (Auto) [place] # (Auto) Eos # (Auto) Baso # (Auto) Abs Immat Gran (auto) Absolute Neuts (auto) Absolute Nucleated RBC Nucleated RBC % (auto) Neutrophils % (Manual) Band Neutrophils % Lymphocytes % (Manual) Monocytes % (Manual) Neutrophils # (Manual) Lymphocytes # (Manual) Monocytes # (Manual) Platelet Estimate Plt Morphology Comment RBC Morphology Smear Tech's Comments ESR PT INR APTT D-Dimer ABG pH ABG pCO2 ABG pO2 ABG HCO3 ABG O2 Saturation ABG Base Excess VBG pH VBG pCO2 VBG Oxygen Liters/Min VBG pO2 VBG HCO3 VBG O2 Saturation VBG Base Excess Oxygen Given Sodium Potassium Chloride Carbon Dioxide Anion Gap BUN Creatinine Estim Creat Clear Calc Estimated GFR POC Glucose 250 H 250 H Random Glucose Fasting Glucose Estimat Average Glucose Hemoglobin A1c % Lactic Acid Calcium Phosphorus Magnesium Ferritin Total Bilirubin Direct Bilirubin AST ALT Alkaline Phosphatase Lactate Dehydrogenase Total Creatine Kinase Troponin I High Sens C-Reactive Protein B-Natriuretic Peptide Total Protein Albumin Procalcitonin Urine Color Urine Appearance Urine pH Ur Specific [place] Urine Protein Urine Glucose (UA) Urine Ketones Urine Blood Urine Nitrite Ur Leukocyte Esterase Urine RBC Urine WBC Ur Squamous Epith Cells Urine Bacteria Urine Mucus Respiratory Panel [place] Adenovirus (Rapid PCR) B.pert (TEM-PCR) B.parapertussis DNA PCR C. pneumoniae DNA (PCR) Coronavirus (PCR) Coronavirus OC43 (PCR) Coronavirus HKU1 (PCR) Coronavirus 229E (PCR) Coronavirus NL63 (PCR) Human Metapneumovir PCR Influenza A (RT-PCR) Influenza B (RT-PCR) Ur L.pneumophila Ag Not Detected M. pneumoniae (PCR) Parainfluenza 1 (PCR) Parainfluenza 2 (PCR) Parainfluenza 3 (PCR) Parainfluenza 4 (PCR) RSV (PCR) Entero/Rhino (PCR) SARS-CoV-2 RNA (RT-PCR) Blood Type Antibody Screen 05/13/20 05/13/20 05/13/20 05:20 05:20 05:20 WBC 12.8 H RBC 4.70 Hgb 15.6 Hct 47.9 MCV 101.9 H MCH 33.2 H MCHC 32.6 RDW 12.1 Plt Count 149 L MPV 11.1 Immature Gran % (Auto) 0.4 Neut % (Auto) 72.9 Lymph % (Auto) 17.4 L [place] % (Auto) 8.5 Eos % (Auto) 0.6 Baso % (Auto) 0.2 Neut # (Auto) 9.3 H Lymph # (Auto) 2.2 [place] # (Auto) 1.1 Eos # (Auto) 0.1 Baso # (Auto) 0.0 Abs Immat Gran (auto) 0.05 H Absolute Neuts (auto) Absolute Nucleated RBC 0.000 Nucleated RBC % (auto) 0.0 Neutrophils % (Manual) Band Neutrophils % Lymphocytes % (Manual) Monocytes % (Manual) Neutrophils # (Manual) Lymphocytes # (Manual) Monocytes # (Manual) Platelet Estimate Plt Morphology Comment RBC Morphology Smear Tech's Comments ESR PT INR APTT D-Dimer ABG pH ABG pCO2 ABG pO2 ABG HCO3 ABG O2 Saturation ABG Base Excess VBG pH 7.33 VBG pCO2 76 VBG Oxygen Liters/Min VBG pO2 86 VBG HCO3 40 VBG O2 Saturation 96.5 VBG Base Excess 9.7 Oxygen Given Sodium 143 Potassium 3.5 D Chloride 99 Carbon Dioxide 38 H Anion Gap 10 L BUN 15 Creatinine 0.71 Estim Creat Clear Calc 157.2 Estimated GFR > 60 POC Glucose Random Glucose 114 D Fasting Glucose Estimat Average Glucose Hemoglobin A1c % Lactic Acid Calcium 8.4 Phosphorus 4.6 H Magnesium 2.0 Ferritin Total Bilirubin Direct Bilirubin AST ALT Alkaline Phosphatase Lactate Dehydrogenase Total Creatine Kinase Troponin I High Sens C-Reactive Protein B-Natriuretic Peptide Total Protein Albumin Procalcitonin Urine Color Urine Appearance Urine pH Ur Specific [place] Urine Protein Urine Glucose (UA) Urine Ketones Urine Blood Urine Nitrite Ur Leukocyte Esterase Urine RBC Urine WBC Ur Squamous Epith Cells Urine Bacteria Urine Mucus Respiratory Panel [place] Adenovirus (Rapid PCR) B.pert (TEM-PCR) B.parapertussis DNA PCR C. pneumoniae DNA (PCR) Coronavirus (PCR) Coronavirus OC43 (PCR) Coronavirus HKU1 (PCR) Coronavirus 229E (PCR) Coronavirus NL63 (PCR) Human Metapneumovir PCR Influenza A (RT-PCR) Influenza B (RT-PCR) Ur L.pneumophila Ag M. pneumoniae (PCR) Parainfluenza 1 (PCR) Parainfluenza 2 (PCR) Parainfluenza 3 (PCR) Parainfluenza 4 (PCR) RSV (PCR) Entero/Rhino (PCR) SARS-CoV-2 RNA (RT-PCR) Blood Type Antibody Screen 05/13/20 05/13/20 05/13/20 06:02 08:07 11:38 WBC RBC Hgb Hct MCV MCH MCHC RDW Plt Count MPV Immature Gran % (Auto) Neut % (Auto) Lymph % (Auto) [place] % (Auto) Eos % (Auto) Baso % (Auto) Neut # (Auto) Lymph # (Auto) [place] # (Auto) Eos # (Auto) Baso # (Auto) Abs Immat Gran (auto) Absolute Neuts (auto) Absolute Nucleated RBC Nucleated RBC % (auto) Neutrophils % (Manual) Band Neutrophils % Lymphocytes % (Manual) Monocytes % (Manual) Neutrophils # (Manual) Lymphocytes # (Manual) Monocytes # (Manual) Platelet Estimate Plt Morphology Comment RBC Morphology Smear Tech's Comments ESR PT INR APTT D-Dimer ABG pH ABG pCO2 ABG pO2 ABG HCO3 ABG O2 Saturation ABG Base Excess VBG pH VBG pCO2 VBG Oxygen Liters/Min VBG pO2 VBG HCO3 VBG O2 Saturation VBG Base Excess Oxygen Given Sodium Potassium Chloride Carbon Dioxide Anion Gap BUN Creatinine Estim Creat Clear Calc Estimated GFR POC Glucose 182 H 109 280 H Random Glucose Fasting Glucose Estimat Average Glucose Hemoglobin A1c % Lactic Acid Calcium Phosphorus Magnesium Ferritin Total Bilirubin Direct Bilirubin AST ALT Alkaline Phosphatase Lactate Dehydrogenase Total Creatine Kinase Troponin I High Sens C-Reactive Protein B-Natriuretic Peptide Total Protein Albumin Procalcitonin Urine Color Urine Appearance Urine pH Ur Specific [place] Urine Protein Urine Glucose (UA) Urine Ketones Urine Blood Urine Nitrite Ur Leukocyte Esterase Urine RBC Urine WBC Ur Squamous Epith Cells Urine Bacteria Urine Mucus Respiratory Panel [place] Adenovirus (Rapid PCR) B.pert (TEM-PCR) B.parapertussis DNA PCR C. pneumoniae DNA (PCR) Coronavirus (PCR) Coronavirus OC43 (PCR) Coronavirus HKU1 (PCR) Coronavirus 229E (PCR) Coronavirus NL63 (PCR) Human Metapneumovir PCR Influenza A (RT-PCR) Influenza B (RT-PCR) Ur L.pneumophila Ag M. pneumoniae (PCR) Parainfluenza 1 (PCR) Parainfluenza 2 (PCR) Parainfluenza 3 (PCR) Parainfluenza 4 (PCR) RSV (PCR) Entero/Rhino (PCR) SARS-CoV-2 RNA (RT-PCR) Blood Type Antibody Screen 05/13/20 05/13/20 05/13/20 16:49 20:59 22:27 WBC RBC Hgb Hct MCV MCH MCHC RDW Plt Count MPV Immature Gran % (Auto) Neut % (Auto) Lymph % (Auto) [place] % (Auto) Eos % (Auto) Baso % (Auto) Neut # (Auto) Lymph # (Auto) [place] # (Auto) Eos # (Auto) Baso # (Auto) Abs Immat Gran (auto) Absolute Neuts (auto) Absolute Nucleated RBC Nucleated RBC % (auto) Neutrophils % (Manual) Band Neutrophils % Lymphocytes % (Manual) Monocytes % (Manual) Neutrophils # (Manual) Lymphocytes # (Manual) Monocytes # (Manual) Platelet Estimate Plt Morphology Comment RBC Morphology Smear Tech's Comments ESR PT INR APTT D-Dimer ABG pH ABG pCO2 ABG pO2 ABG HCO3 ABG O2 Saturation ABG Base Excess VBG pH 7.38 VBG pCO2 60 VBG Oxygen Liters/Min Not Reportable VBG pO2 80 VBG HCO3 35 VBG O2 Saturation 96.1 VBG Base Excess 7.4 Oxygen Given Sodium Potassium Chloride Carbon Dioxide Anion Gap BUN Creatinine Estim Creat Clear Calc Estimated GFR POC Glucose 267 H 217 H Random Glucose Fasting Glucose Estimat Average Glucose Hemoglobin A1c % Lactic Acid Calcium Phosphorus Magnesium Ferritin Total Bilirubin Direct Bilirubin AST ALT Alkaline Phosphatase Lactate Dehydrogenase Total Creatine Kinase Troponin I High Sens C-Reactive Protein B-Natriuretic Peptide Total Protein Albumin Procalcitonin Urine Color Urine Appearance Urine pH Ur Specific [place] Urine Protein Urine Glucose (UA) Urine Ketones Urine Blood Urine Nitrite Ur Leukocyte Esterase Urine RBC Urine WBC Ur Squamous Epith Cells Urine Bacteria Urine Mucus Respiratory Panel [place] Adenovirus (Rapid PCR) B.pert (TEM-PCR) B.parapertussis DNA PCR C. pneumoniae DNA (PCR) Coronavirus (PCR) Coronavirus OC43 (PCR) Coronavirus HKU1 (PCR) Coronavirus 229E (PCR) Coronavirus NL63 (PCR) Human Metapneumovir PCR Influenza A (RT-PCR) Influenza B (RT-PCR) Ur L.pneumophila Ag M. pneumoniae (PCR) Parainfluenza 1 (PCR) Parainfluenza 2 (PCR) Parainfluenza 3 (PCR) Parainfluenza 4 (PCR) RSV (PCR) Entero/Rhino (PCR) SARS-CoV-2 RNA (RT-PCR) Blood Type Antibody Screen 05/14/20 05/14/20 05/14/20 05:31 05:31 05:37 WBC 10.7 RBC 4.79 Hgb 15.6 Hct 48.1 MCV 100.4 H MCH 32.6 MCHC 32.4 RDW 12.1 Plt Count 143 L MPV 11.0 Immature Gran % (Auto) 0.3 Neut % (Auto) 64.9 Lymph % (Auto) 23.1 [place] % (Auto) 10.6 Eos % (Auto) 0.8 Baso % (Auto) 0.3 Neut # (Auto) Lymph # (Auto) 2.5 [place] # (Auto) 1.1 Eos # (Auto) 0.1 Baso # (Auto) 0.0 Abs Immat Gran (auto) 0.03 Absolute Neuts (auto) 7.0 Absolute Nucleated RBC 0.000 Nucleated RBC % (auto) 0.0 Neutrophils % (Manual) Band Neutrophils % Lymphocytes % (Manual) Monocytes % (Manual) Neutrophils # (Manual) Lymphocytes # (Manual) Monocytes # (Manual) Platelet Estimate Plt Morphology Comment RBC Morphology Smear Tech's Comments ESR PT INR APTT D-Dimer ABG pH ABG pCO2 ABG pO2 ABG HCO3 ABG O2 Saturation ABG Base Excess VBG pH 7.33 VBG pCO2 75 VBG Oxygen Liters/Min Not Reportable VBG pO2 78 VBG HCO3 38 VBG O2 Saturation 95.4 VBG Base Excess 8.7 Oxygen Given Sodium 143 Potassium 4.2 Chloride 100 Carbon Dioxide 38 H Anion Gap 9 L BUN 12 Creatinine 0.70 Estim Creat Clear Calc 155.0 Estimated GFR > 60 POC Glucose Random Glucose 155 H D Fasting Glucose Estimat Average Glucose Hemoglobin A1c % Lactic Acid Calcium 8.6 Phosphorus 4.8 H Magnesium 2.0 Ferritin Total Bilirubin Direct Bilirubin AST ALT Alkaline Phosphatase Lactate Dehydrogenase Total Creatine Kinase Troponin I High Sens C-Reactive Protein B-Natriuretic Peptide Total Protein Albumin Procalcitonin Urine Color Urine Appearance Urine pH Ur Specific [place] Urine Protein Urine Glucose (UA) Urine Ketones Urine Blood Urine Nitrite Ur Leukocyte Esterase Urine RBC Urine WBC Ur Squamous Epith Cells Urine Bacteria Urine Mucus Respiratory Panel [place] Adenovirus (Rapid PCR) B.pert (TEM-PCR) B.parapertussis DNA PCR C. pneumoniae DNA (PCR) Coronavirus (PCR) Coronavirus OC43 (PCR) Coronavirus HKU1 (PCR) Coronavirus 229E (PCR) Coronavirus NL63 (PCR) Human Metapneumovir PCR Influenza A (RT-PCR) Influenza B (RT-PCR) Ur L.pneumophila Ag M. pneumoniae (PCR) Parainfluenza 1 (PCR) Parainfluenza 2 (PCR) Parainfluenza 3 (PCR) Parainfluenza 4 (PCR) RSV (PCR) Entero/Rhino (PCR) SARS-CoV-2 RNA (RT-PCR) Blood Type Antibody Screen 05/14/20 05/14/20 05/14/20 07:13 11:41 14:54 WBC RBC Hgb Hct MCV MCH MCHC RDW Plt Count MPV Immature Gran % (Auto) Neut % (Auto) Lymph % (Auto) [place] % (Auto) Eos % (Auto) Baso % (Auto) Neut # (Auto) Lymph # (Auto) [place] # (Auto) Eos # (Auto) Baso # (Auto) Abs Immat Gran (auto) Absolute Neuts (auto) Absolute Nucleated RBC Nucleated RBC % (auto) Neutrophils % (Manual) Band Neutrophils % Lymphocytes % (Manual) Monocytes % (Manual) Neutrophils # (Manual) Lymphocytes # (Manual) Monocytes # (Manual) Platelet Estimate Plt Morphology Comment RBC Morphology Smear Tech's Comments ESR PT INR APTT D-Dimer ABG pH ABG pCO2 ABG pO2 ABG HCO3 ABG O2 Saturation ABG Base Excess VBG pH 7.30 L VBG pCO2 71 VBG Oxygen Liters/Min TNP VBG pO2 40 VBG HCO3 34 VBG O2 Saturation 73.4 VBG Base Excess 4.4 Oxygen Given Sodium Potassium Chloride Carbon Dioxide Anion Gap BUN Creatinine Estim Creat Clear Calc Estimated GFR POC Glucose 155 H 196 H Random Glucose Fasting Glucose Estimat Average Glucose Hemoglobin A1c % Lactic Acid Calcium Phosphorus Magnesium Ferritin Total Bilirubin Direct Bilirubin AST ALT Alkaline Phosphatase Lactate Dehydrogenase Total Creatine Kinase Troponin I High Sens C-Reactive Protein B-Natriuretic Peptide Total Protein Albumin Procalcitonin Urine Color Urine Appearance Urine pH Ur Specific [place] Urine Protein Urine Glucose (UA) Urine Ketones Urine Blood Urine Nitrite Ur Leukocyte Esterase Urine RBC Urine WBC Ur Squamous Epith Cells Urine Bacteria Urine Mucus Respiratory Panel [place] Adenovirus (Rapid PCR) B.pert (TEM-PCR) B.parapertussis DNA PCR C. pneumoniae DNA (PCR) Coronavirus (PCR) Coronavirus OC43 (PCR) Coronavirus HKU1 (PCR) Coronavirus 229E (PCR) Coronavirus NL63 (PCR) Human Metapneumovir PCR Influenza A (RT-PCR) Influenza B (RT-PCR) Ur L.pneumophila Ag M. pneumoniae (PCR) Parainfluenza 1 (PCR) Parainfluenza 2 (PCR) Parainfluenza 3 (PCR) Parainfluenza 4 (PCR) RSV (PCR) Entero/Rhino (PCR) SARS-CoV-2 RNA (RT-PCR) Blood Type Antibody Screen 05/14/20 05/14/20 05/14/20 16:51 17:24 20:48 WBC RBC Hgb Hct MCV MCH MCHC RDW Plt Count MPV Immature Gran % (Auto) Neut % (Auto) Lymph % (Auto) [place] % (Auto) Eos % (Auto) Baso % (Auto) Neut # (Auto) Lymph # (Auto) [place] # (Auto) Eos # (Auto) Baso # (Auto) Abs Immat Gran (auto) Absolute Neuts (auto) Absolute Nucleated RBC Nucleated RBC % (auto) Neutrophils % (Manual) Band Neutrophils % Lymphocytes % (Manual) Monocytes % (Manual) Neutrophils # (Manual) Lymphocytes # (Manual) Monocytes # (Manual) Platelet Estimate Plt Morphology Comment RBC Morphology Smear Tech's Comments ESR PT INR APTT D-Dimer ABG pH 7.41 ABG pCO2 49 H ABG pO2 84 ABG HCO3 31 H ABG O2 Saturation 97.1 ABG Base Excess 4.5 VBG pH VBG pCO2 VBG Oxygen Liters/Min VBG pO2 VBG HCO3 VBG O2 Saturation VBG Base Excess Oxygen Given 40% Sodium Potassium Chloride Carbon Dioxide Anion Gap BUN Creatinine Estim Creat Clear Calc Estimated GFR POC Glucose 258 H 228 H Random Glucose Fasting Glucose Estimat Average Glucose Hemoglobin A1c % Lactic Acid Calcium Phosphorus Magnesium Ferritin Total Bilirubin Direct Bilirubin AST ALT Alkaline Phosphatase Lactate Dehydrogenase Total Creatine Kinase Troponin I High Sens C-Reactive Protein B-Natriuretic Peptide Total Protein Albumin Procalcitonin Urine Color Urine Appearance Urine pH Ur Specific [place] Urine Protein Urine Glucose (UA) Urine Ketones Urine Blood Urine Nitrite Ur Leukocyte Esterase Urine RBC Urine WBC Ur Squamous Epith Cells Urine Bacteria Urine Mucus Respiratory Panel [place] Adenovirus (Rapid PCR) B.pert (TEM-PCR) B.parapertussis DNA PCR C. pneumoniae DNA (PCR) Coronavirus (PCR) Coronavirus OC43 (PCR) Coronavirus HKU1 (PCR) Coronavirus 229E (PCR) Coronavirus NL63 (PCR) Human Metapneumovir PCR Influenza A (RT-PCR) Influenza B (RT-PCR) Ur L.pneumophila Ag M. pneumoniae (PCR) Parainfluenza 1 (PCR) Parainfluenza 2 (PCR) Parainfluenza 3 (PCR) Parainfluenza 4 (PCR) RSV (PCR) Entero/Rhino (PCR) SARS-CoV-2 RNA (RT-PCR) Blood Type Antibody Screen 05/15/20 05/15/20 05/15/20 04:24 05:28 05:28 WBC 9.8 RBC 4.72 Hgb 15.5 Hct 47.3 MCV 100.2 H MCH 32.8 MCHC 32.8 RDW 12.0 Plt Count 150 L MPV 11.3 Immature Gran % (Auto) 0.2 Neut % (Auto) 62.8 Lymph % (Auto) 26.2 [place] % (Auto) 9.5 Eos % (Auto) 1.1 Baso % (Auto) 0.2 Neut # (Auto) Lymph # (Auto) 2.6 [place] # (Auto) 0.9 Eos # (Auto) 0.1 Baso # (Auto) 0.0 Abs Immat Gran (auto) 0.02 Absolute Neuts (auto) 6.2 Absolute Nucleated RBC 0.000 Nucleated RBC % (auto) 0.0 Neutrophils % (Manual) Band Neutrophils % Lymphocytes % (Manual) Monocytes % (Manual) Neutrophils # (Manual) Lymphocytes # (Manual) Monocytes # (Manual) Platelet Estimate Plt Morphology Comment RBC Morphology Smear Tech's Comments ESR PT INR APTT D-Dimer ABG pH 7.38 ABG pCO2 61 H* ABG pO2 71 L ABG HCO3 35 H ABG O2 Saturation 95.1 ABG Base Excess 7.7 VBG pH VBG pCO2 VBG Oxygen Liters/Min VBG pO2 VBG HCO3 VBG O2 Saturation VBG Base Excess Oxygen Given 2 L Sodium 140 Potassium 3.5 Chloride 100 Carbon Dioxide 33 H Anion Gap 11 L BUN 15 Creatinine 0.69 Estim Creat Clear Calc 159.2 Estimated GFR > 60 POC Glucose Random Glucose 151 H Fasting Glucose Estimat Average Glucose Hemoglobin A1c % Lactic Acid Calcium 8.5 Phosphorus 4.3 Magnesium 2.0 Ferritin Total Bilirubin Direct Bilirubin AST ALT Alkaline Phosphatase Lactate Dehydrogenase Total Creatine Kinase Troponin I High Sens C-Reactive Protein B-Natriuretic Peptide Total Protein Albumin Procalcitonin Urine Color Urine Appearance Urine pH Ur Specific [place] Urine Protein Urine Glucose (UA) Urine Ketones Urine Blood Urine Nitrite Ur Leukocyte Esterase Urine RBC Urine WBC Ur Squamous Epith Cells Urine Bacteria Urine Mucus Respiratory Panel [place] Adenovirus (Rapid PCR) B.pert (TEM-PCR) B.parapertussis DNA PCR C. pneumoniae DNA (PCR) Coronavirus (PCR) Coronavirus OC43 (PCR) Coronavirus HKU1 (PCR) Coronavirus 229E (PCR) Coronavirus NL63 (PCR) Human Metapneumovir PCR Influenza A (RT-PCR) Influenza B (RT-PCR) Ur L.pneumophila Ag M. pneumoniae (PCR) Parainfluenza 1 (PCR) Parainfluenza 2 (PCR) Parainfluenza 3 (PCR) Parainfluenza 4 (PCR) RSV (PCR) Entero/Rhino (PCR) SARS-CoV-2 RNA (RT-PCR) Blood Type Antibody Screen 05/15/20 05/15/20 05/15/20 05:28 07:38 11:27 WBC RBC Hgb Hct MCV MCH MCHC RDW Plt Count MPV Immature Gran % (Auto) Neut % (Auto) Lymph % (Auto) [place] % (Auto) Eos % (Auto) Baso % (Auto) Neut # (Auto) Lymph # (Auto) [place] # (Auto) Eos # (Auto) Baso # (Auto) Abs Immat Gran (auto) Absolute Neuts (auto) Absolute Nucleated RBC Nucleated RBC % (auto) Neutrophils % (Manual) Band Neutrophils % Lymphocytes % (Manual) Monocytes % (Manual) Neutrophils # (Manual) Lymphocytes # (Manual) Monocytes # (Manual) Platelet Estimate Plt Morphology Comment RBC Morphology Smear Tech's Comments ESR PT INR APTT D-Dimer 413 ABG pH ABG pCO2 ABG pO2 ABG HCO3 ABG O2 Saturation ABG Base Excess VBG pH VBG pCO2 VBG Oxygen Liters/Min VBG pO2 VBG HCO3 VBG O2 Saturation VBG Base Excess Oxygen Given Sodium Potassium Chloride Carbon Dioxide Anion Gap BUN Creatinine Estim Creat Clear Calc Estimated GFR POC Glucose 145 H 230 H Random Glucose Fasting Glucose Estimat Average Glucose Hemoglobin A1c % Lactic Acid Calcium Phosphorus Magnesium Ferritin Total Bilirubin Direct Bilirubin AST ALT Alkaline Phosphatase Lactate Dehydrogenase Total Creatine Kinase Troponin I High Sens C-Reactive Protein B-Natriuretic Peptide Total Protein Albumin Procalcitonin Urine Color Urine Appearance Urine pH Ur Specific [place] Urine Protein Urine Glucose (UA) Urine Ketones Urine Blood Urine Nitrite Ur Leukocyte Esterase Urine RBC Urine WBC Ur Squamous Epith Cells Urine Bacteria Urine Mucus Respiratory Panel [place] Adenovirus (Rapid PCR) B.pert (TEM-PCR) B.parapertussis DNA PCR C. pneumoniae DNA (PCR) Coronavirus (PCR) Coronavirus OC43 (PCR) Coronavirus HKU1 (PCR) Coronavirus 229E (PCR) Coronavirus NL63 (PCR) Human Metapneumovir PCR Influenza A (RT-PCR) Influenza B (RT-PCR) Ur L.pneumophila Ag M. pneumoniae (PCR) Parainfluenza 1 (PCR) Parainfluenza 2 (PCR) Parainfluenza 3 (PCR) Parainfluenza 4 (PCR) RSV (PCR) Entero/Rhino (PCR) SARS-CoV-2 RNA (RT-PCR) Blood Type Antibody Screen 05/15/20 05/15/20 05/16/20 16:31 21:09 08:19 WBC RBC Hgb Hct MCV MCH MCHC RDW Plt Count MPV Immature Gran % (Auto) Neut % (Auto) Lymph % (Auto) [place] % (Auto) Eos % (Auto) Baso % (Auto) Neut # (Auto) Lymph # (Auto) [place] # (Auto) Eos # (Auto) Baso # (Auto) Abs Immat Gran (auto) Absolute Neuts (auto) Absolute Nucleated RBC Nucleated RBC % (auto) Neutrophils % (Manual) Band Neutrophils % Lymphocytes % (Manual) Monocytes % (Manual) Neutrophils # (Manual) Lymphocytes # (Manual) Monocytes # (Manual) Platelet Estimate Plt Morphology Comment RBC Morphology Smear Tech's Comments ESR PT INR APTT D-Dimer ABG pH ABG pCO2 ABG pO2 ABG HCO3 ABG O2 Saturation ABG Base Excess VBG pH VBG pCO2 VBG Oxygen Liters/Min VBG pO2 VBG HCO3 VBG O2 Saturation VBG Base Excess Oxygen Given Sodium Potassium Chloride Carbon Dioxide Anion Gap BUN Creatinine Estim Creat Clear Calc Estimated GFR POC Glucose 213 H 190 H 238 H Random Glucose Fasting Glucose Estimat Average Glucose Hemoglobin A1c % Lactic Acid Calcium Phosphorus Magnesium Ferritin Total Bilirubin Direct Bilirubin AST ALT Alkaline Phosphatase Lactate Dehydrogenase Total Creatine Kinase Troponin I High Sens C-Reactive Protein B-Natriuretic Peptide Total Protein Albumin Procalcitonin Urine Color Urine Appearance Urine pH Ur Specific [place] Urine Protein Urine Glucose (UA) Urine Ketones Urine Blood Urine Nitrite Ur Leukocyte Esterase Urine RBC Urine WBC Ur Squamous Epith Cells Urine Bacteria Urine Mucus Respiratory Panel [place] Adenovirus (Rapid PCR) B.pert (TEM-PCR) B.parapertussis DNA PCR C. pneumoniae DNA (PCR) Coronavirus (PCR) Coronavirus OC43 (PCR) Coronavirus HKU1 (PCR) Coronavirus 229E (PCR) Coronavirus NL63 (PCR) Human Metapneumovir PCR Influenza A (RT-PCR) Influenza B (RT-PCR) Ur L.pneumophila Ag M. pneumoniae (PCR) Parainfluenza 1 (PCR) Parainfluenza 2 (PCR) Parainfluenza 3 (PCR) Parainfluenza 4 (PCR) RSV (PCR) Entero/Rhino (PCR) SARS-CoV-2 RNA (RT-PCR) Blood Type Antibody Screen 05/16/20 05/16/20 05/16/20 11:32 16:44 20:30 WBC RBC Hgb Hct MCV MCH MCHC RDW Plt Count MPV Immature Gran % (Auto) Neut % (Auto) Lymph % (Auto) [place] % (Auto) Eos % (Auto) Baso % (Auto) Neut # (Auto) Lymph # (Auto) [place] # (Auto) Eos # (Auto) Baso # (Auto) Abs Immat Gran (auto) Absolute Neuts (auto) Absolute Nucleated RBC Nucleated RBC % (auto) Neutrophils % (Manual) Band Neutrophils % Lymphocytes % (Manual) Monocytes % (Manual) Neutrophils # (Manual) Lymphocytes # (Manual) Monocytes # (Manual) Platelet Estimate Plt Morphology Comment RBC Morphology Smear Tech's Comments ESR PT INR APTT D-Dimer ABG pH ABG pCO2 ABG pO2 ABG HCO3 ABG O2 Saturation ABG Base Excess VBG pH VBG pCO2 VBG Oxygen Liters/Min VBG pO2 VBG HCO3 VBG O2 Saturation VBG Base Excess Oxygen Given Sodium Potassium Chloride Carbon Dioxide Anion Gap BUN Creatinine Estim Creat Clear Calc Estimated GFR POC Glucose 154 H 279 H 195 H Random Glucose Fasting Glucose Estimat Average Glucose Hemoglobin A1c % Lactic Acid Calcium Phosphorus Magnesium Ferritin Total Bilirubin Direct Bilirubin AST ALT Alkaline Phosphatase Lactate Dehydrogenase Total Creatine Kinase Troponin I High Sens C-Reactive Protein B-Natriuretic Peptide Total Protein Albumin Procalcitonin Urine Color Urine Appearance Urine pH Ur Specific [place] Urine Protein Urine Glucose (UA) Urine Ketones Urine Blood Urine Nitrite Ur Leukocyte Esterase Urine RBC Urine WBC Ur Squamous Epith Cells Urine Bacteria Urine Mucus Respiratory Panel [place] Adenovirus (Rapid PCR) B.pert (TEM-PCR) B.parapertussis DNA PCR C. pneumoniae DNA (PCR) Coronavirus (PCR) Coronavirus OC43 (PCR) Coronavirus HKU1 (PCR) Coronavirus 229E (PCR) Coronavirus NL63 (PCR) Human Metapneumovir PCR Influenza A (RT-PCR) Influenza B (RT-PCR) Ur L.pneumophila Ag M. pneumoniae (PCR) Parainfluenza 1 (PCR) Parainfluenza 2 (PCR) Parainfluenza 3 (PCR) Parainfluenza 4 (PCR) RSV (PCR) Entero/Rhino (PCR) SARS-CoV-2 RNA (RT-PCR) Blood Type Antibody Screen 05/17/20 05/17/20 05/17/20 04:51 04:51 06:11 WBC 10.4 RBC 4.79 Hgb 15.7 Hct 47.1 MCV 98.3 H MCH 32.8 MCHC 33.3 RDW 12.0 Plt Count 173 MPV 11.2 Immature Gran % (Auto) 0.3 Neut % (Auto) 60.9 Lymph % (Auto) 26.9 [place] % (Auto) 9.0 Eos % (Auto) 2.6 Baso % (Auto) 0.3 Neut # (Auto) Lymph # (Auto) 2.8 [place] # (Auto) 0.9 Eos # (Auto) 0.3 Baso # (Auto) 0.0 Abs Immat Gran (auto) 0.03 Absolute Neuts (auto) 6.4 Absolute Nucleated RBC 0.000 Nucleated RBC % (auto) 0.0 Neutrophils % (Manual) Band Neutrophils % Lymphocytes % (Manual) Monocytes % (Manual) Neutrophils # (Manual) Lymphocytes # (Manual) Monocytes # (Manual) Platelet Estimate Plt Morphology Comment RBC Morphology Smear Tech's Comments ESR PT INR APTT D-Dimer ABG pH ABG pCO2 ABG pO2 ABG HCO3 ABG O2 Saturation ABG Base Excess VBG pH VBG pCO2 VBG Oxygen Liters/Min VBG pO2 VBG HCO3 VBG O2 Saturation VBG Base Excess Oxygen Given Sodium 139 Potassium 3.7 Chloride 102 Carbon Dioxide 30 H Anion Gap 11 L BUN 14 Creatinine 0.71 Estim Creat Clear Calc 257.4 Estimated GFR > 60 POC Glucose Random Glucose 170 H Fasting Glucose Estimat Average Glucose Hemoglobin A1c % Lactic Acid Calcium 8.6 Phosphorus Magnesium Ferritin Total Bilirubin Direct Bilirubin AST ALT Alkaline Phosphatase Lactate Dehydrogenase Total Creatine Kinase Troponin I High Sens < 3.5 C-Reactive Protein B-Natriuretic Peptide Total Protein Albumin Procalcitonin Urine Color Urine Appearance Urine pH Ur Specific [place] Urine Protein Urine Glucose (UA) Urine Ketones Urine Blood Urine Nitrite Ur Leukocyte Esterase Urine RBC Urine WBC Ur Squamous Epith Cells Urine Bacteria Urine Mucus Respiratory Panel [place] Adenovirus (Rapid PCR) B.pert (TEM-PCR) B.parapertussis DNA PCR C. pneumoniae DNA (PCR) Coronavirus (PCR) Coronavirus OC43 (PCR) Coronavirus HKU1 (PCR) Coronavirus 229E (PCR) Coronavirus NL63 (PCR) Human Metapneumovir PCR Influenza A (RT-PCR) Influenza B (RT-PCR) Ur L.pneumophila Ag M. pneumoniae (PCR) Parainfluenza 1 (PCR) Parainfluenza 2 (PCR) Parainfluenza 3 (PCR) Parainfluenza 4 (PCR) RSV (PCR) Entero/Rhino (PCR) SARS-CoV-2 RNA (RT-PCR) Blood Type Antibody Screen 05/17/20 05/17/20 05/17/20 07:43 08:44 08:44 WBC 11.7 H RBC 4.89 Hgb 16.1 Hct 48.3 MCV 98.8 H MCH 32.9 MCHC 33.3 RDW 12.1 Plt Count 160 MPV 11.2 Immature Gran % (Auto) 0.4 Neut % (Auto) 75.7 H Lymph % (Auto) 13.5 L [place] % (Auto) 8.6 Eos % (Auto) 1.5 Baso % (Auto) 0.3 Neut # (Auto) Lymph # (Auto) 1.6 [place] # (Auto) 1.0 Eos # (Auto) 0.2 Baso # (Auto) 0.0 Abs Immat Gran (auto) 0.05 H Absolute Neuts (auto) 8.9 H Absolute Nucleated RBC 0.000 Nucleated RBC % (auto) 0.0 Neutrophils % (Manual) Band Neutrophils % Lymphocytes % (Manual) Monocytes % (Manual) Neutrophils # (Manual) Lymphocytes # (Manual) Monocytes # (Manual) Platelet Estimate Plt Morphology Comment RBC Morphology Smear Tech's Comments ESR PT INR APTT D-Dimer ABG pH ABG pCO2 ABG pO2 ABG HCO3 ABG O2 Saturation ABG Base Excess VBG pH VBG pCO2 VBG Oxygen Liters/Min VBG pO2 VBG HCO3 VBG O2 Saturation VBG Base Excess Oxygen Given Sodium 139 Potassium 3.9 Chloride 102 Carbon Dioxide 28 Anion Gap 13 BUN 14 Creatinine 0.76 Estim Creat Clear Calc 240.4 Estimated GFR > 60 POC Glucose 202 H Random Glucose 236 H D Fasting Glucose Estimat Average Glucose Hemoglobin A1c % Lactic Acid Calcium 8.5 Phosphorus Magnesium Ferritin Total Bilirubin 0.8 Direct Bilirubin AST 12 ALT 20 Alkaline Phosphatase 59 D Lactate Dehydrogenase Total Creatine Kinase Troponin I High Sens C-Reactive Protein B-Natriuretic Peptide Total Protein 6.3 L Albumin 3.6 Procalcitonin Urine Color Urine Appearance Urine pH Ur Specific [place] Urine Protein Urine Glucose (UA) Urine Ketones Urine Blood Urine Nitrite Ur Leukocyte Esterase Urine RBC Urine WBC Ur Squamous Epith Cells Urine Bacteria Urine Mucus Respiratory Panel [place] Adenovirus (Rapid PCR) B.pert (TEM-PCR) B.parapertussis DNA PCR C. pneumoniae DNA (PCR) Coronavirus (PCR) Coronavirus OC43 (PCR) Coronavirus HKU1 (PCR) Coronavirus 229E (PCR) Coronavirus NL63 (PCR) Human Metapneumovir PCR Influenza A (RT-PCR) Influenza B (RT-PCR) Ur L.pneumophila Ag M. pneumoniae (PCR) Parainfluenza 1 (PCR) Parainfluenza 2 (PCR) Parainfluenza 3 (PCR) Parainfluenza 4 (PCR) RSV (PCR) Entero/Rhino (PCR) SARS-CoV-2 RNA (RT-PCR) Blood Type Antibody Screen 05/17/20 05/17/20 05/17/20 08:44 11:35 16:40 WBC RBC Hgb Hct MCV MCH MCHC RDW Plt Count MPV Immature Gran % (Auto) Neut % (Auto) Lymph % (Auto) [place] % (Auto) Eos % (Auto) Baso % (Auto) Neut # (Auto) Lymph # (Auto) [place] # (Auto) Eos # (Auto) Baso # (Auto) Abs Immat Gran (auto) Absolute Neuts (auto) Absolute Nucleated RBC Nucleated RBC % (auto) Neutrophils % (Manual) Band Neutrophils % Lymphocytes % (Manual) Monocytes % (Manual) Neutrophils # (Manual) Lymphocytes # (Manual) Monocytes # (Manual) Platelet Estimate Plt Morphology Comment RBC Morphology Smear Tech's Comments ESR PT INR APTT D-Dimer ABG pH ABG pCO2 ABG pO2 ABG HCO3 ABG O2 Saturation ABG Base Excess VBG pH 7.35 VBG pCO2 54 VBG Oxygen Liters/Min TNP VBG pO2 46 VBG HCO3 29 VBG O2 Saturation 80.0 VBG Base Excess 2.0 Oxygen Given Sodium Potassium Chloride Carbon Dioxide Anion Gap BUN Creatinine Estim Creat Clear Calc Estimated GFR POC Glucose 233 H 163 H Random Glucose Fasting Glucose Estimat Average Glucose Hemoglobin A1c % Lactic Acid Calcium Phosphorus Magnesium Ferritin Total Bilirubin Direct Bilirubin AST ALT Alkaline Phosphatase Lactate Dehydrogenase Total Creatine Kinase Troponin I High Sens C-Reactive Protein B-Natriuretic Peptide Total Protein Albumin Procalcitonin Urine Color Urine Appearance Urine pH Ur Specific [place] Urine Protein Urine Glucose (UA) Urine Ketones Urine Blood Urine Nitrite Ur Leukocyte Esterase Urine RBC Urine WBC Ur Squamous Epith Cells Urine Bacteria Urine Mucus Respiratory Panel [place] Adenovirus (Rapid PCR) B.pert (TEM-PCR) B.parapertussis DNA PCR C. pneumoniae DNA (PCR) Coronavirus (PCR) Coronavirus OC43 (PCR) Coronavirus HKU1 (PCR) Coronavirus 229E (PCR) Coronavirus NL63 (PCR) Human Metapneumovir PCR Influenza A (RT-PCR) Influenza B (RT-PCR) Ur L.pneumophila Ag M. pneumoniae (PCR) Parainfluenza 1 (PCR) Parainfluenza 2 (PCR) Parainfluenza 3 (PCR) Parainfluenza 4 (PCR) RSV (PCR) Entero/Rhino (PCR) SARS-CoV-2 RNA (RT-PCR) Blood Type Antibody Screen 05/17/20 05/18/20 05/18/20 20:48 01:06 05:41 WBC 11.6 H RBC 4.95 Hgb 16.2 Hct 49.2 MCV 99.4 H MCH 32.7 MCHC 32.9 RDW 12.0 Plt Count 182 MPV 11.3 Immature Gran % (Auto) 0.4 Neut % (Auto) 68.9 Lymph % (Auto) 17.7 L [place] % (Auto) 9.2 Eos % (Auto) 3.5 Baso % (Auto) 0.3 Neut # (Auto) Lymph # (Auto) 2.1 [place] # (Auto) 1.1 Eos # (Auto) 0.4 Baso # (Auto) 0.0 Abs Immat Gran (auto) 0.05 H Absolute Neuts (auto) 8.0 Absolute Nucleated RBC 0.000 Nucleated RBC % (auto) 0.0 Neutrophils % (Manual) Band Neutrophils % Lymphocytes % (Manual) Monocytes % (Manual) Neutrophils # (Manual) Lymphocytes # (Manual) Monocytes # (Manual) Platelet Estimate Plt Morphology Comment RBC Morphology Smear Tech's Comments ESR PT INR APTT D-Dimer ABG pH ABG pCO2 ABG pO2 ABG HCO3 ABG O2 Saturation ABG Base Excess VBG pH VBG pCO2 VBG Oxygen Liters/Min VBG pO2 VBG HCO3 VBG O2 Saturation VBG Base Excess Oxygen Given Sodium Potassium Chloride Carbon Dioxide Anion Gap BUN Creatinine Estim Creat Clear Calc Estimated GFR POC Glucose 222 H Random Glucose Fasting Glucose Estimat Average Glucose Hemoglobin A1c % Lactic Acid Calcium Phosphorus Magnesium Ferritin Total Bilirubin Direct Bilirubin AST ALT Alkaline Phosphatase Lactate Dehydrogenase Total Creatine Kinase Troponin I High Sens < 3.5 C-Reactive Protein B-Natriuretic Peptide Total Protein Albumin Procalcitonin Urine Color Urine Appearance Urine pH Ur Specific [place] Urine Protein Urine Glucose (UA) Urine Ketones Urine Blood Urine Nitrite Ur Leukocyte Esterase Urine RBC Urine WBC Ur Squamous Epith Cells Urine Bacteria Urine Mucus Respiratory Panel [place] Adenovirus (Rapid PCR) B.pert (TEM-PCR) B.parapertussis DNA PCR C. pneumoniae DNA (PCR) Coronavirus (PCR) Coronavirus OC43 (PCR) Coronavirus HKU1 (PCR) Coronavirus 229E (PCR) Coronavirus NL63 (PCR) Human Metapneumovir PCR Influenza A (RT-PCR) Influenza B (RT-PCR) Ur L.pneumophila Ag M. pneumoniae (PCR) Parainfluenza 1 (PCR) Parainfluenza 2 (PCR) Parainfluenza 3 (PCR) Parainfluenza 4 (PCR) RSV (PCR) Entero/Rhino (PCR) SARS-CoV-2 RNA (RT-PCR) Blood Type Antibody Screen 05/18/20 05/18/20 05/18/20 05:41 06:28 12:03 WBC RBC Hgb Hct MCV MCH MCHC RDW Plt Count MPV Immature Gran % (Auto) Neut % (Auto) Lymph % (Auto) [place] % (Auto) Eos % (Auto) Baso % (Auto) Neut # (Auto) Lymph # (Auto) [place] # (Auto) Eos # (Auto) Baso # (Auto) Abs Immat Gran (auto) Absolute Neuts (auto) Absolute Nucleated RBC Nucleated RBC % (auto) Neutrophils % (Manual) Band Neutrophils % Lymphocytes % (Manual) Monocytes % (Manual) Neutrophils # (Manual) Lymphocytes # (Manual) Monocytes # (Manual) Platelet Estimate Plt Morphology Comment RBC Morphology Smear Tech's Comments ESR PT INR APTT D-Dimer ABG pH ABG pCO2 ABG pO2 ABG HCO3 ABG O2 Saturation ABG Base Excess VBG pH 7.39 VBG pCO2 53 VBG Oxygen Liters/Min TNP VBG pO2 63 VBG HCO3 31 VBG O2 Saturation 92.6 VBG Base Excess 4.4 Oxygen Given Sodium 139 Potassium 4.1 Chloride 102 Carbon Dioxide 28 Anion Gap 13 BUN 11 Creatinine 0.66 Estim Creat Clear Calc 160.9 Estimated GFR > 60 POC Glucose 156 H Random Glucose 186 H Fasting Glucose Estimat Average Glucose Hemoglobin A1c % Lactic Acid Calcium 8.7 Phosphorus 4.5 Magnesium 2.1 Ferritin Total Bilirubin Direct Bilirubin AST ALT Alkaline Phosphatase Lactate Dehydrogenase Total Creatine Kinase Troponin I High Sens C-Reactive Protein B-Natriuretic Peptide Total Protein Albumin Procalcitonin Urine Color Urine Appearance Urine pH Ur Specific [place] Urine Protein Urine Glucose (UA) Urine Ketones Urine Blood Urine Nitrite Ur Leukocyte Esterase Urine RBC Urine WBC Ur Squamous Epith Cells Urine Bacteria Urine Mucus Respiratory Panel [place] Adenovirus (Rapid PCR) B.pert (TEM-PCR) B.parapertussis DNA PCR C. pneumoniae DNA (PCR) Coronavirus (PCR) Coronavirus OC43 (PCR) Coronavirus HKU1 (PCR) Coronavirus 229E (PCR) Coronavirus NL63 (PCR) Human Metapneumovir PCR Influenza A (RT-PCR) Influenza B (RT-PCR) Ur L.pneumophila Ag M. pneumoniae (PCR) Parainfluenza 1 (PCR) Parainfluenza 2 (PCR) Parainfluenza 3 (PCR) Parainfluenza 4 (PCR) RSV (PCR) Entero/Rhino (PCR) SARS-CoV-2 RNA (RT-PCR) Blood Type Antibody Screen 05/18/20 05/18/20 05/19/20 16:20 20:51 08:01 WBC RBC Hgb Hct MCV MCH MCHC RDW Plt Count MPV Immature Gran % (Auto) Neut % (Auto) Lymph % (Auto) [place] % (Auto) Eos % (Auto) Baso % (Auto) Neut # (Auto) Lymph # (Auto) [place] # (Auto) Eos # (Auto) Baso # (Auto) Abs Immat Gran (auto) Absolute Neuts (auto) Absolute Nucleated RBC Nucleated RBC % (auto) Neutrophils % (Manual) Band Neutrophils % Lymphocytes % (Manual) Monocytes % (Manual) Neutrophils # (Manual) Lymphocytes # (Manual) Monocytes # (Manual) Platelet Estimate Plt Morphology Comment RBC Morphology Smear Tech's Comments ESR PT INR APTT D-Dimer ABG pH ABG pCO2 ABG pO2 ABG HCO3 ABG O2 Saturation ABG Base Excess VBG pH VBG pCO2 VBG Oxygen Liters/Min VBG pO2 VBG HCO3 VBG O2 Saturation VBG Base Excess Oxygen Given Sodium Potassium Chloride Carbon Dioxide Anion Gap BUN Creatinine Estim Creat Clear Calc Estimated GFR POC Glucose 147 H 172 H 163 H Random Glucose Fasting Glucose Estimat Average Glucose Hemoglobin A1c % Lactic Acid Calcium Phosphorus Magnesium Ferritin Total Bilirubin Direct Bilirubin AST ALT Alkaline Phosphatase Lactate Dehydrogenase Total Creatine Kinase Troponin I High Sens C-Reactive Protein B-Natriuretic Peptide Total Protein Albumin Procalcitonin Urine Color Urine Appearance Urine pH Ur Specific [place] Urine Protein Urine Glucose (UA) Urine Ketones Urine Blood Urine Nitrite Ur Leukocyte Esterase Urine RBC Urine WBC Ur Squamous Epith Cells Urine Bacteria Urine Mucus Respiratory Panel [place] Adenovirus (Rapid PCR) B.pert (TEM-PCR) B.parapertussis DNA PCR C. pneumoniae DNA (PCR) Coronavirus (PCR) Coronavirus OC43 (PCR) Coronavirus HKU1 (PCR) Coronavirus 229E (PCR) Coronavirus NL63 (PCR) Human Metapneumovir PCR Influenza A (RT-PCR) Influenza B (RT-PCR) Ur L.pneumophila Ag M. pneumoniae (PCR) Parainfluenza 1 (PCR) Parainfluenza 2 (PCR) Parainfluenza 3 (PCR) Parainfluenza 4 (PCR) RSV (PCR) Entero/Rhino (PCR) SARS-CoV-2 RNA (RT-PCR) Blood Type Antibody Screen 10/05/19/20 05/19/20 12:05 16:01 21:02 WBC RBC Hgb Hct MCV MCH MCHC RDW Plt Count MPV Immature Gran % (Auto) Neut % (Auto) Lymph % (Auto) [place] % (Auto) Eos % (Auto) Baso % (Auto) Neut # (Auto) Lymph # (Auto) [place] # (Auto) Eos # (Auto) Baso # (Auto) Abs Immat Gran (auto) Absolute Neuts (auto) Absolute Nucleated RBC Nucleated RBC % (auto) Neutrophils % (Manual) Band Neutrophils % Lymphocytes % (Manual) Monocytes % (Manual) Neutrophils # (Manual) Lymphocytes # (Manual) Monocytes # (Manual) Platelet Estimate Plt Morphology Comment RBC Morphology Smear Tech's Comments ESR PT INR APTT D-Dimer ABG pH ABG pCO2 ABG pO2 ABG HCO3 ABG O2 Saturation ABG Base Excess VBG pH VBG pCO2 VBG Oxygen Liters/Min VBG pO2 VBG HCO3 VBG O2 Saturation VBG Base Excess Oxygen Given Sodium Potassium Chloride Carbon Dioxide Anion Gap BUN Creatinine Estim Creat Clear Calc Estimated GFR POC Glucose 166 H 97 192 H Random Glucose Fasting Glucose Estimat Average Glucose Hemoglobin A1c % Lactic Acid Calcium Phosphorus Magnesium Ferritin Total Bilirubin Direct Bilirubin AST ALT Alkaline Phosphatase Lactate Dehydrogenase Total Creatine Kinase Troponin I High Sens C-Reactive Protein B-Natriuretic Peptide Total Protein Albumin Procalcitonin Urine Color Urine Appearance Urine pH Ur Specific [place] Urine Protein Urine Glucose (UA) Urine Ketones Urine Blood Urine Nitrite Ur Leukocyte Esterase Urine RBC Urine WBC Ur Squamous Epith Cells Urine Bacteria Urine Mucus Respiratory Panel [place] Adenovirus (Rapid PCR) B.pert (TEM-PCR) B.parapertussis DNA PCR C. pneumoniae DNA (PCR) Coronavirus (PCR) Coronavirus OC43 (PCR) Coronavirus HKU1 (PCR) Coronavirus 229E (PCR) Coronavirus NL63 (PCR) Human Metapneumovir PCR Influenza A (RT-PCR) Influenza B (RT-PCR) Ur L.pneumophila Ag M. pneumoniae (PCR) Parainfluenza 1 (PCR) Parainfluenza 2 (PCR) Parainfluenza 3 (PCR) Parainfluenza 4 (PCR) RSV (PCR) Entero/Rhino (PCR) SARS-CoV-2 RNA (RT-PCR) Blood Type Antibody Screen 05/20/20 05/20/20 05/20/20 05:32 05:32 07:52 WBC 12.5 H RBC 5.01 Hgb 16.0 Hct 49.3 MCV 98.4 H MCH 31.9 MCHC 32.5 RDW 11.8 Plt Count 174 MPV 11.6 Immature Gran % (Auto) 0.6 H Neut % (Auto) 73.9 H Lymph % (Auto) 12.3 L [place] % (Auto) 9.6 Eos % (Auto) 3.4 Baso % (Auto) 0.2 Neut # (Auto) Lymph # (Auto) 1.5 [place] # (Auto) 1.2 Eos # (Auto) 0.4 Baso # (Auto) 0.0 Abs Immat Gran (auto) 0.07 H Absolute Neuts (auto) 9.2 H Absolute Nucleated RBC 0.000 Nucleated RBC % (auto) 0.0 Neutrophils % (Manual) Band Neutrophils % Lymphocytes % (Manual) Monocytes % (Manual) Neutrophils # (Manual) Lymphocytes # (Manual) Monocytes # (Manual) Platelet Estimate Plt Morphology Comment RBC Morphology Smear Tech's Comments ESR PT INR APTT D-Dimer ABG pH ABG pCO2 ABG pO2 ABG HCO3 ABG O2 Saturation ABG Base Excess VBG pH VBG pCO2 VBG Oxygen Liters/Min VBG pO2 VBG HCO3 VBG O2 Saturation VBG Base Excess Oxygen Given Sodium 138 Potassium 3.8 Chloride 99 Carbon Dioxide 30 H Anion Gap 13 BUN 11 Creatinine 0.65 Estim Creat Clear Calc 162.6 Estimated GFR > 60 POC Glucose 170 H Random Glucose 161 H Fasting Glucose Estimat Average Glucose Hemoglobin A1c % Lactic Acid Calcium 8.6 Phosphorus Magnesium Ferritin Total Bilirubin Direct Bilirubin AST ALT Alkaline Phosphatase Lactate Dehydrogenase Total Creatine Kinase Troponin I High Sens C-Reactive Protein B-Natriuretic Peptide Total Protein Albumin Procalcitonin Urine Color Urine Appearance Urine pH Ur Specific [place] Urine Protein Urine Glucose (UA) Urine Ketones Urine Blood Urine Nitrite Ur Leukocyte Esterase Urine RBC Urine WBC Ur Squamous Epith Cells Urine Bacteria Urine Mucus Respiratory Panel [place] Adenovirus (Rapid PCR) B.pert (TEM-PCR) B.parapertussis DNA PCR C. pneumoniae DNA (PCR) Coronavirus (PCR) Coronavirus OC43 (PCR) Coronavirus HKU1 (PCR) Coronavirus 229E (PCR) Coronavirus NL63 (PCR) Human Metapneumovir PCR Influenza A (RT-PCR) Influenza B (RT-PCR) Ur L.pneumophila Ag M. pneumoniae (PCR) Parainfluenza 1 (PCR) Parainfluenza 2 (PCR) Parainfluenza 3 (PCR) Parainfluenza 4 (PCR) RSV (PCR) Entero/Rhino (PCR) SARS-CoV-2 RNA (RT-PCR) Blood Type Antibody Screen 05/20/20 05/20/20 05/20/20 11:36 16:55 21:01 WBC RBC Hgb Hct MCV MCH MCHC RDW Plt Count MPV Immature Gran % (Auto) Neut % (Auto) Lymph % (Auto) [place] % (Auto) Eos % (Auto) Baso % (Auto) Neut # (Auto) Lymph # (Auto) [place] # (Auto) Eos # (Auto) Baso # (Auto) Abs Immat Gran (auto) Absolute Neuts (auto) Absolute Nucleated RBC Nucleated RBC % (auto) Neutrophils % (Manual) Band Neutrophils % Lymphocytes % (Manual) Monocytes % (Manual) Neutrophils # (Manual) Lymphocytes # (Manual) Monocytes # (Manual) Platelet Estimate Plt Morphology Comment RBC Morphology Smear Tech's Comments ESR PT INR APTT D-Dimer ABG pH ABG pCO2 ABG pO2 ABG HCO3 ABG O2 Saturation ABG Base Excess VBG pH VBG pCO2 VBG Oxygen Liters/Min VBG pO2 VBG HCO3 VBG O2 Saturation VBG Base Excess Oxygen Given Sodium Potassium Chloride Carbon Dioxide Anion Gap BUN Creatinine Estim Creat Clear Calc Estimated GFR POC Glucose 135 H 139 H 168 H Random Glucose Fasting Glucose Estimat Average Glucose Hemoglobin A1c % Lactic Acid Calcium Phosphorus Magnesium Ferritin Total Bilirubin Direct Bilirubin AST ALT Alkaline Phosphatase Lactate Dehydrogenase Total Creatine Kinase Troponin I High Sens C-Reactive Protein B-Natriuretic Peptide Total Protein Albumin Procalcitonin Urine Color Urine Appearance Urine pH Ur Specific [place] Urine Protein Urine Glucose (UA) Urine Ketones Urine Blood Urine Nitrite Ur Leukocyte Esterase Urine RBC Urine WBC Ur Squamous Epith Cells Urine Bacteria Urine Mucus Respiratory Panel [place] Adenovirus (Rapid PCR) B.pert (TEM-PCR) B.parapertussis DNA PCR C. pneumoniae DNA (PCR) Coronavirus (PCR) Coronavirus OC43 (PCR) Coronavirus HKU1 (PCR) Coronavirus 229E (PCR) Coronavirus NL63 (PCR) Human Metapneumovir PCR Influenza A (RT-PCR) Influenza B (RT-PCR) Ur L.pneumophila Ag M. pneumoniae (PCR) Parainfluenza 1 (PCR) Parainfluenza 2 (PCR) Parainfluenza 3 (PCR) Parainfluenza 4 (PCR) RSV (PCR) Entero/Rhino (PCR) SARS-CoV-2 RNA (RT-PCR) Blood Type Antibody Screen 05/21/20 05/21/20 05/21/20 07:31 11:31 17:03 WBC RBC Hgb Hct MCV MCH MCHC RDW Plt Count MPV Immature Gran % (Auto) Neut % (Auto) Lymph % (Auto) [place] % (Auto) Eos % (Auto) Baso % (Auto) Neut # (Auto) Lymph # (Auto) [place] # (Auto) Eos # (Auto) Baso # (Auto) Abs Immat Gran (auto) Absolute Neuts (auto) Absolute Nucleated RBC Nucleated RBC % (auto) Neutrophils % (Manual) Band Neutrophils % Lymphocytes % (Manual) Monocytes % (Manual) Neutrophils # (Manual) Lymphocytes # (Manual) Monocytes # (Manual) Platelet Estimate Plt Morphology Comment RBC Morphology Smear Tech's Comments ESR PT INR APTT D-Dimer ABG pH ABG pCO2 ABG pO2 ABG HCO3 ABG O2 Saturation ABG Base Excess VBG pH VBG pCO2 VBG Oxygen Liters/Min VBG pO2 VBG HCO3 VBG O2 Saturation VBG Base Excess Oxygen Given Sodium Potassium Chloride Carbon Dioxide Anion Gap BUN Creatinine Estim Creat Clear Calc Estimated GFR POC Glucose 159 H 160 H 119 H Random Glucose Fasting Glucose Estimat Average Glucose Hemoglobin A1c % Lactic Acid Calcium Phosphorus Magnesium Ferritin Total Bilirubin Direct Bilirubin AST ALT Alkaline Phosphatase Lactate Dehydrogenase Total Creatine Kinase Troponin I High Sens C-Reactive Protein B-Natriuretic Peptide Total Protein Albumin Procalcitonin Urine Color Urine Appearance Urine pH Ur Specific [place] Urine Protein Urine Glucose (UA) Urine Ketones Urine Blood Urine Nitrite Ur Leukocyte Esterase Urine RBC Urine WBC Ur Squamous Epith Cells Urine Bacteria Urine Mucus Respiratory Panel [place] Adenovirus (Rapid PCR) B.pert (TEM-PCR) B.parapertussis DNA PCR C. pneumoniae DNA (PCR) Coronavirus (PCR) Coronavirus OC43 (PCR) Coronavirus HKU1 (PCR) Coronavirus 229E (PCR) Coronavirus NL63 (PCR) Human Metapneumovir PCR Influenza A (RT-PCR) Influenza B (RT-PCR) Ur L.pneumophila Ag M. pneumoniae (PCR) Parainfluenza 1 (PCR) Parainfluenza 2 (PCR) Parainfluenza 3 (PCR) Parainfluenza 4 (PCR) RSV (PCR) Entero/Rhino (PCR) SARS-CoV-2 RNA (RT-PCR) Blood Type Antibody Screen 05/21/20 05/22/20 05/22/20 20:41 05:36 05:36 WBC 8.7 RBC 4.76 Hgb 15.5 Hct 46.4 MCV 97.5 MCH 32.6 MCHC 33.4 RDW 11.7 Plt Count 196 MPV 11.7 Immature Gran % (Auto) 0.3 Neut % (Auto) 59.5 Lymph % (Auto) 23.1 [place] % (Auto) 12.2 H Eos % (Auto) 4.4 H Baso % (Auto) 0.5 Neut # (Auto) Lymph # (Auto) 2.0 [place] # (Auto) 1.1 Eos # (Auto) 0.4 Baso # (Auto) 0.0 Abs Immat Gran (auto) 0.03 Absolute Neuts (auto) 5.2 Absolute Nucleated RBC 0.000 Nucleated RBC % (auto) 0.0 Neutrophils % (Manual) Band Neutrophils % Lymphocytes % (Manual) Monocytes % (Manual) Neutrophils # (Manual) Lymphocytes # (Manual) Monocytes # (Manual) Platelet Estimate Plt Morphology Comment RBC Morphology Smear Tech's Comments ESR PT INR APTT D-Dimer ABG pH ABG pCO2 ABG pO2 ABG HCO3 ABG O2 Saturation ABG Base Excess VBG pH VBG pCO2 VBG Oxygen Liters/Min VBG pO2 VBG HCO3 VBG O2 Saturation VBG Base Excess Oxygen Given Sodium 138 Potassium 4.1 Chloride 99 Carbon Dioxide 31 H Anion Gap 12 BUN 10 Creatinine 0.67 Estim Creat Clear Calc 161.1 Estimated GFR > 60 POC Glucose 136 H Random Glucose Fasting Glucose 141 H Estimat Average Glucose Hemoglobin A1c % Lactic Acid Calcium 8.9 Phosphorus Magnesium Ferritin Total Bilirubin Direct Bilirubin AST ALT Alkaline Phosphatase Lactate Dehydrogenase Total Creatine Kinase Troponin I High Sens C-Reactive Protein B-Natriuretic Peptide Total Protein Albumin Procalcitonin Urine Color Urine Appearance Urine pH Ur Specific [place] Urine Protein Urine Glucose (UA) Urine Ketones Urine Blood Urine Nitrite Ur Leukocyte Esterase Urine RBC Urine WBC Ur Squamous Epith Cells Urine Bacteria Urine Mucus Respiratory Panel [place] Adenovirus (Rapid PCR) B.pert (TEM-PCR) B.parapertussis DNA PCR C. pneumoniae DNA (PCR) Coronavirus (PCR) Coronavirus OC43 (PCR) Coronavirus HKU1 (PCR) Coronavirus 229E (PCR) Coronavirus NL63 (PCR) Human Metapneumovir PCR Influenza A (RT-PCR) Influenza B (RT-PCR) Ur L.pneumophila Ag M. pneumoniae (PCR) Parainfluenza 1 (PCR) Parainfluenza 2 (PCR) Parainfluenza 3 (PCR) Parainfluenza 4 (PCR) RSV (PCR) Entero/Rhino (PCR) SARS-CoV-2 RNA (RT-PCR) Blood Type Antibody Screen 05/22/20 05/22/20 05/22/20 07:21 11:45 16:14 WBC RBC Hgb Hct MCV MCH MCHC RDW Plt Count MPV Immature Gran % (Auto) Neut % (Auto) Lymph % (Auto) [place] % (Auto) Eos % (Auto) Baso % (Auto) Neut # (Auto) Lymph # (Auto) [place] # (Auto) Eos # (Auto) Baso # (Auto) Abs Immat Gran (auto) Absolute Neuts (auto) Absolute Nucleated RBC Nucleated RBC % (auto) Neutrophils % (Manual) Band Neutrophils % Lymphocytes % (Manual) Monocytes % (Manual) Neutrophils # (Manual) Lymphocytes # (Manual) Monocytes # (Manual) Platelet Estimate Plt Morphology Comment RBC Morphology Smear Tech's Comments ESR PT INR APTT D-Dimer ABG pH ABG pCO2 ABG pO2 ABG HCO3 ABG O2 Saturation ABG Base Excess VBG pH VBG pCO2 VBG Oxygen Liters/Min VBG pO2 VBG HCO3 VBG O2 Saturation VBG Base Excess Oxygen Given Sodium Potassium Chloride Carbon Dioxide Anion Gap BUN Creatinine Estim Creat Clear Calc Estimated GFR POC Glucose 137 H 133 H 153 H Random Glucose Fasting Glucose Estimat Average Glucose Hemoglobin A1c % Lactic Acid Calcium Phosphorus Magnesium Ferritin Total Bilirubin Direct Bilirubin AST ALT Alkaline Phosphatase Lactate Dehydrogenase Total Creatine Kinase Troponin I High Sens C-Reactive Protein B-Natriuretic Peptide Total Protein Albumin Procalcitonin Urine Color Urine Appearance Urine pH Ur Specific [place] Urine Protein Urine Glucose (UA) Urine Ketones Urine Blood Urine Nitrite Ur Leukocyte Esterase Urine RBC Urine WBC Ur Squamous Epith Cells Urine Bacteria Urine Mucus Respiratory Panel [place] Adenovirus (Rapid PCR) B.pert (TEM-PCR) B.parapertussis DNA PCR C. pneumoniae DNA (PCR) Coronavirus (PCR) Coronavirus OC43 (PCR) Coronavirus HKU1 (PCR) Coronavirus 229E (PCR) Coronavirus NL63 (PCR) Human Metapneumovir PCR Influenza A (RT-PCR) Influenza B (RT-PCR) Ur L.pneumophila Ag M. pneumoniae (PCR) Parainfluenza 1 (PCR) Parainfluenza 2 (PCR) Parainfluenza 3 (PCR) Parainfluenza 4 (PCR) RSV (PCR) Entero/Rhino (PCR) SARS-CoV-2 RNA (RT-PCR) Blood Type Antibody Screen 05/22/20 05/23/20 05/23/20 20:35 08:04 11:43 WBC RBC Hgb Hct MCV MCH MCHC RDW Plt Count MPV Immature Gran % (Auto) Neut % (Auto) Lymph % (Auto) [place] % (Auto) Eos % (Auto) Baso % (Auto) Neut # (Auto) Lymph # (Auto) [place] # (Auto) Eos # (Auto) Baso # (Auto) Abs Immat Gran (auto) Absolute Neuts (auto) Absolute Nucleated RBC Nucleated RBC % (auto) Neutrophils % (Manual) Band Neutrophils % Lymphocytes % (Manual) Monocytes % (Manual) Neutrophils # (Manual) Lymphocytes # (Manual) Monocytes # (Manual) Platelet Estimate Plt Morphology Comment RBC Morphology Smear Tech's Comments ESR PT INR APTT D-Dimer ABG pH ABG pCO2 ABG pO2 ABG HCO3 ABG O2 Saturation ABG Base Excess VBG pH VBG pCO2 VBG Oxygen Liters/Min VBG pO2 VBG HCO3 VBG O2 Saturation VBG Base Excess Oxygen Given Sodium Potassium Chloride Carbon Dioxide Anion Gap BUN Creatinine Estim Creat Clear Calc Estimated GFR POC Glucose 152 H 143 H 155 H Random Glucose Fasting Glucose Estimat Average Glucose Hemoglobin A1c % Lactic Acid Calcium Phosphorus Magnesium Ferritin Total Bilirubin Direct Bilirubin AST ALT Alkaline Phosphatase Lactate Dehydrogenase Total Creatine Kinase Troponin I High Sens C-Reactive Protein B-Natriuretic Peptide Total Protein Albumin Procalcitonin Urine Color Urine Appearance Urine pH Ur Specific [place] Urine Protein Urine Glucose (UA) Urine Ketones Urine Blood Urine Nitrite Ur Leukocyte Esterase Urine RBC Urine WBC Ur Squamous Epith Cells Urine Bacteria Urine Mucus Respiratory Panel [place] Adenovirus (Rapid PCR) B.pert (TEM-PCR) B.parapertussis DNA PCR C. pneumoniae DNA (PCR) Coronavirus (PCR) Coronavirus OC43 (PCR) Coronavirus HKU1 (PCR) Coronavirus 229E (PCR) Coronavirus NL63 (PCR) Human Metapneumovir PCR Influenza A (RT-PCR) Influenza B (RT-PCR) Ur L.pneumophila Ag M. pneumoniae (PCR) Parainfluenza 1 (PCR) Parainfluenza 2 (PCR) Parainfluenza 3 (PCR) Parainfluenza 4 (PCR) RSV (PCR) Entero/Rhino (PCR) SARS-CoV-2 RNA (RT-PCR) Blood Type Antibody Screen 05/23/20 05/23/20 05/23/20 15:01 16:29 20:30 WBC RBC Hgb Hct MCV MCH MCHC RDW Plt Count MPV Immature Gran % (Auto) Neut % (Auto) Lymph % (Auto) [place] % (Auto) Eos % (Auto) Baso % (Auto) Neut # (Auto) Lymph # (Auto) [place]ck[place] # (Auto) Eos # (Auto) Baso # (Auto) Abs Immat Gran (auto) Absolute Neuts (auto) Absolute Nucleated RBC Nucleated RBC % (auto) Neutrophils % (Manual) Band Neutrophils % Lymphocytes % (Manual) Monocytes % (Manual) Neutrophils # (Manual) Lymphocytes # (Manual) Monocytes # (Manual) Platelet Estimate Plt Morphology Comment RBC Morphology Smear Tech's Comments ESR PT INR APTT D-Dimer ABG pH ABG pCO2 ABG pO2 ABG HCO3 ABG O2 Saturation ABG Base Excess VBG pH VBG pCO2 VBG Oxygen Liters/Min VBG pO2 VBG HCO3 VBG O2 Saturation VBG Base Excess Oxygen Given Sodium Potassium Chloride Carbon Dioxide Anion Gap BUN Creatinine Estim Creat Clear Calc Estimated GFR POC Glucose 148 H 226 H Random Glucose Fasting Glucose Estimat Average Glucose Hemoglobin A1c % Lactic Acid Calcium Phosphorus Magnesium Ferritin Total Bilirubin Direct Bilirubin AST ALT Alkaline Phosphatase Lactate Dehydrogenase Total Creatine Kinase Troponin I High Sens C-Reactive Protein B-Natriuretic Peptide Total Protein Albumin Procalcitonin Urine Color Urine Appearance Urine pH Ur Specific [place] Urine Protein Urine Glucose (UA) Urine Ketones Urine Blood Urine Nitrite Ur Leukocyte Esterase Urine RBC Urine WBC Ur Squamous Epith Cells Urine Bacteria Urine Mucus Respiratory Panel [place] Adenovirus (Rapid PCR) B.pert (TEM-PCR) B.parapertussis DNA PCR C. pneumoniae DNA (PCR) Coronavirus (PCR) Coronavirus OC43 (PCR) Coronavirus HKU1 (PCR) Coronavirus 229E (PCR) Coronavirus NL63 (PCR) Human Metapneumovir PCR Influenza A (RT-PCR) Influenza B (RT-PCR) Ur L.pneumophila Ag M. pneumoniae (PCR) Parainfluenza 1 (PCR) Parainfluenza 2 (PCR) Parainfluenza 3 (PCR) Parainfluenza 4 (PCR) RSV (PCR) Entero/Rhino (PCR) SARS-CoV-2 RNA (RT-PCR) Blood Type O Positive Antibody Screen NEGATIVE 05/24/20 07:36 WBC RBC Hgb Hct MCV MCH MCHC RDW Plt Count MPV Immature Gran % (Auto) Neut % (Auto) Lymph % (Auto) [place] % (Auto) Eos % (Auto) Baso % (Auto) Neut # (Auto) Lymph # (Auto) [place] # (Auto) Eos # (Auto) Baso # (Auto) Abs Immat Gran (auto) Absolute Neuts (auto) Absolute Nucleated RBC Nucleated RBC % (auto) Neutrophils % (Manual) Band Neutrophils % Lymphocytes % (Manual) Monocytes % (Manual) Neutrophils # (Manual) Lymphocytes # (Manual) Monocytes # (Manual) Platelet Estimate Plt Morphology Comment RBC Morphology Smear Tech's Comments ESR PT INR APTT D-Dimer ABG pH ABG pCO2 ABG pO2 ABG HCO3 ABG O2 Saturation ABG Base Excess VBG pH VBG pCO2 VBG Oxygen Liters/Min VBG pO2 VBG HCO3 VBG O2 Saturation VBG Base Excess Oxygen Given Sodium Potassium Chloride Carbon Dioxide Anion Gap BUN Creatinine Estim Creat Clear Calc Estimated GFR POC Glucose 155 H Random Glucose Fasting Glucose Estimat Average Glucose Hemoglobin A1c % Lactic Acid Calcium Phosphorus Magnesium Ferritin Total Bilirubin Direct Bilirubin AST ALT Alkaline Phosphatase Lactate Dehydrogenase Total Creatine Kinase Troponin I High Sens C-Reactive Protein B-Natriuretic Peptide Total Protein Albumin Procalcitonin Urine Color Urine Appearance Urine pH Ur Specific [place] Urine Protein Urine Glucose (UA) Urine Ketones Urine Blood Urine Nitrite Ur Leukocyte Esterase Urine RBC Urine WBC Ur Squamous Epith Cells Urine Bacteria Urine Mucus Respiratory Panel [place] Adenovirus (Rapid PCR) B.pert (TEM-PCR) B.parapertussis DNA PCR C. pneumoniae DNA (PCR) Coronavirus (PCR) Coronavirus OC43 (PCR) Coronavirus HKU1 (PCR) Coronavirus 229E (PCR) Coronavirus NL63 (PCR) Human Metapneumovir PCR Influenza A (RT-PCR) Influenza B (RT-PCR) Ur L.pneumophila Ag M. pneumoniae (PCR) Parainfluenza 1 (PCR) Parainfluenza 2 (PCR) Parainfluenza 3 (PCR) Parainfluenza 4 (PCR) RSV (PCR) Entero/Rhino (PCR) SARS-CoV-2 RNA (RT-PCR) Blood Type Antibody Screen Airway Mallampati Class: III TM Dist: >3cm Neck ROM: Full Loose/Missing/Broken Teeth: No Heart: RRR Lungs: CTA Assessment and Plan Final Anesthetic Review NPO: Yes ASA Class: III Final Preanesthetic Review: No Changes in Pt Med Stat, Meds/Allgs Chart Reviewed, Consent Obtained/Reviewed and Anes Risks/Benef Reviewed Patient Risk: High Procedure Risk: High Anesthetic Plan Anesthetic Plan: GA Disposition: Standard PACU
--- NOTE | 2020-05-24 08:59 | HO.PM.IMPN ---
Subjective Subjective Date of Service: 05/24/20 Interval History: no new complaints Respiratory Respiratory: Reports no additional respiratory complaints Gastrointestinal Gastrointestinal: Reports no additional gastrointestinal complaints Physical Exam Vital Signs: Vital Signs: Vital Signs Temp Pulse Resp BP Pulse Ox 05/24/20 07:37 97.2 F 103 H 20 139/66 96 05/24/20 04:00 96.7 F L 82 19 147/81 H 96 05/23/20 23:59 97.5 F 73 18 132/59 L 05/23/20 20:00 97.2 F 102 H 133/73 97 05/23/20 19:25 97.2 F 102 H 18 133/73 97 05/23/20 15:24 97.3 F 95 18 134/84 96 05/23/20 11:55 97.2 F 96 18 121/61 95 Body Mass Index 36.5 General: AO X 3, no acute distress Resp: decreased breath sounds CVS: S1,S2,RRR GI: soft, non tender, non distended Neuro: motor grossly intact Psych: appropriate affect Objective Data Current Medications Generic Name Dose Route Start Last Admin Trade Name Freq PRN Reason Stop Dose Admin Acetaminophen 650 mg 05/12/20 03:56 05/22/20 00:10 Acetaminophen 325 Mg Tablet PO 650 mg Q6H PRN Administration Headache Docusate Sodium 100 mg 05/11/20 21:00 05/23/20 20:40 Docusate Sodium 100 Mg Capsule PO 100 mg BID NINA Administration Heparin Sodium (Porcine) 5,000 unit 05/18/20 10:00 05/24/20 06:11 Heparin Sodium,Porcine 5,000 Unit/Ml Vial SUBCUT Not Given Q8H NINA Hydromorphone HCl 0.5 mg 05/23/20 08:51 05/24/20 05:50 Hydromorphone Hcl 0.5 Mg/0.5 Ml Syringe IVPUSH 0.5 mg Q2H PRN Administration pain Lactated Ringer's 1,000 mls @ 50 mls/hr 05/24/20 09:00 Lr IVCONT .Q20H NINA Insulin Human Lispro 0 unit 05/13/20 11:30 05/23/20 20:39 Insulin Lispro 100 Unit/Ml 3 Ml Vial SUBCUT 4 unit QIDACHS NINA Administration Protocol Levalbuterol HCl 1.25 mg 05/17/20 08:21 05/21/20 08:14 Levalbuterol Hcl 1.25 Mg/3 Ml Vial.Neb INHALE 1.25 mg Q2H PRN Administration Dyspnea Lisinopril 5 mg 05/21/20 09:00 05/23/20 08:38 Lisinopril 5 Mg Tablet PO 5 mg DAILY NINA Administration Protocol Ondansetron HCl 4 mg 05/11/20 12:13 Ondansetron Hcl 4 Mg/2 Ml Vial IVPUSH Q8H PRN Nausea and Vomiting Salmeterol Xinafoate 1 puff 05/14/20 08:00 05/24/20 07:26 Salmeterol Xinafoate 50 Mcg Blst.W.Dev INHALE 1 puff RBID NINA Administration Sodium Chloride 2 ml 05/11/20 16:00 05/24/20 00:03 0.9 % Sodium Chloride Flush 3 Ml Syringe IVFLUSH 2 ml QSHIFT NINA Administration Labs CBC & Chem 7: 05/22/20 05:36 05/22/20 05:36 Microbiology Microbiology Results: Microbiology 05/11/20 10:39 Blood - Venous Blood Culture - Final No growth after 5 days. 05/11/20 10:17 Blood - Venous Blood Culture - Final No growth after 5 days. Assessment and Plan (1) Pneumothorax: Status: Acute (2) COPD (chronic obstructive pulmonary disease): Status: Acute (3) Acute on chronic respiratory failure with hypoxia and hypercapnia: Status: Acute (4) Diabetes: Status: Acute (5) HTN (hypertension): Status: Acute Assessment and Plan: 50M presented with sob ofund to have pneumothorax Acute hypoxic respiratory failure secondary to pneumothorax had multiple chest tubes, pneumothorax recurred after accidental removal of chest tube plan for VATs and pleurodesis today diabetes new diagnosis continue insulin likely metformin on discharge hypertension new diagnosis started BENNIE-inhibitor obesity weight loss encouraged
--- NOTE | 2020-05-24 10:38 | PM.PNGS ---
Subjective Subjective Interval history: Patient reports pain at ct site. No significant sob. Physical Exam Vital Signs: Vital Signs: Vital Signs Temp Pulse Resp BP Pulse Ox 05/24/20 07:37 97.2 F 103 H 20 139/66 96 05/24/20 04:00 96.7 F L 82 19 147/81 H 96 05/23/20 23:59 97.5 F 73 18 132/59 L 05/23/20 20:00 97.2 F 102 H 133/73 97 05/23/20 19:25 97.2 F 102 H 18 133/73 97 05/23/20 15:24 97.3 F 95 18 134/84 96 05/23/20 11:55 97.2 F 96 18 121/61 95 Body Mass Index 36.[address] on suction with air leak 1+ Progress Note: A&P Assessment and plan (1) Pneumothorax: Status: Acute Assessment and Plan: Persistent leak and recurrent spontaneous pneumothorax. I discussed the risks, benefits, and alternatives in detail which he understood and agreed to proceed. He has been NPO and t and s is active. Plan for OR today. Fall Risk Details Current Medications: Current Medications Generic Name Dose Route Start Last Admin Trade Name Freq PRN Reason Stop Dose Admin Acetaminophen 650 mg 05/12/20 03:56 05/22/20 00:10 Acetaminophen 325 Mg Tablet PO 650 mg Q6H PRN Administration Headache Albuterol Sulfate 2.5 mg 05/24/20 09:26 Albuterol Sulfate (0.083%) 2.5 Mg/3 Ml Vial.Neb INHALE ONCE PRN Wheezing Docusate Sodium 100 mg 05/11/20 21:00 05/23/20 20:40 Docusate Sodium 100 Mg Capsule PO 100 mg BID NINA Administration Heparin Sodium (Porcine) 5,000 unit 05/18/20 10:00 05/24/20 06:11 Heparin Sodium,Porcine 5,000 Unit/Ml Vial SUBCUT Not Given Q8H NINA Hydromorphone HCl 0.5 mg 05/23/20 08:51 05/24/20 05:50 Hydromorphone Hcl 0.5 Mg/0.5 Ml Syringe IVPUSH 0.5 mg Q2H PRN Administration pain Hydromorphone HCl 0.5 mg 05/24/20 09:26 Hydromorphone Hcl 0.5 Mg/0.5 Ml Syringe IVPUSH Q5M PRN Pain, Moderate (Pain Scale 4-6 Lactated Ringer's 1,000 mls @ 50 mls/hr 05/24/20 09:00 Lr IVCONT .Q20H NINA Promethazine HCl 12.5 mg/ 50.5 mls @ 202 mls/hr 05/24/20 09:26 Sodium Chloride IV ONCE PRN Nausea and Vomiting Insulin Human Lispro 0 unit 05/13/20 11:30 05/23/20 20:39 Insulin Lispro 100 Unit/Ml 3 Ml Vial SUBCUT 4 unit QIDACHS [facility] Administration Protocol Levalbuterol HCl 1.25 mg 05/17/20 08:21 05/21/20 08:14 Levalbuterol Hcl 1.25 Mg/3 Ml Vial.Neb INHALE 1.25 mg Q2H PRN Administration Dyspnea Lisinopril 5 mg 05/21/20 09:00 05/23/20 08:38 Lisinopril 5 Mg Tablet PO 5 mg DAILY [facility] Administration Protocol Ondansetron HCl 4 mg 05/11/20 12:13 Ondansetron Hcl 4 Mg/2 Ml Vial IVPUSH Q8H PRN Nausea and Vomiting Salmeterol Xinafoate 1 puff 05/14/20 08:00 05/24/20 07:26 Salmeterol Xinafoate 50 Mcg Blst.W.Dev INHALE 1 puff RBID [facility] Administration Sodium Chloride 2 ml 05/11/20 16:00 05/24/20 00:03 0.9 % Sodium Chloride Flush 3 Ml Syringe IVFLUSH 2 ml QSHIFT [facility] Administration Time Spent With Patient Time: Total time spent is greater than 50% in coordination of care (as documented) at patient's floor/unit and/or counseling patient: Time with patient: 15 - 24 minutes
--- NOTE | 2020-05-24 10:51 | PM.OP ---
Brief Operative Note Date of procedure: 05/24/20 Pre-op diagnosis: Spontaneous right pneumothorax Post-op diagnosis: same Procedure: R VATS chemical and mechanical pleurodesis, RUL bleb resection Surgeon: Kellie De La Cruz MD Anesthesia: GETA, local and other (multilevel intercostal paravertebral nerve block) Tufting Machine Fixer: Vivien Sigala Estimated blood loss (mL): 10 Pathology: other (RUL wedge) Condition: stable Disposition: PACU
[2020-05-24] MEDS: Lactated Ringers 1,000 ML 50 ML IVCONT (10:52)
[2020-05-24 11:00] LABS: Glucose, Whole Blood 169 mg/dL (60-115)
[2020-05-24] MEDS: oxyCODONE HCl Immed Release 5 MG TABLET PO (11:16)
--- NOTE | 2020-05-24 11:49 | OP_ITS ---
SURGEON: Kellie De La Cruz MD PREOPERATIVE DIAGNOSIS: Spontaneous pneumothorax with bullae. POSTOPERATIVE DIAGNOSIS: Spontaneous pneumothorax with bullae. PROCEDURE PERFORMED: Right VATS partial decortication, bleb resection, and talc/mechanical pleurodesis. ESTIMATED BLOOD LOSS: Minimal. COMPLICATIONS: ANESTHESIA: General. ASSISTANTS: SPECIMENS: Right upper lobe bleb resection/wedge to pathology. INDICATIONS FOR OPERATION: This is a 50-year-old gentleman, smoker, who presented about 2 weeks ago with a first right-sided spontaneous pneumothorax. He was admitted to the hospital. He had a chest tube in place which was ultimately removed; however, he recurred very quickly and a pigtail was replaced. Over the ensuing next 5 days, he had a persistent air leak and actually the chest tube fell out at one point where he developed a significant large right-sided pneumothorax with some shifting of the mediastinum. Due to these findings, pigtail was placed in again and we arranged for him to go to the operating room for bleb resection and pleurodesis. CT scan showed apical blebs and atelectasis of the right middle and lower lobes. I had a discussion with him about the risks, benefits, and alternatives of the operation which he understood and agreed to proceed. OPERATION IN DETAIL: On the day of the operation, the patient was brought to the operating room, placed supine on the operating table. Anesthesia monitoring devices were placed and the patient was intubated with a double-lumen endotracheal tube. The scope on the endotracheal tube was used to confirm positioning and the tube was secured. The patient was turned on his left side with the right chest up and the right chest was widely prepped and draped in the standard sterile fashion. A time-out was performed confirming the correct patient, site, and procedure. After injection of local anesthetic, a 5 mm incision was made over the 7th intercostal space posterior axillary line. The chest was entered without difficulty. A 5 mm trocar and 5 mm 45-degree scope was inserted into the chest and the chest was explored. There were some adhesions of the right upper lobe to the apex and otherwise significant emphysematous disease in particular at the apex of the right upper lobe. A second port was placed posteriorly about 1 cm incision. After injection of local anesthetic, chest was entered without difficulty. A third 1 cm incision was made anteriorly over the 5th intercostal space between the latissimus dorsi and pec major. After injection of local anesthetic, the chest was entered without difficulty. First, an intercostal paravertebral nerve block was done injecting 0.25% bupivacaine in the each intercostal space along the entire length of the chest forming a subpleural wheal under direct vision. Next, using our 2 working ports, the apex of the lung was retracted inferiorly and the ligature device was used to take down and perform pneumolysis of the apex of the lung. Once this was complete and the lung was completely freed, the apex of the lung containing the majority of the blebs was elevated and multiple firings of the green load 60 mm echelon stapler were fired underneath the blebs excising them as completely as possible. This was placed in an EndoCatch bag and sent by the bedside janitorial assistant and sent to pathology for permanent section. Next, a Bovie scratch pad attached to the end of the was used to mechanically pleurodese the chest wall, which was done starting at the apex and going along each rib from superior to inferior to the diaphragm. Next, 4 g of talc was then placed into the chest towards the apex and distributed evenly with the CO2 insufflation connected to our suction [place]auer. We then repeated that process but placing the talc towards the diaphragm and this was again distributed with CO2 insufflation. The camera was then moved to the anterior incision and a 28-[place] straight chest tube was placed through the previous camera incision and directed to lie posteriorly and up to the apex. This was secured with an 0 Vicryl suture. The lung was brought up under direct vision and did easily approximate the chest wall. The remaining incisions were closed with a deep 0 Vicryl suture followed by running 3-0 Vicryl suture and Dermabond glue. The chest tube was dressed and connected to an atrium container. The patient tolerated the procedure well, was extubated at the conclusion of the operation, brought to the recovery room in stable condition. JAVA DEVELOPER ANALYST: GERRI Victoria MD LJR/ANGELICA / [id number]
[2020-05-24 12:04] LABS: Glucose, Whole Blood 227 mg/dL (60-115)
[2020-05-24] MEDS: lisinopriL 5 MG TABLET PO (12:43)
[2020-05-24] MEDS: Docusate Sodium 100 MG CAPSULE PO ×2 (12:44→21:15)
[2020-05-24] MEDS: Insulin Lispro 100 UNIT/ML 3 ML VIAL SUBCUT ×3 (12:46→21:16)
[2020-05-24] MEDS: oxyCODONE HCl Immed Release 5 MG TABLET 10 MG PO ×2 (15:29→21:15)
[2020-05-24 16:35] LABS: Glucose, Whole Blood 291 mg/dL (60-115)
[2020-05-24] MEDS: Heparin Sodium,Porcine 5,000 UNIT/ML VIAL 5000 UNIT SUBCUT ×2 (17:17→23:48)
[2020-05-24 20:58] LABS: Glucose, Whole Blood 219 mg/dL (60-115)
[2020-05-24] MEDS: Zolpidem Tartrate 5 MG TABLET PO (21:15)
[2020-05-25] VITALS (10 sets, daily range): BP systolic 102–129; BP diastolic 49–75; PULSE 92–110; RESP 16–20; TEMP 20.2–36.9; O2SAT 93–95; BMI 37.5
[2020-05-25] MEDS: HYDROmorphone HCl 0.5 MG/0.5 ML SYRINGE IVPUSH ×4 (03:10→19:54)
[2020-05-25] MEDS: oxyCODONE HCl Immed Release 5 MG TABLET 10 MG PO ×2 (05:22→22:12)
--- NOTE | 2020-05-25 06:00 | XR_ITS ---
EXAMINATION: XR CHEST CLINICAL INFORMATION: Postop day 1 status post right VATS pleurodesis COMPARISON: Chest x-ray May 24, 2020 TECHNIQUE: Frontal view of the chest was obtained. FINDINGS: Cardiac silhouette is normal in size. Stable orientation of apically directed large bore right thoracostomy tube. Persistent small right apical pneumothorax. There is a mild overall increase in aeration of the lungs. Subtle opacity near the tip of the thoracostomy tube likely represents a focal region of atelectasis. Blunting of both costophrenic angles likely represents a combination of atelectasis and a tiny amount of pleural fluid. IMPRESSION: -Persistent small right apical pneumothorax. -Improved lung aeration.
[2020-05-25 07:15] LABS: Basophils Percent Auto 0.2 % (0-2); Eosinophils Absolute Auto 0.1 X10*3/uL (0.0-0.4); Eosinophils Percent Auto 0.3 % (0-4); Hemoglobin 15.2 g/dl (14.0-18.0); Imm Gran Pct Auto 0.6 % (0.0-0.4); Lymphocytes Absolute Auto 1.5 X10*3/uL (1.2-4.9); Lymphocytes Percent Auto 8.9 % (20-40); MANUAL DIFF FLAG SCAN; Mean Corpuscular Hemoglobin 32.2 pg (27.0-33.0); Mean Corpuscular Volume 97.5 fL (80-98); Mean Platelet Volume 11.2 fL (9.4-12.4); Monocytes Percent Auto 11.7 % (2-11); Neutrophils Absolute Auto 13.5 X10*3/uL (2.0-8.3); Neutrophils Percent Auto 78.3 % (45-73); Platelet Count 236 X10*3/uL (160-400); Red Blood Count 4.72 X10*6/uL (4.60-5.80); Red Cell Distribution Width 11.3 % (11.0-16.0); SCAN SMEAR FLAG 1; White Blood Count 17.3 X10*3/uL (4.8-10.8)
[2020-05-25 07:30] LABS: Anion Gap 14 (12-20); Blood Urea Nitrogen 10 mg/dL (9-16); Calcium 8.8 mg/dL (8.4-10.2); Carbon Dioxide 30 mmol/L (22-29); Chloride 93 mmol/L (96-108); Creatinine Clr Calc Pharmacy 171.2; Estimated Glomerular Filt Rate > 60; Glucose Fasting 219 mg/dL (60-99); Potassium 3.9 mmol/l (3.3-5.1); Sodium 133 mmol/L (135-145)
[2020-05-25] MEDS: levalbuterol HCL 1.25 MG/3 ML VIAL.NEB INHALE (07:37)
[2020-05-25 07:38] LABS: Glucose, Whole Blood 188 mg/dL (60-115)
[2020-05-25 07:57] LABS: SLIDE REVIEW VERIFIED
[2020-05-25] MEDS: Insulin Lispro 100 UNIT/ML 3 ML VIAL SUBCUT ×4 (08:31→22:10)
[2020-05-25] MEDS: Heparin Sodium,Porcine 5,000 UNIT/ML VIAL 5000 UNIT SUBCUT ×2 (08:35→16:59)
[2020-05-25] MEDS: lisinopriL 5 MG TABLET PO (08:35)
[2020-05-25] MEDS: Docusate Sodium 100 MG CAPSULE PO ×2 (08:36→22:11)
[2020-05-25] MEDS: 0.9 % Sodium Chloride Flush 3 ML SYRINGE 2 ML IVFLUSH ×3 (08:37→23:41)
--- NOTE | 2020-05-25 09:57 | P.PNTS_ITS ---
Subjective Subjective Interval history: No significant issues overnight. Main complaint this morning is pain around his incisions and chest tubes. Pain is worse with movement and coughing. Has not ambulated as of yet due to pain . Has otherwise been doing well from a hemodynamic perspective. Voiding since surgery without issue. Tolerating PO. No SOB, cough, sputum production, N/V, abdominal pain, LE pain/swelling, lightheadedness, dizziness, vision changes. Physical Exam Vital Signs: Vital Signs: Vital Signs Temp Pulse Resp BP Pulse Ox 05/25/20 08:35 110 H 05/25/20 08:00 97.0 F 100 20 124/70 94 05/25/20 04:00 97.0 F 92 16 125/74 05/25/20 00:00 98.5 F 98 18 118/75 93 05/24/20 19:40 97.6 F 116 H 18 134/68 94 05/24/20 15:24 97.0 F 103 H 20 137/71 93 05/24/20 12:43 98 126/73 05/24/20 11:55 98.7 F 98 20 126/73 92 05/24/20 11:33 97.3 F 90 18 129/80 94 05/24/20 11:19 97.2 F 97 18 137/91 H 95 05/24/20 11:02 101 H 18 144/90 H 95 05/24/20 11:00 97 20 153/87 H 98 05/24/20 10:57 20 05/24/20 10:54 93 18 141/81 H 99 05/24/20 10:51 20 05/24/20 10:50 95 20 141/87 H 99 05/24/20 10:45 93 20 131/84 98 05/24/20 10:40 97.5 F 89 22 H 147/95 H 97 Body Mass Index 37.5 General: No acute distress, resting comfortably in bed, well developed Head: Normocephalic, atraumatic, symmetric Eyes: Sclera anicteric, eyelids *without edema or erythema, +EOMS intact ENT: Oral mucosa and tongue are moist without lesions or exudates Neck: Soft, supple, symmetric, trachea midline, no crepitus Cardiovascular: Regular rate and rhythm, no murmur/rubs/gallops, BUE and BLE without edema, no calf tenderness bilaterally Respiratory: Lungs CTA B, breathing nonlabored, speaking in full sentences, on oxygen via NC. No use of accessory muscles. Multiple right sided chest incisions are C/D/I without erythema/drainage/open areas, no crepitus. Right chest tube x 1 to [facility] on -20 wall suction, serosang drainage, no air leak. Gastrointestinal: Soft, non-tender, non-distended, +normoactive bowel sounds. Multiple abdominal incisions C/D/I without erythema/drainage/open areas. Skin: Warm and dry throughout Neurological: Alert and oriented x 3, no focal neurological deficit noted Psychiatric: Alert and oriented x 3, no agitation, appropriate affect DIAGNOSTICS: Laboratory Tests 05/25/20 05/25/20 05:50 05:50 WBC 17.3 H Hgb 15.2 Hct 46.0 Plt Count 236 Sodium 133 L Potassium 3.9 Chloride 93 L Carbon Dioxide 30 H BUN 10 Creatinine 0.64 XRay Report Signed Patient: Keith Matute LMR#: [id number] : 1970Acct:[id number] Age/Sex: 50 / MADM Date: 05/11/20 Loc: [id number]: Michael Walton MD Ordering Physician: BASSEM CASE Date of Service: 05/25/20 Procedure(s): XR chest 1V Accession Number(s): [id number] cc: BASSEM CASE~ EXAMINATION: XR CHEST CLINICAL INFORMATION: Postop day 1 status post right VATS pleurodesis COMPARISON: Chest x-ray May 24, 2020 TECHNIQUE: Frontal view of the chest was obtained. FINDINGS: Cardiac silhouette is normal in size. Stable orientation of apically directed large bore right thoracostomy tube. Persistent small right apical pneumothorax. There is a mild overall increase in aeration of the lungs. Subtle opacity near the tip of the thoracostomy tube likely represents a focal region of atelectasis. Blunting of both costophrenic angles likely represents a combination of atelectasis and a tiny amount of pleural fluid. IMPRESSION: -Persistent small right apical pneumothorax. -Improved lung aeration. Progress Note: A&P Assessment and plan (1) Pneumothorax: Status: Acute Assessment and Plan: POD#1 s/p R VATS mechanical/chemical pleurodesis and RUL bleb resection. * Continue chest tube to -20 wall suction. * Morning CXR ordered * Pain management: Oxycodone IR PO 5-10mg q4h prn pain scale, Dilaudid 0.5mg IV q3h prn breakthrough pain, Tylenol ATC. Added Toradol ATC. * Pulmonary toilet * Patient needs to be OOB ambulating in hallways at least 3-4 times daily * Patient should be OOB to chair for all meals Fall Risk Details Current Medications: Current Medications Generic Name Dose Route Start Last Admin Trade Name Freq PRN Reason Stop Dose Admin Acetaminophen 650 mg 05/12/20 03:56 05/22/20 00:10 Acetaminophen 325 Mg Tablet PO 650 mg Q6H PRN Administration Headache Docusate Sodium 100 mg 05/11/20 21:00 05/25/20 08:36 Docusate Sodium 100 Mg Capsule PO 100 mg BID NINA Administration Heparin Sodium (Porcine) 5,000 unit 05/18/20 10:00 05/25/20 08:35 Heparin Sodium,Porcine 5,000 Unit/Ml Vial SUBCUT 5,000 unit Q8H NINA Administration Hydromorphone HCl 0.5 mg 05/24/20 10:37 05/25/20 08:32 Hydromorphone Hcl 0.5 Mg/0.5 Ml Syringe IVPUSH 0.5 mg Q3H PRN Administration BREAKTHROUGH PAIN Insulin Human Lispro 0 unit 05/13/20 11:30 05/25/20 08:31 Insulin Lispro 100 Unit/Ml 3 Ml Vial SUBCUT 2 unit QIDACHS NINA Administration Protocol Levalbuterol HCl 1.25 mg 05/17/20 08:21 05/25/20 07:37 Levalbuterol Hcl 1.25 Mg/3 Ml Vial.Neb INHALE 1.25 mg Q2H PRN Administration Dyspnea Lisinopril 5 mg 05/21/20 09:00 05/25/20 08:35 Lisinopril 5 Mg Tablet PO 5 mg DAILY NINA Administration Protocol Ondansetron HCl 4 mg 05/11/20 12:13 Ondansetron Hcl 4 Mg/2 Ml Vial IVPUSH Q8H PRN Nausea and Vomiting Oxycodone HCl 5 mg 05/24/20 10:37 05/24/20 11:16 Oxycodone Hcl Immed Release 5 Mg Tablet PO 5 mg Q4H PRN Administration Pain, Moderate (Pain Scale 4-6 Oxycodone HCl 10 mg 05/24/20 10:37 05/25/20 05:22 Oxycodone Hcl Immed Release 5 Mg Tablet PO 10 mg Q4H PRN Administration Pain, Severe (Pain Scale 7-10) Salmeterol Xinafoate 1 puff 05/14/20 08:00 05/25/20 07:40 Salmeterol Xinafoate 50 Mcg Blst.W.Dev INHALE Not Given RBID NINA Sodium Chloride 2 ml 05/11/20 16:00 05/25/20 08:37 0.9 % Sodium Chloride Flush 3 Ml Syringe IVFLUSH 2 ml QSHIFT NINA Administration Time Spent With Patient Time: Total time spent is greater than 50% in coordination of care (as documented) at patient's floor/unit and/or counseling patient: Time with patient: 15 - 24 minutes
--- NOTE | 2020-05-25 11:09 | MHC.CM.PN ---
Patient had right VATS surgery on 05/24 and still requiring 4 liters O2 via NC. Discharge plan is home no services. Family will provide transport. CM will continue to follow for discharge needs.
[2020-05-25 11:45] LABS: Glucose, Whole Blood 208 mg/dL (60-115)
[2020-05-25] MEDS: Ketorolac Tromethamine 15 MG/ML VIAL IV ×3 (11:50→23:42)
--- NOTE | 2020-05-25 14:08 | HO.POSTANES ---
Post Anesthesia Evaluation Post Anesthesia Evaluation Vital Signs: Vital Signs Temp Pulse Resp BP Pulse Ox 05/25/20 13:14 97.6 F 100 20 106/64 95 05/25/20 09:26 94 05/25/20 08:35 110 H 05/25/20 08:00 97.0 F 100 20 124/70 94 05/25/20 04:00 97.0 F 92 16 125/74 Anesthesia: General Mental Status: Awake Pain Control: Satisfactory Nausea/Vomiting: None Hydration: Adequate Anesthesia-Related Issues: No Anes. Related Issues
--- NOTE | 2020-05-25 14:39 | P.PNIM_ITS ---
Subjective Subjective Date of Service: 05/25/20 Interval History: patient seen and examined at bedside patient reporting pain at chest tube site Physical Exam Vital Signs: Vital Signs: Vital Signs Temp Pulse Resp BP Pulse Ox 05/25/20 13:14 97.6 F 100 20 106/64 95 05/25/20 09:26 94 05/25/20 08:35 110 H 05/25/20 08:00 97.0 F 100 20 124/70 94 05/25/20 04:00 97.0 F 92 16 125/74 05/25/20 00:00 98.5 F 98 18 118/75 93 05/24/20 19:40 97.6 F 116 H 18 134/68 94 05/24/20 15:24 97.0 F 103 H 20 137/71 93 Body Mass Index 37.5 General: AO X 3, no acute distress Resp: decreased breath sounds CVS: S1,S2,RRR GI: soft, non tender, non distended Neuro: motor grossly intact Psych: appropriate affect Objective Data Current Medications Generic Name Dose Route Start Last Admin Trade Name Freq PRN Reason Stop Dose Admin Acetaminophen 650 mg 05/12/20 03:56 05/22/20 00:10 Acetaminophen 325 Mg Tablet PO 650 mg Q6H PRN Administration Headache Docusate Sodium 100 mg 05/11/20 21:00 05/25/20 08:36 Docusate Sodium 100 Mg Capsule PO 100 mg BID NINA Administration Heparin Sodium (Porcine) 5,000 unit 05/18/20 10:00 05/25/20 08:35 Heparin Sodium,Porcine 5,000 Unit/Ml Vial SUBCUT 5,000 unit Q8H NINA Administration Hydromorphone HCl 0.5 mg 05/24/20 10:37 05/25/20 08:32 Hydromorphone Hcl 0.5 Mg/0.5 Ml Syringe IVPUSH 0.5 mg Q3H PRN Administration BREAKTHROUGH PAIN Insulin Human Lispro 0 unit 05/13/20 11:30 05/25/20 11:49 Insulin Lispro 100 Unit/Ml 3 Ml Vial SUBCUT 4 unit QIDACHS NINA Administration Protocol Ketorolac Tromethamine 15 mg 05/25/20 12:00 05/25/20 11:50 Ketorolac Tromethamine 15 Mg/Ml Vial IV 05/28/20 11:59 15 mg Q6H NINA Administration Levalbuterol HCl 1.25 mg 05/17/20 08:21 05/25/20 07:37 Levalbuterol Hcl 1.25 Mg/3 Ml Vial.Neb INHALE 1.25 mg Q2H PRN Administration Dyspnea Lisinopril 5 mg 05/21/20 09:00 05/25/20 08:35 Lisinopril 5 Mg Tablet PO 5 mg DAILY NINA Administration Protocol Ondansetron HCl 4 mg 05/11/20 12:13 Ondansetron Hcl 4 Mg/2 Ml Vial IVPUSH Q8H PRN Nausea and Vomiting Oxycodone HCl 5 mg 05/24/20 10:37 05/24/20 11:16 Oxycodone Hcl Immed Release 5 Mg Tablet PO 5 mg Q4H PRN Administration Pain, Moderate (Pain Scale 4-6 Oxycodone HCl 10 mg 05/24/20 10:37 05/25/20 05:22 Oxycodone Hcl Immed Release 5 Mg Tablet PO 10 mg Q4H PRN Administration Pain, Severe (Pain Scale 7-10) Salmeterol Xinafoate 1 puff 05/14/20 08:00 05/25/20 07:40 Salmeterol Xinafoate 50 Mcg Blst.W.Dev INHALE Not Given RBID [facility] Sodium Chloride 2 ml 05/11/20 16:00 05/25/20 08:37 0.9 % Sodium Chloride Flush 3 Ml Syringe IVFLUSH 2 ml QSHIFT NINA Administration Labs CBC & Chem 7: 05/25/20 05:50 05/25/20 05:50 Microbiology Microbiology Results: Microbiology 05/11/20 10:39 Blood - Venous Blood Culture - Final No growth after 5 days. 05/11/20 10:17 Blood - Venous Blood Culture - Final No growth after 5 days. Assessment and Plan (1) Pneumothorax: Status: Acute (2) COPD (chronic obstructive pulmonary disease): Status: Acute (3) Acute on chronic respiratory failure with hypoxia and hypercapnia: Status: Acute (4) Diabetes: Status: Acute (5) HTN (hypertension): Status: Acute Assessment and Plan: 50M presented with sob ofund to have pneumothorax Acute hypoxic respiratory failure secondary to recurrent pneumothorax had multiple chest tubes, pneumothorax recurred after accidental removal of chest tube status postVATs and pleurodesis on 05/24/2020 thoracic surgery following continue IV and p.o. narcotics for pain control continue incentive spirometry diabetes new diagnosis continue insulin likely metformin on discharge hypertension new diagnosis started BENNIE-inhibitor obesity weight loss encouraged DVT prophylaxis heparin subcu
[2020-05-25 16:46] LABS: Glucose, Whole Blood 210 mg/dL (60-115)
[2020-05-25] MEDS: Salmeterol Xinafoate 50 MCG BLST.W.DEV 1 PUFF INHALE (19:54)
[2020-05-26] VITALS (8 sets, daily range): BP systolic 107–132; BP diastolic 57–80; PULSE 90–109; RESP 16–20; TEMP 36.1–37.2; O2SAT 94–97; BMI 38.0
[2020-05-26] MEDS: Heparin Sodium,Porcine 5,000 UNIT/ML VIAL 5000 UNIT SUBCUT ×4 (02:18→23:53)
[2020-05-26] MEDS: HYDROmorphone HCl 0.5 MG/0.5 ML SYRINGE IVPUSH ×3 (02:20→22:00)
[2020-05-26 04:05] LABS: Glucose, Whole Blood 235 mg/dL (60-115)
--- NOTE | 2020-05-26 06:00 | XR_ITS ---
EXAMINATION: XR CHEST CLINICAL INFORMATION: Status post right VATS pleurodesis and right upper lobe wedge COMPARISON: 05/25/2020 TECHNIQUE: Frontal view of the chest was obtained. FINDINGS: Redemonstrated right chest tube. Persistent small right apical pneumothorax is suspected. Redemonstrated focal opacity near the tip of the chest tube. There is a new region of opacity in the mid to lower lung in the region of the fissure. No left lung consolidation is seen. No significant pleural effusion. The cardiomediastinal contour is unremarkable. No acute osseous findings are seen. IMPRESSION: Suspect persistent small right apical pneumothorax. New focal opacity in the mid to lower right lung is well demarcated and may reflect atelectasis versus fissural fluid. Persistent focal opacity near the tip of the chest tube.
[2020-05-26] MEDS: Ketorolac Tromethamine 15 MG/ML VIAL IV ×4 (06:07→23:53)
[2020-05-26] MEDS: oxyCODONE HCl Immed Release 5 MG TABLET 10 MG PO ×3 (06:08→22:00)
[2020-05-26] MEDS: levalbuterol HCL 1.25 MG/3 ML VIAL.NEB INHALE (07:22)
[2020-05-26] MEDS: Salmeterol Xinafoate 50 MCG BLST.W.DEV 1 PUFF INHALE ×2 (07:24→20:22)
[2020-05-26 07:51] LABS: Glucose, Whole Blood 187 mg/dL (60-115)
--- NOTE | 2020-05-26 08:14 | P.PNTS_ITS ---
Subjective Subjective Patient reports: no new complaints and pain is less Interval history: Patient reports his pain is improved from yesterday. No events overnight. Chest tube remains to -20cm continuous LWS. Has not ambulated in hallways. Ambulating in room to bathroom with assist of nursing. States he has not been using incentive spirometer as much as he should . Had BM yesterday. No supplemental O2. Denies respiratory distress, shortness of breath, fevers, or chills. Reports occasional productive cough with some blood tinged sputum. Voiding without difficulty. Otherwise, comfortable in bed. Physical Exam Vital Signs: Vital Signs: Vital Signs Temp Pulse Resp BP Pulse Ox 05/26/20 03:18 97.8 F 90 18 131/80 97 05/25/20 23:49 98.3 F 93 18 129/64 94 05/25/20 20:00 98.3 F 100 20 102/49 L 95 05/25/20 16:00 68.4 F L 96 18 113/57 L 93 05/25/20 13:14 97.6 F 100 20 106/64 95 05/25/20 09:26 94 05/25/20 08:35 110 H Body Mass Index 38.0 Const: General: cooperative, healthy appearing, comfortable and no acute distress Nutritional Appearance: well nourished Orientation/consciousness: oriented to person, oriented to place, oriented to time and patient oriented x3 Limitations: no limitations HENMT: Head: Yes normal to inspection, Yes normocephalic and Yes atraumatic Mouth: Normal oral and palatal mucosa present Eyes: Visual Wharton: normal visual wharton by confrontation Alignment and Position: alignment normal Periorbital: periorbital findings normal Conjunctivae: conjunctivae normal Sclerae: sclerae normal Pupils: Equal, round and reactive pupils present and Pupil accommodation reflex normal EOM: EOMs intact bilaterally Neck: Neck: Yes normal visual inspection, Yes full ROM, Yes no lymphadenopathy, Yes trachea midline, Yes supple, No lymphadenopathy, No tender and No tracheal deviation Lymphatic: no lymphadenopathy noted Chest: Chest palpation & inspection: normal inspection of the chest and no crepitus Resp: Other: Right lateral chest tube remains to -20cm continuous LWS. 250cc serousanguinous drainage in atrium. No visible air leak at rest or with forced expiratory cough. No chest crepitus palpated. Multiple surgical incisions healing well without erythema, edema, or drainage. Chest tube dressing with some serousanguinous drainage. Nursing to change today. Effort & Inspection: normal respiratory effort, able to speak in complete sentences, normal respiratory pattern, no audible wheezes, Actively coughing, no pursed lip breathing, no respiratory distress, no stridor, not tachypneic and no tracheal deviation Auscultation: clear to auscultation bilaterally Cardio: Jugular venous distension: no JVD Palpation: normal PMI Rate: regular rate Rhythm: regular rhythm Heart sounds: S1 normal heart sound present, S2 normal heart sound present, no click, no gallops, no murmurs and no rubs GI: Inspection: Yes normal to inspection Auscultation: normal bowel sounds : General: Yes no CVA tenderness Back/Spine/Pelvis: Back: no CVA tenderness Thoracic/Lumbar Spine: thoracic and lumbar spine normal to inspection Skin: General skin exam: no rashes or lesions noted and dry skin Lesions: no lesions Rashes: no rashes Neuro: General: oriented to person, oriented to place, oriented to time, patient oriented x3 and gait normal Cranial nerves: Yes Equal, round and reactive pupils present Extrem: General: Yes normal to inspection, Yes full ROM, Yes capillary refill normal, Yes no clubbing, cyanosis or edema, Yes no pedal edema and Yes normal gait Psych: Appearance: grossly normal and well kempt Mental Status: mental status grossly normal Speech and movement: Normal speech and movement present and Clear speech present Affect: normal affect Attitude: cooperative Thought process: Normal thought process present Thought content: Normal thought content present Progress Note: A&P Assessment and plan (1) Pneumothorax: Status: Acute Assessment and Plan: POD#2 s/p R VATS mechanical/chemical pleurodesis and RUL bleb resection. * Continue chest tube to -[address] chest tube to waterseal at midnight 05/27/20 0000. * Repeat chest xray tomorrow am s/p waterseal at midnight. * Pulmonary toilet, incentive spirometer, cough and deep breathe * Patient needs to be OOB ambulating in hallways at least 3-4 times daily. May ambulate off suction. * Patient should be OOB to chair for all meals (2) Pain management: Status: Acute Assessment and Plan: Pain management: Oxycodone IR PO 5-10mg q4h prn pain scale, Dilaudid 0.5mg IV q3h prn breakthrough pain, Tylenol ATC. Added Toradol ATC (3) Post-op pain: Status: Acute Assessment and Plan: See above for pain management following surgery. Fall Risk Details Current Medications: Current Medications Generic Name Dose Route Start Last Admin Trade Name Freq PRN Reason Stop Dose Admin Acetaminophen 650 mg 05/12/20 03:56 05/22/20 00:10 Acetaminophen 325 Mg Tablet PO 650 mg Q6H PRN Administration Headache Docusate Sodium 100 mg 05/11/20 21:00 05/25/20 22:11 Docusate Sodium 100 Mg Capsule PO 100 mg BID NINA Administration Heparin Sodium (Porcine) 5,000 unit 05/18/20 10:00 05/26/20 02:18 Heparin Sodium,Porcine 5,000 Unit/Ml Vial SUBCUT 5,000 unit Q8H NINA Administration Hydromorphone HCl 0.5 mg 05/24/20 10:37 05/26/20 02:20 Hydromorphone Hcl 0.5 Mg/0.5 Ml Syringe IVPUSH 0.5 mg Q3H PRN Administration BREAKTHROUGH PAIN Insulin Human Lispro 0 unit 05/13/20 11:30 05/25/20 22:10 Insulin Lispro 100 Unit/Ml 3 Ml Vial SUBCUT 4 unit QIDACHS NINA Administration Protocol Ketorolac Tromethamine 15 mg 05/25/20 12:00 05/26/20 06:07 Ketorolac Tromethamine 15 Mg/Ml Vial IV 05/28/20 11:59 15 mg Q6H NINA Administration Levalbuterol HCl 1.25 mg 05/17/20 08:21 05/26/20 07:22 Levalbuterol Hcl 1.25 Mg/3 Ml Vial.Neb INHALE 1.25 mg Q2H PRN Administration Dyspnea Lisinopril 5 mg 05/21/20 09:00 05/25/20 08:35 Lisinopril 5 Mg Tablet PO 5 mg DAILY NINA Administration Protocol Ondansetron HCl 4 mg 05/11/20 12:13 Ondansetron Hcl 4 Mg/2 Ml Vial IVPUSH Q8H PRN Nausea and Vomiting Oxycodone HCl 5 mg 05/24/20 10:37 05/24/20 11:16 Oxycodone Hcl Immed Release 5 Mg Tablet PO 5 mg Q4H PRN Administration Pain, Moderate (Pain Scale 4-6 Oxycodone HCl 10 mg 05/24/20 10:37 05/26/20 06:08 Oxycodone Hcl Immed Release 5 Mg Tablet PO 10 mg Q4H PRN Administration Pain, Severe (Pain Scale 7-10) Salmeterol Xinafoate 1 puff 05/14/20 08:00 05/26/20 07:24 Salmeterol Xinafoate 50 Mcg Blst.W.Dev INHALE 1 puff RBID NINA Administration Sodium Chloride 2 ml 05/11/20 16:00 05/25/20 23:41 0.9 % Sodium Chloride Flush 3 Ml Syringe IVFLUSH 2 ml QSHIFT NINA Administration Time Spent With Patient Time: Total time spent is greater than 50% in coordination of care (as documented) at patient's floor/unit and/or counseling patient: Time with patient: 15 - 24 minutes Progress Note: Quality AMI Clinical Trial Participant: No
[2020-05-26] MEDS: Insulin Lispro 100 UNIT/ML 3 ML VIAL SUBCUT ×4 (08:20→22:01)
[2020-05-26] MEDS: Docusate Sodium 100 MG CAPSULE PO ×2 (08:21→22:00)
[2020-05-26] MEDS: lisinopriL 5 MG TABLET PO (08:23)
[2020-05-26] MEDS: 0.9 % Sodium Chloride Flush 3 ML SYRINGE 2 ML IVFLUSH ×3 (08:23→22:01)
[2020-05-26 09:43] LABS: Basophils Percent Auto 0.2 % (0-2); Eosinophils Absolute Auto 0.2 X10*3/uL (0.0-0.4); Eosinophils Percent Auto 1.3 % (0-4); Hematocrit 42.1 % (42-52); Hemoglobin 14.2 g/dl (14.0-18.0); Imm Gran Abs Auto 0.09 X10*3/uL (0.00-0.03); Imm Gran Pct Auto 0.6 % (0.0-0.4); Lymphocytes Absolute Auto 1.3 X10*3/uL (1.2-4.9); Lymphocytes Percent Auto 9.1 % (20-40); MANUAL DIFF FLAG SCAN; Mean Corpuscular HGB Conc 33.7 g/dl (31.0-36.0); Mean Corpuscular Hemoglobin 32.9 pg (27.0-33.0); Mean Corpuscular Volume 97.7 fL (80-98); Mean Platelet Volume 11.2 fL (9.4-12.4); Monocytes Absolute Auto 1.8 X10*3/uL (0.1-1.2); Monocytes Percent Auto 12.5 % (2-11); Neutrophils Percent Auto 76.3 % (45-73); Platelet Count 218 X10*3/uL (160-400); Red Blood Count 4.31 X10*6/uL (4.60-5.80); Red Cell Distribution Width 11.5 % (11.0-16.0); SCAN SMEAR FLAG 1; White Blood Count 14.4 X10*3/uL (4.8-10.8)
[2020-05-26 09:51] LABS: Anion Gap 14 (12-20); Blood Urea Nitrogen 15 mg/dL (9-16); Calcium 8.4 mg/dL (8.4-10.2); Carbon Dioxide 29 mmol/L (22-29); Chloride 92 mmol/L (96-108); Creatinine Clr Calc Pharmacy 136.3; Estimated Glomerular Filt Rate > 60; Glucose Random 301 mg/dL (60-115); Potassium 4.4 mmol/l (3.3-5.1); Sodium 131 mmol/L (135-145)
[2020-05-26 11:42] LABS: Glucose, Whole Blood 239 mg/dL (60-115)
--- NOTE | 2020-05-26 12:10 | MHC.CLN ---
F/U PO INTAKE 100% RE-STARTED DIET TO 1999 DM R/T NEW DIAGNOSED DM NOTED RG 301 (05/26) MONITOR PO INTAKE CLOSELY
[2020-05-26 13:22] LABS: SLIDE REVIEW VERIFIED
[2020-05-26 16:16] LABS: Glucose, Whole Blood 204 mg/dL (60-115)
[2020-05-26 21:33] LABS: Glucose, Whole Blood 192 mg/dL (60-115)
[2020-05-27] VITALS (7 sets, daily range): BP systolic 117–135; BP diastolic 58–79; PULSE 91–101; RESP 14–20; TEMP 36.1–36.9; O2SAT 91–97
[2020-05-27] MEDS: oxyCODONE HCl Immed Release 5 MG TABLET PO ×4 (02:46→20:55)
[2020-05-27] MEDS: Ketorolac Tromethamine 15 MG/ML VIAL IV ×3 (05:26→18:45)
--- NOTE | 2020-05-27 06:00 | XR_ITS ---
EXAMINATION: CHEST 1 VIEW CLINICAL INFORMATION: Status post pleurodesis. Bleb resection. COMPARISON: Multiple prior exams are reviewed. The most recent is from 05/26/2020. TECHNIQUE: An AP view of the chest is provided. FINDINGS: The cardiac silhouette is stable. A right chest tube is in unchanged position with the tip overlying the upper right hemithorax. There are no demonstrable pneumothoraces. There is stable right pleural fluid, elevation of the right hemidiaphragm and right lower lobe atelectasis. There is blunting of the left lateral costophrenic angle. The left lung is otherwise clear. The osseous structures are stable. IMPRESSION: Right chest tube in unchanged position. No demonstrable pneumothorax. Persistent right pleural fluid and right lower lobe atelectasis.
[2020-05-27 07:40] LABS: Glucose, Whole Blood 171 mg/dL (60-115)
[2020-05-27] MEDS: Heparin Sodium,Porcine 5,000 UNIT/ML VIAL 5000 UNIT SUBCUT ×2 (08:16→18:45)
[2020-05-27] MEDS: Insulin Lispro 100 UNIT/ML 3 ML VIAL SUBCUT ×3 (08:16→20:56)
[2020-05-27] MEDS: 0.9 % Sodium Chloride Flush 3 ML SYRINGE 2 ML IVFLUSH ×3 (08:17→20:57)
[2020-05-27] MEDS: lisinopriL 5 MG TABLET PO (08:17)
[2020-05-27] MEDS: Docusate Sodium 100 MG CAPSULE PO ×2 (08:17→20:55)
[2020-05-27] MEDS: levalbuterol HCL 1.25 MG/3 ML VIAL.NEB INHALE (08:19)
[2020-05-27] MEDS: Salmeterol Xinafoate 50 MCG BLST.W.DEV 1 PUFF INHALE ×2 (08:23→19:49)
--- NOTE | 2020-05-27 09:10 | P.PNTS_ITS ---
Subjective Subjective Interval history: No issues overnight. Chest tube placed to water seal at midnight and no issues since. At time of my visit this morning patient feeling well. Still having some pain around right chest incisions and chest tube, but improving and mainly well controlled. Has been getting OOB ambulating and using IS. Voiding without issue. Tolerating an oral diet. Denies any changes in respiratory status overnight. Denies any F/C, dizziness, lightheadedness, CP, SOB, VERGARA, cough, sp utum production, hemoptysis, abdominal pain/distention, nausea, LE swelling or calf pain. Physical Exam Vital Signs: Vital Signs: Vital Signs Temp Pulse Resp BP Pulse Ox 05/27/20 07:13 98.4 F 94 20 135/69 97 05/27/20 03:36 97.5 F 97 18 133/79 05/27/20 00:00 97.5 F 101 H 18 129/76 94 05/26/20 22:10 122/69 05/26/20 19:55 98.2 F 90 16 97 05/26/20 16:00 98.9 F 106 H 16 127/61 97 05/26/20 12:00 98.6 F 109 H 20 107/57 L 97 Body Mass Index 38.0 General: No acute distress, resting comfortably in recliner chair, well developed Head: Normocephalic, atraumatic, symmetric Eyes: Sclera anicteric, eyelids without edema or erythemaEOMS intact ENT: Oral mucosa and tongue are moist without lesions or exudates Neck: Soft, supple, symmetric, trachea midline, no crepitus Cardiovascular: Regular rate and rhythm, no murmur/rubs/gallops, BUE and BLE without edema, * calf tenderness bilaterally Respiratory: Lungs CTA B, breathing nonlabored, speaking in full sentences, on oxygen via NC. No use of accessory muscles. Multiple right sided chest incisions are C/D/I without erythema/drainage/open areas, no crepitus. Right chest tube x 1 to [facility] on water seal, serosang drainage, no air leak. Gastrointestinal: Rotund, soft, non-tender, non-distended, +normoactive bowel sounds. Skin: Warm and dry throughout, no rashes Neurological: Alert and oriented x 3, no focal neurological deficit noted Psychiatric: Alert and oriented x 3, no agitation, appropriate affect DIAGNOSTICS: XRay Report Signed Patient: Keith Matute LMR#: [id number] : 1970Acct:[id number] Age/Sex: 50 / MADM Date: 05/11/20 Loc: [id number]: Michael Walton MD Ordering Physician: ANALI MAURICIO NP Date of Service: 05/27/20 Procedure(s): XR chest 1V Accession Number(s): [id number] cc: ANALI MAURICIO NP~ EXAMINATION: CHEST 1 VIEW CLINICAL INFORMATION: Status post pleurodesis. Bleb resection. COMPARISON: Multiple prior exams are reviewed. The most recent is from 05/26/2020. TECHNIQUE: An AP view of the chest is provided. FINDINGS: The cardiac silhouette is stable. A right chest tube is in unchanged position with the tip overlying the upper right hemithorax. There are no demonstrable pneumothoraces. There is stable right pleural fluid, elevation of the right hemidiaphragm and right lower lobe atelectasis. There is blunting of the left lateral costophrenic angle. The left lung is otherwise clear. The osseous structures are stable. IMPRESSION: Right chest tube in unchanged position. No demonstrable pneumothorax. Persistent right pleural fluid and right lower lobe atelectasis. Progress Note: A&P Assessment and plan (1) Pneumothorax: Status: Acute Assessment and Plan: POD#3 s/p R VATS mechanical/chemical pleurodesis and RUL bleb resection. * Chest tube to water seal overnight. This morning patient has no air leak, no increased SQ crepitus, and no pneumothorax on CXR. * Chest tube removed without issue. Occlusive dressing placed over the site and to remain in place x 48 hours. May remove and leave open to air on 05/29/20. * Patient ok to be discharged home from a Thoracic perspective 2 hours after chest tube removed, around 10:30am, once deemed appropriate per primary team. * Followup appointment made and discharge instructions put in discharge section of EMR. * Prescription for oxycodone IR sent electronically to patient's pharmacy. Fall Risk Details Current Medications: Current Medications Generic Name Dose Route Start Last Admin Trade Name Freq PRN Reason Stop Dose Admin Acetaminophen 650 mg 05/12/20 03:56 05/22/20 00:10 Acetaminophen 325 Mg Tablet PO 650 mg Q6H PRN Administration Headache Docusate Sodium 100 mg 05/11/20 21:00 05/27/20 08:17 Docusate Sodium 100 Mg Capsule PO 100 mg BID NINA Administration Heparin Sodium (Porcine) 5,000 unit 05/18/20 10:00 05/27/20 08:16 Heparin Sodium,Porcine 5,000 Unit/Ml Vial SUBCUT 5,000 unit Q8H NINA Administration Hydromorphone HCl 0.5 mg 05/24/20 10:37 05/26/20 22:00 Hydromorphone Hcl 0.5 Mg/0.5 Ml Syringe IVPUSH 0.5 mg Q3H PRN Administration BREAKTHROUGH PAIN Insulin Human Lispro 0 unit 05/13/20 11:30 05/27/20 08:16 Insulin Lispro 100 Unit/Ml 3 Ml Vial SUBCUT 2 unit QIDACHS NINA Administration Protocol Ketorolac Tromethamine 15 mg 05/25/20 12:00 05/27/20 05:26 Ketorolac Tromethamine 15 Mg/Ml Vial IV 05/28/20 11:59 15 mg Q6H NINA Administration Levalbuterol HCl 1.25 mg 05/17/20 08:21 05/27/20 08:19 Levalbuterol Hcl 1.25 Mg/3 Ml Vial.Neb INHALE 1.25 mg Q2H PRN Administration Dyspnea Lisinopril 5 mg 05/21/20 09:00 05/27/20 08:17 Lisinopril 5 Mg Tablet PO 5 mg DAILY NINA Administration Protocol Ondansetron HCl 4 mg 05/11/20 12:13 Ondansetron Hcl 4 Mg/2 Ml Vial IVPUSH Q8H PRN Nausea and Vomiting Oxycodone HCl 5 mg 05/24/20 10:37 05/27/20 08:20 Oxycodone Hcl Immed Release 5 Mg Tablet PO 5 mg Q4H PRN Administration Pain, Moderate (Pain Scale 4-6 Oxycodone HCl 10 mg 05/24/20 10:37 05/26/20 22:00 Oxycodone Hcl Immed Release 5 Mg Tablet PO 10 mg Q4H PRN Administration Pain, Severe (Pain Scale 7-10) Salmeterol Xinafoate 1 puff 05/14/20 08:00 05/27/20 08:23 Salmeterol Xinafoate 50 Mcg Blst.W.Dev INHALE 1 puff RBID NINA Administration Sodium Chloride 2 ml 05/11/20 16:00 05/27/20 08:17 0.9 % Sodium Chloride Flush 3 Ml Syringe IVFLUSH 2 ml QSHIFT NINA Administration Time Spent With Patient Time: Total time spent is greater than 50% in coordination of care (as documented) at patient's floor/unit and/or counseling patient: Time with patient: 15 - 24 minutes Progress Note: Quality AMI Clinical Trial Participant: No
[2020-05-27 11:36] LABS: Glucose, Whole Blood 202 mg/dL (60-115)
--- NOTE | 2020-05-27 12:52 | MHC.CM.PN ---
Patient is on 2 liters O2, chest tube removed and weaning off IV dilaudid. Discharge plan is home no services. CM will continue to follow patient for discharge needs.
[2020-05-27] MEDS: HYDROmorphone HCl 0.5 MG/0.5 ML SYRINGE IVPUSH ×2 (14:11→20:56)
--- NOTE | 2020-05-27 15:11 | HO.PM.IMPN ---
Subjective Subjective Date of Service: 05/27/20 Interval History: patient seen and examined at bedside patient reported pain improving Physical Exam Vital Signs: Vital Signs: Vital Signs Temp Pulse Resp BP Pulse Ox 05/27/20 15:08 97 F 101 H 16 124/63 94 05/27/20 11:14 98.3 F 99 20 117/58 L 92 05/27/20 09:00 91 L 05/27/20 07:13 98.4 F 94 20 135/69 97 05/27/20 03:36 97.5 F 97 18 133/79 05/27/20 00:00 97.5 F 101 H 18 129/76 94 05/26/20 22:10 122/69 05/26/20 19:55 98.2 F 90 16 97 05/26/20 16:00 98.9 F 106 H 16 127/61 97 Body Mass Index 38.0 General: AO X 3, no acute distress Resp: decreased breath sounds CVS: S1,S2,RRR GI: soft, non tender, non distended Neuro: motor grossly intact Psych: appropriate affect Objective Data Current Medications Generic Name Dose Route Start Last Admin Trade Name Freq PRN Reason Stop Dose Admin Acetaminophen 650 mg 05/12/20 03:56 05/22/20 00:10 Acetaminophen 325 Mg Tablet PO 650 mg Q6H PRN Administration Headache Docusate Sodium 100 mg 05/11/20 21:00 05/27/20 08:17 Docusate Sodium 100 Mg Capsule PO 100 mg BID NINA Administration Heparin Sodium (Porcine) 5,000 unit 05/18/20 10:00 05/27/20 08:16 Heparin Sodium,Porcine 5,000 Unit/Ml Vial SUBCUT 5,000 unit Q8H NINA Administration Hydromorphone HCl 0.5 mg 05/24/20 10:37 05/27/20 14:11 Hydromorphone Hcl 0.5 Mg/0.5 Ml Syringe IVPUSH 0.5 mg Q3H PRN Administration BREAKTHROUGH PAIN Insulin Human Lispro 0 unit 05/13/20 11:30 05/27/20 12:00 Insulin Lispro 100 Unit/Ml 3 Ml Vial SUBCUT 4 unit QIDACHS NINA Administration Protocol Ketorolac Tromethamine 15 mg 05/25/20 12:00 05/27/20 11:26 Ketorolac Tromethamine 15 Mg/Ml Vial IV 05/28/20 11:59 15 mg Q6H NINA Administration Levalbuterol HCl 1.25 mg 05/17/20 08:21 05/27/20 08:19 Levalbuterol Hcl 1.25 Mg/3 Ml Vial.Neb INHALE 1.25 mg Q2H PRN Administration Dyspnea Lisinopril 5 mg 05/21/20 09:00 05/27/20 08:17 Lisinopril 5 Mg Tablet PO 5 mg DAILY NINA Administration Protocol Ondansetron HCl 4 mg 05/11/20 12:13 Ondansetron Hcl 4 Mg/2 Ml Vial IVPUSH Q8H PRN Nausea and Vomiting Oxycodone HCl 5 mg 05/24/20 10:37 05/27/20 11:30 Oxycodone Hcl Immed Release 5 Mg Tablet PO 5 mg Q4H PRN Administration Pain, Moderate (Pain Scale 4-6 Oxycodone HCl 10 mg 05/24/20 10:37 05/26/20 22:00 Oxycodone Hcl Immed Release 5 Mg Tablet PO 10 mg Q4H PRN Administration Pain, Severe (Pain Scale 7-10) Salmeterol Xinafoate 1 puff 05/14/20 08:00 05/27/20 08:23 Salmeterol Xinafoate 50 Mcg Blst.W.Dev INHALE 1 puff RBID NINA Administration Sodium Chloride 2 ml 05/11/20 16:00 05/27/20 08:17 0.9 % Sodium Chloride Flush 3 Ml Syringe IVFLUSH 2 ml QSHIFT NINA Administration Labs CBC & Chem 7: 05/26/20 09:00 05/26/20 09:00 Microbiology Microbiology Results: Microbiology 05/11/20 10:39 Blood - Venous Blood Culture - Final No growth after 5 days. 05/11/20 10:17 Blood - Venous Blood Culture - Final No growth after 5 days. Assessment and Plan (1) Pneumothorax: Status: Acute (2) COPD (chronic obstructive pulmonary disease): Status: Acute (3) Acute on chronic respiratory failure with hypoxia and hypercapnia: Status: Acute (4) Diabetes: Status: Acute (5) HTN (hypertension): Status: Acute Assessment and Plan: 50M presented with sob ofund to have pneumothorax Acute hypoxic respiratory failure secondary to recurrent pneumothorax had multiple chest tubes, pneumothorax recurred after accidental removal of chest tube status postVATs and pleurodesis on 05/24/2020 thoracic surgery following Taper IV narcotics chest tube removed continue incentive spirometry wean down oxygen as tolerated Diabetes mellitus new diagnosis continue insulin likely metformin on discharge hypertension new diagnosis started BENNIE-inhibitor obesity weight loss encouraged DVT prophylaxis heparin subcu likely discharge tomorrow if improved further
[2020-05-27] MEDS: oxyCODONE HCl Immed Release 5 MG TABLET 10 MG PO (16:32)
[2020-05-27 16:36] LABS: Glucose, Whole Blood 128 mg/dL (60-115)
[2020-05-27 20:54] LABS: Glucose, Whole Blood 168 mg/dL (60-115)
[2020-05-28] VITALS (7 sets, daily range): BP systolic 131–162; BP diastolic 76–89; PULSE 86–105; RESP 18–20; TEMP 37–37.1; O2SAT 88–96; BMI 36.0
[2020-05-28] MEDS: Heparin Sodium,Porcine 5,000 UNIT/ML VIAL 5000 UNIT SUBCUT ×2 (00:05→08:54)
[2020-05-28] MEDS: Ketorolac Tromethamine 15 MG/ML VIAL IV ×2 (00:05→05:16)
[2020-05-28] MEDS: oxyCODONE HCl Immed Release 5 MG TABLET 10 MG PO (02:35)
--- NOTE | 2020-05-28 06:15 | PC.NURSE ---
Addendum entered by Ange Nela RN 05/28/20 06:19: CALL [facility] IN REACH. WILL CONTINUE TO MONITOR. Original Note: PT HAD AN UNEVENTFUL NIGHT. CHEST TUBE SITE WNL. DRESSING DRY AND INTACT. PT STILL REPORTS PAIN WITH COUGH/DEEP BREATHING, AND MOVEMENT OF THE RIGHT ARM. MEDICATED NEEDED WITH GOOD EFFECT. LUNGS CLEAR/DIMINISHED. PT DENIES SOB. PT WORE 1L NC INTERMITTENTLY THROUGHOUT THE NIGHT. O2 SATS REMAINED >90% WITH AND WITHOUT SUPPLEMENTAL O2. NO C/O AT THIS TIME. CALL B
[2020-05-28] MEDS: Salmeterol Xinafoate 50 MCG BLST.W.DEV 1 PUFF INHALE (07:56)
[2020-05-28 08:51] LABS: Glucose, Whole Blood 212 mg/dL (60-115)
[2020-05-28] MEDS: HYDROmorphone HCl 0.5 MG/0.5 ML SYRINGE IVPUSH (08:54)
[2020-05-28] MEDS: Insulin Lispro 100 UNIT/ML 3 ML VIAL SUBCUT (08:55)
[2020-05-28] MEDS: 0.9 % Sodium Chloride Flush 3 ML SYRINGE 2 ML IVFLUSH (08:56)
[2020-05-28] MEDS: Docusate Sodium 100 MG CAPSULE PO (08:56)
[2020-05-28] MEDS: lisinopriL 5 MG TABLET PO (08:56)
--- NOTE | 2020-05-28 09:50 | PC.RT ---
Home O2 eval SpO2 on RA at rest 88% HR 100 SpO2 on 1L NC at rest 91% HR 101 SpO2 on 1L NC walking 90% HR 124 SpO2 on 1L NC post walk 93% HR 116 Pt makeda walk well.
[2020-05-28] MEDS: oxyCODONE HCl Immed Release 5 MG TABLET PO ×2 (10:47→13:17)
[2020-05-28 11:48] LABS: Glucose, Whole Blood 133 mg/dL (60-115)
--- NOTE | 2020-05-28 12:04 | P.DS_ITS ---
DS: Providers Provider Date of admission: 05/11/20 12:03 Primary care physician: [facility] Physician Consults: 05/18/20 07:55 Consult to Thoracic Surgery Routine Consulting Provider: Kellie De La Cruz Reason for consultation: Recurrent right sided spontaneous pneumothorax - evaluate for pleurodesis DS: Diagnosis Discharge Diagnosis (1) Pneumothorax: Status: Acute (2) COPD (chronic obstructive pulmonary disease): Status: Acute (3) Acute on chronic respiratory failure with hypoxia and hypercapnia: Status: Acute (4) Diabetes: Status: Acute (5) HTN (hypertension): Status: Acute (6) Diabetes mellitus: Status: Acute DS: Summary Hospital Course Hospital Course: HPI 50-year-old ongoing smoker with chronic continuous alcohol habit is well on no medications with no standing diagnosis but has COPD for which he is not oxygen- dependent but dependent on bronchodilators only noted a spontaneous onset of of severe abrupt chest and hypo con Dr. Russell pain with shortness of breath which was getting progressively worse over 2 weeks no associated fever chills no sputum production no sore throat , Hospital course 50-year-old male with significant history of smoking COPD initially admitted to ICU with pneumothorax and acute on chronic hypoxic and hypercapnic respiratory failure likely multifactorial secondary to COPD obesity hypoventilation and possible sleep apnea, chest tube was placed , pneumothorax resolved, patient was transferred to floor, patient again developed 2nd pneumothorax, thoracic surgery was consulted patient underwent vats and pleurodesis chest tube placement, patient's breathing improved, chest tube was removed, patient was also treated for acute on chronic hypercapnic and hypoxic respiratory failure secondary to COPD and sleep apnea and pneumonia, patient received antibiotic for 7 days, cultures remain negative, patient qualified for home oxygen 1 L at rest and 1 L on ambulation and patient also qualifies for non invasive ventilation at night given acute on chr onic hypoxic and hypercapnic respiratory failure COPD patient was stable discharged home with visiting nurse, and on home oxygen and noninvasive ventilation, patient will follow-up thoracic surgery in 2 weeks Time Spent with Patient Time attestation: Total time spent providing and/or coordinating discharge services: Quality: AMI Clinical Trial Participant: No Physical Exam Vital Signs: Vital Signs: Vital Signs Temp Pulse Resp BP Pulse Ox 05/28/20 11:06 98.6 F 101 H 20 142/81 H 95 05/28/20 09:00 92 05/28/20 08:56 102 H 162/78 H 05/28/20 08:00 98.8 F 102 H 20 162/78 H 94 05/28/20 03:46 98.6 F 105 H 18 131/76 96 05/28/20 00:00 98.6 F 86 18 149/89 H 95 05/27/20 19:55 97.1 F 91 14 117/58 L 93 05/27/20 15:08 97 F 101 H 16 124/63 94 Body Mass Index 36.0 DS: Data Data Completed and Pending Completed studies during hospitalization [Text1]: Pending at discharge 05/24/20 10:45 Surgical [PTH] Routine Labs on day of discharge: Labs from last 24 hours 05/28/20 05/28/20 05/27/20 11:36 08:27 20:47 POC Glucose 133 H 212 H 168 H 05/27/20 16:33 POC Glucose 128 H Discharge Plan Discharge Anticipated Discharge Date/Time: 05/28/20 11:55 Patient Disposition: Home Health Service Referrals: Physician,None [Primary Care Provider] - Discharge Medications: New oxycodone 5 mg tablet 5 - 10 mg PO Q4H PRN (Reason: pain) Qty: 45 RF: 0 oxycodone 5 mg Tablet 5 - 10 mg PO Q4H PRN (Reason: Pain, Moderate (Pain Scale 4-6) Qty: 45 RF: 0 Serevent Diskus 50 mcg/dose Blister With Device 1 inh inhalation RBID Qty: 28 RF: 1 levalbuterol HCl 1.25 mg/3 mL Solution For Nebulization 1.25 mg inhalation Q2H PRN (Reason: Dyspnea) 30 Days RF: 1 lisinopril 5 mg Tablet 5 mg PO DAILY Qty: 30 RF: 0 metformin 500 mg tablet 500 mg PO BID Qty: 60 RF: 0 (DME) blood glucose control, normal Solution See Rx Instructions .ROUTE .MEDSUPPLY Qty: 1 RF: 0 (DME) blood sugar diagnostic Strip See Rx Instructions .ROUTE .MEDSUPPLY Qty: 10 RF: 0 Discharge Orders: Discharge Order (Routine); Ordered 05/28/20 Ordered By: Michael Walton Diet: advance to your usual diet Activity on Discharge: As tolerated Patient Instructions: Gestational Diabetes (GEN), Gestational Diabetes Diet (GEN), Diabetic Ketoacidosis (GEN), Foot Care for People with Diabetes (GEN), Type 1 Diabetes in Adults: New Diagnosis (DC) Stand Alone Forms: Work/School Release Discharge Date/Time: 05/28/20 13:40 Activity Restrictions/Additional Instructions: ACTIVITY: * You should be out of bed and walking at least 3x per day. * No lifting anything heavier than 10lb x 2 weeks (ie, gallon of milk). * Continue to use the incentive spirometer at least 10x per day to aide with keeping the lungs expanded. INCISION CARE: * You may remove the dressing on the right chest where the chest tube was removed on 05/29/20. Once the dressing is removed you may leave this area open to air and you may shower. Sponge bathe only until dressing is removed. * Keep all incisions clean and dry. * Gently wash incisions with soap and water. No scrubbing the areas. * No tub baths, swimming, etc. for the next 2-4 weeks. MEDICATION INSTRUCTIONS: * Take all medications as directed. * No driving when taking narcotic pain medication. * You should be taking a stool softener when taking narcotic pain medications in order to prevent severe constipation. WHAT TO WATCH FOR: * Monitor all incisions for increased redness, swelling, open areas, or drainage. * Monitor for increased air under the skin around the incisions or chest (feels like Rice Krispy cereal when touched). * Monitor for fever, chills, shortness of breath, chest pain, severe abdominal pain, persistent nausea/vomiting, severe changes in bowel or bladder habits. SMOKING CESSATION: * Smoking is hazardous to your health and those around you. * Continuing to smoke or use tobacco products can increase your chance of postoperative complications, including delayed wound healing, wound infection, stroke, and heart attack. * If you currently use tobacco products (cigarettes, dip, cigars, electronic/vapor cigarettes, etc) talk with your provider about options that are available to help you quit. * You can call the [facility]'s Smokers' Helpline at 7-934-QUIT NOW ( ). For Yoruba, call 8-229-5-MARIETTA ( ). You can also visit the website at www.[employer].org. FOLLOWUP APPOINTMENTS: * You have an appointment with Dr. De La Cruz at the [facility] office on 06/12/20 @ 10:30am for a followup. [facility], 1st floor * Call the thoracic surgery office @ [phone] if you have any questions or concerns. Visit Report Forms: Patient Portal Discharge page Care Plan Goals: see discharge instructions Health Concerns: see discharge instructions Plan of Treatment: see discharge instructions
--- NOTE | 2020-05-28 12:12 | MHC.CM.PN ---
Patient will be discharged home today no services. Family will provide transportation. Patient given PCP brochure for [facility], instructed to call [facility] for new patient appt. Instructed if needs MD prior to PCP appt may go to [facility]. Patient verbalizes understanding.
== END 2020-05-28 13:40 | disposition home health service (06) | DRG 121 ==
LOC: HO.ED 12:27 → HO.ICU 12:46 → HO.IMC 05-15 06:14 → HO.ICU 05-17 07:16 → HO.IMC 05-18 08:33
PROVIDERS: Internal Medicine; Internal Medicine Cardiovascular Disease; Internal Medicine Pulmonary Disease; Physician Assistant; Surgery; Admitting Provider Student in an Organized Health Care Education/Training Program; Emergency Provider Internal Medicine; Visit Provider Internal Medicine
PROC: 0B5N4ZZ Destruction of Right Pleura, Percutaneous Endoscopic Approach (ICD-10-PCS; principal; 2020-05-24 09:30)
DX: J93.11 Primary spontaneous pneumothorax (principal); J96.21 Acute and chronic respiratory failure with hypoxia; J18.9 Pneumonia, unspecified organism; J43.9 Emphysema, unspecified; J96.22 Acute and chronic respiratory failure with hypercapnia; F10.20 Alcohol dependence, uncomplicated; G47.33 Obstructive sleep apnea (adult) (pediatric); Z20.828 Contact with and (suspected) exposure to other viral communicable diseases; F14.10 Cocaine abuse, uncomplicated; E11.9 Type 2 diabetes mellitus without complications; F17.210 Nicotine dependence, cigarettes, uncomplicated; E66.01 Morbid (severe) obesity due to excess calories; Z71.6 Tobacco abuse counseling; Z68.36 Body mass index [BMI] 36.0-36.9, adult; Z79.899 Other long term (current) drug therapy
CPT/HCPCS: 32551; 36415; 36600; 71045; 71046; 71275; 80048; 80053; 80076; 81001; 82550; 82728; 82803; 82947; 83036; 83605; 83615; 83735; 83880; 84100; 84145; 84484; 85007; 85025; 85027; 85379; 85610; 85652; 85730; 86140; 86850; 86900; 86901; 87040; 87449; 87633; 87635; 88307; 93005; 93010; 93306; 94660; 94664; 96365; 96375; 99232; 99284; 99285; C1729; J0690; J1100; J1170; J1885; J1956; J2270; J2405; J3010; Q9957

== ENCOUNTER 2020-06-12 10:21 | Outpatient (REF) | payer BC, SELFPAY ==
--- NOTE | 2020-06-12 11:50 | XR_ITS ---
EXAMINATION: XR CHEST CLINICAL INFORMATION: Right pneumothorax COMPARISON: Previous chest x-ray most recent 05/27/2020 TECHNIQUE: 2 views of the chest were obtained. FINDINGS: The cardiac and mediastinal contours are stable. There is linear scarring or subsegmental atelectasis in the right midlung and at the right lung base. There may be surgical clips at the right lung apex. The left lung is clear. There is slight elevation of the right hemidiaphragm. There is a small amount of of pleural fluid and air seen at the right lung apex. No significant pneumothorax is seen. There is slight blunting of the right costophrenic angle questionable for small right pleural effusion. There is no left pleural effusion. Bony structures are unremarkable. XR/XR chest 2V IMPRESSION: Small amount of fluid and air at the right lung apex. No significant pneumothorax seen. Slight elevation of the right hemidiaphragm and atelectasis or scarring in the right midlung and right lung base.
== END 2020-06-12 10:22 | disposition home or self-care (01) ==
LOC: HO.XRAY 10:21
PROVIDERS: PCP Internal Medicine; Visit Provider Surgery
DX: J44.1 Chronic obstructive pulmonary disease with (acute) exacerbation (principal); J93.83 Other pneumothorax; Z87.09 Personal history of other diseases of the respiratory system
CPT/HCPCS: 71046

== ENCOUNTER → 2020-06-15 14:25 | Outpatient (BNVA) | payer BC, SELFPAY | PROVIDERS: PCP Internal Medicine; Visit Provider Internal Medicine | DX: Z76.89 Persons encountering health services in other specified circumstances (principal) ==

== ENCOUNTER → 2020-07-13 13:15 | Outpatient (BNVA) | payer BC, SELFPAY | PROVIDERS: PCP Internal Medicine; Visit Provider Internal Medicine | DX: Z76.89 Persons encountering health services in other specified circumstances (principal) ==

== ENCOUNTER → 2020-08-10 13:36 | Outpatient (BNVA) | payer BC, OTHER, SELFPAY | PROVIDERS: PCP Internal Medicine; Visit Provider Internal Medicine | DX: Z76.89 Persons encountering health services in other specified circumstances (principal) ==

== ENCOUNTER 2020-08-18 09:16 | Outpatient (REF) | payer OTHER, SELFPAY ==
[2020-08-18 12:09] LABS: Anion Gap 13 (12-20); Blood Urea Nitrogen 15 mg/dL (9-16); Calcium 9.4 mg/dL (8.4-10.2); Carbon Dioxide 33 mmol/L (22-29); Chloride 100 mmol/L (96-108); Cholesterol 170 mg/dL; Estimated Glomerular Filt Rate > 60; Glucose Fasting 232 mg/dL (60-99); HDL Cholesterol 47 mg/dL; LDL Cholesterol Calculated 99 mg/dl; Potassium 5.3 mmol/l (3.3-5.1); Sodium 141 mmol/L (135-145); Triglycerides 120 mg/dL
== END 2020-08-18 09:17 | disposition home or self-care (01) ==
LOC: HO.HMGCLDS 09:16
PROVIDERS: PCP Internal Medicine; Visit Provider Internal Medicine
DX: I10 Essential (primary) hypertension (principal); E11.65 Type 2 diabetes mellitus with hyperglycemia; E66.9 Obesity, unspecified; F10.20 Alcohol dependence, uncomplicated
CPT/HCPCS: 36415; 80048; 80061

== ENCOUNTER 2020-08-31 19:33 | Emergency (ER) | payer MEDICAID, SELFPAY ==
[2020-08-31 19:38] VITALS: BP 170/90; PULSE 114; RESP 24; TEMP 37.1; O2SAT 98; BMI 45.4
--- NOTE | 2020-08-31 19:42 | ECG_ITS ---
Test Reason : CHEST PAIN Blood Pressure : / mmHG Vent. Rate : 102 BPM Atrial Rate : 102 BPM P-R Int : 144 ms QRS Dur : 076 ms QT Int : 326 ms P-R-T Axes : 066 035 059 degrees QTc Int : 424 ms Sinus tachycardia Possible Left atrial enlargement Borderline ECG When compared with ECG of 18-MAY-2020 00:43, No significant change was found Referred By: Levy Hull Electronically Signed By:Rigoberto Bhatia
--- NOTE | 2020-08-31 19:42 | XR_ITS ---
EXAMINATION: PORTABLE CHEST 1 VIEW CLINICAL INFORMATION: chest pain/sob . COMPARISON: 06/12/2020. TECHNIQUE: Portable frontal view of the chest was obtained. FINDINGS: The lungs are hypoexpanded. Chronic appearing changes on the right but no superimposed focal infiltrate, effusion, edema, or pneumothorax. Cardiac and mediastinal silhouettes are within normal limits for technique. No acute bony abnormality seen. XR/XR chest 1V IMPRESSION: No evidence of acute disease.
[2020-08-31 19:50] LABS: MANUAL DIFF FLAG NO
[2020-08-31 19:51] LABS: Basophils Absolute Auto 0.1 X10*3/uL (0.0-0.2); Basophils Percent Auto 0.7 % (0-2); Eosinophils Absolute Auto 0.6 X10*3/uL (0.0-0.4); Eosinophils Percent Auto 5.9 % (0-4); Hematocrit 44.9 % (42-52); Hemoglobin 15.2 g/dl (14.0-18.0); Imm Gran Abs Auto 0.04 X10*3/uL (0.00-0.03); Imm Gran Pct Auto 0.4 % (0.0-0.4); Lymphocytes Absolute Auto 2.5 X10*3/uL (1.2-4.9); Mean Corpuscular HGB Conc 33.9 g/dl (31.0-36.0); Mean Corpuscular Hemoglobin 31.5 pg (27.0-33.0); Mean Corpuscular Volume 93.2 fL (80-98); Mean Platelet Volume 10.4 fL (9.4-12.4); Monocytes Absolute Auto 1.2 X10*3/uL (0.1-1.2); Monocytes Percent Auto 11.8 % (2-11); Neutrophils Absolute Auto 5.7 X10*3/uL (2.0-8.3); Neutrophils Percent Auto 56.2 % (45-73); Platelet Count 225 X10*3/uL (160-400); Red Blood Count 4.82 X10*6/uL (4.60-5.80); Red Cell Distribution Width 12.9 % (11.0-16.0); White Blood Count 10.2 X10*3/uL (4.8-10.8)
[2020-08-31 20:14] LABS: Anion Gap 16 (12-20); Blood Urea Nitrogen 18 mg/dL (9-16); Calcium 9.4 mg/dL (8.4-10.2); Carbon Dioxide 27 mmol/L (22-29); Chloride 100 mmol/L (96-108); Creatinine Clr Calc Pharmacy 130.2; Estimated Glomerular Filt Rate > 60; Glucose Random 201 mg/dL (60-115); Potassium 4.5 mmol/l (3.3-5.1); Sodium 138 mmol/L (135-145)
[2020-08-31 20:21] LABS: Troponin-I High Sensitivity < 3.5 ng/L (<3.5-35.0)
[2020-08-31 22:59] VITALS: BP 186/86; PULSE 95; RESP 18; TEMP 36.9; O2SAT 98
== END 2020-09-01 00:39 | disposition left against medical advice (07) ==
PROVIDERS: Emergency Medicine Emergency Medical Services; Emergency Provider Emergency Medicine; PCP Internal Medicine
DX: R42 Dizziness and giddiness (principal)
CPT/HCPCS: 36415; 71045; 80048; 84484; 85025; 93005; 99283

== ENCOUNTER → 2020-11-10 10:44 | Outpatient (BNVA) | payer OTHER, SELFPAY | PROVIDERS: PCP Internal Medicine; Visit Provider Internal Medicine | DX: G47.33 Obstructive sleep apnea (adult) (pediatric) (principal); E66.9 Obesity, unspecified; J44.1 Chronic obstructive pulmonary disease with (acute) exacerbation; M79.2 Neuralgia and neuritis, unspecified; Z99.89 Dependence on other enabling machines and devices | CPT/HCPCS: 99212 ==

== ENCOUNTER → 2021-01-18 13:31 | Outpatient (BNVA) | payer OTHER, SELFPAY | PROVIDERS: PCP Internal Medicine; Visit Provider Nurse Practitioner Gerontology | DX: E11.65 Type 2 diabetes mellitus with hyperglycemia (principal); E66.01 Morbid (severe) obesity due to excess calories; I10 Essential (primary) hypertension; Z68.42 Body mass index [BMI] 45.0-49.9, adult | CPT/HCPCS: 82947; 99212 ==

== ENCOUNTER → 2021-03-03 08:34 | Outpatient (BNVA) | payer OTHER, SELFPAY | PROVIDERS: PCP Internal Medicine; Visit Provider Internal Medicine | DX: M79.2 Neuralgia and neuritis, unspecified (principal); G47.33 Obstructive sleep apnea (adult) (pediatric); E66.9 Obesity, unspecified; J44.1 Chronic obstructive pulmonary disease with (acute) exacerbation; J96.90 Respiratory failure, unspecified, unspecified whether with hypoxia or hypercapnia; Z99.89 Dependence on other enabling machines and devices | CPT/HCPCS: 99212 ==

== ENCOUNTER → 2021-03-09 12:19 | Outpatient (BNVA) | payer OTHER, SELFPAY | PROVIDERS: PCP Internal Medicine; Visit Provider Nurse Practitioner Gerontology | DX: E11.65 Type 2 diabetes mellitus with hyperglycemia (principal); I10 Essential (primary) hypertension; E66.01 Morbid (severe) obesity due to excess calories; Z68.42 Body mass index [BMI] 45.0-49.9, adult | CPT/HCPCS: 82947; 99212 ==

== ENCOUNTER 2021-04-02 20:55 | Emergency (ER) | payer OTHER, SELFPAY ==
--- NOTE | ~2021-04-02 | XR_ITS ---
EXAMINATION: XR CHEST CLINICAL INFORMATION: Cough COMPARISON: 08/31/2020 TECHNIQUE: Frontal view of the chest was obtained. FINDINGS: Lung volumes are symmetric. There are a few patchy regions of opacity towards the lateral lower lungs. No evidence of pneumothorax or significant pleural effusion. The cardiomediastinal contour is unremarkable. No acute osseous findings are seen. XR/XR chest 1V IMPRESSION: Patchy peripheral bibasilar opacities. Of note, Covid pneumonia can have this distribution.
[2021-04-02 21:16] VITALS: BP 123/60; PULSE 99; RESP 18; TEMP 36.9; O2SAT 96; BMI 41.0
[2021-04-02 23:08] LABS: Influenza A PCR NEGATIVE (Negative); Influenza B PCR NEGATIVE (Negative); Resp Syncy Virus RNA Qual PCR NEGATIVE (Negative); SARS COV2 PCR INHOUSE NEGATIVE (Negative)
[2021-04-02 23:36] VITALS: BP 132/74; PULSE 110; RESP 18; TEMP 37.3; O2SAT 97
--- NOTE | 2021-04-03 02:22 | ED_ITS ---
HPI - SOB/Dyspnea General Chief Complaint: Dyspnea Stated Complaint: flu like Time Seen by Provider: 04/03/21 02:21 Source: patient Mode of arrival: ambulatory History of Present Illness HPI Narrative: 51-year-old male with history of COPD, diabetes who presents with complaints of cough ?that just will not quit? that has not been associated with fever, chills and on questioning regarding the triage note for increased shortness of breath patient states that he is no more short of breath and he is usually. He is on oxygen at baseline. Otherwise, he denies GI or symptoms. Related Data Home Medications Medication Instructions Recorded Confirmed multivitamin 1 tab PO DAILY 07/06/20 03/09/21 blood-glucose meter (FreeStyle #1 ea 08/24/20 01/27/21 Lite Meter) Previous Rx's Medication Instructions Recorded blood glucose control, normal #1 ea 05/28/20 blood sugar diagnostic #10 ea 05/28/20 lisinopril 10 mg tablet 10 mg PO DAILY #90 tab 11/16/20 blood sugar diagnostic (FreeStyle See Rx Instructions .ROUTE DAILY 12/01/20 Lite Strips) #100 strip lancets 28 gauge (FreeStyle #100 ea 12/01/20 Lancets) rosuvastatin 5 mg tablet 5 mg PO .TIW 30 Days #13 tab 12/01/20 albuterol sulfate 90 mcg/actuation 2 puff PO Q4-6H PRN #1 ea 12/10/20 aerosol inhaler (ProAir HFA) metformin 1,000 mg tablet 1,000 mg PO BID #180 tab 01/01/21 dulaglutide 0.75 mg/0.5 mL 0.75 mg SUBCUT QWEEK #2 ml 03/09/21 subcutaneous pen injector ([facility]) flash glucose scanning reader #1 ea 03/09/21 (FreeStyle Carmelo 2 [place]) flash glucose sensor (FreeStyle #2 ea 03/09/21 Carmelo 2 Sensor) Advair Diskus 250 mcg-50 mcg/dose 1 ea PO BID #180 cap NS 03/26/21 powder for inhalation (fluticasone propion-salmeterol) Allergies Allergy/AdvReac Type Severity Reaction Status Date / Time pepper (genus Capsicum) Allergy Angioedema Verified 04/02/21 21:16 Peppers, Green Allergy Angioedema Verified 04/02/21 21:16 Peppers, Jalapeno Allergy Angioedema Verified 04/02/21 21:16 Peppers, Red Allergy Angioedema Verified 04/02/21 21:16 Peppers, Yellow Allergy Angioedema Verified 04/02/21 21:16 Review of Systems Review of Systems: Pertinent positives and negatives as stated in HPI 10 point review of systems is otherwise negative. [facility] Past Medical History Source: nursing notes reviewed Medical History Alcoholism /alcohol abuse Chest wall pain following surgery COPD (chronic obstructive pulmonary disease) Dental caries Diabetes mellitus with hyperglycemia, without long-term current use of insulin Neuropathic pain of chest Obesity (BMI 35.0-39.9 without comorbidity) Obesity due to excess calories KEVIN on CPAP Pneumothorax Respiratory failure Vaccination refused by patient Surgical History History of back surgery History of colonoscopy History of lung surgery Hx of appendectomy Family History Family History Father AA (alcohol abuse) Mother Colon cancer Brother Diabetes Other No significant family history Social History Social History Household Members: Spouse Housing: House Alcohol intake: current Patient Tobacco Use Status: Former Tobacco user Cigarette Packs Per Day: 0.5 Cigarettes Per Day: 10.0 Years Smoked: 30 Substance Use Type: Crack/Cocaine Advance Directives: No Advance Directives Information Provided: No service: No Current occupational status: employed Physical Exam Vital Signs: Vital Signs: Last Vital Signs Temp 99.1 F 04/02/21 23:36 Pulse 110 H 04/02/21 23:36 Resp 18 04/02/21 23:36 BP 132/74 04/02/21 23:36 Pulse Ox 97 04/02/21 23:36 Oxygen Flow Rate 2 04/02/21 21:16 Body Mass Index 41.0 VITAL SIGNS: Reviewed. GENERAL: Well developed, well nourished, in no acute distress. HEAD: Normocephalic/atraumatic EYES: PERRLA, EOMI EARS: Ext canals without abnormality, TMs non-bulging and non-erythematous NOSE: Nares patent bilateral OROPHARYNX: no oral lesions noted, posterior pharynx clear and non-erythematous with tonsillar enlargement but no erythema/exudates NECK: Supple, no adenopathy LUNGS: Good inspiratory effort with scattered rhonchi. SpO2<97> CARDIOVASCULAR: Regular rate and rhythm without noted murmurs, no JVD or lower extremity edema. ABDOMEN: Soft, non-tender, non-distended with bowel sounds. SKIN: Inspection of the skin reveals no rashes NEUROLOGIC: Alert and oriented x 4. Course Course Course Narrative: 51-year-old male with history and clinical presentation osorio ggestive of viral syndrome. On review of all investigations despite the fact that the COVID-19 has come back negative chest x-ray findings in combination with patient's clinical presentation are consistent with likely COVID-19 infection. Patient was instructed to quarantine. MDM - SOB/Dyspnea Lab Data Labs: Lab Results 04/02/21 04/03/21 Range/Units 22:10 02:29 POC Glucose 186 H (60-115) mg/dL Coronavirus (PCR) NEGATIVE (Negative) Influenza Type A (PCR) NEGATIVE (Negative) Influenza Type B (PCR) NEGATIVE (Negative) RSV RNA Qual (PCR) NEGATIVE (Negative) Discharge Plan Discharge Clinical Impression: Cough, Abnormal chest x-ray Patient Disposition: Home, Self-Care Instructions: Acute Cough (ED) Additional Instructions: 1. Resume all home medications as prescribed. 2. Although your COVID-19 test was negative today, there are findings on the chest x-ray that are consistent with patterns related to COVID-19 and taken together with your symptoms are highly suspicious. 3. Recommend quarantine for 14 days, consider retesting for COVID-19 by appointment through 1 of the [facility] locations. 4. Recommend follow-up with your primary care provider via telemedicine interview on Monday morning. Return to the ER for acute worsening of symptoms. Prescriptions: No Action lisinopril 10 mg tablet 10 mg PO DAILY Qty: 90 RF: 1 (DME) lancets [FreeStyle Lancets] 28 gauge misc See Rx Instructions .ROUTE .MEDSUPPLY Qty: 100 RF: 5 rosuvastatin 5 mg tablet 5 mg PO .TIW 30 Days Qty: 13 RF: 5 FreeStyle Lite Strips Strip See Rx Instructions .ROUTE DAILY Qty: 100 RF: 5 albuterol sulfate [ProAir HFA] 90 mcg/actuation HFA aerosol inhaler 2 puff PO Q4-6H PRN (Reason: for wheezing) Qty: 1 RF: 2 metformin 1,000 mg tablet 1,000 mg PO BID Qty: 180 RF: 0 fluticasone propion-salmeterol [Advair Diskus] 250-50 mcg/dose blister with device 1 ea PO BID Qty: 180 RF: 1 (DME) blood glucose control, normal Solution See Rx Instructions .ROUTE .MEDSUPPLY Qty: 1 RF: 0 (DME) blood sugar diagnostic Strip See Rx Instructions .ROUTE .MEDSUPPLY Qty: 10 RF: 0 (DME) blood-glucose meter [FreeStyle Lite Meter] Kit See Rx Instructions .ROUTE .MEDSUPPLY Qty: 1 RF: 0 multivitamin Tablet 1 tab PO DAILY RF: 0 Trulicity 0.75 mg/0.5 mL pen injector 0.75 mg subcut QWEEK Qty: 2 RF: 5 (DME) FreeStyle Carmelo 2 [place] Misc See Rx Instructions .ROUTE .MEDSUPPLY Qty: 1 RF: 0 (DME) FreeStyle Carmelo 2 Sensor Kit See Rx Instructions .ROUTE .MEDSUPPLY Qty: 2 RF: 11 Referrals: Keesha Eli MD [Primary Care Provider] - 2 days
[2021-04-03 02:33] LABS: Glucose, Whole Blood 186 mg/dL (60-115)
[2021-04-03] MEDS: Benzonatate 100 MG CAPSULE 200 MG PO (02:35)
== END 2021-04-03 04:19 | disposition home or self-care (01) ==
PROVIDERS: Emergency Provider Student in an Organized Health Care Education/Training Program; PCP Internal Medicine
DX: R05 Cough (principal); R91.8 Other nonspecific abnormal finding of lung field; Z20.822 Contact with and (suspected) exposure to COVID-19; E11.9 Type 2 diabetes mellitus without complications; I10 Essential (primary) hypertension; F10.20 Alcohol dependence, uncomplicated; J44.9 Chronic obstructive pulmonary disease, unspecified; Z79.4 Long term (current) use of insulin
CPT/HCPCS: 0241U; 36415; 71045; 82947; 99283

== ENCOUNTER 2021-04-19 11:15 | Outpatient (REF) | payer OTHER, SELFPAY ==
--- NOTE | ~2021-04-19 | XR_ITS ---
EXAMINATION: XR FOOT, LEFT CLINICAL INFORMATION: Cellulitis COMPARISON: None TECHNIQUE: AP, lateral, and oblique views of the left foot. FINDINGS: Bones of the midfoot are well aligned. No tarsal, metatarsal or phalangeal fracture. Small posterior calcaneal enthesophyte. No focal soft tissue swelling appreciated. No radiopaque foreign body. XR/XR foot LT min 3V IMPRESSION: Unremarkable radiographs of the left foot.
== END 2021-04-19 11:16 | disposition home or self-care (01) ==
LOC: HO.XRAY 11:15
PROVIDERS: PCP Internal Medicine; Visit Provider Internal Medicine
DX: L03.116 Cellulitis of left lower limb (principal)
CPT/HCPCS: 73630

== ENCOUNTER → 2021-07-05 15:00 | Outpatient (BNVA) | payer OTHER, SELFPAY | PROVIDERS: PCP Internal Medicine; Visit Provider Internal Medicine | DX: J44.1 Chronic obstructive pulmonary disease with (acute) exacerbation (principal); G47.33 Obstructive sleep apnea (adult) (pediatric); E66.01 Morbid (severe) obesity due to excess calories; G47.34 Idiopathic sleep related nonobstructive alveolar hypoventilation; M79.2 Neuralgia and neuritis, unspecified; Z68.41 Body mass index [BMI] 40.0-44.9, adult; Z99.89 Dependence on other enabling machines and devices | CPT/HCPCS: 99212 ==

== ENCOUNTER → 2021-11-01 10:44 | Outpatient (BNVA) | payer OTHER, SELFPAY | PROVIDERS: PCP Internal Medicine; Visit Provider Nurse Practitioner Gerontology | DX: G47.33 Obstructive sleep apnea (adult) (pediatric) (principal); J44.1 Chronic obstructive pulmonary disease with (acute) exacerbation; M79.2 Neuralgia and neuritis, unspecified; E11.9 Type 2 diabetes mellitus without complications; I10 Essential (primary) hypertension; R09.02 Hypoxemia; E66.01 Morbid (severe) obesity due to excess calories; Z99.89 Dependence on other enabling machines and devices; Z68.41 Body mass index [BMI] 40.0-44.9, adult; Z79.84 Long term (current) use of oral hypoglycemic drugs | CPT/HCPCS: 82947; 83036; 99212 ==

== ENCOUNTER → 2022-08-18 13:44 | Outpatient (BNVA) | payer OTHER, SELFPAY | PROVIDERS: PCP Internal Medicine; Visit Provider Internal Medicine | DX: J44.1 Chronic obstructive pulmonary disease with (acute) exacerbation (principal); J96.90 Respiratory failure, unspecified, unspecified whether with hypoxia or hypercapnia; G47.33 Obstructive sleep apnea (adult) (pediatric); E66.01 Morbid (severe) obesity due to excess calories; Z68.41 Body mass index [BMI] 40.0-44.9, adult; Z99.89 Dependence on other enabling machines and devices; Z99.81 Dependence on supplemental oxygen | CPT/HCPCS: 99212 ==

== ENCOUNTER 2022-12-19 13:22 | Outpatient (REF) | payer MEDICARE, SELFPAY ==
[2022-12-19 14:33] LABS: VBG Base Excess 4.5 mmol/L; VBG HCO3 28 mmol/L (22-26); VBG pCO2 39 mmHg; VBG pH 7.46 (7.32-7.43); VBG pO2 101 mmHg
[2022-12-19 14:34] LABS: Venous Blood Gas Refer to POC result
== END 2022-12-19 13:23 | disposition home or self-care (01) ==
LOC: HO.LAB 13:22
PROVIDERS: PCP Internal Medicine; Visit Provider Internal Medicine
DX: J44.9 Chronic obstructive pulmonary disease, unspecified (principal); J96.91 Respiratory failure, unspecified with hypoxia; E66.01 Morbid (severe) obesity due to excess calories; G47.33 Obstructive sleep apnea (adult) (pediatric); Z79.899 Other long term (current) drug therapy; Z79.84 Long term (current) use of oral hypoglycemic drugs; Z87.891 Personal history of nicotine dependence; Z99.89 Dependence on other enabling machines and devices; Z68.41 Body mass index [BMI] 40.0-44.9, adult
CPT/HCPCS: 36415; 82803

== ENCOUNTER 2023-03-09 11:46 | Outpatient (REF) | payer MEDICARE, MEDICAID, SELFPAY ==
[2023-03-09 13:56] LABS: Estimated Average Glucose 171 mg/dL; Hemoglobin A1c % 7.6 %
[2023-03-09 14:19] LABS: Alanine Aminotransferase 21 U/L (0-40); Anion Gap 16 (12-20); Aspartate Amino Transferase 14 U/L (5-37); Blood Urea Nitrogen 11 mg/dL (9-16); Calcium 9.9 mg/dL (8.4-10.2); Carbon Dioxide 25 mmol/L (22-29); Chloride 103 mmol/L (96-108); Cholesterol 163 mg/dL; Estimated Glomerular Filt Rate > 60; Glucose Fasting 235 mg/dL (60-99); HDL Cholesterol 41 mg/dL; LDL Cholesterol Calculated 96 mg/dl; Potassium 4.3 mmol/L (3.3-5.1); Sodium 140 mmol/L (135-145); Triglycerides 133 mg/dL
== END 2023-03-09 11:47 | disposition home or self-care (01) ==
LOC: HO.HMGCLDS 11:46
PROVIDERS: PCP Internal Medicine; Visit Provider Internal Medicine
DX: E11.40 Type 2 diabetes mellitus with diabetic neuropathy, unspecified (principal); F10.20 Alcohol dependence, uncomplicated; I10 Essential (primary) hypertension
CPT/HCPCS: 36415; 80048; 80061; 83036; 84450; 84460

== ENCOUNTER 2023-03-13 13:16 | Outpatient (AMB) | payer MEDICARE, SELFPAY ==
--- NOTE | 2023-03-13 14:13 | A.OFFPC_ITS ---
Vital Signs 03/13/23 14:19 Height 5 ft 8 in Weight 270 lb BMI 41.0 BP 136/100 H Blood Pressure Location Lt brachial Position Sitting Pulse 76 Pulse Oximetry (%) 96 Oxygen Delivery Method Nasal Cannula Intake Visit Reasons: f/u labs Intake Note: Pt is here today to f/u labs Allergies pepper (genus Capsicum) Allergy (Verified 06/19/23 02:19) Angioedema Medication List - Last Reconciled 03/13/23 by Xiao Alvarado MD blood sugar diagnostic (FreeStyle Lite Strips) Check fasting blood sugar twice a day a.m. and p.m. blood-glucose meter (FreeStyle Lite Meter kit) As directed dulaglutide 1.5 mg (0.5 mL) subcut QWEEK 28 days duloxetine 30 mg PO BID gabapentin 100 mg PO BEDTIME lancets (FreeStyle Lancets) Check blood sugar twice a day as directed lisinopril 10 mg PO DAILY metformin 1,000 mg PO BID rosuvastatin 5 mg PO .TIW Ventolin HFA 90 mcg/actuation (albuterol sulfate) 2 puffs PO Q4-6H PRN NS Wixela Inhub 250-50 mcg/dose (fluticasone propion-salmeterol) 1 inh PO BID NS Tobacco use date assessed: 03/13/23 Dental Screening Dental Screen Date: 03/13/23 Did you have a dental visit in the last 12 months?: Yes Did you have a dental problem in the last 6 months where you did not have access to dental care?: Yes Was dental information given to patient?: Patient has dentist HPI f/u labs HPI Details 53-year-old male here today for follow-u p on his diabetes mellitus and dyslipidemia. Currently on Trulicity 1.5 mg once a week in addition to metformin a 1000 mg twice a day and takes rosuvastatin 5 mg 3 times a week. Has been compliant with taking his medications but not so much with diet or exercise. Has gained weight again as compared to last visit. Recent fasting labs showed hemoglobin A1c at 7.6 with an average glucose of 171 mg over the last 3 months, unchanged from last hemoglobin A1c June of 2022 which was at 7.5%. Fasting lipids however is showing his LDL cholesterol at goal of less than 100 mg/dL with normal triglycerides, and an HDL level of 41 mg/dL. Patient still has not made his appointment to see ophthalmology for diabetes retinopathy screening., referral was also ready made by his endocrine provider in the past. He does report some improvement in the numbness and tingling in lower extremities after starting gabapentin 100 mg at bedtime Blood pressure still not at goal of less than 130/90, currently on lisin opril 10 mg daily. Complains of getting up at least 2-3 times a night to urinate. Denies dysuria, no abnormal penile discharge reported. FORMERLY [facility], [facility] Medical History (Updated 06/19/23 @ 02:36 by Xiao Alvarado MD) Nocturia Diabetes mellitus with hyperglycemia, without long-term current use of insulin Diabetic neuropathy associated with diabetes mellitus due to underlying condition Hypoxemia Nocturnal hypoxemia Morbid obesity with BMI of 40.0-44.9, adult Cellulitis of left foot Dental caries Neuropathic pain of chest Chest wall pain following surgery Vaccination refused by patient KEVIN on CPAP Respiratory failure Alcoholism /alcohol abuse COPD (chronic obstructive pulmonary disease) Pneumothorax Surgical History History of lung surgery History of back surgery Hx of appendectomy History of colonoscopy Family History Father AA (alcohol abuse) Mother Colon cancer Brother Diabetes Other No significant family history Social History Household Members: Spouse Housing: House Alcohol intake: current Alcohol intake frequency: 3 or more drinks per day Alcohol type: beer Patient Tobacco Use Status: Former Tobacco user Cigarette Packs Per Day: 0.5 Cigarettes Per Day: 10.0 Years Smoked: 30 e-Cigarette/Vaping Use: Never Used Substance Use Type: Crack/Cocaine service: No Current occupational status: unemployed Cognitive needs: No Hearing needs: No Vision needs: No Questionnaire Thrive Questionnaire Date Thrive assessed: 06/28/22 SARAH-7 AMB Questionnaire SARAH-7 Date SARAH - 7 assessed: 06/28/22 Source: Developed by Drs. Jani Ventura, Linette Fried, Sumeet Shaw and colleagues, with an educational sharon from [employer] Review of Systems Const Denies fatigue, Denies headache(s) and Reports weight gain Eyes Reports blurry vision ENT Denies dizziness, Reports dry mouth, Denies headache(s) and Denies sore throat Card Denies chest pain, Denies irregular heart rhythm, Denies palpitations and Denies dyspnea Resp Denies dyspnea GI Denies abdominal pain, Denies melena, Denies bloating, Denies hematochezia, Denies change in bowel habits and Reports heartburn Denies dysuria and Reports urinary frequency Musc Denies muscle cramps and Denies muscle weakness Skin/Breast Denies rash Neuro Reports as per HPI, Denies dizziness, Denies headache(s), Denies Sensory deficit (Neuro) and Denies tremor(s) Endo Denies fatigue, Reports polydipsia, Reports polyuria and Denies palpitations Angel/Lymph Denies easy bruising Aller/Immun Reports no additional complaints Physical exam (Primary Care) Vital Signs: Last Vital Signs Pulse 76 03/13/23 14:19 BP 136/100 H 03/13/23 14:19 Pulse Ox 96 03/13/23 14:19 Oxygen Delivery Method Nasal Cannula 03/13/23 14:19 BMI result Body Mass Index 41.0 BMI Assessment/Plan discussion: High BMI High, discussed plan: lifestyle, weight reduction, dietary, physical activity and alcohol moderation Tobacco/Smoking Status: Tobacco use Status Tobacco use date assessed 03/13/23 03/13/23 14:24 Patient Tobacco Use Status Former Tobacco user 03/13/23 14:13 e-Cigarette/Vaping Use Never Used 03/13/23 14:13 Thrive Assessment: Date of Thrive Assessment Date Thrive assessed 06/28/22 03/13/23 14:13 Const General: alert and awake Nutritional Appearance: obese morbidly obese Orientation/consciousness: patient oriented x3 HENMT Mouth: Normal oral and palatal mucosa present and moist mucous membranes Eyes General: appearance normal, both eyes and all related structures Neck Neck: Yes normal visual inspection and Yes supple Resp Effort & Inspection: normal respiratory effort Auscultation: clear to auscultation bilaterally Cardio Jugular venous distension: no JVD Rate: regular rate Rhythm: regular rhythm Heart sounds: S1 normal heart sound present and S2 normal heart sound present GI Other: Obese, normal bowel sounds, soft, nontender, no mass palpated General: Yes no CVA tenderness Back/Spine/Pelvis Back: no CVA tenderness and No back tenderness Skin General skin exam: dry skin Nails: yellow and thickened Neuro General: patient oriented x3 Sensory Exam: No Sensory deficit (Neuro) Extrem General: Yes full ROM Psych Appearance: grossly normal and well kempt Mental Status: mental status grossly normal Speech and movement: Normal speech and movement present Affect: normal affect Attitude: cooperative Thought process: Normal thought process present Results Reviewed Results Reviewed: Laboratory Tests 03/09/23 11:50 Estimat Average Glucose 171 Hemoglobin A1c % 7.6 PEC : [id number] DEBBIE: 03/09/23 STATUS: COMP REQ : [id number] RECD: 03/09/[address]: Xiao Alvarado MD COMP: 03/09/23 ENTERED: 03/09/[address]: ORDERED: Met Prof Fast, AST, ALT, Lipid Panel Test Result Flag Reference Site Sodium 140 135-145 mmol/L Potassium 4.3 3.3-5.1 mmol/L CL 103 96-108 mmol/L CO2 25 22-29 mmol/L Gap 16 12-20 BUN 11 9-16 mg/dL Creat 0.88 0.5-1.4 mg/dL EGFR > 60 NOTE: For -Citizen Of [place] individuals, multiply the result by 1.210. Chronic Kidney Disease: Estimated GFR < 60 mL/min/1.73m2 Severe Kidney Disease: Estimated GFR < 15 mL/min/1.73m2 FBS 235 H 60-99 mg/dL A fasting glucose of 126 mg/dl or greater on more than one occasion is considered diagnostic of diabetes. CA 9.9 8.4-10.2 mg/dL AST (GOT) 14 5-37 U/L ALT (GPT) 21 0-40 U/L Triglyceride 133 mg/dL Desirable Triglyceride: less than 150 mg/dL Borderline High Triglyceride 150-199 mg/dL High Triglyceride: 200-499 mg/dL Very High Triglyceride: greater than or equal to 5OO mg/dL Chol 163 mg/dL Desirable Cholesterol: less than 200 mg/dL Borderline High Cholesterol: 200-239 mg/dL High Cholesterol: greater than 239 mg/dL LDL Calculated 96 mg/dl Desirable LDL: less than 100 mg/dL Near Optimal/Above Optimal LDL: 110-129 mg/dL Borderline High LDL: 130-159 mg/dL High LDL: 160-189 mg/dL Very High LDL: greater than or equal to 190 mg/dL HDL 41 mg/dL Desirable HDL: greater than 40 mg/dL Assessment and Plan Assessment & Plan (1) Diabetes mellitus with hyperglycemia, without long-term current use of insulin: Code(s): E11.65 - Type 2 diabetes mellitus with hyperglycemia Plan: Hemoglobin A1c at 7.6%, increased Trulicity dose to 3 mg weekly, and continued on metformin 1000 mg 1 tab twice a day. Counseled on the importance of controlling portion sizes of high carbohydrate foods and being active as tolerated. Patient is instructed on the importance of biannual dental checks and annual retinal exams. Reviewed ADA blood glucose goals of 80-130mg/dl prior to meals and less than 180mg/dl 2 hours after dinner and target A1c of <7%. Advised patient on foot care and the importance of daily foot checks. Patient has elongated nails but declines a referral to podiatry. Urine for microalbuminura screening ordered (2) Diabetic neuropathy associated with diabetes mellitus due to underlying condition: Code(s): E08.40 - Diabetes mellitus due to underlying condition with diabetic neuropathy, unspecified Plan: Continue on gabapentin 100 mg at bedtime (3) Nocturia: Code(s): R35.1 - Nocturia Plan: Total and free PSA level ordered, stressed importance of good control of diabetes and absence from alcohol again stressed on this visit (4) HTN (hypertension): Code(s): I10 - Essential (primary) hypertension Qualifiers: Hypertension type: essential hypertension Qualified Code(s): I10 - Essential (primary) hypertension Plan: Blood pressure not at goal of less than 130/80. Lisinopril dose increased to 20 mg daily. Reinforced importance of following a low sodium diet, absence of alcohol, getting regular exercise, and lowering stress levels. (5) Alcoholism /alcohol abuse: Code(s): F10.20 - Alcohol dependence, uncomplicated Plan: Patient offered referral to detox center, but refused (6) Morbid obesity with BMI of 40.0-44.9, adult: Code(s): E66.01 - Morbid (severe) obesity due to excess calories; Z68.41 - Body mass index [BMI] 40.0-44.9, adult Plan: Stressed importance of following recommended diet, getting regular exercise Orders: Orders Alanine Aminotransferase 3 Months R35.1 - Nocturia, E11.65 - Type 2 diabetes mellitus with hyperglycemia, E08.40 - Diabetes mellitus due to underlying condition with diabetic neuropathy, unspecified, E66.01 - Morbid (severe) obesity due to excess calories, Z68.41 - Body mass index [BMI] 40.0-44.9, adult Aspartate Amino Transferase 3 Months R35.1 - Nocturia, E11.65 - Type 2 diabetes mellitus with hyperglycemia, E08.40 - Diabetes mellitus due to underlying condition with diabetic neuropathy, unspecified, E66.01 - Morbid (severe) obesity due to excess calories, Z68.41 - Body mass index [BMI] 40.0-44.9, adult Lipid Panel 3 Months R35.1 - Nocturia, E11.65 - Type 2 diabetes mellitus with hyperglycemia, E08.40 - Diabetes mellitus due to underlying condition with diabetic neuropathy, unspecified, E66.01 - Morbid (severe) obesity due to excess calories, Z68.41 - Body mass index [BMI] 40.0-44.9, adult Hemoglobin A1c 3 Months R35.1 - Nocturia, E11.65 - Type 2 diabetes mellitus with hyperglycemia, E08.40 - Diabetes mellitus due to underlying condition with diabetic neuropathy, unspecified, E66.01 - Morbid (severe) obesity due to excess calories, Z68.41 - Body mass index [BMI] 40.0-44.9, adult PSA,Total (Free>4and<10) 3 Months R35.1 - Nocturia, E11.65 - Type 2 diabetes mellitus with hyperglycemia, E08.40 - Diabetes mellitus due to underlying condition with diabetic neuropathy, unspecified, E66.01 - Morbid (severe) obesity due to excess calories, Z68.41 - Body mass index [BMI] 40.0-44.9, adult Microalbumin, Random (w Creat) 3 Months R35.1 - Nocturia, E11.65 - Type 2 diabetes mellitus with hyperglycemia, E08.40 - Diabetes mellitus due to underlying condition with diabetic neuropathy, unspecified, E66.01 - Morbid (severe) obesity due to excess calories, Z68.41 - Body mass index [BMI] 40.0- 44.9, adult Basic Metabolic Panel Fasting 3 Months R35.1 - Nocturia, E11.65 - Type 2 diabetes mellitus with hyperglycemia, E08.40 - Diabetes mellitus due to underlying condition with diabetic neuropathy, unspecified, E66.01 - Morbid (severe) obesity due to excess calories, Z68.41 - Body mass index [BMI] 40.0- 44.9, adult Medications: Changed From lisinopril 10 mg PO DAILY 90 tabs 1RF I10 - Essential (primary) hypertension To lisinopril 20 mg PO DAILY 90 tabs 1RF I10 - Essential (primary) hypertension From dulaglutide Refills pending upcoming appt 1.5 mg (0.5 mL) subcut QWEEK 28 days 2 mL 2RF E11.65 - Type 2 diabetes mellitus with hyperglycemia To dulaglutide Refills pending upcoming appt 3 mg (0.5 mL) subcut QWEEK 2 mL 5RF 28 days E11 .65 - Type 2 diabetes mellitus with hyperglycemia Discontinued blood sugar diagnostic Discontinued Reason: Insurance Denied Check fasting blood sugar twice a day a.m. and p.m. 200 strips 1RF for diabetes mellitus E11.65 - Type 2 diabetes mellitus with hyperglycemia lancets Discontinued Reason: Insurance Denied Check blood sugar twice a day as directed 200 ea 1RF E11.65 - Type 2 diabetes mellitus with hyperglycemia Coding Level of Care Code Est Pt Level 4 (75150) Diagnoses Diabetes mellitus with hyperglycemia, without long-term current use of insulin E11.65 Diabetic neuropathy associated with diabetes mellitus due to underlying condition E08.40 Nocturia R35.1 Essential hypertension I10 Hypertension type: essential hypertension Alcoholism /alcohol abuse F10.20 Morbid obesity with BMI of 40.0-44.9, adult E66.01; Z68.41
[2023-03-13 14:19] VITALS: BP 136/100; PULSE 76; O2SAT 96; BMI 41.0
== END 2023-03-13 15:01 | disposition home or self-care (01) ==
PROVIDERS: PCP Internal Medicine; Visit Provider Internal Medicine
DX: E11.65 Type 2 diabetes mellitus with hyperglycemia (principal); F10.20 Alcohol dependence, uncomplicated; E66.01 Morbid (severe) obesity due to excess calories; Z68.41 Body mass index [BMI] 40.0-44.9, adult; R35.1 Nocturia; I10 Essential (primary) hypertension
CPT/HCPCS: 99214

== ENCOUNTER 2023-04-17 13:10 | Outpatient (AMB) | payer MEDICARE, SELFPAY ==
[2023-04-17 13:21] VITALS: BP 110/80; PULSE 98; O2SAT 97; BMI 39.7
--- NOTE | 2023-04-17 13:21 | A.OFFVIS_ITS ---
Intake Vital Signs 04/17/23 13:21 Height 5 ft 8 in Weight 261 lb BMI 39.7 BP 110/80 Blood Pressure Location Lt brachial Position Sitting Pulse 98 Pulse Source Pulse Oximeter Pulse Oximetry (%) 97 Oxygen Delivery Method Room Air Intake Visit Reasons: COPD Intake Note: pt is here for follow up and states he still has his ventilator as of right now. He is stating he is having a lot of chest pains on both sides, this has been going on for a couple of weeks, Scar area from lung surgery is very tender. Pharmacy Technician Per Diem Required: No Allergies pepper (genus Capsicum) Allergy (Verified 04/17/23 13:38) Angioedema Medication List - Last Reconciled 04/17/23 by Nikolai Dumont MD blood sugar diagnostic ([employer] Verio test strips) Test blood sugar twice a day blood-glucose meter ([email or web address] Verio Flex Meter) As directed dulaglutide 3 mg (0.5 mL) subcut QWEEK 28 days duloxetine 30 mg PO BID gabapentin 100 mg PO BEDTIME lancets ([email or web address] Delica Plus Lancet) test blood sugar twice a day lisinopril 20 mg PO DAILY metformin 1,000 mg PO BID rosuvastatin 5 mg PO .TIW Ventolin HFA 90 mcg/actuation (albuterol sulfate) 2 puffs PO Q4-6H PRN NS Wixela Inhub 250-50 mcg/dose (fluticasone propion-salmeterol) 1 inh PO BID NS Do you need a note to return to daycare/school/sports/work: No HPI COPD HPI Details CHAD IS 53 YEARS OLD GENTLEMAN WITH GROSS OBESITY AND OBSTRUCTIVE SLEEP APNEA. BECAUSE OF COMPLEX SLEEP APNEA, AND NOT NOCTURNAL HYPOXEMIA, HE IS BEING TREATED WITH HOME VENTILATOR ( IVAPS ) ALSO USES O2 2 L/MINUTE DAY AND NIGHT. HE IS VERY COMPLIANT TO USE THE IVAPS. IN FACT HE SAY IS HE JUST WOULD NOT BE A BLE. TO SLEEP WITHOUT IT. DURING THE DAYTIME HIS BREATHING REMAINS STABLE EXCEPT FOR GETTING SHORT OF BREATH ON WALKING AROUND. HE DOES HAVE MILD INTERMITTENT. COUGH BUT NO WHEEZING HIS OTHER ISSUE IS CONTINUED NEUROPATHIC TYPE OF PAIN IN THE RIGHT MID CHEST AFTER THE SURGERY. AND ALSO GETS INTERMITTENT TWINGES OF MUSCULAR PAIN IN THE LEFT CHEST. HE IS NOT SMOKING. USING WIXELA TWICE A DAY AND VENTOLIN ONLY NEEDED. HE HAS LOST ABOUT 9 LB OF WEIGHT SINCE HIS LAST VISIT [facility] Medical History Nocturia Diabetes mellitus with hyperglycemia, without long-term current use of insulin Diabetic neuropathy associated with diabetes mellitus due to underlying condi tion Hypoxemia Nocturnal hypoxemia Morbid obesity with BMI of 40.0-44.9, adult Cellulitis of left foot Obesity due to excess calories Dental caries Neuropathic pain of chest Chest wall pain following surgery Vaccination refused by patient KEVIN on CPAP Respiratory failure Alcoholism /alcohol abuse COPD (chronic obstructive pulmonary disease) Pneumothorax Surgical History History of lung surgery History of back surgery Hx of appendectomy History of colonoscopy Family History Father AA (alcohol abuse) Mother Colon cancer Brother Diabetes Other No significant family history Social History Household Members: Spouse Housing: House Alcohol intake: current Alcohol intake frequency: 3 or more drinks per day Alcohol type: beer Patient Tobacco Use Status: Former Tobacco user Cigarette Packs Per Day: 0.5 Cigarettes Per Day: 10.0 Years Smoked: 30 e-Cigarette/Vaping Use: Never Used Substance Use Type: Crack/Cocaine service: No Current occupational status: unemployed Cognitive needs: No Hearing needs: No Vision needs: No Review of Systems Const All systems reviewed & are unremarkable except as noted in HPI and below Eyes Reports no additional complaints ENT Reports no additional complaints Card Denies chest pain, Denies irregular heart rhythm and Denies leg edema Resp Reports as per HPI GI Reports no additional complaints Reports no additional complaints Musc Reports back pain, Reports arthralgias and Reports numbness (Right lower chest wall and legs) Skin/Breast Reports system reviewed and no additional complaints, except as documented Neuro Reports numbness (Right lower chest wall and legs) Psych Reports no additional complaints Physical Exam Vital Signs: Last Vital Signs Pulse 98 04/17/23 13:21 BP 110/80 04/17/23 13:21 Pulse Ox 97 04/17/23 13:21 Oxygen Delivery Method Room Air 04/17/23 13:21 BMI result Body Mass Index 39.7 Const General: comfortable, no acute distress, alert and awake Orientation/consciousness: patient oriented x3 HEENT Head: Yes normal to inspection General nose exam: No nasal polyps present and No nasal discharge present Face and sinus: Yes sinuses nontender Mouth: oropharynx normal Throat: Yes posterior oropharynx normal Eyes General: appearance normal, both eyes and all related structures Neck Neck: Yes normal visual inspection, Yes no lymphadenopathy, Yes trachea midline and Yes no JVD Thyroid: Thyroid normal Chest Chest palpation & inspection: normal inspection of the chest (Thoracostomy scar on the right lower chest), normal palpation of entire chest wall and no tenderness (SENSITIVE TO TOUCH OVER THE RIGHT MID CHEST) Resp Other: Percussion note resonant, breath sounds are distant with prolonged expiratory phase. No wheezes crepitations or rhonchi are heard. Cardio Palpation: normal PMI Rate: regular rate Rhythm: regular rhythm Heart sounds: no gallops and no murmurs Peripheral pulses: Peripheral pulses 2+ throughout GI Palpation (GI): Soft to palpation, nontender, No hepatosplenomegaly present, no masses and Other GI palpation findings present (Abdomen is obese and protuberant) Auscultation: normal bowel sounds Back/Spine/Pelvis Thoracic/Lumbar Spine: thoracic and lumbar spine normal to inspection Skin General skin exam: no rashes or lesions noted Neuro General: patient oriented x3 and no focal motor deficits Cranial nerves: Yes CN's II-XII intact bilaterally Extrem General: Yes normal to inspection, Yes no clubbing, cyanosis or edema and Yes no calf tenderness Psych Appearance: grossly normal and well kempt Speech and movement: Normal speech and movement present Assessment & Plan Assessment & Plan (1) Morbid obesity with BMI of 40.0-44.9, adult: Comment: Patient does not have much control on eating habits. He is being followed by endocrinology, Diabetes am being treated with Trulicity, but it has not made him lose much weight. He did lose 8 lb of weight since his last visit. Commended for that and encouraged to keep. On losing more weight Code(s): E66.01 - Morbid (severe) obesity due to excess calories; Z68.41 - Body mass index [BMI] 40.0-44.9, adult (2) KEVIN on CPAP: Comment: He has obstructive sleep apnea /hypoventilation syndrome and uses Home Respirator ( IVAPS ) regularly at night. He is compliant and benefiting, No issues with the Ventilator device ( Astral-IVAPS ) * as poor change in his insurance status, the new insurance company is demanding that he should 1st try BiPAP, and only if that does not work then. go on to I of apps I have set that it is okay to use BiPAP and then we will monitor him closely, however if he continue to use I have apps that is even better for him. Code(s): G47.33 - Obstructive sleep apnea (adult) (pediatric); Z99.89 - Dependence on other enabling machines and devices (3) Chest wall pain following surgery: Comment: He has had previous chest surgery and continues to have neuropathic type of pain around the thoracostomy scar area. Advised to use lidocaine patch over the tender area and use Tylenol 2 tablets q.6 hours p.r.n.. Code(s): R07.89 - Other chest pain; G89.18 - Other acute postprocedural pain (4) COPD (chronic obstructive pulmonary disease): Comment: Has chronic obstructive pulmonary disease as well as a restrictive component. Holding quite stable with the current regimen. TX: Advair 250-51 inhalation b.i.d. Albuterol HFA 2 puffs Q 4-6 hours p.r.n.. O2 2 L/minute Code(s): J44.9 - Chronic obstructive pulmonary disease, unspecified Qualifiers: COPD type: COPD with acute exacerbation Qualified Code(s): J44.1 - Chronic obstructive pulmonary disease with (acute) exacerbation (5) Respiratory failure: Comment: Has chronic respiratory failure with hypoxemia and hypercapnia, and being treated with use of home ventilator + oxygen 2 L/minute Venous BG test ordered . Code(s): J96.90 - Respiratory failure, unspecified, unspecified whether with hypoxia or hypercapnia Coding Level of Care Code Est Pt Level 4 (53661) Diagnoses Morbid obesity with BMI of 40.0-44.9, adult E66.01; Z68.41 KEVIN on CPAP G47.33; Z99.89 Chest wall pain following surgery R07.89; G89.18 Chronic obstructive pulmonary disease with acute exacerbation J44.1 COPD type: COPD with acute exacerbation Respiratory failure J96.90
== END 2023-04-17 13:42 | disposition home or self-care (01) ==
PROVIDERS: PCP Internal Medicine; Visit Provider Internal Medicine
DX: E66.01 Morbid (severe) obesity due to excess calories (principal); Z68.41 Body mass index [BMI] 40.0-44.9, adult; G47.33 Obstructive sleep apnea (adult) (pediatric); Z99.89 Dependence on other enabling machines and devices; R07.89 Other chest pain; G89.18 Other acute postprocedural pain; J44.1 Chronic obstructive pulmonary disease with (acute) exacerbation; J96.90 Respiratory failure, unspecified, unspecified whether with hypoxia or hypercapnia
CPT/HCPCS: 99214

== ENCOUNTER → 2023-04-17 13:10 | Outpatient (BNVA) | payer MEDICARE, SELFPAY | PROVIDERS: PCP Internal Medicine; Visit Provider Internal Medicine | DX: J44.1 Chronic obstructive pulmonary disease with (acute) exacerbation (principal); J96.12 Chronic respiratory failure with hypercapnia; J96.11 Chronic respiratory failure with hypoxia; G89.18 Other acute postprocedural pain; R07.89 Other chest pain; E66.01 Morbid (severe) obesity due to excess calories; Z68.39 Body mass index [BMI] 39.0-39.9, adult; G47.33 Obstructive sleep apnea (adult) (pediatric); Z99.89 Dependence on other enabling machines and devices | CPT/HCPCS: 99212 ==

== ENCOUNTER 2023-06-26 13:20 | Outpatient (AMB) | payer MEDICARE, SELFPAY ==
[2023-06-26 13:40] VITALS: BP 120/70; PULSE 91; O2SAT 98; BMI 41.9
--- NOTE | 2023-06-26 13:40 | MHC.OFFVIS ---
Intake Vital Signs 06/26/23 13:40 Height 5 ft 8 in Weight 275 lb 9.245 oz BMI 41.9 BP 120/70 Blood Pressure Location Lt brachial Position Sitting Pulse 91 Pulse Source Pulse Oximeter Pulse Oximetry (%) 98 Oxygen Delivery Method Nasal Cannula Oxygen Flow Rate 2 Intake Visit Reasons: COPD Intake Note: pt is here for follow up and states he needs help with bipap vs vent. 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: No Allergies pepper (genus Capsicum) Allergy (Verified 06/26/23 14:15) Angioedema Medication List - Last Reconciled 06/26/23 by Nikolai Dumont MD blood sugar diagnostic ([employer] Verio test strips) Test blood sugar twice a day blood-glucose meter ([employer] Verio Flex Meter) As directed dulaglutide 3 mg (0.5 mL) subcut QWEEK 28 days duloxetine 30 mg PO BID gabapentin 100 mg PO BEDTIME lancets ([employer] Delica Plus Lancet) test blood sugar twice a day lisinopril 20 mg PO DAILY metformin 1,000 mg PO BID rosuvastatin 5 mg PO .TIW Ventolin HFA 90 mcg/actuation (albuterol sulfate) 2 puffs PO Q4-6H PRN NS Wixela Inhub 250-50 mcg/dose (fluticasone propion-salmeterol) 1 inh PO BID NS Do you need a note to return to daycare/school/sports/work: No HPI COPD HPI Details THIS 53 YEARS OLD GENTLEMAN, IS HERE FOR FOLLOW-UP. RECAP OF PMH : BACK IN JUNE 2021 , HE WAS ADMITTED HERE AT [facility] AFTER SPONTANEOUS PNEUMOTHORAX ON THE RIGHT SIDE, DUE TO BURSTING OFF A PULMONARY BLEB. HE HAD A COMPLICATED COURSE, REQUIRED CHEST TUBE PLACEMENT, . AND CONTINUED DRAINAGE HE HAD RECURRENCE OF PNEUMOTHORAX ON THE SAME SIDE AND HAD A 2ND CHEST TUBE PLACED IN. UNDERWENT VATS ASSISTED RESECTION OF THE BLEBS, AND FOLLOWED BY CHEST DUE FOR SEVERAL DAYS. DURING THIS. HE ALSO HAD RESPIRATORY FAILURE WITH HYPOXEMIA AND HYPERCAPNIA. HE WAS INITIALLY TREATED WITH BIPAP BUT THEN STARTED ON HOME VENTILATOR. AFTER SEVERAL WEEKS BEING THE HOSPITAL HE WAS DISCHARGED HOME AND SENT ON THE HOME VENTILATOR WHICH HE HAS BEEN USING REGULARLY EVERY NIGHT. PATIENT HAS ALSO USE OXYGEN 2 L/MINUTE CONTINUOUSLY, SINCE THEN HE HAS BEEN ON WIXELA 250-51 INHALATION B.I.D. AND ALBUTEROL HFA Q 4 HOURS P.R.N.. HE HAS HAD ONGOING RIGHT THORACIC WALL PAIN AT THE SITE OF HIS THORACOSTOMY. THIS HAS BEEN TREATED INTERCOSTAL NEURALGIA AND FINALLY HIS PAIN IS UNDER RELATIVELY GOOD CONTROL THOUGH HE STILL HAS MARKED SENSITIVITY OVER THE RIGHT THORACIC WALL. HE HAD HISTORY OF SMOKING UP UNTIL HIS HOSPITALIZATION AND SINCE THEN HE HAS NOT SMOKED. HE HAS MILD INTERMITTENT COUGH. HE GETS SHORT OF BREATH IF HE WALKS. AROUND EVEN WITH PORTABLE OXYGEN BECAUSE OF CHANGE IN INSURANCE THERE HAS BEEN AN ISSUE OF WHETHER HE CAN CONTINUE TO USE THE HOME VENTILATOR ARE NOT. HIS NEW INSURANCE , [employer], NEEDS A DOCUMENTATION OF COPD WELL ONGOING RESPIRATORY FAILURE, TO PROVIDE COVERAGE FOR HIS NONINVASIVE VENTILATORY SUPPORT SYSTEM. [facility] Medical History Nocturia Diabetes mellitus with hyperglycemia, without long-term current use of insulin Diabetic neuropathy associated with diabetes mellitus due to underlying condition Hypoxemia Nocturnal hypoxemia Morbid obesity with BMI of 40.0-44.9, adult Cellulitis of left foot Dental caries Neuropathic pain of chest Chest wall pain following surgery Vaccination refused by patient KEVIN on CPAP Respiratory failure Alcoholism /alcohol abuse COPD (chronic obstructive pulmonary disease) Pneumothorax Surgical History History of lung surgery History of back surgery Hx of appendectomy History of colonoscopy Family History Father AA (alcohol abuse) Mother Colon cancer Brother Diabetes Other No significant family history Social History Household Members: Spouse Housing: House Alcohol intake: current Alcohol intake frequency: 3 or more drinks per day Alcohol type: beer Patient Tobacco Use Status: Former Tobacco user Cigarette Packs Per Day: 0.5 Cigarettes Per Day: 10.0 Years Smoked: 30 e-Cigarette/Vaping Use: Never Used Substance Use Type: Crack/Cocaine service: No Current occupational status: unemployed Cognitive needs: No Hearing needs: No Vision needs: No Review of Systems Const All systems reviewed & are unremarkable except as noted in HPI and below Eyes Reports no additional complaints ENT Reports no additional complaints Card Denies chest pain, Denies irregular heart rhythm and Denies leg edema Resp Reports as per HPI GI Reports no additional complaints Reports no additional complaints Musc Reports back pain, Reports arthralgias and Reports numbness (Right lower chest wall and legs) Skin/Breast Reports system reviewed and no additional complaints, except as documented Neuro Reports numbness (Right lower chest wall and legs) Psych Reports no additional complaints Physical Exam Vital Signs: Last Vital Signs Pulse 91 06/26/23 13:40 BP 120/70 06/26/23 13:40 Pulse Ox 98 06/26/23 13:40 Oxygen Delivery Method Nasal Cannula 06/26/23 13:40 Oxygen Flow Rate 2 06/26/23 13:40 BMI result Body Mass Index 41.9 Const General: comfortable, no acute distress, alert and awake Orientation/consciousness: patient oriented x3 HEENT Head: Yes normal to inspection General nose exam: No nasal polyps present and No nasal discharge present Face and sinus: Yes sinuses nontender Mouth: oropharynx normal Throat: Yes posterior oropharynx normal Eyes General: appearance normal, both eyes and all related structures Neck Neck: Yes normal visual inspection, Yes no lymphadenopathy, Yes trachea midline and Yes no JVD Thyroid: Thyroid normal Chest Chest palpation & inspection: normal inspection of the chest (Thoracostomy scar on the right lower chest), normal palpation of entire chest wall and no tenderness (SENSITIVE TO TOUCH OVER THE RIGHT MID CHEST) Resp Other: Percussion note resonant, breath sounds are distant with prolonged expiratory phase. No wheezes crepitations or rhonchi are heard. Cardio Palpation: normal PMI Rate: regular rate Rhythm: regular rhythm Heart sounds: no gallops and no murmurs Peripheral pulses: Peripheral pulses 2+ throughout GI Palpation (GI): Soft to palpation, nontender, No hepatosplenomegaly present, no masses and Other GI palpation findings present (Abdomen is obese and protuberant) Auscultation: normal bowel sounds Back/Spine/Pelvis Thoracic/Lumbar Spine: thoracic and lumbar spine normal to inspection Skin General skin exam: no rashes or lesions noted Neuro General: patient oriented x3 and no focal motor deficits Cranial nerves: Yes CN's II-XII intact bilaterally Extrem General: Yes normal to inspection, Yes no clubbing, cyanosis or edema and Yes no calf tenderness Psych Appearance: grossly normal and well kempt Speech and movement: Normal speech and movement present Assessment & Plan Assessment & Plan (1) COPD (chronic obstructive pulmonary disease): Comment: Has chronic obstructive pulmonary disease as well as a restrictive component. Holding quite stable with the current regimen. TX: Advair 250-51 inhalation b.i.d. Albuterol HFA 2 puffs Q 4-6 hours p.r.n.. O2 2 L/minute * pulmonary function test is ordered to check for the severity of his COPD, and also he may have significant restrictive pulmonary disorder. Code(s): J44.9 - Chronic obstructive pulmonary disease, unspecified Qualifiers: COPD type: COPD with acute exacerbation Qualified Code(s): J44.1 - Chronic obstructive pulmonary disease with (acute) exacerbation Plan: As above (2) Morbid obesity with BMI of 40.0-44.9, adult: Comment: This gentleman is chronically obese, Code(s): E66.01 - Morbid (severe) obesity due to excess calories; Z68.41 - Body mass index [BMI] 40.0-44.9, adult Plan: Discussed about being overweight. He is not in any position to do exercise Advised to restrict calories intake . (3) Nocturnal hypoxemia: Comment: Patient has had nocturnal hypoxemia treated with oxygen 2 L/minute in addition to the CPAP use at night. He also uses O2 2 L/minute for short periods p.r.n. during the daytime. Code(s): G47.34 - Idiopathic sleep related nonobstructive alveolar hypoventilation Plan: Advised to continue using O2 2 L/minute at night and also p.r.n. during the daytime. (4) Respiratory failure: Comment: Has chronic respiratory failure with hypoxemia and hypercapnia, and being treated with use of home ventilator + oxygen 2 L/minute Pulmonary function test is ordered. Code(s): J96.90 - Respiratory failure, unspecified, unspecified whether with hypoxia or hypercapnia Plan: Continue the same (5) KEVIN on CPAP: Comment: This patient was started on home respirator, during his hospitalization in 2020. The home respirator was started because of his diagnosis of acute on chronic respiratory failure. However he has all the clinical/physical features supporting diagnosis of obstructive sleep apnea. Obstructive sleep apnea is being well treated with the home ventilator. Code(s): G47.33 - Obstructive sleep apnea (adult) (pediatric); Z99.89 - Dependence on other enabling machines and devices Plan: as above Coding Level of Care Code Est Pt Level 4 (78681) Diagnoses Chronic obstructive pulmonary disease with acute exacerbation J44.1 COPD type: COPD with acute exacerbation Morbid obesity with BMI of 40.0-44.9, adult E66.01; Z68.41 Nocturnal hypoxemia G47.34 Respiratory failure J96.90 KEVIN on CPAP G47.33; Z99.89
== END 2023-06-26 14:20 | disposition home or self-care (01) ==
PROVIDERS: PCP Internal Medicine; Visit Provider Internal Medicine
DX: J44.1 Chronic obstructive pulmonary disease with (acute) exacerbation (principal); E66.01 Morbid (severe) obesity due to excess calories; Z68.41 Body mass index [BMI] 40.0-44.9, adult; G47.34 Idiopathic sleep related nonobstructive alveolar hypoventilation; J96.90 Respiratory failure, unspecified, unspecified whether with hypoxia or hypercapnia; G47.33 Obstructive sleep apnea (adult) (pediatric); Z99.89 Dependence on other enabling machines and devices
CPT/HCPCS: 99214

== ENCOUNTER → 2023-06-26 13:20 | Outpatient (BNVA) | payer MEDICARE, SELFPAY | PROVIDERS: PCP Internal Medicine; Visit Provider Internal Medicine | DX: J96.90 Respiratory failure, unspecified, unspecified whether with hypoxia or hypercapnia (principal); J44.1 Chronic obstructive pulmonary disease with (acute) exacerbation; G47.34 Idiopathic sleep related nonobstructive alveolar hypoventilation; G47.33 Obstructive sleep apnea (adult) (pediatric); E66.01 Morbid (severe) obesity due to excess calories; Z68.41 Body mass index [BMI] 40.0-44.9, adult; Z99.81 Dependence on supplemental oxygen; Z99.89 Dependence on other enabling machines and devices; Z79.899 Other long term (current) drug therapy | CPT/HCPCS: 99212 ==

== ENCOUNTER 2023-08-21 10:45 | Outpatient (REF) | payer MEDICARE, SELFPAY ==
--- NOTE | 2023-08-21 11:24 | PFT_ITS ---
Spirometry [] FVC 86%, FEV1 78%, FEV1/FVC RATIO IS 71 FEF 25-75 = 60% Lung Volumes [] TOTAL LUNG CAPACITY 80%, RESIDUAL VOLUME 74% Diffusion Capacity []DLCO = 89% DL/VA 106% Methacholine Challenge [] Flow Volume Loops [] NORMAL CONTOUR MVV [] 86% MIP/MEP(Max inspiratory pressure/Max expiratory pressure) [] 6 Minute Walk Test [] ABG [] Interpretation [] THERE IS EVIDENCE OF MILD OBSTRUCTIVE AIRWAY DISORDER MAINLY INVOLVING THE SMALL AIRWAYS. THERE IS THE HIS SIGNIFICANT IMPROVEMENT IN FEF 25-75 , WHICH MAY BE INDICATED OF A MILD DEGREE OF MILD BRONCHIAL ASTHMA. CLINICAL CORRELATION RECOMMENDED. MTDD
== END 2023-08-21 10:46 | disposition home or self-care (01) ==
LOC: HO.RESP 10:45
PROVIDERS: PCP Internal Medicine; Visit Provider Internal Medicine
DX: J44.9 Chronic obstructive pulmonary disease, unspecified (principal); J96.90 Respiratory failure, unspecified, unspecified whether with hypoxia or hypercapnia; G47.34 Idiopathic sleep related nonobstructive alveolar hypoventilation
CPT/HCPCS: 94010; 94727; 94729; 99212

== ENCOUNTER 2023-08-21 11:37 | Outpatient (AMB) | payer MEDICARE, SELFPAY ==
--- NOTE | 2023-08-21 11:40 | MHC.OFFVIS ---
Intake Vital Signs 08/21/23 11:41 Height 5 ft 8 in Weight 275 lb BMI 41.8 BP 130/80 Blood Pressure Location Lt brachial Position Sitting Pulse 84 Pulse Source Pulse Oximeter Pulse Oximetry (%) 98 Oxygen Delivery Method Nasal Cannula Oxygen Flow Rate 2 Intake Visit Reasons: Same day PFT Intake Note: pt is here for follow up and states he is feeling lighteheaded from pft, breathing is stabble. Epic Director Required: No Allergies pepper (genus Capsicum) Allergy (Verified 08/21/23 11:49) Angioedema Medication List - Last Reconciled 08/21/23 by Nikolai Dumont MD blood sugar diagnostic ([employer] Verio test strips) Test blood sugar twice a day blood-glucose meter ([employer] Verio Flex Meter) As directed dulaglutide 3 mg (0.5 mL) subcut QWEEK 28 days duloxetine 30 mg PO BID gabapentin 100 mg PO BEDTIME lancets ([employer] Delica Plus Lancet) test blood sugar twice a day lisinopril 20 mg PO DAILY metformin 1,000 mg PO BID rosuvastatin 5 mg PO .TIW Ventolin HFA 90 mcg/actuation (albuterol sulfate) 2 puffs PO Q4-6H PRN NS Wixela Inhub 250-50 mcg/dose (fluticasone propion-salmeterol) 1 inh PO BID NS Do you need a note to return to daycare/school/sports/work: No HPI Same day PFT HPI Details CHAD IS 53 YEARS OLD GENTLEMAN, HE HAS CHRONIC OBSTRUCTIVE PULMONARY DISORDER, ALONG WITH RESPIRATORY FAILURE. HE IS ON BIPAP AT HOME, WHICH HE USES EVERY NIGHT. HE IS ALSO ON O2 2 L/MINUTE, AND IF HE DOES NOT USE HE GETS VERY SHORT OF BREATH. HE HAS HYPERTENSION, DIABETES MELLITUS, DIABETIC NEUROPATHY, WITH PAIN IN LOWER EXTREMITIES WELL BACK PAIN.. HE STILL SMOKES ABOUT 10 CIGARETTES A DAY. [facility] Medical History Nocturia Diabetes mellitus with hyperglycemia, without long-term current use of insulin Diabetic neuropathy associated with diabetes mellitus due to underlying condition Hypoxemia Nocturnal hypoxemia Morbid obesity with BMI of 40.0-44.9, adult Cellulitis of left foot Dental caries Neuropathic pain of chest Chest wall pain following surgery Vaccination refused by patient KEVIN on CPAP Respiratory failure Alcoholism /alcohol abuse COPD (chronic obstructive pulmonary disease) Pneumothorax Surgical History History of lung surgery History of back surgery Hx of appendectomy History of colonoscopy Family History Father AA (alcohol abuse) Mother Colon cancer Brother Diabetes Other No significant family history Social History Household Members: Spouse Housing: House Alcohol intake: current Alcohol intake frequency: 3 or more drinks per day Alcohol type: beer Comment: PT SLEEPING Patient Tobacco Use Status: Former Tobacco user Cigarette Packs Per Day: 0.5 Cigarettes Per Day: 10.0 Years Smoked: 30 e-Cigarette/Vaping Use: Never Used Substance Use Type: Crack/Cocaine service: No Current occupational status: unemployed Cognitive needs: No Hearing needs: No Vision needs: No Review of Systems Const All systems reviewed & are unremarkable except as noted in HPI and below Eyes Reports no additional complaints ENT Reports no additional complaints Card Denies chest pain, Denies irregular heart rhythm and Denies leg edema Resp Reports as per HPI GI Reports no additional complaints Reports no additional complaints Musc Reports back pain, Reports arthralgias and Reports numbness (Right lower chest wall and legs) Skin/Breast Reports system reviewed and no additional complaints, except as documented Neuro Reports numbness (Right lower chest wall and legs) Psych Reports no additional complaints Physical Exam Vital Signs: Last Vital Signs Pulse 84 08/21/23 11:41 BP 130/80 08/21/23 11:41 Pulse Ox 98 08/21/23 11:41 Oxygen Delivery Method Nasal Cannula 08/21/23 11:41 Oxygen Flow Rate 2 08/21/23 11:41 BMI result Body Mass Index 41.8 Const General: comfortable, no acute distress, alert and awake Orientation/consciousness: patient oriented x3 HEENT Head: Yes normal to inspection General nose exam: No nasal polyps present and No nasal discharge present Face and sinus: Yes sinuses nontender Mouth: oropharynx normal Throat: Yes posterior oropharynx normal Eyes General: appearance normal, both eyes and all related structures Neck Neck: Yes normal visual inspection, Yes no lymphadenopathy, Yes trachea midline and Yes no JVD Thyroid: Thyroid normal Chest Chest palpation & inspection: normal inspection of the chest (Thoracostomy scar on the right lower chest), normal palpation of entire chest wall and no tenderness (SENSITIVE TO TOUCH OVER THE RIGHT MID CHEST) Resp Other: Percussion note resonant, breath sounds are distant with prolonged expiratory phase. No wheezes crepitations or rhonchi are heard. Cardio Palpation: normal PMI Rate: regular rate Rhythm: regular rhythm Heart sounds: no gallops and no murmurs Peripheral pulses: Peripheral pulses 2+ throughout GI Palpation (GI): Soft to palpation, nontender, No hepatosplenomegaly present, no masses and Other GI palpation findings present (Abdomen is obese and protuberant) Auscultation: normal bowel sounds Back/Spine/Pelvis Thoracic/Lumbar Spine: thoracic and lumbar spine normal to inspection Skin General skin exam: no rashes or lesions noted Neuro General: patient oriented x3 and no focal motor deficits Cranial nerves: Yes CN's II-XII intact bilaterally Extrem General: Yes normal to inspection, Yes no clubbing, cyanosis or edema and Yes no calf tenderness Psych Appearance: grossly normal and well kempt Speech and movement: Normal speech and movement present Results Reviewed Results Reviewed: PULMONARY FUNCTION TEST. MILD OBSTRUCTIVE AIRWAY DISORDER. NO RESTRICTIVE DISORDER. DLCO 89% Assessment & Plan Assessment & Plan (1) Morbid obesity with BMI of 40.0-44.9, adult: Comment: BMI 41 , RECENTLY HAS LOST SOME WT. Code(s): E66.01 - Morbid (severe) obesity due to excess calories; Z68.41 - Body mass index [BMI] 40.0-44.9, adult Plan: ENCOURAGED TO WATCH HIS DIET AND TRY TO LOSE MORE WEIGHT (2) COPD (chronic obstructive pulmonary disease): Comment: Has chronic obstructive pulmonary disease . PULMONARY FUNCTION TEST TODAY, SHOWS ONLY MILD OBSTRUCTIVE AIRWAY DISORDER, NO DEFINITE RESTRICTIVE DISORDER. Code(s): J44.9 - Chronic obstructive pulmonary disease, unspecified Qualifiers: COPD type: COPD with acute exacerbation Qualified Code(s): J44.1 - Chronic obstructive pulmonary disease with (acute) exacerbation Plan: [place] WIXELA 250-50 1 INHALATION B.I.D. USE VENTOLIN HFA 2 PUFFS Q 4-6 HOURS ONLY P.R.N.. (3) KEVIN on CPAP: Comment: This patient was started on home respirator, during his hospitalization in 2021. The home respirator was started because of his diagnosis of acute on chronic respiratory failure. However he has all the clinical/physical features supporting diagnosis of obstructive sleep apnea. Obstructive sleep apnea is being well treated with the home ventilator. Code(s): G47.33 - Obstructive sleep apnea (adult) (pediatric); Z99.89 - Dependence on other enabling machines and devices Plan: CONTINUE TO USE THE HOME VENTILATOR, AT CURRENT SETTINGS. (4) Hypoxemia: Comment: Patient has nocturnal as well as daytime hypoxemia. He is on O2 2 L/minute, along with CPAP at night. He also uses 2 L/minute by a portable unit with any physical activity. ON HIS NEXT VISIT, WE WILL DO 6 MINUTES WALK ON ROOM AIR, TO DETERMINE IF HE STILL NEEDS OXYGEN DURING THE DAYTIME. Code(s): R09.02 - Hypoxemia Plan: ABOVE Coding Level of Care Code Est Pt Level 3 (89900) Diagnoses Morbid obesity with BMI of 40.0-44.9, adult E66.01; Z68.41 Chronic obstructive pulmonary disease with acute exacerbation J44.1 COPD type: COPD with acute exacerbation KEVIN on CPAP G47.33; Z99.89 Hypoxemia R09.02
[2023-08-21 11:41] VITALS: BP 130/80; PULSE 84; O2SAT 98; BMI 41.8
== END 2023-08-21 11:58 | disposition home or self-care (01) ==
PROVIDERS: PCP Internal Medicine; Visit Provider Internal Medicine
DX: J44.1 Chronic obstructive pulmonary disease with (acute) exacerbation (principal); G47.33 Obstructive sleep apnea (adult) (pediatric)
CPT/HCPCS: 94060; 94727; 94729; 99213

== ENCOUNTER 2023-08-28 09:16 | Outpatient (REF) | payer OTHER, SELFPAY ==
[2023-08-28 12:10] LABS: Estimated Average Glucose 186 mg/dL; Hemoglobin A1c % 8.1 % (<6.0)
[2023-08-28 12:12] LABS: Alanine Aminotransferase 25 U/L (0-40); Anion Gap 16 (12-20); Aspartate Amino Transferase 12 U/L (5-37); Blood Urea Nitrogen 14 mg/dL (9-16); Carbon Dioxide 30 mmol/L (22-29); Chloride 102 mmol/L (96-108); Cholesterol 195 mg/dL (<200); Estimated Glomerular Filt Rate > 60; Glucose Fasting 258 mg/dL (60-99); HDL Cholesterol 37 mg/dL (>40); LDL Cholesterol Calculated 127 mg/dL (<100); Potassium 4.6 mmol/L (3.3-5.1); Sodium 143 mmol/L (135-145); Triglycerides 157 mg/dL (<150)
[2023-08-28 12:31] LABS: PSA,Total (Free>4and<10) 0.57 ng/mL (0.00-4.00)
== END 2023-08-28 09:17 | disposition home or self-care (01) ==
LOC: HO.HMGCLDS 09:16
PROVIDERS: PCP Internal Medicine; Visit Provider Internal Medicine
DX: Z12.5 Encounter for screening for malignant neoplasm of prostate (principal); E66.01 Morbid (severe) obesity due to excess calories; Z68.41 Body mass index [BMI] 40.0-44.9, adult; R35.1 Nocturia; E11.65 Type 2 diabetes mellitus with hyperglycemia
CPT/HCPCS: 36415; 80048; 80061; 83036; 84153; 84450; 84460

== ENCOUNTER → 2023-10-29 19:30 | Outpatient (REF) | payer MEDICARE, SELFPAY | LOC: HO.SL 19:30 | PROVIDERS: PCP Internal Medicine; Visit Provider Internal Medicine | DX: R09.02 Hypoxemia (principal); G47.33 Obstructive sleep apnea (adult) (pediatric); Z99.89 Dependence on other enabling machines and devices; J44.1 Chronic obstructive pulmonary disease with (acute) exacerbation; I10 Essential (primary) hypertension | CPT/HCPCS: 95810 ==

== ENCOUNTER → 2023-10-29 20:29 | Outpatient (BNV) | payer MEDICARE, SELFPAY | PROVIDERS: PCP Internal Medicine; Visit Provider Internal Medicine | DX: G47.33 Obstructive sleep apnea (adult) (pediatric) (principal); G47.61 Periodic limb movement disorder | CPT/HCPCS: 95810 ==

== ENCOUNTER 2023-11-14 15:15 | Outpatient (AMB) | payer MEDICARE, SELFPAY ==
[2023-11-14 15:23] VITALS: BP 108/70; PULSE 100; O2SAT 97; BMI 38.5
--- NOTE | 2023-11-14 15:23 | A.OFFVIS_ITS ---
Intake Vital Signs 11/14/23 15:23 Height 5 ft 8 in Weight 253 lb 8.505 oz BMI 38.5 BP 108/70 Blood Pressure Location Lt brachial Position Sitting Pulse 100 Pulse Source Pulse Oximeter Pulse Oximetry (%) 97 Oxygen Delivery Method Room Air Intake Visit Reasons: Hypoxemia, KEVIN Intake Note: pt is here for follow up of receiving new cpap, not using oxygen during the day. Manager R D Required: No Allergies pepper (genus Capsicum) Allergy (Verified 11/14/23 15:44) Angioedema Medication List - Last Reconciled 11/14/23 by Nikolai Dumont MD blood sugar diagnostic ([employer] Verio test strips) Test blood sugar twice a day blood-glucose meter ([employer] Verio Flex Meter) As directed dulaglutide 3 mg (0.5 mL) subcut QWEEK 28 days duloxetine 30 mg PO BID empagliflozin (Jardiance) 10 mg PO DAILY gabapentin 100 mg PO BEDTIME lancets ([employer] Delica Plus Lancet) test blood sugar twice a day lisinopril 20 mg PO DAILY metformin 1,000 mg PO BID rosuvastatin 5 mg PO .TIW Ventolin HFA 90 mcg/actuation (albuterol sulfate) 2 puffs PO Q4-6H PRN NS Wixela Inhub 250-50 mcg/dose (fluticasone propion-salmeterol) 1 inh PO BID NS Do you need a note to return to daycare/school/sports/work: No HPI Hypoxemia, KEVIN HPI Details 53 years old gentleman is here for [facility] w-up for his the sleep apnea and COPD. He did get his new CPAP. The CPAP titration indicated that he needs CPAP of 15 cm and did not need any oxygen supplementation. As this patient has been using O2 at night for long time he is kind of hesitant to give it up. He does not use any oxygen during the daytime. Even his COPD is more stable, he is having only occasional cough but no bouts of wheezing. He is going around and walking okay. He has lost about 22 lb since August of this year . Still keeps on having some discomfort over the right side of the chest. On his sleep study was found to have significant degree of periodic limb movement disorder. On questioning today he denies any symptoms of restless legs. This may be because he is already on gabapentin 100 mg at bedtime and also duloxetine 30 mg b.i.d.. [facility] Medical History (Updated 11/14/23 @ 15:58 by Nikolai Dumont MD) Obesity (BMI 30-39.9) Nocturia Diabetes mellitus with hyperglycemia, without long-term current use of insulin Diabetic neuropathy associated with diabetes mellitus due to underlying condition Hypoxemia Nocturnal hypoxemia Morbid obesity with BMI of 40.0-44.9, adult Cellulitis of left foot Dental caries Neuropathic pain of chest Chest wall pain following surgery Vaccination refused by patient KEVIN on CPAP Respiratory failure Alcoholism /alcohol abuse COPD (chronic obstructive pulmonary disease) Pneumothorax Surgical History History of lung surgery History of back surgery Hx of appendectomy History of colonoscopy Family History Father AA (alcohol abuse) Mother Colon cancer Brother Diabetes Other No significant family history Social History Household Members: Spouse Housing: House Alcohol intake: current Alcohol intake frequency: 3 or more drinks per day A lcohol type: beer Comment: PT SLEEPING Patient Tobacco Use Status: Former Tobacco user Cigarette Packs Per Day: 0.5 Cigarettes Per Day: 10.0 Years Smoked: 30 e-Cigarette/Vaping Use: Never Used Substance Use Type: Crack/Cocaine service: No Current occupational status: unemployed Cognitive needs: No Hearing needs: No Vision needs: No Review of Systems Const All systems reviewed & are unremarkable except as noted in HPI and below Eyes Reports no additional complaints ENT Reports no additional complaints Card Denies chest pain, Denies irregular heart rhythm and Denies leg edema Resp Reports as per HPI GI Reports no additional complaints Reports no additional complaints Musc Reports back pain, Reports arthralgias and Reports numbness (Right lower chest wall and legs) Skin/Breast Reports system reviewed and no additional complaints, except as documented Neuro Reports numbness (Right lower chest wall and legs) Psych Reports no additional complaints Physical Exam Vital Signs: Last Vital Signs Pulse 100 11/14/23 15:23 BP 108/70 11/14/23 15:23 Pulse Ox 97 11/14/23 15:23 Oxygen Delivery Method Room Air 11/14/23 15:23 BMI result Body Mass Index 38.5 Const General: comfortable, no acute distress, alert and awake Orientation/consciousness: patient oriented x3 HEENT Head: Yes normal to inspection General nose exam: No nasal polyps present and No nasal discharge present Face and sinus: Yes sinuses nontender Mouth: oropharynx normal Throat: Yes posterior oropharynx normal Eyes General: appearance normal, both eyes and all related structures Neck Neck: Yes normal visual inspection, Yes no lymphadenopathy, Yes trachea midline and Yes no JVD Thyroid: Thyroid normal Chest Chest palpation & inspection: normal inspection of the chest (Thoracostomy scar on the right lower chest), normal palpation of entire chest wall and no tenderness (SENSITIVE TO TOUCH OVER THE RIGHT MID CHEST) Resp Other: Percussion note resonant, breath sounds are distant with prolonged expiratory phase. No wheezes crepitations or rhonchi are heard. Cardio Palpation: normal PMI Rate: regular rate Rhythm: regular rhythm Heart sounds: no gallops and no murmurs Peripheral pulses: Peripheral pulses 2+ throughout GI Palpation (GI): Soft to palpation, nontender, No hepatosplenomegaly present, no masses and Other GI palpation findings present (Abdomen is obese and protuberant) Auscultation: normal bowel sounds Back/Spine/Pelvis Thoracic/Lumbar Spine: thoracic and lumbar spine normal to inspection Skin General skin exam: no rashes or lesions noted Neuro General: patient oriented x3 and no focal motor deficits Cranial nerves: Yes CN's II-XII intact bilaterally Extrem General: Yes normal to inspection, Yes no clubbing, cyanosis or edema and Yes no calf tenderness Psych Appearance: grossly normal and well kempt Speech and movement: Normal speech and movement present Assessment & Plan Assessment & Plan (1) Obesity (BMI 30-39.9): Comment: He is grossly obese but has lost some weight recently. 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 Code(s): E66.9 - Obesity, unspecified Plan: Encouraged to get up and go around and walk more on a daily basis and keep on losing weight. (2) KEVIN on CPAP: Comment: This patient was started on home respirator, during his hospitalization in 2020. The home respirator was started because of his diagnosis of acute on chronic respiratory failure. However he has all the clinical/physical features supporting diagnosis of obstructive sleep apnea. Recent polysomnogram study does confirm diagnosis of obstructive sleep apnea. Patient underwent CPAP titration, and he was treated optimally with application of CPAP of 15 cm, not requiring O2 at this pressure level. This patient has now received CPAP device. He no longer needs to use the home ventilator. He no longer needs to use oxygen. Code(s): G47.33 - Obstructive sleep apnea (adult) (pediatric); Z99.89 - Dependence on other enabling machines and devices Plan: CPAP therapy with fullface mask and pressure of 15 cm. No need of any oxygen at night. (3) Neuropathic pain of chest: Comment: He has had thoracostomy in the past ,continues to have neuropathic chest pain on the right side, but it is much less than before. The pain has gradually resolved. Just remains somewhat sensitive over the right chest. Code(s): M79.2 - Neuralgia and neuritis, unspecified Plan: Okay to continue duloxetine 30 mg b.i.d. and gabapentin 100 mg at bedtime (4) Hypoxemia: Comment: Patient had nocturnal as well as daytime hypoxemia. His condition has improved significantly. He walked into the office on room air and O2 sat was 96%. During these titration study at pressure of 15 cm he did not need any oxygen supplementation. I think is chronic respiratory failure and hypoventilation have definitely improved as he has lost weight. Code(s): R09.02 - Hypoxemia Plan: No need to add O2 to the CPAP at nighttime (5) COPD (chronic obstructive pulmonary disease): Comment: Has chronic obstructive pulmonary disease . PULMONARY FUNCTION TEST TODAY, SHOWS ONLY MILD OBSTRUCTIVE AIRWAY DISORDER, NO DEFINITE RESTRICTIVE DISORDER. Code(s): J44.9 - Chronic obstructive pulmonary disease, unspecified Qualifiers: COPD type: COPD with acute exacerbation Qualified Code(s): J44.1 - Chronic obstructive pulmonary disease with (acute) exacerbation (6) Respiratory failure: Comment: Has history of chronic respiratory failure secondary to chronic obstructive pulmonary disease. Current polysomnogram with CPAP titration indicates that with the use of CPAP at night he does not need oxygen. Code(s): J96.90 - Respiratory failure, unspecified, unspecified whether with hypoxia or hypercapnia Plan: Respiratory failure is much improved and I had educated the patient and advised him that no need of oxygen use with the CPAP PULMONARY FUNCTION TEST SHOWED ONLY MILD OBSTRUCTIVE AIRWAY DISORDER. Plan CONTINUE WIXELA 250-51 INHALATION B.I.D., AND VENTOLIN HFA 2 PUFFS Q 6 HOURS P.R.N. Coding Level of Care Code Est Pt Level 4 (53559) Diagnoses Obesity (BMI 30-39.9) E66.9 KEVIN on CPAP G47.33; Z99.89 Neuropathic pain of chest M79.2 Hypoxemia R09.02 Chronic obstructive pulmonary disease with acute exacerbation J44.1 COPD type: COPD with acute exacerbation Respiratory failure J96.90
== END 2023-11-14 15:44 | disposition home or self-care (01) ==
PROVIDERS: PCP Internal Medicine; Visit Provider Internal Medicine
DX: G47.33 Obstructive sleep apnea (adult) (pediatric) (principal); Z99.89 Dependence on other enabling machines and devices; J44.1 Chronic obstructive pulmonary disease with (acute) exacerbation; J96.90 Respiratory failure, unspecified, unspecified whether with hypoxia or hypercapnia; R09.02 Hypoxemia
CPT/HCPCS: 99214

== ENCOUNTER → 2023-11-14 15:15 | Outpatient (BNVA) | payer MEDICARE, SELFPAY | PROVIDERS: PCP Internal Medicine; Visit Provider Internal Medicine | DX: G47.33 Obstructive sleep apnea (adult) (pediatric) (principal); R09.02 Hypoxemia; E66.9 Obesity, unspecified; J44.1 Chronic obstructive pulmonary disease with (acute) exacerbation; J96.90 Respiratory failure, unspecified, unspecified whether with hypoxia or hypercapnia; M79.2 Neuralgia and neuritis, unspecified; Z99.89 Dependence on other enabling machines and devices; Z68.38 Body mass index [BMI] 38.0-38.9, adult | CPT/HCPCS: 99212 ==

== ENCOUNTER 2023-12-16 14:28 | Outpatient (AMB) | payer MEDICARE, SELFPAY ==
[2023-12-16 14:29] VITALS: BP 92/58; PULSE 107; TEMP 36.5; O2SAT 96; BMI 37.6
--- NOTE | 2023-12-16 14:29 | MHC.OFFWIV ---
Intake Vital Signs 12/16/23 14:29 Height 5 ft 8 in Weight 247 lb BMI 37.6 BP 92/58 L Blood Pressure Location Lt brachial Position Sitting Pulse 107 H Pulse Source Pulse Oximeter Temp 97.7 F Temp Source Oral Pulse Oximetry (%) 96 Intake Visit Reasons: EST/left side pain (lobby) Intake Note: Pt is here today Left side of abd pain and bloody stool Patient Tobacco Use Status: Former Tobacco user Allergies pepper (genus Capsicum) Allergy (Verified 12/16/23 14:34) Angioedema HPI HPI Comments History of Present Illness Details Here today with complaints of acute left lower quadrant abdominal pain. Reports it started about 3 days ago. It is worse since onset. It is associated with a sensation of having to move his bowels. However when he goes to move his bowels all that comes out as blood. It hurts when he walks. Hurts when he touches it. His last bowel movement was 3 days ago. Reports no bowel movement since, only bloody rectal discharge Awake alert oriented, in pain, facial grimacing Tachycardic Holding onto left lower quadrant Positive peritoneal signs [facility] Medical History (Updated 12/16/23 @ 14:38 by Ofelia Lee, [facility]) Obesity (BMI 30-39.9) Nocturia Diabetes mellitus with hyperglycemia, without long-term current use of insulin Diabetic neuropathy associated with diabetes mellitus due to underlying condition Hypoxemia Nocturnal hypoxemia Morbid obesity with BMI of 40.0-44.9, adult Cellulitis of left foot Dental caries Neuropathic pain of chest Chest wall pain following surgery Vaccination refused by patient KEVIN on CPAP Respiratory failure Alcoholism /alcohol abuse COPD (chronic obstructive pulmonary disease) Pneumothorax Surgical History History of lung surgery History of back surgery Hx of appendectomy History of colonoscopy Family History Father AA (alcohol abuse) Mother Colon cancer Brother Diabetes Other No significant family history Social History Household Members: Spouse Housing: House Alcohol intake: current Alcohol intake frequency: 3 or more drinks per day Alcohol type: beer Comment: PT SLEEPING Patient Tobacco Use Status: Former Tobacco user Cigarette Packs Per Day: 0.5 Cigarettes Per Day: 10.0 Years Smoked: 30 e-Cigarette/Vaping Use: Never Used Substance Use Type: Crack/Cocaine service: No Current occupational status: unemployed Cognitive needs: No Hearing needs: No Vision needs: No Review of Systems Const All systems reviewed & are unremarkable except as noted in HPI and below Assessment & Plan Assessment & Plan (1) Acute left lower quadrant pain: Code(s): R10.32 - Left lower quadrant pain Plan: . Plan This note is constructed using voice recognition software. While every effort has been made to ensure accuracy in research clerk, still errors may have been included Sometimes, these errors may affect the content or meaning of the given sentence . Patient Instructions: Associated with rectal bleeding and peritoneal signs along with tachycardia and a soft blood pressure. Advised to go directly to the emergency room for further evaluation and treatment. Patient will go to [facility] via private vehicle. He was advised to have nothing to eat or drink and go directly to the emergency room. Verbalized understanding to directions and sent him to the emergency room now. Coding Level of Care Code Est Pt Level 4 (48927) Diagnoses Acute left lower quadrant pain R10.32
== END 2023-12-16 14:37 | disposition home or self-care (01) ==
PROVIDERS: PCP Internal Medicine; Visit Provider Nurse Practitioner Family
DX: R10.32 Left lower quadrant pain (principal)
CPT/HCPCS: 99051; 99214

== ENCOUNTER 2023-12-16 15:07 | Emergency (ER) | payer MEDICARE, SELFPAY ==
[2023-12-16 16:08] VITALS: BP 134/83; PULSE 95; RESP 18; TEMP 36.8; O2SAT 97; BMI 37.7
--- NOTE | 2023-12-16 16:08 | ED_ITS ---
HPI - Abdominal Pain General Chief Complaint: Abdominal Pain Stated Complaint: severe abd pain bloody stool Related Data Home Medications ?Medication ?Instructions ?Recorded ?Confirmed duloxetine 30 mg capsule,delayed 30 mg PO BID 06/28/22 06/26/23 release empagliflozin 10 mg tablet 10 mg PO DAILY 11/14/23 (Jardiance) ondansetron HCl 4 mg tablet 4 mg PO Q8H 12/16/23 Previous Rx's ?Medication ?Instructions ?Recorded Ventolin HFA 90 mcg/actuation 2 puff PO Q4-6H PRN for wheezing 11/01/22 aerosol inhaler (albuterol sulfate) #18 grams rosuvastatin 5 mg tablet 5 mg PO .TIW #39 tabs 03/17/23 blood-glucose meter (OneTouch #1 ea 03/20/23 Verio Flex Meter) blood sugar diagnostic (OneTouch #200 ea 07/26/23 Verio test strips) lisinopril 20 mg tablet 20 mg PO DAILY #90 tabs 08/15/23 dulaglutide 3 mg/0.5 mL 3 mg (0.5 mL) subcut QWEEK 28 days 08/28/23 subcutaneous pen injector #2 mL gabapentin 100 mg capsule 100 mg PO BEDTIME #30 caps 10/14/23 Wixela Inhub 250 mcg-50 mcg/dose 1 inh PO BID #60 ea 11/14/23 powder for inhalation (fluticasone propion-salmeterol) lancets 30 gauge (OneTouch Delica #200 ea 11/24/23 Plus Lancet) metformin 1,000 mg tablet 1,000 mg PO BID #180 tabs 12/01/23 dulaglutide 1.5 mg/0.5 mL 1.5 mg (0.5 mL) subcut QWEEK #2 mL 01/04/24 subcutaneous pen injector meclizine 25 mg tablet 25 mg PO DAILY PRN Lightheadedness 01/04/24 #20 tabs Allergies Allergy/AdvReac Type Severity Reaction Status Date / Time pepper (genus Capsicum) Allergy Angioedema Verified 12/16/23 16:08 [facility]LY [facility] Past Medical History Medical History (Updated 01/22/24 @ 10:57 by Karolina Srinivasan NP) Obesity (BMI 30-39.9) Nocturia Diabetes mellitus with hyperglycemia, without long-term current use of insulin Diabetic neuropathy associated with diabetes mellitus due to underlying condition Hypoxemia Nocturnal hypoxemia Morbid obesity with BMI of 40.0-44.9, adult Cellulitis of left foot Dental caries Neuropathic pain of chest Chest wall pain following surgery Vaccination refused by patient KEVIN on CPAP Respiratory failure Alcoholism /alcohol abuse COPD (chronic obstructive pulmonary disease) Pneumothorax Surgical History History of lung surgery History of back surgery Hx of appendectomy History of colonoscopy Family History Family History Father AA (alcohol abuse) Mother Colon cancer Brother Diabetes Other No significant family history Social History Social History Household Members: Spouse Housing: House Alcohol intake: current Alcohol intake frequency: 3 or more drinks per day Alcohol type: beer Comment: PT SLEEPING Patient Tobacco Use Status: Former Tobacco user Cigarette Packs Per Day: 0.5 Cigarettes Per Day: 10.0 Years Smoked: 30 e-Cigarette/Vaping Use: Never Used Substance Use Type: Crack/Cocaine service: No Current occupational status: unemployed Cognitive needs: No Hearing needs: No Vision needs: No Physical Exam ED Vital Signs: Vital Signs - 24 hr 12/16/23 16:08 Temperature 98.2 F Pulse Rate 95 Respiratory Rate 18 Blood Pressure 134/83 Pulse Oximetry 97 Oxygen Delivery Method Room Air BMI result Body Mass Index 37.7 Course Course Course Narrative: This is a rapid medical exam completed by Moises [employer]LOOP [employer]TAIN: Additional HPI, ROS, PE not included below will be deferred to primary provider. Left abdominal pain with concerns for blood in the stool Reports initially having black stools which became red and watery. Recent hx constipations with last BM earlier today, small with blood Plan: Blood work, CT abd/pelvis w/contrast, pepcid Mom of colon cancer. Last colonoscopy > 10 years ago Medical Decision Making Lab Data 12/16/23 16:48 12/16/23 16:48 Labs: Lab Results 12/16/23 Range/Units 16:48 WBC 17.8 H (4.8-10.8) X10*3/uL RBC 5.17 (4.60-5.80) X10*6/uL Hgb 16.2 (14.0-18.0) g/dl Hct 46.9 (42.0-52.0) % MCV 90.7 (80.0-98.0) fL MCH 31.3 (27.0-33.0) pg MCHC 34.5 (31.0-36.0) g/dl RDW 12.1 (11.0-16.0) % Plt Count 295 (160-400) X10*3/uL MPV 10.5 (9.4-12.4) fL Immature Gran % (Auto) 0.5 H (0.0-0.4) % Neut % (Auto) 70.9 (45-73) % Lymph % (Auto) 14.3 L (20-40) % Victoria % (Auto) 7.7 (2-11) % Eos % (Auto) 6.0 H (0-4) % Baso % (Auto) 0.6 (0-2) % Lymph # (Auto) 2.5 (1.2-4.9) X10*3/uL Victoria # (Auto) 1.4 H (0.1-1.2) X10*3/uL Eos # (Auto) 1.1 H (0.0-0.4) X10*3/uL Baso # (Auto) 0.1 (0.0-0.2) X10*3/uL Abs Immat Gran (auto) 0.08 H (0.00-0.03) X10*3/uL Absolute Neuts (auto) 12.6 H (2.0-8.3) x10*3/uL Absolute Nucleated RBC 0.000 (0.0-0.012) X10*3/uL Nucleated RBC % (auto) 0.0 (0.0-0.2) /100WBC Sodium 137 (135-145) mmol/L Potassium 4.6 (3.3-5.1) mmol/L Chloride 96 (96-108) mmol/L Carbon Dioxide 26 (22-29) mmol/L Anion Gap 20 (12-20) BUN 20 H (9-16) mg/dL Creatinine 1.13 (0.5-1.4) mg/dL Estim Creat Clear Calc 94.0 Estimated GFR > 60 Random Glucose 208 H (60-115) mg/dL Calcium 10.2 (8.4-10.2) mg/dL Magnesium 2.9 H (1.6-2.6) mg/dL Total Bilirubin 0.3 (0.0-1.0) mg/dL AST 14 (5-37) U/L ALT 24 (0-40) U/L Alkaline Phosphatase 102 (39-117) U/L Total Protein 8.6 H (6.5-8.0) g/dL Albumin 4.2 (3.5-5.0) g/dL Medications Administered Discontinued Medications Generic Name Dose Route Start Last Admin Trade Name Freq PRN Reason Stop Dose Admin Famotidine 20 mg 12/16/23 16:11 12/16/23 16:16 Famotidine 20 Mg Tablet PO 12/16/23 16:12 20 mg ONCE ONE Administration Discharge Plan Discharge Clinical Impression: Encounter for medical assessment Patient Disposition: Left W/O Completing Treatment Prescriptions: No Action albuterol sulfate [Ventolin HFA] 90 mcg/actuation HFA aerosol inhaler 2 puff PO Q4-6H PRN (Reason: for wheezing) Qty: 18 0RF rosuvastatin 5 mg tablet 5 mg PO .TIW Qty: 39 1RF (DME) blood-glucose meter [DocSendTouch Verio Flex meter] Misc See Rx Instructions .Route Qty: 1 0RF Rx Instructions: As directed (DME) OneTouch Verio test strips Strip See Rx Instructions .Route Qty: 200 1RF Rx Instructions: Test blood sugar twice a day lisinopril 20 mg tablet 20 mg PO DAILY Qty: 90 1RF dulaglutide 3 mg/0.5 mL pen injector 3 mg subcut QWEEK 28 Days Qty: 2 5RF gabapentin 100 mg capsule 100 mg PO BEDTIME Qty: 30 5RF fluticasone propion-salmeterol [Wixela Inhub] 250-50 mcg/dose blister with device 1 inh PO BID Qty: 60 2RF (DME) lancets [OneTouch Delica Plus Lancet] 30 gauge misc See Rx Instructions .Route Qty: 200 1RF Rx Instructions: test blood sugar twice a day metformin 1,000 mg tablet 1,000 mg PO BID Qty: 180 1RF dulaglutide 1.5 mg/0.5 mL pen injector 1.5 mg subcut QWEEK Qty: 2 1RF meclizine 25 mg tablet 25 mg PO DAILY PRN (Reason: Lightheadedness) Qty: 20 0RF ondansetron HCl 4 mg tablet 4 mg PO Q8H duloxetine 30 mg capsule,delayed release(DR/EC) 30 mg PO BID Jardiance 10 mg tablet 10 mg PO DAILY Discharge Date/Time: 12/16/23 19:11
[2023-12-16] MEDS: Famotidine 20 MG TABLET PO (16:16)
--- NOTE | 2023-12-16 16:16 | PC.NURSE ---
pt medicated per order in triage
[2023-12-16 16:53] LABS: MANUAL DIFF FLAG NO
[2023-12-16 16:55] LABS: Basophils Absolute Auto 0.1 X10*3/uL (0.0-0.2); Basophils Percent Auto 0.6 % (0-2); Eosinophils Absolute Auto 1.1 X10*3/uL (0.0-0.4); Hematocrit 46.9 % (42.0-52.0); Hemoglobin 16.2 g/dl (14.0-18.0); Imm Gran Abs Auto 0.08 X10*3/uL (0.00-0.03); Imm Gran Pct Auto 0.5 % (0.0-0.4); Lymphocytes Absolute Auto 2.5 X10*3/uL (1.2-4.9); Lymphocytes Percent Auto 14.3 % (20-40); Mean Corpuscular HGB Conc 34.5 g/dl (31.0-36.0); Mean Corpuscular Hemoglobin 31.3 pg (27.0-33.0); Mean Corpuscular Volume 90.7 fL (80.0-98.0); Mean Platelet Volume 10.5 fL (9.4-12.4); Monocytes Absolute Auto 1.4 X10*3/uL (0.1-1.2); Monocytes Percent Auto 7.7 % (2-11); Neutrophils Absolute Auto 12.6 x10*3/uL (2.0-8.3); Neutrophils Percent Auto 70.9 % (45-73); Platelet Count 295 X10*3/uL (160-400); Red Blood Count 5.17 X10*6/uL (4.60-5.80); Red Cell Distribution Width 12.1 % (11.0-16.0); White Blood Count 17.8 X10*3/uL (4.8-10.8)
[2023-12-16 17:56] LABS: Alanine Aminotransferase 24 U/L (0-40); Albumin Level 4.2 g/dL (3.5-5.0); Alkaline Phosphatase 102 U/L (39-117); Anion Gap 20 (12-20); Aspartate Amino Transferase 14 U/L (5-37); Bilirubin Total 0.3 mg/dL (0.0-1.0); Blood Urea Nitrogen 20 mg/dL (9-16); Calcium 10.2 mg/dL (8.4-10.2); Carbon Dioxide 26 mmol/L (22-29); Chloride 96 mmol/L (96-108); Estimated Glomerular Filt Rate > 60; Glucose Random 208 mg/dL (60-115); Magnesium 2.9 mg/dL (1.6-2.6); Potassium 4.6 mmol/L (3.3-5.1); Sodium 137 mmol/L (135-145); Total Protein 8.6 g/dL (6.5-8.0)
== END 2023-12-16 19:11 | disposition left against medical advice (07) ==
PROVIDERS: Nurse Practitioner Family; Emergency Provider Emergency Medicine; PCP Internal Medicine
DX: R10.9 Unspecified abdominal pain (principal)
CPT/HCPCS: 36415; 80053; 83735; 85025; 99281; 99283

== ENCOUNTER 2024-05-01 11:15 | Outpatient (REF) | payer MEDICARE, SELFPAY ==
[2024-05-01 14:08] LABS: Alanine Aminotransferase 22 U/L (0-40); Anion Gap 12 (12-20); Aspartate Amino Transferase 15 U/L (5-37); Blood Urea Nitrogen 13 mg/dL (9-16); Calcium 9.7 mg/dL (8.4-10.2); Carbon Dioxide 28 mmol/L (22-29); Chloride 104 mmol/L (96-108); Cholesterol 205 mg/dL (<200); Estimated Glomerular Filt Rate > 60; Glucose Fasting 183 mg/dL (60-99); HDL Cholesterol 39 mg/dL (>40); LDL Cholesterol Calculated 137 mg/dL (<100); Potassium 4.1 mmol/L (3.3-5.1); Sodium 140 mmol/L (135-145); Triglycerides 146 mg/dL (<150)
[2024-05-01 15:44] LABS: Estimated Average Glucose 197 mg/dL; Hemoglobin A1c % 8.5 % (<6.0)
== END 2024-05-01 11:16 | disposition home or self-care (01) ==
LOC: HO.HMGCLDS 11:15
PROVIDERS: PCP Internal Medicine; Visit Provider Internal Medicine
DX: E66.9 Obesity, unspecified (principal); E11.65 Type 2 diabetes mellitus with hyperglycemia; E08.40 Diabetes mellitus due to underlying condition with diabetic neuropathy, unspecified; I10 Essential (primary) hypertension
CPT/HCPCS: 36415; 80048; 80061; 83036; 84450; 84460; 93005; 96127; 99396

== ENCOUNTER 2024-05-01 11:59 | Outpatient (AMB) | payer MEDICARE, SELFPAY ==
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
[2024-05-01 12:42] VITALS: BP 120/70; PULSE 83; O2SAT 97; BMI 37.6
== END 2024-05-01 13:43 | disposition home or self-care (01) ==
PROVIDERS: PCP Internal Medicine; Visit Provider Internal Medicine
DX: Z00.00 Encounter for general adult medical examination without abnormal findings (principal); E11.65 Type 2 diabetes mellitus with hyperglycemia; J44.1 Chronic obstructive pulmonary disease with (acute) exacerbation; Z80.0 Family history of malignant neoplasm of digestive organs; I10 Essential (primary) hypertension; G47.33 Obstructive sleep apnea (adult) (pediatric); Z99.89 Dependence on other enabling machines and devices; F41.9 Anxiety disorder, unspecified; F32.A Depression, unspecified; E66.9 Obesity, unspecified

== ENCOUNTER 2024-06-06 13:37 | Outpatient (AMB) | payer MEDICARE, SELFPAY ==
[2024-06-06 13:50] VITALS: BP 110/60; PULSE 91; O2SAT 97; BMI 38.2
--- NOTE | 2024-06-06 13:50 | MHC.OFFVIS ---
Vital Signs 06/06/24 13:50 Height 5 ft 8 in Weight 251 lb 5.231 oz BMI 38.2 BP 110/60 Blood Pressure Location Lt brachial Position Sitting Pulse 91 Pulse Source Pulse Oximeter Pulse Oximetry (%) 97 Oxygen Delivery Method Room Air Intake Visit Reasons: rossi Intake Note: pt is here for follow up and states he is doing well, cpap is also good. Revenue Analyst Required: No Allergies pepper (genus Capsicum) Allergy (Verified 06/06/24 14:19) Angioedema Medication List - Last Reconciled 06/06/24 by Nikolai Dumont MD blood sugar diagnostic ([employer] Verio test strips) Test blood sugar twice a day blood-glucose meter ([employer] Verio Flex Meter) As directed dulaglutide (Trulicity) 3 mg (0.5 mL) subcut QWEEK 1 month duloxetine 30 mg PO BID empagliflozin (Jardiance) 10 mg PO DAILY gabapentin 300 mg PO DAILY lancets ([employer] PlusTouch Delica Plus Lancet) test blood sugar twice a day lisinopril 20 mg PO DAILY meclizine 25 mg PO DAILY PRN metformin 1,000 mg PO BID ondansetron HCl 4 mg PO Q8H quetiapine 200 mg PO BEDTIME rosuvastatin 5 mg PO .TIW Ventolin HFA 90 mcg/actuation (albuterol sulfate) 2 puffs PO Q4-6H PRN NS Wixela Inhub 250-50 mcg/dose (fluticasone propion-salmeterol) 1 inh PO BID NS Do you need a note to return to daycare/school/sports/work: No HPI HPI rossi: Details: CHAD, 54 YEARS OLD GENTLEMAN IS HERE FOR FOLLOW-UP FOR HIS SLEEP APNEA. HE USES CPAP VERY REGULARLY EVERY NIGHT AND EVEN DURING THE DAYTIME. HE ENDS UP USING FOR ABOUT 13 HOURS EVERY DAY, SLEEPS WELL. HOWEVER BECAUSE OF INTERMITTENT MUSCULAR PAIN IN HIS CHEST HIS SLEEP GETS DISTURBED. HE HAS VERY LITTLE COUGH BUT SOME WHEEZING OFF AND ON AND ALSO GETS SHORT OF BREATH IF HE WALKS FAST. HE IS USING WIXELA REGULARLY AND VENTOLIN ONLY P.R.N.. [facility]LY [facility] Medical History Anxiety and depression Recurrent spontaneous pneumothorax History of glaucoma suspect Family history of colon cancer in mother Colon cancer screening Obesity (BMI 30-39.9) Nocturia Diabetes mellitus with hyperglycemia, without long-term current use of insulin Diabetic neuropathy associated with diabetes mellitus due to underlying condition Hypoxemia Nocturnal hypoxemia Cellulitis of left foot Dental caries Neuropathic pain of chest Chest wall pain following surgery Vaccination refused by patient ROSSI on CPAP Respiratory failure Alcoholism /alcohol abuse COPD (chronic obstructive pulmonary disease) Pneumothorax Surgical History History of lung surgery History of back surgery Hx of appendectomy History of colonoscopy Family History Father AA (alcohol abuse) Mother Colon cancer Brother Diabetes Other No significant family history Social History Household Members: Spouse Housing: House Alcohol intake: former Patient Tobacco Use Status: Former Tobacco user Cigarette Packs Per Day: 0.5 Cigarettes Per Day: 10.0 Years Smoked: 30 e-Cigarette/Vaping Use: Never Used Substance Use Type: Crack/Cocaine service: No Current occupational status: unemployed Cognitive needs: No Hearing needs: No Vision needs: No Review of Systems Const All systems reviewed & are unremarkable except as noted in HPI and below Eyes Reports no additional complaints ENT Reports no additional complaints Card Denies chest pain, Denies irregular heart rhythm and Denies leg edema Resp Reports as per HPI GI Reports no additional complaints Reports no additional complaints Musc Reports back pain, Reports arthralgias and Reports numbness (Right lower chest wall and legs) Skin/Breast Reports system reviewed and no additional complaints, except as documented Neuro Reports numbness (Right lower chest wall and legs) Psych Reports no additional complaints Physical Exam Vital Signs: Last Vital Signs Pulse 91 06/06/24 13:50 BP 110/60 06/06/24 13:50 Pulse Ox 97 06/06/24 13:50 Oxygen Delivery Method Room Air 06/06/24 13:50 BMI result Body Mass Index 38.2 Const General: comfortable, no acute distress, alert and awake Orientation/consciousness: patient oriented x3 HEENT Head: Yes normal to inspection General nose exam: No nasal polyps present and No nasal discharge present Face and sinus: Yes sinuses nontender Mouth: oropharynx normal Throat: Yes posterior oropharynx normal Eyes General: appearance normal, both eyes and all related structures Neck Neck: Yes normal visual inspection, Yes no lymphadenopathy, Yes trachea midline and Yes no JVD Thyroid: Thyroid normal Chest Chest palpation & inspection: normal inspection of the chest (Thoracostomy scar on the right lower chest), normal palpation of entire chest wall and no tenderness (SENSITIVE TO TOUCH OVER THE RIGHT MID CHEST) Resp Other: Percussion note resonant, breath sounds are distant with prolonged expiratory phase. No wheezes crepitations or rhonchi are heard. Cardio Palpation: normal PMI Rate: regular rate Rhythm: regular rhythm Heart sounds: no gallops and no murmurs Peripheral pulses: Peripheral pulses 2+ throughout GI Palpation (GI): Soft to palpation, nontender, No hepatosplenomegaly present, no masses and Other GI palpation findings present (Abdomen is obese and protuberant) Auscultation: normal bowel sounds Back/Spine/Pelvis Thoracic/Lumbar Spine: thoracic and lumbar spine normal to inspection Skin General skin exam: no rashes or lesions noted Neuro General: patient oriented x3 and no focal motor deficits Cranial nerves: Yes CN's II-XII intact bilaterally Extrem General: Yes normal to inspection, Yes no clubbing, cyanosis or edema and Yes no calf tenderness Psych Appearance: grossly normal and well kempt Speech and movement: Normal speech and movement present Results Reviewed Results Reviewed: COMPLIANCE REPORT IS REVIEWED AND HE HAS USED 30/30 NIGHTS, 100%. AVERAGE USE IT PER NIGHT IS 13 HOURS 10 MINUTES, THIS INCLUDES USING THE CPAP DURING DAYTIME WHEN HE TAKES NAPS. PRESSURE IS 12 CM. HE DOES HAVE MODERATE DEGREE OF AIR LEAK RESIDUAL AHI 3.4 Assessment & Plan Assessment & Plan (1) COPD (chronic obstructive pulmonary disease): Comment: Has chronic obstructive pulmonary disease . PULMONARY FUNCTION TEST SHOWED ONLY MILD OBSTRUCTIVE AIRWAY DISORDER, NO DEFINITE RESTRICTIVE DISORDER. Code(s): J44.9 - Chronic obstructive pulmonary disease, unspecified Category: Medical Qualifiers: COPD type: COPD with acute exacerbation Qualified Code(s): J44.1 - Chronic obstructive pulmonary disease with (acute) exacerbation Plan: CONTINUE WIXELA 250-51 INHALATION B.I.D. AND VENTOLIN HFA 2 PUFFS Q 6 HOURS P.R.N. (2) Obesity (BMI 30-39.9): Comment: He is grossly obese . His weight fluctuates up and down within 3-5 lb. He is indulging in eating more carbohydrates. Code(s): E66.9 - Obesity, unspecified Category: Medical Plan: Diet explained that he should avoid eating carbohydrates , increase intake of fruits and vegetables. Should walk about. 2 miles every day (3) ROSSI on CPAP: Comment: This patient was started on home respirator, during his hospitalization in 2020. The home respirator was started because of his diagnosis of acute on chronic respiratory failure. However he has all the clinical/physical features supporting diagnosis of obstructive sleep apnea. Polysomnogram study did confirm diagnosis of obstructive sleep apnea. Patient underwent CPAP titration, and he was treated optimally with application of CPAP of 12-15 cm, not requiring O2 at this pressure level. * so he has done very well just with the use of CPAP and pressure setting 12 cm, not requiring any O2 Compliance is reviewed and it is excellent . He is using up to 13 hours per day. Code(s): G47.33 - Obstructive sleep apnea (adult) (pediatric); Z99.89 - Dependence on other enabling machines and devices Category: Medical Plan: Commended for good compliance and advised to continue using the CPAP every night and also during the daytime if he has tendency to take a nap. (4) Neuropathic pain of chest: Comment: He has had thoracostomy in the past ,continues to have neuropathic chest pain on the right side, but it is much less than before. The pain has gradually resolved. Just remains somewhat sensitive over the right chest. Code(s): M79.2 - Neuralgia and neuritis, unspecified Category: Medical Plan: Gabapentin 300 mg daily. Tylenol 2 tablets q.6 hours p.r.n. Coding Level of Care Code Est Pt Level 3 (82697) Diagnoses Chronic obstructive pulmonary disease with acute exacerbation J44.1 COPD type: COPD with acute exacerbation Obesity (BMI 30-39.9) E66.9 ROSSI on CPAP G47.33; Z99.89 Neuropathic pain of chest M79.2
== END 2024-06-06 14:28 | disposition home or self-care (01) ==
LOC: HO.HPS 13:37
PROVIDERS: PCP Internal Medicine; Visit Provider Internal Medicine
DX: J44.1 Chronic obstructive pulmonary disease with (acute) exacerbation (principal); E66.9 Obesity, unspecified; G47.33 Obstructive sleep apnea (adult) (pediatric); Z99.89 Dependence on other enabling machines and devices; M79.2 Neuralgia and neuritis, unspecified
CPT/HCPCS: 99213

== ENCOUNTER → 2024-06-06 13:37 | Outpatient (BNVA) | payer MEDICARE, SELFPAY | PROVIDERS: PCP Internal Medicine; Visit Provider Internal Medicine | DX: J44.1 Chronic obstructive pulmonary disease with (acute) exacerbation (principal); G47.33 Obstructive sleep apnea (adult) (pediatric); E66.9 Obesity, unspecified; M79.2 Neuralgia and neuritis, unspecified; Z99.89 Dependence on other enabling machines and devices; Z68.38 Body mass index [BMI] 38.0-38.9, adult | CPT/HCPCS: 99212 ==

== ENCOUNTER 2024-12-25 10:00 | Outpatient (REF) | payer MEDICARE, SELFPAY ==
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
[2024-12-25 13:30] LABS: Estimated Average Glucose 186 mg/dL; Hemoglobin A1C 260.4755 umol/L; Hemoglobin A1c % 8.1 % (<6.0); Total Hemoglobin (HGBA1C) 3998.4209 umol/L
[2024-12-25 15:04] LABS: Alanine Aminotransferase 28 U/L (0-40); Anion Gap 12 (12-20); Blood Urea Nitrogen 22 mg/dL (9-16); Calcium 9.5 mg/dL (8.4-10.2); Carbon Dioxide 28 mmol/L (22-29); Chloride 103 mmol/L (96-108); Cholesterol 197 mg/dL (<200); Estimated Glomerular Filt Rate > 60; Glucose Fasting 191 mg/dL (60-99); HDL Cholesterol 39 mg/dL (>40); LDL Cholesterol Calculated 115 mg/dL (<100); Potassium 4.9 mmol/L (3.3-5.1); Sodium 138 mmol/L (135-145); Triglycerides 218 mg/dL (<150)
[2024-12-25 15:21] LABS: Vitamin D 25-OH Total 35.1 ng/mL (>30)
== END 2024-12-25 10:01 | disposition home or self-care (01) ==
LOC: HO.HMGCLDS 10:00
PROVIDERS: PCP Internal Medicine; Visit Provider Internal Medicine
DX: E66.9 Obesity, unspecified (principal); E11.65 Type 2 diabetes mellitus with hyperglycemia; E11.40 Type 2 diabetes mellitus with diabetic neuropathy, unspecified; I10 Essential (primary) hypertension
CPT/HCPCS: 36415; 80048; 80061; 82306; 83036; 84460

== ENCOUNTER 2025-01-01 10:40 | Outpatient (AMB) | payer MEDICARE, MEDICAID, SELFPAY ==
[2025-01-01 11:00] VITALS: BP 102/60; PULSE 78; O2SAT 96; BMI 39.0
--- NOTE | 2025-01-01 11:00 | A.OFFVIS_ITS ---
Vital Signs 01/01/25 11:00 Height 5 ft 8 in Weight 256 lb 13.416 oz BMI 39.0 BP 102/60 Blood Pressure Location Lt brachial Position Sitting Pulse 78 Pulse Source Pulse Oximeter Pulse Oximetry (%) 96 Oxygen Delivery Method Room Air Intake Visit Reasons: Obstructive sleep apnea Intake Note: pt is here for follow up and states he is using his cpap nightly but is short of breath with exertion, stairs he must stop a few times to catch his breath. 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 Allergies pepper (genus Capsicum) Allergy (Verified 01/01/25 11:08) Angioedema Medication List - Last Reconciled 01/01/25 by Nikolai Dumont MD blood sugar diagnostic ([employer] Verio test strips) Test blood sugar twice a day blood-glucose meter ([employer] Verio Flex Meter) As directed dulaglutide (Trulicity) 3 mg (0.5 mL) subcut QWEEK 1 month duloxetine 30 mg PO BID empagliflozin (Jardiance) 10 mg PO DAILY gabapentin 300 mg PO DAILY lancets ([employer] Delica Plus Lancet) test blood sugar twice a day lisinopril 20 mg PO DAILY meclizine 25 mg PO DAILY PRN metformin 1,000 mg PO BID ondansetron HCl 4 mg PO Q8H quetiapine 200 mg PO BEDTIME rosuvastatin 5 mg PO .TIW Ventolin HFA 90 mcg/actuation (albuterol sulfate) 2 puffs PO Q4-6H PRN NS Wixela Inhub 250-50 mcg/dose (fluticasone propion-salmeterol) 1 inh PO BID NS HPI HPI Obstructive sleep apnea: Details: 54 YEARS OLD GENTLEMAN IS HERE FOR HIS FOLLOW-UP AFTER 6 MONTHS. HE IS A CASE OF OBSTRUCTIVE SLEEP APNEA WHICH IS WELL TREATED WITH THE USE OF CPAP. HE USES CPAP REGULARLY EVERY NIGHT AND ACTUALLY UP TO 12 HOURS PER DAY, BECAUSE HE USES CPAP IN THE AFTERNOON WHEN HE TAKES A NAP. NO ISSUES WITH THE CPAP. HE USED TO HAVE NOCTURNAL HYPOXEMIA WHICH HAS RESOLVED, AND HIS O2 APPARATUS WAS RETURN. HE HAS PAST HISTORY OF SMOKING BUT QUIT IN 2019. DOES HAVE SOME COPD AND GROSS OBESITY. HE IS COMPLAINING OF INCREASED SHORTNESS OF BREATH ON MINIMAL EXERTION IN THE HOUSE OR IF HE TRIES TO DO ANY SMALL OUTSIDE WORK. HAS MILD INTERMITTENT COUGH. PFSH Medical History Anxiety and depression Recurrent spontaneous pneumothorax History of glaucoma suspect Family history of colon cancer in mother Colon cancer screening Obesity (BMI 30-39.9) Nocturia Diabetes mellitus with hyperglycemia, without long-term current use of insulin Diabetic neuropathy associated with diabetes mellitus due to underlying condition Hypoxemia Nocturnal hypoxemia Cellulitis of left foot Dental caries Neuropathic pain of chest Chest wall pain following surgery Vaccination refused by patient KEVIN on CPAP Respiratory failure Alcoholism /alcohol abuse COPD (chronic obstructive pulmonary disease) Pneumothorax Surgical History History of lung surgery History of back surgery Hx of appendectomy History of colonoscopy Family History Father AA (alcohol abuse) Mother Colon cancer Brother Diabetes Other No significant family history Social History Household Members: Spouse Housing: House Alcohol intake: former Patient Tobacco Use Status: Former Tobacco user Cigarette Packs Per Day: 0.5 Cigarettes Per Day: 10.0 Years Smoked: 30 e-Cigarette/Vaping Use: Never Used Substance Use Type: Crack/Cocaine service: No Current occupational status: unemployed Cognitive needs: No Hearing needs: No Vision needs: No Review of Systems Const All systems reviewed & are unremarkable except as noted in HPI and below Eyes Reports no additional complaints ENT Reports no additional complaints Card Denies chest pain, Denies irregular heart rhythm and Denies leg edema Resp Reports as per HPI GI Reports no additional complaints Reports no additional complaints Musc Reports back pain, Reports arthralgias and Reports numbness (Right lower chest wall and legs) Skin/Breast Reports system reviewed and no additional complaints, except as documented Neuro Reports numbness (Right lower chest wall and legs) Psych Reports no additional complaints Physical Exam Vital Signs: Last Vital Signs Pulse 78 01/01/25 11:00 BP 102/60 01/01/25 11:00 Pulse Ox 96 01/01/25 11:00 Oxygen Delivery Method Room Air 01/01/25 11:00 BMI result Body Mass Index 39.0 Const General: comfortable, no acute distress, alert and awake Orientation/consciousness: patient oriented x3 HEENT Head: Yes normal to inspection General nose exam: No nasal polyps present and No nasal discharge present Face and sinus: Yes sinuses nontender Mouth: oropharynx normal Throat: Yes posterior oropharynx normal Eyes General: appearance normal, both eyes and all related structures Neck Neck: Yes normal visual inspection, Yes no lymphadenopathy, Yes trachea midline and Yes no JVD Thyroid: Thyroid normal Chest Chest palpation & inspection: normal inspection of the chest (Thoracostomy scar on the right lower chest), normal palpation of entire chest wall and no tenderness (SENSITIVE TO TOUCH OVER THE RIGHT MID CHEST) Resp Other: Percussion note resonant, breath sounds are distant with prolonged expiratory phase. No wheezes crepitations or rhonchi are heard. Cardio Palpation: normal PMI Rate: regular rate Rhythm: regular rhythm Heart sounds: no gallops and no murmurs Peripheral pulses: Peripheral pulses 2+ throughout GI Palpation (GI): Soft to palpation, nontender, No hepatosplenomegaly present, no masses and Other GI palpation findings present (Abdomen is obese and protuberant) Auscultation: normal bowel sounds Back/Spine/Pelvis Thoracic/Lumbar Spine: thoracic and lumbar spine normal to inspection Skin General skin exam: no rashes or lesions noted Neuro General: patient oriented x3 and no focal motor deficits Cranial nerves: Yes CN's II-XII intact bilaterally Extrem General: Yes normal to inspection, Yes no clubbing, cyanosis or edema and Yes no calf tenderness Psych Appearance: grossly normal and well kempt Speech and movement: Normal speech and movement present Results Reviewed Results Reviewed: REVIEWED THE COMPLIANCE REPORT WITH THE PATIENT HE HAS USED 30/30 NIGHTS, 100%. AVERAGE USAGE PER DAY IS 12 HOURS 59 MINUTES. PRESSURE SETTING 12 CM. THERE IS MODERATE AMOUNT OF AIR LEAK. RESIDUAL AHI ONLY 2.6 Assessment & Plan Assessment & Plan (1) Obesity (BMI 30-39.9): Comment: He is grossly obese . His weight fluctuates up and down within 3-5 lb. He is indulging in eating more carbohydrates. Code(s): E66.9 - Obesity, unspecified Category: Medical Plan: ALERTED BOUT HIS WEIGHT, CONTRIBUTING TO INCREASED SHORTNESS OF BREATH, AND ALSO TO SLEEP APNEA. HE IS ADVISED TO CUT DOWN THE CARBOHYDRATES AND TRY TO WALK MORE EVEN THOUGH HE HAS SLIGHT SHORTNESS OF BREATH ON WALKING. (2) KEVIN on CPAP: Comment: This patient was started on home respirator, during his hospitalization in 2020. The home respirator was started because of his diagnosis of acute on chronic respiratory failure. However he has all the clinical/physical features supporting diagnosis of obstructive sleep apnea. Polysomnogram study did confirm diagnosis of obstructive sleep apnea. Patient underwent CPAP titration, and he was treated optimally with application of CPAP of 12-15 cm, not requiring O2 at this pressure level. * so he has done very well just with the use of CPAP and pressure setting 12 cm, not requiring any O2 Compliance is reviewed and it is excellent . He is using up to 13 hours per day. Code(s): G47.33 - Obstructive sleep apnea (adult) (pediatric); Z99.89 - Dependence on other enabling machines and devices Category: Medical Plan: COMMENDED FOR GOOD COMPLIANCE AND ADVISED TO CONTINUE USING THE CPAP DURING THE NIGHTS WELL FOR A FEW HOURS DURING THE DAY. (3) COPD (chronic obstructive pulmonary disease): Comment: Has chronic obstructive pulmonary disease . PULMONARY FUNCTION TEST SHOWED MILD OBSTRUCTIVE AIRWAY DISORDER, NO DEFINITE RESTRICTIVE DISORDER. HE DOES HAVE INCREASED DYSPNEA ON MINIMAL EXERTION. THIS IS PROBABLY DUE TO COMBINATION POOR PHYSICAL CONDITIONING AND ALSO INCREASED DEGREE OF COPD. Code(s): J44.9 - Chronic obstructive pulmonary disease, unspecified Category: Medical Qualifiers: COPD type: COPD with acute exacerbation Qualified Code(s): J44.1 - Chronic obstructive pulmonary disease with (acute) exacerbation Plan: I TOLD HIM THAT HE HAS TO LOSE ABOUT 5-10 LB OF WEIGHT. DO DEEP BREATHING EXERCISES WITH THE INCENTIVE SPIROMETRY 3 TO 4 TIMES A DAY. CONTINUE WIXELA 250-51 INHALATION B.I.D.. ADD LAMA AGENT , . I HAVE ORDERED INCRUSE ELLIPTA AND IF THAT IS NOT COVERED BY INSURANCE WE WILL GO TO [facility]. I WILL RECHECK HIM IN A FEW MONTHS. Medications: New umeclidinium 62.5 mcg/actuation (Incruse Ellipta) 1 inh inhalation DAILY 30 days 30 ea 3RF COPD Coding Level of Care Code Est Pt Level 4 (24839) Diagnoses Obesity (BMI 30-39.9) E66.9 KEVIN on CPAP G47.33; Z99.89 Chronic obstructive pulmonary disease with acute exacerbation J44.1 COPD type: COPD with acute exacerbation
--- OUTSIDE RECORDS SUMMARY | 2025-01-01 11:44 | XMS_ITS ---
Author Name Johnny SUERO MS. 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 Member should report any worsening S&S of depression for the ability to check PHQ9 result. Diabetic neuropathy associated with type 2 diabetes mellitus Active 2023-09-27 N/A Has burning se nsation Takes Haylee mellitus Maintain good glycemic control with A1c checks at minimum annually. COPD (chronic obstructive pulmonary disease) & Chronic respiratory failure with hypoxia Active 2023-09-27 N/A Wear a Trilogy a t night with 2 L per nc and [...] away from secondhand smoke.Stay away from sick contacts. Hypertension Active 2023-09-27 N/A Metformin & TrulicityContingency Plan: 1.F/U with ophthalmology [...] Goal BP for T2DM is BP < 130/80 BPPV (benign paroxysmal positional vertigo) Active 2023-10-13 N/A Occurs when he turns in bed or if he tilts his head back to look at the ceiling he gets dizzy. Will order Meclizine. Health education/counseling Active 2024-06-27 N/A 06/27/2024 olonoscopy scheduled 09/2024 per member Diabetic eye exam - had one a month ago per member Morbid obesity due to excess calories Active 2024-06-27 N/A 4Recomme nd a DASH diet and count calories and increase activity gradually. Consider oupt weight loss center. BMI >35 has HTN & DM108/27/2023MI 38.32Encouraged weight loss, exercise, diet change -a variety of minimally processed, whole foods, and limit or avoid foods that are high in calories and low in nutrients. Follow up with PCP. Medication refill Active 2024-06-27 N/A 024Member requesting refill of aspirin Member states pcp might not want refill jardainace - as appt in July and will discuss then. Elation had jardiance at 25 mg once daily, member reports taking jardiance at 10 mg once daily - encouraged to clarify with PCP next month at appt. Hyperlipidemia associated with type 2 diabetes mellitus Active 2023-09-27 N/A Rosuvastatin C ontinue current Statin therapy with periodical lab checks [...] Outside care Member reports at home glucose 130's Burn of leg, right Active 2024-06-27 N/A Numbne ss and burning sensation in right leg while [...] gabapentin or Cymbalta before PCP appt if needed. Other problems related to medical facilities and other health care Active 2023-09-27 N/A PAIN CO NTINGENCY PLANLast updated: 06/27/2024Member to call for the following symptoms: Decreased mobility/ Increased pain/ Joint swelling/ StiffnessPlanned intervention: Encourage extra fluid intake / Tylenol 1,000mg q6h/ Apply heat to affected area/ Apply ice to affected area Encounters Encounters Type Facility Date of Service Diagnosis/Co mplaint No Data Available [facility], ([place]) 09/27/2023 Essential (primary) hypertensionType 2 diabetes mellitus with other specified complicationHyperlipidemia, unspecifiedType 2 diabetes mellitus with diabetic neuropathy, unspecifiedChronic obstructive pulmonary disease, unspecifiedChronic respiratory failure with hypoxiaMorbid (severe) obesity due to excess caloriesMajor depressive disorder, single episode, moderateOther problems related to medical facilities and other health careBenign paroxysmal vertigo, unspecified ear No Data Available [facility], [place] 09/27/2023 No Data Available [facility], ([place] 09/27/2023 No Data Available [facility], [place] 09/27/2023 No Data Available [facility], ([place] 09/27/2023 No Data Available [facility], ([place]) 10/04/2023 Type 2 diabetes mellitus wit h other specified complicationHyperlipidemia, unspecified No Data Available [facility], ([place]) 10/13/2023 Essential (primary) hypertensionType 2 diabetes mellitus with other specified complicationHyperlipidemia, unspecifiedBenign paroxysmal vertigo, unspecified ear No Data Available [facility], ([place]) 10/13/2023 Estab. patient 20-29min; 1 stable chronic or 2 minor; add add modifier 95 for video, modifier 93 for phone [facility], ([place]) 06/27/2024 Type 2 diabetes mellitus wit h [...] modifier 93 for phone [facility] ([place] 06/27/2024 Estab. patient 20-29min; 1 stable chronic or 2 minor; add add modifier 95 for video, modifier 93 for phone [facility] [place] 06/27/2024 Estab. patient 20-29min; 1 stable chronic or 2 minor; add add modifier 95 for video, modifier 93 for phone [facility], ([place] 06/27/2024 Estab. patient 20-29min; 1 stable chronic or 2 minor; add add modifier 95 for video, modifier 93 for phone [facility] [place] 06/27/2024 Estab. patient 20-29min; 1 stable chronic or 2 minor; add add modifier 95 for video, modifier 93 for phone [facility] [place] 06/27/2024 Estab. patient 20-29min; 1 stable chronic or 2 minor; add add modifier 95 for video, modifier 93 for phone [facility], ([place] 06/27/2024 Estab. patient 20-29min; 1 stable chronic or 2 minor; add add modifier 95 for video, modifier 93 for phone [facility] [place] 06/27/2024 Estab. patient 20-29min; 1 stable chronic or 2 minor; add add modifier 95 for video, modifier 93 for phone [facility], ([place] 06/27/2024 Vital Signs Date [...] date Servicing provider Phone# No Data Available [id number] 2023-09-27 No Data Available No Data Available BMI obtained (3008F) 3008F 2023-09-27 No Data Availab le No Data Available No Data Available [id number] 2023-09-27 No Data Available No Data Available Functional Status Assessed (1170F) 1170F 2023-09-27 No Data Available No Data Avail able Medication List Documented (1159F) 1159F 2023-09-27 No Data Available No Data Mera ilable No Data Available [id number] 2023-10-04 No Data Available No Data Available No Data Available [id number] 2023-10-13 No Data Available No Data Available Pain Assessment - NO pain present (1126F) 1126F 2023-10-13 No Data Available No Data A vailable Estab. patient 20-29min; 1 stable chronic or 2 minor; add add modifier 95 for video, modifier 93 for phone [id number] 2024-06-27 No Data Available No Data Availa [...] Take 1 puff BID because: DuplicatedBMI obtained (0598F)Televideo new patient, 30-44min 1 stable chronic or [...] Goal BP for T2DM is BP < 130/8011/No recent A1c [facility], [facility], Outside care Member [...] - had one a month ago per bifuhy3106/27/2024Member requesting refill of aspirin Member states pcp [...] ER visit(s) and precipitating factors: [facility] Review ed
== END 2025-01-01 11:20 | disposition home or self-care (01) ==
PROVIDERS: PCP Internal Medicine; Visit Provider Internal Medicine
DX: E66.9 Obesity, unspecified (principal); G47.33 Obstructive sleep apnea (adult) (pediatric); Z99.89 Dependence on other enabling machines and devices; J44.1 Chronic obstructive pulmonary disease with (acute) exacerbation
CPT/HCPCS: 99214

== ENCOUNTER → 2025-01-01 10:40 | Outpatient (BNVA) | payer MEDICARE, SELFPAY | PROVIDERS: PCP Internal Medicine; Visit Provider Internal Medicine | DX: G47.33 Obstructive sleep apnea (adult) (pediatric) (principal); E66.9 Obesity, unspecified; J44.1 Chronic obstructive pulmonary disease with (acute) exacerbation; Z99.89 Dependence on other enabling machines and devices; Z68.39 Body mass index [BMI] 39.0-39.9, adult | CPT/HCPCS: 99212 ==

== ENCOUNTER 2025-01-03 10:43 | Outpatient (AMB) | payer MEDICARE, MEDICAID, SELFPAY ==
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
[2025-01-03 10:52] VITALS: BP 118/64; PULSE 98; RESP 20; TEMP 36.6; O2SAT 96; BMI 39.7
--- OUTSIDE RECORDS SUMMARY | 2025-01-03 11:28 | XMS_ITS ---
Author Name Johnny SUERO MS. Dasia Moctezuma Address [address] [place] [address] Phone [phone] Organization [facility] Care Team Providers Care Clay Pigeon Setter Name Role Phone Puja Turner Unavailable [phone] Unavailable Unavailable Unavailable Reason for Referral Not [...] 2023-10-13 No Data Available [facility] Delica Plus [id number] Miscellaneous No Data Available 2023-03-20 No Data [...] of Service Diagnosis/Co mplaint No Data Available [facility], ([place]) [place]/27/2023 Essential (primary) hypertensionType 2 diabetes mellitus with other specified complicationHyperlipidemia, unspecifiedType 2 diabetes mellitus with diabetic neuropathy, unspecifiedChronic obstructive pulmonary disease, unspecifiedChronic respiratory failure with hypoxiaMorbid (severe) obesity due to excess caloriesMajor depressive disorder, single episode, moderateOther problems related to medical facilities and other health careBenign paroxysmal vertigo, unspecified ear No Data Available [facility] [place] 09[place] [facility] [facility] [facility] [facility], ([place]) 10/04/2023 Type 2 diabetes mellitus wit h other specified complicationHyperlipidemia, unspecified No Data Available [facility] [place]2023 Essential (primary) hypertensionType 2 diabetes mellitus with other specified complicationHyperlipidemia, unspecifiedBenign paroxysmal vertigo, unspecified ear No Data Available [facility] [place]/2023 Estab. patient 20-29min; 1 stable chronic or 2 minor; add add modifier 95 for video, modifier [address] [facility] [place]/2024 Type 2 diabetes mellitus wit h [...] 95 for video, modifier 93 for phone [facility] [place] Estab. patient 20-29min; 1 stable chronic or 2 minor; add add modifier 95 for video, modifier 93 for phone [facility] [place]20[place] Estab. patient 20-29min; 1 stable chronic or 2 minor; add add modifier 95 for video, modifier 93 for phone [facility] [place] 06[place] Estab. patient 20-29min; 1 stable chronic or 2 minor; add add modifier 95 for video, modifier 93 for phone [facility] [place] 06/[place]/2024 Estab. patient 20-29min; 1 stable chronic or 2 minor; add add modifier 95 for video, modifier 93 for phone [facility] [place] 06[place]20[place] Estab. patient 20-29min; 1 stable chronic or 2 minor; add add modifier 95 for video, modifier 93 for phone [facility] [place] 06/[place]/20[place] Estab. patient 20-29min; 1 stable chronic or 2 minor; add add modifier 95 for video, modifier 93 for phone [facility] [place] 06/27/2024 Vital Signs Date [...] date Servicing provider Phone# No Data Available [id number] 2023-09-27 No Data Available No Data Available BMI obtained (3008F) 3008F 2023-09-27 No Data Availab le No Data Available No Data Available [id number] 2023-09-27 No Data Available No Data Available Functional Status Assessed (1170F) 1170F 2023-09-27 No Data Available No Data Avail able Medication List Documented (1159F) 1159F 2023-09-27 No Data Available No Data Mera ilable No Data Available [id number] 2023-10-04 No Data Available No Data Available No Data Available [id number] 2023-10-13 No Data Available No Data Available Pain Assessment - NO pain present (1126F) 1126F 2023-10-13 No Data Available No Data A vailable Estab. patient 20-29min; 1 stable chronic or 2 minor; add add modifier 95 for video, modifier 93 for phone [id number] 2024-06-27 No Data Available No Data Availa [...] Take 1 puff BID because: DuplicatedBMI obtained (2478F)Televideo new patient, 30-44min 1 stable chronic or [...] - had one a month ago per [id number]/27/2024Member requesting refill of aspirin Member states pcp [...] ER visit(s) and precipitating factors: Denies 2024-06-27 [facility] Review ed
== END 2025-01-03 11:36 | disposition home or self-care (01) ==
LOC: HO.HMCC 10:43
PROVIDERS: PCP Internal Medicine; Visit Provider Internal Medicine
DX: E11.65 Type 2 diabetes mellitus with hyperglycemia (principal); J44.1 Chronic obstructive pulmonary disease with (acute) exacerbation; I10 Essential (primary) hypertension; Z12.11 Encounter for screening for malignant neoplasm of colon; E78.5 Hyperlipidemia, unspecified; F41.9 Anxiety disorder, unspecified; F32.A Depression, unspecified; G47.33 Obstructive sleep apnea (adult) (pediatric); Z99.89 Dependence on other enabling machines and devices

== ENCOUNTER → 2025-01-03 10:43 | Outpatient (BNVA) | payer MEDICARE, MEDICAID, SELFPAY | PROVIDERS: PCP Internal Medicine; Visit Provider Internal Medicine | DX: E11.65 Type 2 diabetes mellitus with hyperglycemia (principal); I10 Essential (primary) hypertension; E78.5 Hyperlipidemia, unspecified; F41.9 Anxiety disorder, unspecified; F32.A Depression, unspecified; J44.1 Chronic obstructive pulmonary disease with (acute) exacerbation; G47.33 Obstructive sleep apnea (adult) (pediatric); Z99.89 Dependence on other enabling machines and devices | CPT/HCPCS: 99212 ==

== ENCOUNTER 2025-05-19 10:34 | Outpatient (REF) | payer MEDICARE, MEDICAID, SELFPAY ==
--- OUTSIDE RECORDS SUMMARY | 2025-05-19 10:39 | XMS_ITS ---
Author Name MS. Israel Eldridge Address [address] [place] [id number] Phone [phone] [facility] Care Team Providers Care Picker Operator Name Role Phone Puja Turner Unavailable [phone] Unavailable Unavailable Unavailable Reason for Referral Not [...] 2023-10-13 No Data Available [facility] Plus [id number] Miscellaneous No Data Available 2023-03-20 No Data [...] of Service Diagnosis/Co mplaint No Data Available [facility], ([place]) 09/27/2023 Essential (primary) hypertensionType 2 diabetes mellitus with other specified complicationHyperlipidemia, unspecifiedType 2 diabetes mellitus with diabetic neuropathy, unspecifiedChronic obstructive pulmonary disease, unspecifiedChronic respiratory failure with hypoxiaMorbid (severe) obesity due to excess caloriesMajor depressive disorder, single episode, moderateOther problems related to medical facilities and other health careBenign paroxysmal vertigo, unspecified ear No Data Available [facility]2023 No Data Available [facility]2023 No Data Available [facility]2023 No Data Available [facility]2023 No Data Available [facility], ([place]) 10/04/2023 Type 2 diabetes mellitus wit h other specified complicationHyperlipidemia, unspecified No Data Available [facility]2023 Essential (primary) hypertensionType 2 diabetes mellitus with other specified complicationHyperlipidemia, unspecifiedBenign paroxysmal vertigo, unspecified ear No Data Available [facility]13[place]2023 Estab. patient 20-29min; 1 stable chronic or 2 minor; add add modifier 95 for video, modifier 93 for phone [facility] [place] 06/27/2024 Type 2 diabetes mellitus wit h [...] 95 for video, modifier 93 for phone [facility] [place] Estab. patient 20-29min; 1 stable chronic or 2 minor; add add modifier 95 for video, modifier 93 for phone [facility] [place]/20[place] Estab. patient 20-29min; 1 stable chronic or 2 minor; add add modifier 95 for video, modifier 93 for phone [facility] [place] [facility]/[place] Estab. patient 20-29min; 1 stable chronic or 2 minor; add add modifier 95 for video, modifier 93 for phone [facility] [place] 06/[place]/20[place] Estab. patient 20-29min; 1 stable chronic or 2 minor; add add modifier 95 for video, modifier 93 for phone [facility] [place] 06/[place]/20[place] Estab. patient 20-29min; 1 stable chronic or 2 minor; add add modifier 95 for video, modifier 93 for phone [facility] [place] 06/27/2024 Estab. patient 20-29min; 1 stable chronic or 2 minor; add add modifier 95 for video, modifier 93 for phone [facility] [place] 06/27/2024 Vital Signs Date [...] date Servicing provider Phone# No Data Available [id number] 2023-09-27 No Data Available No Data Available BMI obtained (3008F) 3008F 2023-09-27 No Data Availab le No Data Available No Data Available [id number] 2023-09-27 No Data Available No Data Available Functional Status Assessed (1170F) 1170F 2023-09-27 No Data Available No Data Avail able Medication List Documented (1159F) 1159F 2023-09-27 No Data Available No Data Mera ilable No Data Available [id number] 2023-10-04 No Data Available No Data Available No Data Available [id number] 2023-10-13 No Data Available No Data Available Pain Assessment - NO pain present (1126F) 1126F 2023-10-13 No Data Available No Data A vailable Estab. patient 20-29min; 1 stable chronic or 2 minor; add add modifier 95 for video, modifier 93 for phone [id number] 2024-06-27 No Data Available No Data Availa [...] ilable Advance care planning discussed and documented advance care plan or surrogate decision-maker was [...] Take 1 puff BID because: DuplicatedBMI obtained (1856F)Televideo new patient, 30-44min 1 stable chronic or [...] Documented (1125F)Advance care planning discussed and documented advance care plan or surrogate decision-maker was [...] Goal BP for T2DM is BP < 130/8011//2023No recent A1c [facility], [facility], Outside care Member [...] gabapentin or Cymbalta before PCP appt if needed.4Recommend a DASH diet and count calories and increase activity gradually. Consider oupt weight loss center. BMI >35 has HTN & DM14BMI 38.32Encouraged weight loss, exercise, diet change -a variety of minimally processed, whole foods, and limit or avoid foods that are high in calories and low in nutrients. Follow up with PCP.06/27/2024olonoscopy scheduled 09/2024 per member Diabetic eye exam - had one a month ago per [id number]/27/2024[facility] requesting refill of aspirin Member states pcp might not want refill jardainace - as appt in July and will discuss then. Elation had jardiance at 25 mg once daily, member reports taking jardiance at 10 mg once daily - encouraged to clarify with PCP next month at appt.PAIN CONTINGENCY PLANLast updated: 06/27/2024[facility] the [facility]: Decreased [...] ER visit(s) and precipitating factors: Denies [facility]24-06-27 [facility] Review ed
[2025-05-19 13:06] LABS: MANUAL DIFF FLAG NO
[2025-05-19 13:12] LABS: Hematocrit 47.2 % (42.0-52.0); Hemoglobin 15.1 g/dl (14.0-18.0); Imm Gran Abs Auto 0.03 X10*3/uL (0.00-0.03); Imm Gran Pct Auto 0.3 % (0.0-0.4); Lymphocytes Absolute Auto 2.4 X10*3/uL (1.2-4.9); Mean Corpuscular HGB Conc 32.0 g/dl (31.0-36.0); Mean Corpuscular Hemoglobin 29.8 pg (27.0-33.0); Mean Corpuscular Volume 93.1 fL (80.0-98.0); NRBC Abs Auto 0.000 X10*3/uL (0.0-0.012); NRBC Pct Auto 0.0 /100WBC (0.0-0.2); Platelet Count 217 X10*3/uL (160-400); Red Blood Count 5.07 X10*6/uL (4.60-5.80); White Blood Count 8.9 X10*3/uL (4.8-10.8)
[2025-05-19 13:50] LABS: Alanine Aminotransferase 17 U/L (0-40); Anion Gap 13 (12-20); Aspartate Amino Transferase 18 U/L (5-37); Blood Urea Nitrogen 10 mg/dL (9-16); Calcium 9.1 mg/dL (8.4-10.2); Carbon Dioxide 29 mmol/L (22-29); Chloride 105 mmol/L (96-108); Cholesterol 117 mg/dL (<200); Estimated Glomerular Filt Rate > 60; HDL Cholesterol 34 mg/dL (>40); Potassium 4.6 mmol/L (3.3-5.1); Sodium 142 mmol/L (135-145); Triglycerides 141 mg/dL (<150)
== END 2025-05-19 10:35 | disposition home or self-care (01) ==
LOC: HO.HMGCLDS 10:34
PROVIDERS: PCP Internal Medicine; Visit Provider Internal Medicine
DX: E11.65 Type 2 diabetes mellitus with hyperglycemia (principal); D72.829 Elevated white blood cell count, unspecified; I10 Essential (primary) hypertension; E66.9 Obesity, unspecified; E78.5 Hyperlipidemia, unspecified; Z87.898 Personal history of other specified conditions
CPT/HCPCS: 36415; 80048; 80061; 83036; 84443; 84450; 84460; 85025

== ENCOUNTER 2025-05-20 13:31 | Outpatient (AMB) | payer MEDICARE, MEDICAID, SELFPAY ==
[2025-05-20 13:55] VITALS: BP 120/68; PULSE 83; RESP 18; TEMP 36.7; O2SAT 98; BMI 39.2
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
--- OUTSIDE RECORDS SUMMARY | 2025-05-20 16:25 | XMS_ITS ---
Author Name MS. Israel Eldridge Address [address] [place] [id number] Phone [phone] [facility] Care Team Providers Care Charge Account Clerk Name Role Phone Puaj Turner Unavailable [phone] Unavailable Unavailable Unavailable Reason for Referral Not [...] 2023-10-13 No Data Available [facility] [id number] Miscellaneous No Data Available 2023-03-20 No Data [...] of Service Diagnosis/Co mplaint No Data Available [facility], [place] 09/27/2023 Essential (primary) hypertensionType 2 diabetes mellitus with other specified complicationHyperlipidemia, unspecifiedType 2 diabetes mellitus with diabetic neuropathy, unspecifiedChronic obstructive pulmonary disease, unspecifiedChronic respiratory failure with hypoxiaMorbid (severe) obesity due to excess caloriesMajor depressive disorder, single episode, moderateOther problems related to medical facilities and other health careBenign paroxysmal vertigo, unspecified ear No Data Available [facility] [place] 09/27/2023 No Data Available [facility] [place] 09[place]2023 No Data Available [facility] 09/[place]2023 No Data Available [facility] [place] 09/[place]/2023 No Data Available [facility] [place] 10/04/2023 Type 2 diabetes mellitus wit h other specified complicationHyperlipidemia, unspecified No Data Available [facility] [place] 10/13/2023 Essential (primary) hypertensionType 2 diabetes mellitus with other specified complicationHyperlipidemia, unspecifiedBenign paroxysmal vertigo, unspecified ear No Data Available [facility] [place] 10/13/2023 Estab. patient 20-29min; 1 stable chronic or 2 minor; add add modifier 95 for video, modifier 93 for phone [facility] [place] 06/27/2024 Type 2 diabetes mellitus wit h [...] 95 for video, modifier 93 for phone [facility] Estab. patient 20-29min; 1 stable chronic or 2 minor; add add modifier 95 for video, modifier 93 for phone [facility] [place] 06/27/2024 Estab. patient 20-29min; 1 stable chronic or 2 minor; add add modifier 95 for video, modifier 93 for phone [facility] [place] [facility] Estab. patient 20-29min; 1 stable chronic or 2 minor; add add modifier 95 for video, modifier 93 for phone [facility] [place] 06/[place]/[facility]24 Estab. patient 20-29min; 1 stable chronic or 2 minor; add add modifier 95 for video, modifier 93 for phone [facility] [place] 06/27/2024 Estab. patient 20-29min; 1 stable chronic or 2 minor; add add modifier 95 for video, modifier 93 for phone [facility] [place] 06/[place]/20[facility] Estab. patient 20-29min; 1 stable chronic or 2 minor; add add modifier 95 for video, modifier 93 for phone [facility] [place] 06/27/2024 Vital Signs Date [...] date Servicing provider Phone# No Data Available [id number] 2023-09-27 No Data Available No Data Available BMI obtained (3008F) 3008F 2023-09-27 No Data Availab le No Data Available No Data Available [id number] 2023-09-27 No Data Available No Data Available Functional Status Assessed (1170F) 1170F 2023-09-27 No Data Available No Data Avail able Medication List Documented (1159F) 1159F 2023-09-27 No Data Available No Data Mera ilable No Data Available [id number] 2023-10-04 No Data Available No Data Available No Data Available [id number] 2023-10-13 No Data Available No Data Available Pain Assessment - NO pain present (1126F) 1126F 2023-10-13 No Data Available No Data A vailable Estab. patient 20-29min; 1 stable chronic or 2 minor; add add modifier 95 for video, modifier 93 for phone [id number] 2024-06-27 No Data Available No Data Availa [...] Take 1 puff BID because: DuplicatedBMI obtained (1403F)Televideo new patient, 30-44min 1 stable chronic or [...] - had one a month ago per [id number]/2024Meer requesting refill of aspirin Member states pcp might not want refill jardainace - as appt in July and will discuss then. Elation had jardiance at 25 mg once daily, member reports taking jardiance at 10 mg once daily - encouraged to clarify with PCP next month at appt.PAIN CONTINGENCY PLANLast updated: 06/27/2024[facility] [...] ER visit(s) and precipitating factors: Denies 2024[facility]06-27 [facility] Review ed
== END 2025-05-20 16:46 | disposition home or self-care (01) ==
PROVIDERS: PCP Internal Medicine; Visit Provider Internal Medicine
DX: Z23 Encounter for immunization (principal)

== ENCOUNTER → 2025-05-20 13:31 | Outpatient (BNVA) | payer MEDICARE, SELFPAY | PROVIDERS: PCP Internal Medicine; Visit Provider Internal Medicine | DX: E11.65 Type 2 diabetes mellitus with hyperglycemia (principal); E11.42 Type 2 diabetes mellitus with diabetic polyneuropathy; E78.5 Hyperlipidemia, unspecified; I10 Essential (primary) hypertension; Z23 Encounter for immunization; Z86.69 Personal history of other diseases of the nervous system and sense organs; Z80.0 Family history of malignant neoplasm of digestive organs; Z79.84 Long term (current) use of oral hypoglycemic drugs | CPT/HCPCS: 90471; 90656; 99212 ==